=== PATIENT | female | born 1930 | race Caucasian/White ===

== ENCOUNTER → 2016-11-17 | Outpatient (CLI) | payer MEDICARE ==
[~2016-11-17] MED LIST: /CELE20CA; /ESOM40CA; /WARF25TA; ACET65TA; AMLO10TAB; ASPI1TAB PO; BUPR15TA OR; CALC600T10; CALCCHW12; CIPR500T4; CIPR500T4 OR; COLA100C PO; COLA100C2; DETR2CAP; DICL13PA TD; DICL13PA TOP; FLAG500T; GABA-279 PO; GLUC500T OR; HAIRTAB5 PO; HCTZ/LOSARTAN OR; HYDR25TA6; HYDR25TA8; KLOR10TA; LISI10TA4 OR; LISI20TA3 PO; MAPA325T2 PO; MILKSUS; MIRA3350 PO; NEUR100C PO; OXYC10TA97; PERC5TAB8; PRINZIDE; PROZ40CA; SENO8.6T5; SERT-141 PO; SIMV20TA2; SIMV20TA2 OR; SIMV20TA2 PO; THERGRAN OR; VENL75TA2 OR; VITMTA PO; ZEST10TA; [UNRECOGNIZED DRUG - OTHER] OR
--- NOTE | 2016-11-17 11:50 | REP ---
MRI CERVICAL SPINE WITHOUT CONTRAST: HISTORY: Spondylosis. A small central disc protrusion is present at the C2-3 level. There is minimal effacement of the thecal sac without spinal cord compression. The C2 neural foramina are patent. A disc bulge is present at the C3-4 level. There is minimal effacement of the thecal sac without spinal cord compression. Uncinate process hypertrophy is present on the right. This produces minimal narrowing of the right C3 neural foramen. The left C3 neural foramen is patent. A disc bulge is present at the C4-5 level. There are 2 mm of anterior subluxation of C4 on 5. There is minimal effacement of the thecal sac without spinal cord compression. Uncinate process hypertrophy is present on the right. This produces minimal narrowing of the right C4 neural foramen. The left C4 neural foramen is patent. A disc bulge and small right paracentral disc protrusion with associated osteophyte formation are present at the C5-6 level. The disc protrusion abuts the spinal cord. Uncinate process hypertrophy is present on the right. This produces mild narrowing of the right C5 neural foramen. The left C5 neural foramen is patent. A disc bulge with associated osteophyte formation is present at the C6-7 level. There is moderate effacement of the thecal sac without spinal cord compression. Bilateral uncinate process hypertrophy is present. This produces mild narrowing of the C6 neural foramina. Small disc extrusions are present at the T1-2 and T2-3 levels. There is mild effacement of the thecal sac without spinal cord compression. The neural foramina are patent on sagittal images. There is no other disc bulge or herniation. The remaining neural foramina are patent. The spinal cord is normal in signal intensity. There is no intradural extramedullary lesion. The C4-5 through C6-7 intervertebral discs are decreased in height consistent with disc degeneration. Normal signal intensity is present in the cervical vertebral bodies. IMPRESSION: There is cervical spondylosis at the C2-3 through C6-7 levels without spinal cord compression. Signed by Siddharth Vitale MD 11/17/2016 11:55 A
== END ==
LOC: M RAD 09:23
PROVIDERS: ATTEND Neurological Surgery
DX: M47.892 Other spondylosis, cervical region (principal)

== ENCOUNTER 2017-01-21 10:06 | Observation (INO) | payer MEDICARE ==
[~2017-01-21] VITALS: Ht 149.9 cm; Wt 87.1 kg
[~2017-01-21 10:06] MED LIST changes: -COLA100C PO; +COLA100C3 PO; -SERT-141 PO; +SERT50TA PO
[2017-01-21] MEDS ORDERED: GABA-282 PO (10:46)
[2017-01-21] MEDS ORDERED: NORC1TAB4 PO (10:50)
[2017-01-21] MEDS ORDERED: ONDANSETRON 4MG/2ML VIAL (J2405) IV ONE (11:30)
[2017-01-21] MEDS ORDERED: MORPHINE 2 MG/ML 1ML SYRINGE IV ONE ×2 (11:30→13:30)
[2017-01-21] MEDS ORDERED: ALEV220T26 PO (14:30)
[2017-01-21] MEDS ORDERED: LIDOCAINE 5% (LIDODERM) PATCH TD ONE (14:30)
[2017-01-21] MEDS ORDERED: GABA600T PO (14:30)
[2017-01-21] MEDS ORDERED: BIOTCAP PO (14:30)
--- NOTE | 2017-01-21 14:57 | HPEPDOC ---
General Date of Admission Jan 21, 2017 at 14:04 Chief Complaint The patient is a 86-year-old female Presented to the ER with right lower back pain. History of Present Illness Patient is a 86 year old female with a PMHx of DLP, HTN, Chronic back pain (2/2 Lumbar stenosis and herniated disks) and depression who presented to the ER with right lower back pain since yesterday evening. Patient noted that they went to sleep without any events and woke up in the middle of the night with severe back pain. She notes that she was trying to ambulate to the bathroom and was unable to do so. She denies any muscle weakness of numbness sensation. She denies any incontinence of bowel or bladder. She has had pain like this in the past that has been controlled with medications. She denies any trauma or falls. She has received joint injections in the past with relief. She has an upcoming appointment with [facility] on Sunday and notes that she will likely miss that because she will be here. She denies any chest pain, shortness of breath, cough, palpitations, nausea, vomiting, abdominal pain, constipation, diarrhea or urinary symptoms. She denies any fever or chills at home. Home Medications Scheduled (Lisinopril/Hydrochlorothi 20-25 mg) 1 Tab Tab, 1 TAB PO QHS, (Reported) Aspirin (Aspirin 81) 81 Mg Tab, 81 MG PO QHS, (Reported) Biotin (Vitamin H) (Biotin 5000) 5 Mg Cap, 5 MG PO QHS, (Reported) Gabapentin (Gabapentin) 300 Mg Cap, 300 MG PO QAM, (Reported) Gabapentin (Gabapentin) 600 Mg Tab, 600 MG PO QHS, (Reported) Multivitamins *[facility] STOCKED* (Thera M Plus *[facility] STOCKED*) 1 Tab Tab, 1 TAB PO QHS , (Reported) Sertraline Hcl (Sertraline HCl) 50 Mg Tab, 50 MG PO QHS, (Reported) Simvastatin (Simvastatin) 20 Mg Tab, 20 MG PO QHS, (Reported) Scheduled PRN Acetaminophen/Hydrocodone ([place] 5-325 mg) 1 Tab Tab, 1 TAB PO Q6HP PRN for pain , (Reported) Naproxen Sodium (Aleve) 220 Mg Tab, 220 MG PO DAILY PRN for PAIN, (Reported) Allergies Coded Allergies: Aminoglycosides (Verified Allergy, Mild, RAISED RASH ON WOUND SITE, 12/31/12 ) Bacitracin (Verified Allergy, Mild, RAISED RASH ON WOUND SITE, 12/31/12) Neomycin (Verified Allergy, Mild, RAISED RASH ON WOUND SITE, 12/31/12) Polymyxin B (Verified Allergy, Mild, RAISED RASH ON WOUND SITE, 12/31/12) Bee Venom (Unverified Allergy, Unknown, 12/31/12) SEAFOOD (Verified Allergy, Unknown, 12/16/07) Past Medical History Medical History DLP, HTN, Chronic back pain (2/2 Lumbar stenosis and herniated disks) and depression Surgical History Bilateral knee replacement Hysterectomy Appendectomy Tonsillectomy Family History - Non-contributory Social History - Denies the use of illicit drugs; Quit smoking 20 years prior, history of 30 years at [facility] [place], Social EtoH use - Denies recent travel or sick contacts - Lives with - 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 Review of Symptoms Other systems Constitutional: Denies weight loss, change in appetite, or recent trauma Eyes: No visual changes or eye pain Ears, Nose, Throat: Denies nose bleeds, or difficulty swallowing Cardiovascular: Denies chest pain, sweating, or orthopnea Respiratory: Denies cough, wheezing, or shortness of breath GI: Lenard nausea, vomiting, abdominal pain, diarrhea or constipation : Denies pain with urination or frequency Musculoskeletal: Right lower back pain Neuro / Psych: Denies muscle weakness or sensory loss Skin: No skin rashes noted All other review of systems negative; otherwise stated in history of present illness Vital Signs - Vitals: BP 128/58, HR 51, RR 18, Sat 94%RA, Temp 98.5F - General: Lying in bed, No acute distress, Speaking in full sentences, AAOx3 - HEENT: NC, AT, PERRLA, EOMI - CVS: RRR, +S1S2, - Lungs: Fair air entry bilaterally, Mild crackles at bilateral lung bases - Abdomen: Soft, Non-distended, Non-tender, + Bowel sounds x 4 - Extremities: + PPx4, No lower extremity edema, No calf tenderness - Neuro: No focal motor or sensory deficit; +Pain at right back when elevation of right leg - Skin: No visible rashes Plan / VTE VTE Prophylaxis Ordered?: Yes Plan Plan Intractable back pain likely 2/2 herniated disk and lumbar stenosis at L4-L5 - Presented with pain that woke her from sleep and now inability to walk because of pain - Had taken pain medications at home that did not control her pain - Will get XR of lumbar spine, CXR and Abdominal XR - Will check urinalysis (less likely 2/2 kidney stone) - Will adjust dose of Gabapentin, increase dose of [place] and add Lidocaine patch - Will get evaluation by physical therapy Crackles at lung bases - No shortness of breath, no JVD or LE edema - Will get CXR to evaluate DLP - c/w simvastatin HTN - c/w Lisinopril / HCTZ with holding parameters Depression - c/w Sertraline DVT prophylaxis - Will start Heparin HIREN CLARKE MD Jan 21, 2017 14:57
--- NOTE | 2017-01-21 15:14 | REP ---
Chest one-view HISTORY: Fluid overload Comparison: N 06/18/2016 The lungs are clear. The heart is normal in size. The pulmonary vasculature is normal in appearance. Impression: No acute disease. Signed by Siddharth Vitale MD 01/21/2017 03:05 P
[2017-01-21 15:23] LABS: BASO % 0.5 % (0.0-1.0); EOS # 0.2 K/mm3 (0.0-0.50); EOS % 2.5 % (0.0-3.0); LARGE UNSTAINED CELL # 0.1 K/mm3 (0.0-0.4); LARGE UNSTAINED CELL % 1.5 % (0.0-4.0); LYMPH # 2.1 K/mm3 (1.5-4.5); LYMPH % 22.9 % (24.0-44.0); MEAN CORPUSCULAR HEMOGLOBIN 31.3 pg (27.0-33.0); MEAN CORPUSCULAR HGB CONC 32.4 g/dl (32.0-36.5); MEAN CORPUSCULAR VOLUME 96.6 fl (80.0-96.0); MONO # 0.4 K/mm3 (0.0-0.8); MONO % 4.7 % (0.0-5.0); NEUTROPHILS # 5.9 K/mm3 (1.8-7.7); NEUTROPHILS % 67.9 % (36.0-66.0); PLATELET COUNT, AUTOMATED 222 k/mm3 (150-450); RED CELL DISTRIBUTION WIDTH 13.8 % (11.5-14.5); WHITE BLOOD COUNT 8.7 K/mm3 (4.0-10.0)
[2017-01-21 15:46] LABS: ALBUMIN/GLOBULIN RATIO 0.98 (1.00-1.93); ALKALINE PHOSPHATASE 75 U/L (45-117); ALT/SGPT 24 U/L (12-78); ANION GAP 7 MEQ/L (8-16); AST/SGOT 22 U/L (15-37); BILIRUBIN,TOTAL 0.7 MG/DL (0.2-1.0); BLOOD UREA NITROGEN 23 MG/DL (7-18); CALCIUM LEVEL 8.6 MG/DL (8.8-10.2); CARBON DIOXIDE LEVEL 27 MEQ/L (21-32); CHLORIDE LEVEL 103 MEQ/L (98-107); CREATININE FOR GFR 0.83 MG/DL (0.55-1.02); GLOMERULAR FILTRATION RATE > 60.0 (>32); GLUCOSE, FASTING 102 MG/DL (83-110); MAGNESIUM LEVEL 1.9 MG/DL (1.8-2.4); POTASSIUM SERUM 3.6 MEQ/L (3.5-5.1); SODIUM LEVEL 137 MEQ/L (136-145); TOTAL PROTEIN 8.1 GM/DL (6.4-8.2)
[2017-01-21 16:00] VITALS: BP 130/72
[2017-01-21] MEDS: HEPARIN SOD (PORCINE) 5000 UNITS/ML VIAL SC SCH ×2 (16:13→21:38)
[2017-01-21] MEDS: GABAPENTIN 100 MG CAP PO SCH ×2 (16:13→21:38)
[2017-01-21] MEDS: hydroCHLOROthiazide 25 MG TAB PO SCH (16:14)
[2017-01-21] MEDS: LISINOPRIL 20 MG TAB PO SCH (16:14)
[2017-01-21] MEDS: NORCO, ANEXSIA 5/325MG TABLET (HYDROcodone/ACETAMINOPHEN) PO PRN (16:14)
[2017-01-21 18:00] VITALS: BP 130/70
[2017-01-21] MEDS ORDERED: SERTRALINE HCL 50 MG TAB PO SCH (21:00)
[2017-01-21] MEDS ORDERED: SIMVASTATIN 20 MG TAB PO SCH (21:00)
[2017-01-21] MEDS ORDERED: ASPIRIN 81 MG ENTERIC TAB PO SCH (21:00)
[2017-01-21] MEDS ORDERED: MULTIVITAMINS/MINERALS THERAP 1 TAB PO SCH (21:00)
[2017-01-21] MEDS ORDERED: **NOTE PATIENT COMMENT** MISC XX ONE (21:00)
[2017-01-21] MEDS: DOCUSATE SODIUM 100 MG CAP PO SCH (21:38)
[2017-01-21 22:00] VITALS: BP 145/64
[2017-01-22 02:00] VITALS: BP 116/56
[2017-01-22] MEDS: HEPARIN SOD (PORCINE) 5000 UNITS/ML VIAL SC SCH (05:53)
[2017-01-22] MEDS: GABAPENTIN 100 MG CAP PO SCH (05:53)
[2017-01-22] MEDS: NORCO, ANEXSIA 5/325MG TABLET (HYDROcodone/ACETAMINOPHEN) PO PRN (05:58)
[2017-01-22 06:00] VITALS: BP 146/66
--- NOTE | 2017-01-22 06:48 | REP ---
KUB, ONE VIEW: HISTORY: Fluid overload. COMPARISON: 01/21/2015. Air is present in small and large intestine. There are no air fluid levels or dilated loops of intestine. There is no pneumoperitoneum. Degenerative change is present in the lumbar spine. IMPRESSION: Nonspecific bowel gas pattern. Signed by Siddharth Vitale MD 01/22/2017 08:23 A
--- NOTE | 2017-01-22 06:59 | REP ---
LUMBAR SPINE, FIVE VIEWS: HISTORY: Back pain. COMPARISON: 09/05/2016. There is no acute fracture or subluxation. The lumbar intervertebral discs are decreased in height. Vacuum phenomenon is present at the L1-2 and L3-4 through L5-S1 levels. These findings are consistent with disc degeneration. Osteophytes are present throughout the lumbar spine. There is narrowing of the L1-2 through L5-S1 facet joints with associated sclerosis. IMPRESSION: Degenerative change as described above. Signed by Siddharth Vitale MD 01/22/2017 08:25 A
[2017-01-22 08:04] LABS: BASO % 0.6 % (0.0-1.0); EOS # 0.3 K/mm3 (0.0-0.50); EOS % 3.5 % (0.0-3.0); LARGE UNSTAINED CELL # 0.2 K/mm3 (0.0-0.4); LYMPH # 2.5 K/mm3 (1.5-4.5); LYMPH % 27.9 % (24.0-44.0); MEAN CORPUSCULAR HEMOGLOBIN 31.6 pg (27.0-33.0); MEAN CORPUSCULAR HGB CONC 32.3 g/dl (32.0-36.5); MEAN CORPUSCULAR VOLUME 97.8 fl (80.0-96.0); MONO # 0.5 K/mm3 (0.0-0.8); MONO % 5.6 % (0.0-5.0); NEUTROPHILS # 5.1 K/mm3 (1.8-7.7); NEUTROPHILS % 60.4 % (36.0-66.0); PLATELET COUNT, AUTOMATED 208 k/mm3 (150-450); RED CELL DISTRIBUTION WIDTH 13.9 % (11.5-14.5); WHITE BLOOD COUNT 8.5 K/mm3 (4.0-10.0)
[2017-01-22 08:19] LABS: ALBUMIN 3.6 GM/DL (3.2-5.2); ALBUMIN/GLOBULIN RATIO 0.88 (1.00-1.93); BILIRUBIN,TOTAL 0.3 MG/DL (0.2-1.0); CALCIUM LEVEL 8.4 MG/DL (8.8-10.2); CREATININE FOR GFR 1.41 MG/DL (0.55-1.02); GLOMERULAR FILTRATION RATE 37.8 (>32); MAGNESIUM LEVEL 2.1 MG/DL (1.8-2.4); TOTAL PROTEIN 7.7 GM/DL (6.4-8.2)
[2017-01-22] MEDS: DOCUSATE SODIUM 100 MG CAP PO SCH (09:17)
[2017-01-22] MEDS: hydroCHLOROthiazide 25 MG TAB PO SCH (09:17)
[2017-01-22 09:18] VITALS: BP 155/70
[2017-01-22] MEDS: LISINOPRIL 20 MG TAB PO SCH (09:18)
[2017-01-22 10:00] VITALS: BP 133/59
--- NOTE | 2017-01-22 22:46 | DS.PDOC ---
Discharge Summary General Date of Admission Jan 21, 2017 at 14:04 Date of Discharge 01/22/2017 Attending Physician: PRAKASH YO MD Specialist/Consultants Involve PCP: Oz Evans MD Discharge Summary PROCEDURES PERFORMED DURING STAY: None. ADMITTING DIAGNOSES: 1. Intractable back pain secondary to herniated disc and spinal stenosis at L4- 5. 2. Crackles at lung bases. 3. Hypertension. 4. Depression. DISCHARGE DIAGNOSES: 1. Intractable low back pain. 2. Lumbar radicular pain. COMPLICATIONS/CHIEF COMPLAINT: Intractable Pain. HISTORY OF PRESENT ILLNESS: Ms. Napoles is an 86 year old female with a PMHx of DLP, HTN, Chronic back pain (2/2 Lumbar stenosis and herniated disks) and depression who presented to the ER with right lower back pain since yesterday evening. Patient noted that they went to sleep without any events and woke up in the middle of the night with severe back pain. She notes that she was trying to ambulate to the bathroom and was unable to do so. She denies any muscle weakness of numbness sensation. She denies any incontinence of bowel or bladder. She has had pain like this in the past that has been controlled with medications. She denies any trauma or falls. She has received joint injections in the past with relief. She has an upcoming appointment with [facility] on Sunday and notes that she will likely miss that because she will be here. She denies any chest pain, shortness of breath, cough, palpitations, nausea, vomiting, abdominal pain, constipation, diarrhea or urinary symptoms. She denies any fever or chills at home. HOSPITAL COURSE: Ms. Napoles was admitted to the medical-surgical unit with medical care provided by the hospitalist service. Obtained a lumbar spine x- ray with results noted below. Also obtained a urinalysis as this can contribute to low back pain, although it is less likely in this patient. Adjusted pain medications, including providing a lidocaine patch which provided significant relief. Ordered physical therapy; however, patient's pain completely resolved. Improved during hospitalization and stable at time of discharge. DISCHARGE MEDICATIONS: Please see below. ALLERGIES: Please see below. PHYSICAL EXAMINATION ON DISCHARGE: VITAL SIGNS: Please see below. GENERAL: Pleasant female who appears stated age, well nourished, in no apparent distress, appears tired HEENT: Atraumatic, normocephalic, PERRL, EOMI, wears spectacles, nasal septum appears midline, oral mucosa appears pink and moist NECK: Supple, trachea midline, no lymphadenopathy CARDIOVASCULAR EXAMINATION: Regular rate and rhythm, normal S1 and S2, no murmur , rub, click RESPIRATORY EXAMINATION: Clear to auscultation bilaterally, no wheeze, rhonchi, crackles ABDOMINAL EXAMINATION: Soft, non-tender, non-distended, bowel sounds appreciated EXTREMITIES: Moving all four extremities appropriately, no peripheral edam appreciated, peripheral pulses appreciated bilaterally, equal, symmetrical SKIN: No acute skin lesions or rashes noted NEUROLOGICAL EXAMINATION: CN II-XII grossly intact PSYCHIATRIC EXAMINATION: Mood and affect appear appropriate LABORATORY DATA: Please see below. IMAGING: Chest x-ray IMPRESSION: No acute disease Abdominal x-ray IMPRESSION: Non-specific bowel gas pattern Lumbosacral spine x-ray IMPRESSION: There is no acute fracture or subluxation. The lumbar intervertebral discs are decreased in height. Vacuum phenomenon is present at the L1-2 and L3-4 through L5-S1 levels. These findings are consistent with disc degeneration. Osteophytes are present throughout the lumbar spine. There is narrowing of the L1-2 through L5-S1 facet joints with associated sclerosis. PROGNOSIS: Stable ACTIVITY: As tolerated. DIET: 2 gram sodium DISCHARGE PLAN: Follow discharge instructions DISPOSITION: Home. DISCHARGE INSTRUCTIONS: 1. Follow-up with [facility] at pre-arranged appointment 2. Follow-up with Dr. Evans on 01/31/17 at 11:30am ITEMS TO FOLLOWUP ON ON OUTPATIENT: 1. Intractable back pain 2. Lumbar radicular pain DISCHARGE CONDITION: Stable. TIME SPENT ON DISCHARGE: Greater than 30 minutes. Vital Signs/I&Os Vital Signs Date Time Temp Pulse Resp B/P (MAP) Pulse Ox O2 Delivery O2 Flow Rate FiO2 01/22/17 10:00 97.7 55 18 133/59 (83) 94 Room Air I&O- Last 24 Hours up to 6 AM 01/22/17 05:59 Intake Total 600 ml Output Total 250 ml Balance 350 ml Laboratory Data Labs 24H Laboratory Tests 2 01/21/17 15:08: White Blood Count 8.7, Red Blood Count 3.91L, Hemoglobin 12.2, Hematocrit 37.8, Mean Corpuscular Volume 96.6H, Mean Corpuscular Hemoglobin 31.3, Mean Corpuscular Hemoglobin Concent 32.4, Red Cell Distribution Width 13.8, Platelet Count 222, Neutrophils (%) (Auto) 67.9H, Lymphocytes (%) (Auto) 22.9L, Monocytes (%) (Auto) 4.7, Eosinophils (%) (Auto) 2.5, Basophils (%) (Auto) 0.5, Neutrophils # (Auto) 5.9, Lymphocytes # (Auto) 2.1, Monocytes # (Auto) 0.4, Eosinophils # (Auto) 0.2, Basophils # (Auto) 0.0, Large Unclassified Cells % 1.5 , Large Unclassified Cells # 0.1, Anion Gap 7L, Glomerular Filtration Rate > 60.0, Blood Urea Nitrogen 23H, Creatinine 0.83, Sodium Level 137, Potassium Level 3.6, Chloride Level 103, Carbon Dioxide Level 27, Calcium Level 8.6L, Aspartate Amino Transf (AST/SGOT) 22, Alanine Aminotransferase (ALT/SGPT) 24, Alkaline Phosphatase 75, Total Bilirubin 0.7, Total Protein 8.1, Albumin 4.0, Magnesium Level 1.9, Albumin/Globulin Ratio 0.98L 01/22/17 06:44: Urine Appearance CLOUDYH, Urine Color YELLOW, Urine pH 5.0, Urine Specific [place] 1.019, Urine Protein NEGATIVE, Urine Glucose (UA) NEGATIVE, Urine Ketones NEGATIVE, Urine Urobilinogen 0.2, Urine Bilirubin NEGATIVE, Urine Leukocyte Esterase TRACEH, Urine Blood NEGATIVE, Urine Nitrite NEGATIVE, Urine WBC (Auto) 10H, Urine RBC (Auto) 3, Urine Hyaline Casts (Auto) 98, Urine Bacteria (Auto) 1+H, Urine Squamous Epithelial Cells 6, Urine Mucus (Auto) SMALL , Urine Sperm (Auto) 01/22/17 06:54: White Blood Count 8.5, Red Blood Count 3.62L, Hemoglobin 11.5L, Hematocrit 35.4L , Mean Corpuscular Volume 97.8H, Mean Corpuscular Hemoglobin 31.6, Mean Corpuscular Hemoglobin Concent 32.3, Red Cell Distribution Width 13.9, Platelet Count 208, Neutrophils (%) (Auto) 60.4, Lymphocytes (%) (Auto) 27.9, Monocytes ( %) (Auto) 5.6H, Eosinophils (%) (Auto) 3.5H, Basophils (%) (Auto) 0.6, Neutrophils # (Auto) 5.1, Lymphocytes # (Auto) 2.5, Monocytes # (Auto) 0.5, Eosinophils # (Auto) 0.3, Basophils # (Auto) 0.0, Large Unclassified Cells % 2.0 , Large Unclassified Cells # 0.2 01/22/17 06:55: Anion Gap 9, Glomerular Filtration Rate 37.8, Blood Urea Nitrogen 32H, Creatinine 1.41#H, Sodium Level 141, Potassium Level 4.0, Chloride Level 106, Carbon Dioxide Level 26, Calcium Level 8.4L, Aspartate Amino Transf (AST/SGOT) 26, Alanine Aminotransferase (ALT/SGPT) 23, Alkaline Phosphatase 73, Total Bilirubin 0.3#, Total Protein 7.7, Albumin 3.6, Magnesium Level 2.1, Albumin/ Globulin Ratio 0.88L CBC/BMP Laboratory Tests 01/21/17 15:08 Red Blood Count 3.91 L, Mean Corpuscular Volume 96.6 H, Mean Corpuscular Hemoglobin 31.3, Mean Corpuscular Hemoglobin Concent 32.4, Red Cell Distribution Width 13.8, Neutrophils (%) (Auto) 67.9 H, Lymphocytes (%) (Auto) 22.9 L, Monocytes (%) (Auto) 4.7, Eosinophils (%) (Auto) 2.5, Basophils (%) ( Auto) 0.5, Neutrophils # (Auto) 5.9, Lymphocytes # (Auto) 2.1, Monocytes # (Auto ) 0.4, Eosinophils # (Auto) 0.2, Basophils # (Auto) 0.0, Calcium Level 8.6 L, Aspartate Amino Transf (AST/SGOT) 22, Alanine Aminotransferase (ALT/SGPT) 24, Alkaline Phosphatase 75, Total Bilirubin 0.7, Total Protein 8.1, Albumin 4.0 01/22/17 06:54 Red Blood Count 3.62 L, Mean Corpuscular Volume 97.8 H, Mean Corpuscular Hemoglobin 31.6, Mean Corpuscular Hemoglobin Concent 32.3, Red Cell Distribution Width 13.9, Neutrophils (%) (Auto) 60.4, Lymphocytes (%) (Auto) 27.9, Monocytes (%) (Auto) 5.6 H, Eosinophils (%) (Auto) 3.5 H, Basophils (%) ( Auto) 0.6, Neutrophils # (Auto) 5.1, Lymphocytes # (Auto) 2.5, Monocytes # (Auto ) 0.5, Eosinophils # (Auto) 0.3, Basophils # (Auto) 0.0 01/22/17 06:55 Calcium Level 8.4 L, Aspartate Amino Transf (AST/SGOT) 26, Alanine Aminotransferase (ALT/SGPT) 23, Alkaline Phosphatase 73, Total Bilirubin 0.3 #, Total Protein 7.7, Albumin 3.6 Discharge Medications Scheduled (Lisinopril/Hydrochlorothi 20-25 mg) 1 Tab Tab, 1 TAB PO QHS, (Reported) Aspirin (Aspirin 81) 81 Mg Tab, 81 MG PO QHS, (Reported) Biotin (Vitamin H) (Biotin 5000) 5 Mg Cap, 5 MG PO QHS, (Reported) Gabapentin (Gabapentin) 300 Mg Cap, 300 MG PO QAM, (Reported) Gabapentin (Gabapentin) 600 Mg Tab, 600 MG PO QHS, (Reported) Multivitamins *[facility] STOCKED* (Thera M Plus *[facility] STOCKED*) 1 Tab Tab, 1 TAB PO QHS , (Reported) Sertraline Hcl (Sertraline HCl) 50 Mg Tab, 50 MG PO QHS, (Reported) Simvastatin (Simvastatin) 20 Mg Tab, 20 MG PO QHS, (Reported) Scheduled PRN Acetaminophen/Hydrocodone ([place] 5-325 mg) 1 Tab Tab, 1 TAB PO Q6HP PRN for pain , (Reported) Naproxen Sodium (Aleve) 220 Mg Tab, 220 MG PO DAILY PRN for PAIN, (Reported) Allergies Coded Allergies: Aminoglycosides (Verified Allergy, Mild, RAISED RASH ON WOUND SITE, 12/31/12 ) Bacitracin (Verified Allergy, Mild, RAISED RASH ON WOUND SITE, 12/31/12) Neomycin (Verified Allergy, Mild, RAISED RASH ON WOUND SITE, 12/31/12) Polymyxin B (Verified Allergy, Mild, RAISED RASH ON WOUND SITE, 12/31/12) Bee Venom (Unverified Allergy, Unknown, 12/31/12) SEAFOOD (Verified Allergy, Unknown, 12/16/07) MAYE CORCORAN OGME-I January 22, 2017 11:35
== END 2017-01-22 11:54 | disposition home or self-care (01) ==
LOC: EDBD 10:06 → M ED 11:16 → M ED INP 14:04 → M MSPAV 15:42
PROVIDERS: ADMIT Internal Medicine; ATTEND Internal Medicine
DX: R52 Pain, unspecified (principal); M48.06 Spinal stenosis, lumbar region; I10 Essential (primary) hypertension; F32.9 Major depressive disorder, single episode, unspecified; E78.5 Hyperlipidemia, unspecified; Z79.82 Long term (current) use of aspirin; Z79.899 Other long term (current) drug therapy; Z88.8 Allergy status to other drugs, medicaments and biological substances; Z91.030 Bee allergy status; Z91.013 Allergy to seafood
CPT/HCPCS: 36415; 71010; 72110; 74000; 80053; 81001; 83735; 85025; 96372; 96374; 96375; 96376; 97161; 99284; G0378; G8978; G8979; G8980; J2405; J3360

== ENCOUNTER 2018-02-04 10:10 | Emergency (ER) | payer MEDICARE ==
[2018-02-04] MEDS: oxyCODONE 5MG TAB PO (11:24)
== END 2018-02-04 12:45 | disposition home or self-care (01) ==
LOC: M ED 10:10
DX: M54.9 Dorsalgia, unspecified (principal); M51.34 Other intervertebral disc degeneration, thoracic region; M51.37 Other intervertebral disc degeneration, lumbosacral region; I10 Essential (primary) hypertension; Z96.653 Presence of artificial knee joint, bilateral; Z88.3 Allergy status to other anti-infective agents; Z88.8 Allergy status to other drugs, medicaments and biological substances; Z91.030 Bee allergy status; Z91.013 Allergy to seafood; Z79.899 Other long term (current) drug therapy; Z79.82 Long term (current) use of aspirin
CPT/HCPCS: 36415

== ENCOUNTER 2018-03-26 18:11 | Emergency (ER) | payer MEDICARE ==
[2018-03-26] MEDS: hydroCHLOROthiazide 25 MG TAB PO (20:45)
[2018-03-26] MEDS: LISINOPRIL 20 MG TAB PO (20:45)
[2018-03-26] MEDS: FAMOTIDINE INJ 20MG/2ML VIAL (S0028) IVP (20:45)
[2018-03-26] MEDS: methylPREDNISolone INJ 125 MG/2 ML VIAL (J2930) IV (20:45)
== END 2018-03-26 22:40 | disposition home or self-care (01) ==
LOC: M ED 18:11
DX: T63.481A Toxic effect of venom of other arthropod, accidental (unintentional), initial encounter (principal); X58.XXXA Exposure to other specified factors, initial encounter; Y92.89 Other specified places as the place of occurrence of the external cause; R22.2 Localized swelling, mass and lump, trunk; R09.89 Other specified symptoms and signs involving the circulatory and respiratory systems; F41.9 Anxiety disorder, unspecified; F32.9 Major depressive disorder, single episode, unspecified; E11.9 Type 2 diabetes mellitus without complications; I10 Essential (primary) hypertension; K57.92 Diverticulitis of intestine, part unspecified, without perforation or abscess without bleeding; G47.33 Obstructive sleep apnea (adult) (pediatric); M48.00 Spinal stenosis, site unspecified; Z87.891 Personal history of nicotine dependence; Z79.2 Long term (current) use of antibiotics; Z91.030 Bee allergy status; Z91.013 Allergy to seafood; Z79.899 Other long term (current) drug therapy; Z79.82 Long term (current) use of aspirin
CPT/HCPCS: J2930

== ENCOUNTER → 2019-02-07 | Outpatient (CLI) | payer MEDICARE ==
[~2019-02-07] MED LIST changes: -/CELE20CA; -/ESOM40CA; -/WARF25TA; +ALEV220T26 PO; -ASPI1TAB PO; +ASPI81TA26 PO; +BIOTCAP PO; +CELE1CAP4; -COLA100C3 PO; +COLA100C5 PO; +COUM1TAB18; +GABA-1171 PO; -GABA-279 PO; +GABA-843 PO; +GABA600T4 PO; +NEXI1CAP3; +NORC1TAB7 PO; +OXYC-517 PO; +SERT-141 PO; -SERT50TA PO
--- NOTE | 2019-02-07 11:50 | REP ---
MR LUMBAR SPINE WITHOUT CONTRAST: HISTORY: Back pain. COMPARISON: 06/16/2016. Decreased signal intensity on T2-weighted images is present in the lower intervertebral discs. The disc are decreased in height. These findings are consistent with disc degeneration. A diffuse disc bulge is present at the L1-2 level. There is hypertrophy of the ligamenta flava and posterior articulating facets. There are 3 mm of retrolisthesis of L1 on 2. These findings produce mild central canal stenosis. There is compression of the right L1 nerve in the neural foramen. The left L1 nerve exits the neural foramen without compression. A diffuse disc bulge is present at the L2-3 level. There is hypertrophy of the ligamenta flava and posterior articulating facets. These findings produce moderate central canal stenosis. The L2 nerves exit the neural foramina without compression. A diffuse disc bulge is present at the L3-4 level. There is hypertrophy of the ligamenta flava and posterior articulating facets. There are 3 mm of retrolisthesis of L3 on 4. These findings produce severe central canal stenosis. There is compression of the left L3 nerve in the neural foramen. The right L3 nerve exits the neural foramen without compression. A diffuse disc bulge and small central disc extrusion are present at the L4-5 level. The disc extrusion is decreased in size .There is superior migration of disc material. There is hypertrophy of the ligamenta flava and posterior articulating facets. There are 3 mm of grade 1 spondylolisthesis of L4 on 5. These findings produce severe central canal stenosis. There is compression of the L4 nerves in the neural foramina. A diffuse disc bulge is present at the L5-S1 level. There is minimal compression of the thecal sac. There is hypertrophy of the posterior articulating facets. There is compression of the right L5 nerve in the neural foramen. The left L5 nerve exits the neural foramen without compression. The conus medullaris is normal in appearance terminating at the level of the T12-L1 intervertebral disc. Increased signal intensity on T2-weighted images is present in the endplates of the L1-L5 vertebral bodies. This represents degenerative change. IMPRESSION: 1. Mild central canal stenosis at the L1-2 level secondary to disc bulge, ligamentous and facet hypertrophy and retrolisthesis . There is compression of the right L1 nerve in the neural foramen. 2. Moderate central canal stenosis at the L2-3 level secondary to disc bulge, ligamentous and facet hypertrophy. 3. Severe central canal stenosis at the L3-4 level secondary to disc bulge, ligamentous, and facet hypertrophy and retrolisthesis. There is compression of the left L3 nerve in the neural foramen. 4. Severe central canal stenosis at the L4-5 level secondary to disc bulge, disc extrusion, ligamentous and facet hypertrophy and grade 1 spondylolisthesis. There is compression of the L4 nerves in the neural foramina. The disc extrusion is decreased in size. The spondylolisthesis is a new finding. 5. Diffuse disc bulge at the L5-S1 level with minimal thecal sac compression. There is compression of the right L5 nerve in the neural foramen. There is no other significant change. Electronically Signed by Siddharth Vitale MD 02/07/2019 11:52 A
== END ==
LOC: M PLARAD 09:12
PROVIDERS: ATTEND Nurse Practitioner
DX: M48.062 Spinal stenosis, lumbar region with neurogenic claudication (principal); M51.27 Other intervertebral disc displacement, lumbosacral region

== ENCOUNTER 2019-05-12 13:30 | Emergency (ER) | payer MEDICARE ==
[~2019-05-12] VITALS: Ht 152.4 cm; Wt 84.4 kg
[~2019-05-12 13:30] MED LIST changes: +LISI20TA20 PO; -LISI20TA3 PO
[2019-05-12] MEDS ORDERED: TRAM50TA2 OR (13:54)
[2019-05-12] MEDS ORDERED: EPIP0.3I2 IM (14:35)
[2019-05-12] MEDS ORDERED: IBUPROFEN 600 MG TAB PO ONE (14:45)
[2019-05-12 14:59] VITALS: BP 158/74
== END 2019-05-12 15:10 | disposition home or self-care (01) ==
LOC: M ED 13:30
DX: S90.461A Insect bite (nonvenomous), right great toe, initial encounter (principal); W57.XXXA Bitten or stung by nonvenomous insect and other nonvenomous arthropods, initial encounter; Y92.89 Other specified places as the place of occurrence of the external cause; I10 Essential (primary) hypertension; Z78.0 Asymptomatic menopausal state; Z79.899 Other long term (current) drug therapy; Z79.82 Long term (current) use of aspirin; Z88.8 Allergy status to other drugs, medicaments and biological substances; Z91.018 Allergy to other foods; Z91.030 Bee allergy status; Z87.891 Personal history of nicotine dependence

== ENCOUNTER → 2019-07-01 | Outpatient (REF) | payer MEDICARE, OTHER ==
[~2019-07-01] MED LIST changes: +EPIP0.3I2 IM; +TRAM50TA2 OR
[2019-07-01 09:12] LABS: HEMATOCRIT 34.8 % (36.0-47.0); HEMOGLOBIN 11.1 g/dl (12.0-15.5); MEAN CORPUSCULAR HEMOGLOBIN 28.9 pg (27.0-33.0); MEAN CORPUSCULAR HGB CONC 31.9 g/dl (32.0-36.5); MEAN CORPUSCULAR VOLUME 90.6 fl (80.0-96.0); PLATELET COUNT, AUTOMATED 406 10^3/uL (150-450); RED BLOOD COUNT 3.84 10^6/uL (4.00-5.40); WHITE BLOOD COUNT 10.7 10^3/uL (4.0-10.0)
[2019-07-01 09:37] LABS: HEMOGLOBIN A1c 5.9 %
[2019-07-01 09:39] LABS: BLOOD UREA NITROGEN 13 MG/DL (7-18); CALCIUM LEVEL 8.8 MG/DL (8.8-10.2); CARBON DIOXIDE LEVEL 24 MEQ/L (21-32); CHLORIDE LEVEL 106 MEQ/L (98-107); GLOMERULAR FILTRATION RATE > 60.0 (>32); GLUCOSE, FASTING 136 MG/DL (70-100); POTASSIUM SERUM 4.1 MEQ/L (3.5-5.1); SODIUM LEVEL 140 MEQ/L (136-145)
== END ==
PROVIDERS: ATTEND Internal Medicine
DX: I10 Essential (primary) hypertension (principal); D64.9 Anemia, unspecified

== ENCOUNTER → 2019-07-08 | Outpatient (REF) ==
[2019-07-08 09:01] LABS: HEMATOCRIT 36.7 % (36.0-47.0); HEMOGLOBIN 11.8 g/dl (12.0-15.5); MEAN CORPUSCULAR HEMOGLOBIN 29.4 pg (27.0-33.0); MEAN CORPUSCULAR HGB CONC 32.2 g/dl (32.0-36.5); MEAN CORPUSCULAR VOLUME 91.3 fl (80.0-96.0); PLATELET COUNT, AUTOMATED 433 10^3/uL (150-450); RED BLOOD COUNT 4.02 10^6/uL (4.00-5.40); WHITE BLOOD COUNT 9.3 10^3/uL (4.0-10.0)
[2019-07-08 09:30] LABS: BLOOD UREA NITROGEN 12 MG/DL (7-18); CARBON DIOXIDE LEVEL 25 MEQ/L (21-32); CHLORIDE LEVEL 106 MEQ/L (98-107); CREATININE FOR GFR 0.74 MG/DL (0.55-1.30); GLOMERULAR FILTRATION RATE > 60.0 (>32); GLUCOSE, FASTING 97 MG/DL (70-100); POTASSIUM SERUM 4.2 MEQ/L (3.5-5.1); SODIUM LEVEL 140 MEQ/L (136-145)
== END ==
PROVIDERS: ATTEND Internal Medicine
DX: D64.9 Anemia, unspecified (principal); I10 Essential (primary) hypertension

== ENCOUNTER → 2019-09-19 | Outpatient (CLI) | payer MEDICARE, OTHER ==
[~2019-09-19] MED LIST changes: -SIMV20TA2 PO; +SIMV20TA22 PO
--- NOTE | 2019-09-19 13:00 | REP ---
Clinical: Sacroiliitis. Technique: AP, lateral, bilateral oblique, and coned-down views of the lumbosacral spine. Findings: Laminectomy and bilateral Pulido rods noted along with chronic degenerative changes. No acute fracture / compression injury or acute subluxation. Atherosclerotic disease to the aorta noted. The sacroiliac joints appear relatively normal. Impression: Postsurgical and chronic changes. Electronically Signed by Andres Neal MD 09/19/2019 12:51 P
== END ==
LOC: M WUC 12:05
PROVIDERS: ATTEND Internal Medicine
DX: M46.1 Sacroiliitis, not elsewhere classified (principal)

== ENCOUNTER 2020-02-18 13:52 | Emergency (ER) | payer MEDICARE, OTHER ==
[~2020-02-18] VITALS: Ht 149.9 cm; Wt 83.4 kg
[~2020-02-18 13:52] MED LIST changes: -MAPA325T2 PO; +MAPA325T8 PO
[2020-02-18] MEDS ORDERED: NS 500 ML IV ONE (14:15)
[2020-02-18 14:43] LABS: BASO # 0.1 10^3/uL (0.0-0.2); BASO % 0.7 % (0.0-1.0); EOS # 0.3 10^3/uL (0.0-0.5); EOS % 3.4 % (0.0-3.0); HEMATOCRIT 33.4 % (36.0-47.0); HEMOGLOBIN 10.7 g/dl (12.0-15.5); LYMPH # 2.3 10^3/uL (1.5-5.0); LYMPH % 28.4 % (24.0-44.0); MEAN CORPUSCULAR HEMOGLOBIN 28.8 pg (27.0-33.0); MEAN CORPUSCULAR VOLUME 89.8 fl (80.0-96.0); MONO # 0.5 10^3/uL (0.0-0.8); MONO % 6.4 % (0.0-5.0); NEUTROPHILS % 60.9 % (36.0-66.0); PLATELET COUNT, AUTOMATED 220 10^3/uL (150-450); RED BLOOD COUNT 3.72 10^6/uL (4.00-5.40); WHITE BLOOD COUNT 8.2 10^3/uL (4.0-10.0)
--- NOTE | 2020-02-18 15:01 | REP ---
PORTABLE CHEST X-RAY: Single view. HISTORY: Syncope. COMPARISON CHEST X-RAY: January 21, 2017. FINDINGS: Monitoring electrodes are seen overlying the chest. Lumbar spine fusion hardware is noted in place. The lungs are symmetrically aerated and clear. The pleural angles are sharp. Heart is not enlarged. The aorta is calcific and tortuous. There are degenerative changes in the thoracic spine. IMPRESSION: No active disease. Electronically Signed by Sherman Foote MD 02/18/2020 03:27 P
[2020-02-18 15:12] LABS: BLOOD UREA NITROGEN 18 MG/DL (7-18); CALCIUM LEVEL 8.7 MG/DL (8.8-10.2); CARBON DIOXIDE LEVEL 29 MEQ/L (21-32); CHLORIDE LEVEL 103 MEQ/L (98-107); CK-MB VALUE MASS 4.5 NG/ML (<3.6); CPK CREATINE PHOSPHOKINASE 400 U/L (26-192); CREATININE FOR GFR 0.97 MG/DL (0.55-1.30); ETHYL ALCOHOL (ETHANOL) 0.005 % (0.000-0.010); GLOMERULAR FILTRATION RATE 57.8 (>32); GLUCOSE, FASTING 98 MG/DL (70-100); MAGNESIUM LEVEL 1.9 MG/DL (1.8-2.4); MB/CK RELATIVE INDEX 1.12 (< OR =4); POTASSIUM SERUM 3.4 MEQ/L (3.5-5.1); SODIUM LEVEL 137 MEQ/L (136-145); TROPONIN I < 0.02 NG/ML (< 0.10)
--- NOTE | 2020-02-18 15:13 | REP ---
CT BRAIN WITHOUT CONTRAST: HISTORY: Syncope. Injury in a fall. FINDINGS: Digital preliminary obstetric anaesthetist radiograph is unremarkable. The patient is edentulous. The bony calvarium is intact. There is vascular calcification in the carotid siphons bilaterally. Visualized paranasal sinuses are clear. On soft tissue window settings, that there is moderate generalized volume loss. There is no evidence of acute intracranial hemorrhage. No acute infarction is seen. Malik/white differentiation pattern is normal. There is no evidence of mass or midline shift. IMPRESSION: Moderate generalized volume loss. Vascular calcification. Mild small vessel changes. No acute intracranial abnormality. Electronically Signed by Sherman Foote MD 02/18/2020 03:28 P
--- NOTE | 2020-02-18 15:17 | REP ---
CT STUDY OF THE CERVICAL SPINE WITHOUT CONTRAST: HISTORY: Injury in a fall. Comparison MRI study cervical spine November 17, 2016. TECHNIQUE: Helical scanning is acquired and overlapping 2 mm high resolution axial images were generated and reviewed at bone and soft tissue window settings. Coronal and sagittal multiplanar re-formations images are generated. CT FINDINGS: There is no evidence of cervical spine element fracture. No skull base fracture is seen. Cervical vertebral body heights are preserved. Alignment is normal. Facet joints are normally aligned bilaterally at each cervical level on multiplanar re-formations images. There is no evidence of intraspinal or paraspinal hematoma. No extra vertebral abnormality is seen. There are degenerative spondylosis changes. 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 There is a stable 2-3 mm anterolisthesis of C4 on C5 unchanged. There is degenerative disc disease at C5-6 and C6-7 with posterior osteophytic ridging and diffuse disc bulging. This is unchanged as well. There is right-sided uncovertebral spurring at C5-6. There is osteoarthritic facet hypertrophy and sclerosis in the mid cervical spine most pronounced on the right. There is some vascular calcification in the carotid arteries bilaterally. The lung apices show mild pleuroparenchymal fibrosis bilaterally. IMPRESSION: Advanced degenerative spondylosis changes. Findings status quo from November 17, 2016 prior MRI study. No fracture or traumatic subluxation seen. Otherwise negative CT study of the cervical spine without contrast. Electronically Signed by Sherman Foote MD 02/18/2020 03:29 P
[2020-02-18 16:03] VITALS: BP 181/74
--- NOTE | 2020-02-18 17:51 | ECGEPIP ---
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
== END 2020-02-18 16:33 | disposition home or self-care (01) ==
LOC: EDBD 13:52 → M ED 13:52
DX: R29.6 Repeated falls (principal); R41.3 Other amnesia; I45.10 Unspecified right bundle-branch block; I10 Essential (primary) hypertension; E78.5 Hyperlipidemia, unspecified; F17.200 Nicotine dependence, unspecified, uncomplicated; Z91.013 Allergy to seafood; Z91.030 Bee allergy status; Z79.899 Other long term (current) drug therapy; Z79.82 Long term (current) use of aspirin
CPT/HCPCS: 36415; 70450; 71045; 72125; 80048; 81001; 82550; 82553; 83735; 84443; 84484; 85025; 87086; 93005; 93041; 94760; 96360; 96361; 99285; G0480

== ENCOUNTER 2020-03-05 09:27 | Emergency (ER) | payer MEDICARE, OTHER ==
[~2020-03-05] VITALS: Ht 149.9 cm; Wt 82.7 kg
[2020-03-05] MEDS ORDERED: DULO1CAP6 PO (09:41)
[2020-03-05] MEDS ORDERED: SERT50TA29 PO (09:41)
[2020-03-05] MEDS ORDERED: HYDR-4571 PO (09:41)
--- NOTE | 2020-03-05 11:45 | REP ---
RIGHT HIP, TWO VIEWS: Two views of the right hip performed. A metallic screw is seen in the region of the right sacroiliac joint. I see no evidence of acute fracture or dislocation. There are moderate degenerative changes at the hip joint with joint space narrowing, subchondral sclerosis and spurring. IMPRESSION: Moderate degenerative changes with no fracture or dislocation. Electronically Signed by Jim Malik MD 03/09/2020 06:28 P
[2020-03-05 12:25] VITALS: BP 167/79
== END 2020-03-05 12:31 | disposition home or self-care (01) ==
LOC: M ED 09:27
DX: G89.29 Other chronic pain (principal); M25.551 Pain in right hip; M25.751 Osteophyte, right hip; E78.5 Hyperlipidemia, unspecified; I10 Essential (primary) hypertension; Z79.82 Long term (current) use of aspirin; Z79.899 Other long term (current) drug therapy; Z87.891 Personal history of nicotine dependence; Z88.8 Allergy status to other drugs, medicaments and biological substances; Z91.013 Allergy to seafood; Z91.030 Bee allergy status; Z96.653 Presence of artificial knee joint, bilateral

== ENCOUNTER 2020-05-15 10:54 | Emergency (ER) | payer MEDICARE, OTHER ==
[~2020-05-15] VITALS: Ht 152.4 cm; Wt 74.5 kg
[~2020-05-15 10:54] MED LIST changes: +DULO1CAP6 PO; +HYDR-4571 PO; +SERT50TA29 PO
[2020-05-15 12:16] LABS: BASO # 0.1 10^3/uL (0.0-0.2); BASO % 0.4 % (0.0-1.0); EOS # 0.3 10^3/uL (0.0-0.5); EOS % 2.2 % (0.0-3.0); HEMATOCRIT 29.5 % (36.0-47.0); LYMPH # 1.6 10^3/uL (1.5-5.0); LYMPH % 14.4 % (24.0-44.0); MEAN CORPUSCULAR HEMOGLOBIN 28.3 pg (27.0-33.0); MEAN CORPUSCULAR HGB CONC 30.5 g/dl (32.0-36.5); MEAN CORPUSCULAR VOLUME 92.8 fl (80.0-96.0); MONO # 0.6 10^3/uL (0.0-0.8); MONO % 5.7 % (0.0-5.0); NEUTROPHILS # 8.7 10^3/uL (1.5-8.5); NEUTROPHILS % 76.9 % (36.0-66.0); PLATELET COUNT, AUTOMATED 398 10^3/uL (150-450); RED BLOOD COUNT 3.18 10^6/uL (4.00-5.40); WHITE BLOOD COUNT 11.3 10^3/uL (4.0-10.0)
[2020-05-15 12:35] LABS: BLOOD UREA NITROGEN 11 MG/DL (7-18); C REACTIVE PROTEIN QUANTITATIV 1.72 MG/DL (0.00-0.30); CALCIUM LEVEL 8.8 MG/DL (8.8-10.2); CARBON DIOXIDE LEVEL 29 MEQ/L (21-32); CHLORIDE LEVEL 103 MEQ/L (98-107); CREATININE FOR GFR 0.69 MG/DL (0.55-1.30); GLOMERULAR FILTRATION RATE > 60.0 (>32); GLUCOSE, FASTING 104 MG/DL (70-100); POTASSIUM SERUM 3.6 MEQ/L (3.5-5.1); SODIUM LEVEL 137 MEQ/L (136-145); URIC ACID 3.7 MG/DL (2.6-6.0)
[2020-05-15] MEDS ORDERED: INDO50CA91 PO (13:01)
[2020-05-15 13:10] VITALS: BP 148/82
== END 2020-05-15 13:11 | disposition home or self-care (01) ==
LOC: M ED 10:54
DX: D64.9 Anemia, unspecified (principal); M10.031 Idiopathic gout, right wrist; E11.9 Type 2 diabetes mellitus without complications; E78.5 Hyperlipidemia, unspecified; I10 Essential (primary) hypertension; Z87.891 Personal history of nicotine dependence; Z88.1 Allergy status to other antibiotic agents; Z88.8 Allergy status to other drugs, medicaments and biological substances; Z91.013 Allergy to seafood; Z91.030 Bee allergy status; Z79.82 Long term (current) use of aspirin; Z79.899 Other long term (current) drug therapy

== ENCOUNTER → 2020-09-20 | Outpatient (CLI) | payer MEDICARE, OTHER ==
[~2020-09-20] MED LIST changes: +INDO50CA91 PO
[2020-09-20 17:02] LABS: ALBUMIN 3.8 GM/DL (3.2-5.2); ALT/SGPT 23 U/L (12-78); BILIRUBIN,TOTAL 0.8 MG/DL (0.2-1.0); BLOOD UREA NITROGEN 15 MG/DL (7-18); CALCIUM LEVEL 8.6 MG/DL (8.8-10.2); CARBON DIOXIDE LEVEL 30 MEQ/L (21-32); CHLORIDE LEVEL 105 MEQ/L (98-107); CHOLESTEROL LEVEL 203 MG/DL (<200); CHOLESTEROL RISK RATIO 2.706 (<5); CREATININE FOR GFR 0.77 MG/DL (0.55-1.30); GLOMERULAR FILTRATION RATE > 60.0 (>32); GLUCOSE, FASTING 111 MG/DL (70-100); HDL CHOLESTEROL 75 MG/DL (>40); LDL CHOLESTEROL 60 MG/DL (<100); NON-HDL-C 128 MG/DL; POTASSIUM SERUM 3.9 MEQ/L (3.5-5.1); SODIUM LEVEL 140 MEQ/L (136-145); TOTAL PROTEIN 7.6 GM/DL (6.4-8.2); TRIGLYCERIDES LEVEL 340 MG/DL (<150)
== END ==
LOC: M WUC 14:34
PROVIDERS: ATTEND Internal Medicine
DX: E78.5 Hyperlipidemia, unspecified (principal); I10 Essential (primary) hypertension; M48.061 Spinal stenosis, lumbar region without neurogenic claudication

== ENCOUNTER 2020-10-28 15:15 | Emergency (ER) | payer MEDICARE, OTHER ==
[~2020-10-28] VITALS: Ht 167.6 cm; Wt 68.0 kg
[~2020-10-28 15:15] MED LIST changes: +GABA-282 PO; -GABA-843 PO
--- NOTE | 2020-10-28 16:28 | REP ---
INDICATION: truama. COMPARISON: Comparison radiographs are from 19 September 2019.. TECHNIQUE: Helical scanning is acquired. 4 mm axial images are generated. Coronal and sagittal MPR images are reviewed. FINDINGS: Patient is status post multilevel laminectomy and posterior element for fusion with transpedicle screws placed bilaterally and interconnecting rods. The lumbar spine is fused from L1 to S1 and there are iliac fixation screws bilaterally. In addition, there are transpedicle screws and dorsal fixation rods bilaterally T12 which are apparently fixed to the upper portion of the L1 and L2 fixation rods. There is no visible lumbar spine vertebral fracture or collapse. There are sclerotic changes associated with the transpedicle screws in place at T12 and L1 bilaterally. The T12 screws have some radiolucency along their intra osseous coarse. Laminectomies have been performed at each level and T12 through S1. There is some spray artifact from the metallic components but no posterior element fracture is apparent. No paravertebral soft tissue mass or hematoma is seen. Vascular calcification is seen in tortuous normal caliber aorta. IMPRESSION: Extensive laminectomy and posterior element screw cr fixation fusion T12 through the iliac crests and S1. No acute traumatic abnormality. <Electronically signed by Que Foote > 10/28/20 [id number]
--- NOTE | 2020-10-28 16:33 | REP ---
INDICATION: truama. COMPARISON: None. TECHNIQUE: Helical scanning is acquired and 4 mm axial images are generated. Coronal and sagittal MPR images are generated and reviewed. FINDINGS: Patient is status post thoracolumbar spine fusion with transpedicle screws and connecting hardware in place dorsally at T12 and L1. There is a radiolucent change along the course of the T12 fixation screws as described in the lumbar spine report. There is degenerative disc disease at T12-L1 and L1-L2 as well as T11-12. Laminectomies have been performed at T12 and in the lumbar spine. Thoracic vertebral body heights are preserved. There is diffuse degenerative disc disease. No fracture or collapse is seen. There is disc bulging and disc calcification at T9-10, T8-9, T7-8, and T 6 7. Posterior elements and visualized ribcage are intact. Vascular calcification is noted. The visualized lung thornton are clear. IMPRESSION: Status post extensive fusion and laminectomy T12 into the lumbar spine. No traumatic abnormality is noted. There is some radiolucency surrounding the transpedicle screws at T12 bilaterally which may reflect loosening. This is a chronic finding. <Electronically signed by Que Foote > 10/28/20 [id number]
[2020-10-28 16:59] VITALS: O2SAT 97
--- OUTSIDE RECORDS SUMMARY | 2020-10-28 17:10 | CCD | Summary of Care ---
Author Author [facility] Organization [facility] Address Unknown Phone Unavailable Care Team Providers Care Egg Caser Name Role Phone Oz Evans MD PCP Reason for Visit * Reason Comments Post-op T12-L2 DECOMPRESSION DISCEC AJ WITH EXTENSION OF INSTRUMENTATION [id number], AND TRANSFACET DECOMPRESSION RIGHT SIDE Encounter Details Care Team Description Date Type Department Nacho Mayers, DIVER PUMPER [address] [place] [address] Status post lumbar spinal fusion (Primar y Dx) 08/11/2020 Office Visit [facility] , [facility] [address] [place] [address] Allergies Comments Active Allergy Reactions Severity Noted Date Other reaction(s): raised rash on wound site Aminoglycosides 05/15/2020 Other reaction(s): raised rash on wound site, raised rash on wound site Bacitracin High 05/12/2019 Bee Venom Shortness Of High 01/31/2019 Breath, Swelling Crab (Diagnostic) Swelling High 04/15/2019 Other reaction(s): raised rash on wound site, raised rash on wound site Neomycin High 05/12/2019 Other reaction(s): raised rash on wound site, raised rash on wound site Polymyxin B High 05/12/2019 Seafood 02/04/2018 documented as of this encounter (statuses as of 08/11/2020) Medications End Date Status Medication Sig Dispensed Refills Start Date Active sertraline (ZOLOFT) 50 MG Take 50 mg by 0 10/26 tablet mouth nightly 9 Active Multiple Take 1 tablet 0 Vitamins-Minerals (HAIR by mouth SKIN AND NAILS FORMULA nightly PO) Active simvastatin (ZOCOR) 20 MG Take 20 mg by 0 03/24 tablet mouth nightly 9 Active Gabapentin 100 MG Oral Take 2 60 capsule 0 Capsule (NEURONTIN) capsules by 0 mouth nightly 05/07/2021 Active Lisinopril 20 MG Oral Take 1 tablet 30 tablet 0 Tablet (ZESTRIL) by mouth 0 daily Active Diclofenac Sodium 1 % Apply to back 100 g 1 Transdermal Gel and right hip 0 (VOLTAREN) BID PRN pain Active Senna 8.6 MG Oral Tablet Take 2 120 each 0 0 tablets by 0 mouth nightly as needed Additional Information Patient not taking. 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 Now with acute back pain and neurogenic claudication with cauda equina compression due toadvanced discogenic d egenerative changes at T12-L1 result in severe canal stenosis with impingeme nt of the conus medullaris and the cauda equina. S/P T12-L2 DECOMPRESSION DISCECTOMY WIT H EXTENSION OF INSTRUMENTATION [id number], AND TRANSFACET DECOMPRESSION RIGHT SIDE Physical therapy and occupational thera py Postoperative anemia due to acute blood loss 020 Overview: Follow Type 2 diabetes mellitus 05/03/2020 Overview: Diet-controlled Impaired mobility and activities of daily living 06/2020 Overview: Physical therapy occupational therapy a nd recreational therapy YURY on CPAP 05/03/2020 Overview: Patient seen using her own CPAP at [facility] t Severe obesity (BMI 35.0-35.9) 04/28/2020 Normocytic anemia 04/28/2020 Depression 04/28/2020 Overview: Zoloft 50 mg daily Anxiety 04/28/2020 Hyperlipidemia 04/28/2020 Overview: Zocor 20 mg daily Essential hypertension 04/28/2020 Overview: Lisinopril 20 mg daily No diagnosis on [place] I documented as of this encounter (statuses as of 08/11/2020) Social History Date Tobacco Use Types Packs/Day Years Used Quit: 2008 Former Smoker 4 5 Smokeless Tobacco: Never Used Drinks/Week oz/Week Comments Alcohol Use none in > 6 month Yes Sex Assigned at Date Recorded Not on file Date Recorded COVID-19 Exposure Response 08/11/2020 9:29 AM EST In the last month, have you been in contact with No / Unsure someone who was confirmed or suspected to have Coronavirus / COVID-19? documented as of this encounter Last Filed Vital Signs Not on filedocumented in this encounter Progress Notes * Nahco Mayers, DIVER PUMPER - 08/11/2020 11:[address] Hua CHIEF COMPLAINT: Chief Complaint Patient presents with Post-op T12-L2 DECOMPRESSION DISCECTOMY WITH EXTENSION OF INSTRUMENTATION [id number], A ND TRANSFACET DECOMPRESSION RIGHT SIDE HPI Olivia Napoles presents today for follow-up status post lumbar fusion. Patient wa s seen here with Dr. Moore, please see that note for full details. Patient s tates that since her last visit she has not noted any worsening symptoms.. She states that overall she feels that she has noted slight improvement. She denies any new or worsening symptoms. Physical Exam: There is no height or weight on file to calculate BMI. General : She is well groomed. Alert and oriented x 4. Spine/neurologic: 5/5 strength in bilateral TA, EHL, gastroc, quadriceps, hamst ring. Sensation intact to light touch throughout all dermatomes of bilateral lo wer extremities. Lower extremity reflexes 2+ bilaterally. Gait: Pt ambulates with well balanced gait. Social History Tobacco Use Smoking Status Former Smoker Packs/day: 4.00 Years: 5.00 Pack years: 20.00 Quit date: 2008 Years since quittin.8 Smokeless Tobacco Never Used Radiographic studies: X-rays of her lumbar spine were taken today and reviewed with the patient. This noted for stable positioning of hardware without interval change from previous imaging. Assessment: 1. Status post lumbar spinal fusion XR Spine Lumbar 4-More Views Plan: We have reviewed Olivia Napoles symptoms, physical exam findings, imaging studies and treatment to date. We have reviewed treatment options to include the use of physical therapy, NSAIDs and the possibility of injections. Our attempts will b e to try to maximize conservative care. At this time discussed with the patient that we would continue to follow. I lik e to see him back in 8 weeks to see how she is progressing. We will get repeat imaging at that time. She stated understanding and agreement this plan. Follow up visit info: Return for follow-up: 8 weeks Imaging next visit: X-rays lumbar spine I have advised the patient to call our office with any questions, concerns, new or worsening symptoms. I have answered all questions to patient's stated satisfa ction. This document was dictated using 20lines software. A reasonable attempt at proof reading has been made to minimize errors. Please ca ll our office if you have any questions. documented in this encounter Plan of Treatment Care Team Description Date Type Specialty Nacho Mayers NP [address] [place] [address] [phone] 10/06/2020 Office Visit Orthopedic Surgery Date/Time Name Type Priority Associated Diag noses 08/11/2020 9:57 AM EST XR Spine Lumbar 4-More Imaging Routine Status post lumbar spinal Views fusion Order Schedule Name Type Priority Associated Diag noses Expected: 08/11/2020, Expires: 2 XR Spine Lumbar 4-More Imaging Routine Status post lumbar spinal Views fusion Health Maintenance Due Date Last Done Comments Lipid Disorder Screening 1930 MMR Vaccines (1 of - 1931 Standard series) Varicella Vaccines (1 of 1931 2 - 2-dose childhood series) DTaP,Tdap,and Td Vaccines 1939 (1 - Tdap) Diabetic Foot Exam 1950 Dilated Retinal Exam 1948 Urine Microalbumin 1948 Hepatitis B Vaccines (1 1951 of 3 - Risk 3-dose series) Zoster Vaccines (1 of 2) 1982 Osteoporosis Screening 2 1997 yr Pneumococcal Vaccine: 65+ 1997 Years (1 of 1 - PPSV23) Influenza Vaccine 06/24/2020 Hemoglobin A1c 10/29/2020 04/28/2020, 06/19/2019, 06/19/2019, Additional history exists HIB Vaccines Aged Out No longer eligible based on patient's age to complete this topic Hepatitis A Vaccines Aged Out No longer eligibl e based on patient's age to complete this topic IPV Vaccines Aged Out No longer eligible based on patient's age to complete this topic Pneumococcal Vaccine: Aged Out No longer eligib le based on patient's age to Pediatrics (0 to 5 Years) complete this topic and At-Risk Patients (6 to 64 Years) documented as of this encounter Implants Device Identifier Shelf Expiration Date Model / Serial / L ot Implanted Type Area Manufactur er 10/25/2020 [id number] / / [id number] Kit Bone Graft Infuse Lrg - N/A: Back [employer] [id number] Implanted: Qty: 1 on 06/18/2019 by Senthil Hua MD at [address] 11/20/2021 [id number] / [id number] / [id number] Bone Dbm Lrg Bio Boat - N/A: Spine JACQUELINE [id number] Lumbar PARRIS NEURO Implanted: Qty: 1 on 06/18/2019 by DIV[facility] Senthil Hua MD at OR [facility] [id number] / / Katy Delonte Ii - [id number] N/A: Spine JACQUELINE Implanted: Qty: 14 on 06/18/2019 by Lumbar C ORP NEURO Senthil Hua MD at OR [address] [id number] / / Screw Ped.4.5 X40mm Poly [place]onte - N/A: Spine STRYKE R [id number] Lumbar PARRIS NEURO Implanted: Qty: 4 on 06/18/2019 by DIVISION Senthil Hua MD at OR [facility] [id number] / / Screw Ped.5.5 X40mm Poly [place]onte - N/A: Spine STRYKE R [id number] Lumbar PARRIS NEURO Implanted: Qty: 2 on 06/18/2019 by [facility] Senthil Hua MD at OR [facility] [id number] / / Screw Ped.6.5 X40mm Poly Delonte - N/A: Spine STRYKE R [id number] Lumbar PARRIS NEURO Implanted: Qty: 4 on 06/18/2019 by Senthil Galeano MD at OR [facility] [id number] / / Screw Cannxia 8.5x70mm. - N/A: Spine JACQUELINE [id number] Lumbar PARRIS NEURO Implanted: Qty: 2 on 06/18/2019 by [facility] Senthil Hua MD at OR [facility] [id number] / / Screw Reduction [id number] - N/A: Spine JACQUELINE [id number] Lumbar PARRIS NEURO Implanted: Qty: 2 on 06/18/2019 by Senthil Galeano MD at OR [facility] [id number] / / Cyrus 6mm Nancy. 480mm Delonte - [id number] N/A: Spine S TRYKER Implanted: Qty: 2 on 06/18/2019 by Lumbar CO Senthil Rowley MD at OR [address] 01/07/2023 [id number] / [id number] / [id number] Putty Bone Allergen 10cc - N/A: Spine [employer]IC [id number] Lumbar INC Implanted: Qty: 1 on 04/27/2020 by Senthil Hua MD at OR [facility] [id number] / / Screw Ped.5.5 X40mm Poly Delonte - N/A: Spine STRYKE R [id number] Thoracic PARRIS NEURO Implanted: Qty: 2 on 04/27/2020 by [facility] Senthil Hua MD at OR [facility] Description:DELONTE 3 SCREW 5.5 X 40 [id number] / / Cyrus Delonte Rad 6mm Lx70mm - [id number] N/A: Spine S TRYKER Implanted: Qty: 1 on 04/27/2020 by Thoracic CO Senthil Rowley MD at OR [facility] Description:70 MM RAD CYRUS [id number] / / Cyrus 6mm Nancy. 70mm Edlonte - [id number] N/A: Spine ST PÉREZ Implanted: Qty: 1 on 04/27/2020 by Thoracic CO Senthil Rowley MD at OR [facility] Description:70 MM STRAIGHT CYRUS [id number] / / Katy Delonte Ii - [id number] N/A: Spine JACQUELINE Implanted: Qty: 8 on 04/27/2020 by [facility] Senthil Rowley MD at OR [facility] Description:BLOCKERS [id number] / / Conn Cyrus-Cyrus Sm 0dg - [id number] N/A: Spine STRY KER Implanted: Qty: 1 on 04/27/2020 by [facility] Senthil Rowley MD at OR [facility] Description:SMALL CONNECTOR ZERO DEGREE [id number] / / Conn Cyrus-Cyrus 10 Degxia Lp Lg - N/A: Spine STRYKE R [id number] Thoracic PARRIS NEURO Implanted: Qty: 2 on 04/27/2020 by Senthil Galeano MD at OR 5E Description:LARGE CONNECTOR TEN DEGREE documented as of this encounter Results Not on filedocumented in this encounter Visit Diagnoses Diagnosis Status post lumbar spinal fusion - Prim phillip Arthrodesis status documented in this encounter
--- OUTSIDE RECORDS SUMMARY | 2020-10-28 17:10 | CCD | Continuity of Care Document ---
Author Author Olivia EVANS M.D. Organization Unknown Address [address] [place] [id number] Phone [phone] Problems Active Problems Provider Date Type 2 diabetes mellitus Oz Evans M.D. Onset: 06/24 Mixed hyperlipidemia Oz Evans M.D. Onset: 07/09/20 13 Benign essential hypertension Oz Evans M.D. Onset: 07/09/2013 Essential hypertension Oz Evans M.D. Onset: 2014 Major depressive disorder, single episode, unspecified Alex Oz heard M.D. Onset: 06/15/2015 Social History Type Date Description Comments Sex Unknown Tobacco Use Start: Unknown End: Unknown Patient is a former smoker Allergies, Adverse Reactions, Alerts Active Allergies Reaction Severity Comments Date Seafood 02/03/2014 Bee Sting 02/03/2014 Medications Active Medications SIG Qnty Indications Ordering Provide r Date Acetaminophen 325mg Tablets 3 tabs by mouth tid as needed Unknown 05/08/2020 Lisinopril 20mg Tablets take 1 tablet every day Oz Crow M.D. 05/08/20 20 Tramadol HCL 50mg Tablets 1 tab by mouth every 8 hours as needed pain [id number] Oz Crow M.D. 04/02/2019 Simvastatin 20mg Tablets take 1 tablet every day Oz Crow M.D. 10/23/19 14 Sertraline HCL 50mg Tablets take 1 tablet every day (max daily dose is 1 tablet) Oz Crow M.D. 10/23/2013 Multiple Vitamins Tablets 1 by mouth every day otc OTC Unknown History Medications Voltaren 1% Gel apply 2 grams to the left knee 4 times a day as needed as directed Unknown 05/08/2020 - 09/20/2020 Immunizations CPT Code Status Date Vaccine Lot # 18158 Given 06/18/2020 Influenza Virus Vaccine, Quadrivalent, Slit Virus, Im Use 3Y & Up [id number] 88352 Given 10/21/2019 Pneumococcal Immunization S0 61387 28550 Given 07/24/2018 Influenza Virus Vaccine, Quadrivalent, Slit Virus, Im Use 3Y & Up [id number] 35277 Given 07/18/2017 Influenza Virus Vaccine, Quadrivalent, Slit Virus, Im Use 3Y & Up [id number] 40059 Given 08/09/2016 Influenza Virus Vaccine, Quadrivalent, Slit Virus, Im Use 3Y & Up [id number] 45352 Given 10/08/2015 PPD Tuberculosis Intradermal 30902 Given 10/06/2015 PPD Tuberculosis Intradermal 19275 Given 06/15/2015 Influenza Vaccin e (Fluzone) 3Yrs Of Age Or Older Medicare Plans [id number] 14926 Given 08/10/2014 Influenza Vaccin e (Fluzone) 3Yrs Of Age Or Older Medicare Plans [id number] 26711 Given 07/09/2013 Influenza Vaccin e (Fluzone) 3Yrs Of Age Or Older Medicare Plans 37105 Given 07/09/2013 Influenza Virus Vac. Split Virus Individuals 3 Years And Above [id number] Vital Signs Date Vital Result Comment 10/22/2020 1:45pm BP Systolic 132 mmHg BP Diastolic 78 mmHg Heart Rate 78 /min Respiratory Rate 14 /min Weight 176.00 lb 09/20/2020 1:21pm BP Systolic 148 mmHg BP Diastolic 80 mmHg Body Temperature 98.2 F Heart Rate 86 /min Respiratory Rate 16 /min Height 58 inches 4'10" Weight 168.00 lb [place] Body Weight 100 lb BMI (Body Mass Index) 35.1 kg/m2 O2 % BldC Oximetry 97 % Results Test Acquired Date Facility Test Result H/L Range Note Lipid Panel, [facility] 09/20/2020 [facility] ( Interface) [phone] Triglycerides Level 340 mg/dL High <150 Cholesterol Level 203 mg/dL High <200 HDL Cholesterol 75 mg/dL Normal >40 LDL Cholesterol 60 mg/dL Normal <100 Non-HDL-C 128 mg/dL Normal Cholesterol Risk Ratio 2.706 Normal <5 Comprehensive Metabolic Profil 09/20/2020 [facility] (Interface) [phone] Glucose, Fasting 111 mg/dL High 70-100 Blood Urea Nitrogen 15 mg/dL Normal 7-18 Creatinine For GFR 0.77 mg/dL Normal 0.55-1.30 Glomerular Filtration Rate > 60.0 Normal >32 1 Sodium Level 140 mEq/L Normal 136-145 Potassium Serum 3.9 mEq/L Normal 3.5-5.1 Chloride Level 105 mEq/L Normal 98-107 Carbon Dioxide Level 30 mEq/L Normal 21-32 Anion Gap 5 mEq/L Low 8-16 Calcium Level 8.6 mg/dL Low 8.8-10.2 Ast/Sgot 23 U/L Normal 7-37 Alt/SGPT 23 U/L Normal 12-78 Alkaline Phosphatase 108 U/L Normal 45-117 Bilirubin,Total 0.8 mg/dL Normal 0.2-1.0 Total Protein 7.6 GM/DL Normal 6.4-8.2 Albumin 3.8 GM/DL Normal 3.2-5.2 Albumin/Globulin Ratio 1.0 Low 1.2-2.2 CMP 06/18/2020 [facility] Glu 152 mg/dL High 70 - 110 2 BUN 14 mg/dL 8 - 23 Creat 0.8 mg/dL 0.5 - 1.0 BUN/Creatinine Ratio 17.8 CALC Na 139 mmol/L 136 - 145 K 3.4 mmol/L Low 3.5 - 5.1 CL 102.5 mmol/L 98.0 - 107.0 Co2 21.4 mmol/L Low 22.0 - 29.0 CA 9.5 mg/dL 8.6 - 10.2 TP 7.1 g/dL 6.6 - 8.7 Alb 4.4 g/dL 3.4 - 4.8 A/G Ratio 1.6 CALC Globulin 2.7 CALC Alp 97.6 U/L 35 - 129 Alt (SGPT) 16 U/L 0 - 41 Ast (Sgot) 32 U/L 0 - 40 Tbili 0.47 mg/dL 0.0 - 1.2 Osmolality-Calculated 280.2 CALC Anion Gap 18 mmol/L eGFR 77 # Calc 3 eGFR Non-Afr. [place] 66 # Calc 4 Lipid Panel 06/18/2020 [facility] Chol 206 mg/dL High 0 - 200 Trig 177 mg/dL 40 - 200 HDL 60 mg/dL 45 - 65 LDL_C 110 Calc 75 - 129 Cho/HDL Ratio 3.4 CALC CBC With Differential/Platelet 06/18/2020 [facility] N E WBC 8.0 x10E3/uL 3.4-10.8 RBC 4.10 x10E6/uL 3.77-5.28 Hemoglobin 10.9 g/dL Low 11.1-15.9 Hematocrit 34.9 % 34.0-46.6 MCV 85 fL 79-97 MCH 26.6 pg 26.6-33.0 MCHC 31.2 g/dL Low 31.5-35.7 RDW 14.5 % 11.7-15.4 Platelets 273 x10E3/uL 150-450 Neutrophils 66 % Not Estab. Lymphs 24 % Not Estab. Monocytes 6 % Not Estab. Eos 3 % Not Estab. Basos 1 % Not Estab. Immature Cells TNP Neutrophils (Absolute) 5.3 x10E3/uL 1.4-7.0 Lymphs (Absolute) 1.9 x10E3/uL 0.7-3.1 Monocytes(Absolute) 0.5 x10E3/uL 0.1-0.9 Eos (Absolute) 0.3 x10E3/uL 0.0-0.4 Baso (Absolute) 0.1 x10E3/uL 0.0-0.2 Immature Granulocytes 0 % Not Estab. Immature Grans (Abs) 0.0 x10E3/uL 0.0-0.1 NRBC TNP Hematology Comments: TNP CBC 05/18/2020 [facility] WBC 9.1 10E3/uL 4.1 - 10.9 5 RBC 3.85 10E6/uL Low 4.20 - 6.30 HGB 11.2 g/dL Low 12.0 - 18.0 HCT 35.4 % Low 37.0 - 51.0 MCV 91.9 fL 80.0 - 97.0 MCH 29.1 pg 26.0 - 32.0 MCHC 31.6 g/dL 31.0 - 36.0 PLT 427 10E3/uL 140 - 440 RDW-CV 17.3 % High 11.5 - 14.5 Lym% 17.1 % 10.0 - 58.5 Neut% 75.5 % 37.0 - 92.0 MXD% 7.4 % 0.1 - 24.0 Lym# 1.6 10E3/uL 0.6 - 4.1 Neut# 6.8 % 2.0 - 7.8 MXD# 0.7 10E3/uL 0.0 - 1.8 MPV 10.4 fL 9.0 - 13.0 Basic Metabolic Panel 05/18/2020 [facility] Glu 127 mg/dL High 70 - 110 BUN 15 mg/dL 8 - 23 Creat 0.9 mg/dL 0.5 - 1.0 BUN/Creatinine Ratio 17.0 CALC Co2 20.9 mmol/L Low 22.0 - 29.0 CA 9.8 mg/dL 8.6 - 10.2 Na 140 mmol/L 136 - 145 K 3.5 mmol/L 3.5 - 5.1 CL 102.2 mmol/L 98.0 - 107.0 Anion Gap 21 mmol/L eGFR 67 # Calc 6 eGFR Non-Afr. [place] 57 # Calc 7 CBC With Differential 05/15/2020 [facility] (Interface) [phone] White Blood Count 11.3 10 High 4.0-10.0 Red Blood Count 3.18 10 Low 4.00-5.40 Hemoglobin 9.0 g/dL Low 12.0-15.5 Hematocrit 29.5 % Low 36.0-47.0 Mean Corpuscular Volume 92.8 fl Normal 80.0-96.0 Mean Corpuscular Hemoglobin 28.3 pg Normal 27.0-33.0 Mean Corpuscular HGB Conc 30.5 g/dL Low 32.0-36.5 Red Cell Distribution Width 16.3 % High 11.5-14.5 Platelet Count, Automated 398 10 Normal 150-450 Neutrophils % 76.9 % High 36.0-66.0 Lymph % 14.4 % Low 24.0-44.0 [place] % 5.7 % High 0.0-5.0 Eos % 2.2 % Normal 0.0-3.0 Baso % 0.4 % Normal 0.0-1.0 Immature Granulocyte % 0.4 % Normal 0-3.0 Nucleated Red Blood Cell % 0.0 % Normal 0-0 Neutrophils # 8.7 10 High 1.5-8.5 Lymph # 1.6 10 Normal 1.5-5.0 [place] # 0.6 10 Normal 0.0-0.8 Eos # 0.3 10 Normal 0.0-0.5 Baso # 0.1 10 Normal 0.0-0.2 Basic Metabolic Profile 05/15/2020 [facility] (Interface) [phone] Glucose, Fasting 104 mg/dL High 70-100 Blood Urea Nitrogen 11 mg/dL Normal 7-18 Creatinine For GFR 0.69 mg/dL Normal 0.55-1.30 Glomerular Filtration Rate > 60.0 Normal >32 8 Sodium Level 137 mEq/L Normal 136-145 Potassium Serum 3.6 mEq/L Normal 3.5-5.1 Chloride Level 103 mEq/L Normal 98-107 Carbon Dioxide Level 29 mEq/L Normal 21-32 Anion Gap 5 mEq/L Low 8-16 Calcium Level 8.8 mg/dL Normal 8.8-10.2 Laboratory test finding 05/15/2020 [facility] (Interface) [phone] Uric Acid 3.7 mg/dL Normal 2.6-6.0 C Reactive Protein Quantitativ 1.72 mg/dL High 0.00-0.30 1 Units are mL/min/1.73 m2 Chronic Kidney Disease Staging per NKF: Stage I & II GFR >=60 Normal to Mildly Decreased Stage III GFR 30-59 Moderately Decreased Stage IV GFR 15-29 Severely Decreased Stage V GFR <15 Very Little GFR Left ESRD GFR <15 on [employer]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 2 CHRONIC KIDNEY DISEASE STAGI NG PER NKF: MALE GFR INTERPRETATION: 20-49 YRS: >60 mL/min Normal 50-59 YRS: >56 mL/min Normal 60-69 YRS: >49 mL/min Normal 70-79 YRS: >42 mL/min Normal 80 and above >35 mL/min Normal FEMALE GRF INTERPRETATION: 20-39 YRS: >60 mL/min Normal 40-49 YRS: >58 mL/min Normal 50-59 YRS: >51 mL/min Normal 60-69 YRS: >45 mL/min Normal 70-79 YRS: >39 mL/min Normal 80 and above >32 mL/min NormalCLASSIFICATION CHOLESTEROL FOR ADULTS CHILDREN/ADOLESCENTS* DESIRABLE: <200 MG/DL <170 MG/DL BORDER-LINE HIGH RISK: 200-239 MG/DL 170-199 MG/DL HIGH RISK: >240 MG/DL >200 MG/DL CLASS. FOR PRIMARY LDL CHOL PREVENTION: LDL CHOL-CHILD/ADOLESCENTS* DESIRABLE: <130 MG/DL <110 MG/DL BORDERLINE-HIGH RISK: 130-159 MG/DL 110-129 MG/DL HIGH RISK: >160 MG/DL >130 MG/DL *CHILDREN AND ADOLESCENTS REPRESENTS INDIVIDUALA AGED 2-19 YEARS EXCLUSIVE. 3 CKD-EPI 4 CKD-EPI 5 NORMAL RANGES Age WBC RBC HGB HCT MCV PLT Adult M 4.1-10.9 4.20-6.30 12.0-18.0 37.0-51.0 80-97 140-440 Adult F 4.1-10.9 4.04-5.48 12.0-18.0 37.0-51.0 80-97 140-440 0 -1 Yr 5.0-20.0 3.9-5.9 15-18 MV: 44 MV: 91 MV: 277 2-9 Yr. 6.0-17.0 3.8-5.4 11-13 MV: 37 MV: 78 MV: 300 10 Yrs. 5.0-13.0 3.8-5.4 12-15 MV: 39 MV: 80 MV: 250 NOTE: * FOR ADULT BLACK MALES AND FEMALES, NORMAL WBC IS 2.9-7.7 K/ML * FOR ADULT BLACK MALES AND FEMALES, NORMAL RBC,HGB, AND HCT IS 5% LESS SOURCE FOR DATA: [employer] 1800 OPERATION MANUAL( AUTOMATED BLOOD COUNTS AND DIFF.) APPENDIX B-3 CHRONIC KIDNEY DISEASE STAGING PER NKF: MALE GFR INTERPRETATION: 20-49 YRS: >60 mL/min Normal 50-59 YRS: >56 mL/min Normal 60-69 YRS: >49 mL/min Normal 70-79 YRS: >42 mL/min Normal 80 and above >35 mL/min Normal FEMALE GRF INTERPRETATION: 20-39 YRS: >60 mL/min Normal 40-49 YRS: >58 mL/min Normal 50-59 YRS: >51 mL/min Normal 60-69 YRS: >45 mL/min Normal 70-79 YRS: >39 mL/min Normal 80 and above >32 mL/min Normal 6 CKD-EPI 7 CKD-EPI 8 Units are mL/min/1.73 m2 Chronic Kidney Disease Staging per NKF: Stage I & II GFR >=60 Normal to Mildly Decreased Stage III GFR 30-59 Moderately Decreased Stage IV GFR 15-29 Severely Decreased Stage V GFR <15 Very Little GFR Left 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 D. I10 Essential (primary) hypertension M48.061 Spinal stenosis, lumbar art on without neurogenic kitty F33.0 Major depressive disorder, r ecurrent, mild E78.5 Hyperlipidemia, unspecified Office Visit 09/20/2020 2:30p [place] [facility] Oz Evans M. D. I10 Essential (primary) hypertension M48.061 Spinal stenosis, lumbar art on without neurogenic kitty F33.0 Major depressive disorder, r ecurrent, mild E78.5 Hyperlipidemia, unspecified Office Visit 06/18/2020 1:45p [place] [facility] Oz Evans M. D. I10 Essential (primary) hypertension M48.061 Spinal stenosis, lumbar art on without neurogenic kitty F33.0 Major depressive disorder, r ecurrent, mild E78.5 Hyperlipidemia, unspecified Z23 Encounter for immunization Office Visit 05/18/2020 2:00p [place] [facility] Oz Evans M. D. M48.062 Spinal stenosis, lumbar region with neurogenic claudication G83.4 Cauda equina syndrome Assessments Date Code Description Provider 10/22/2020 I10 Essential (primary) hypertension Oz Evans M.D. 10/22/2020 M48.061 Spinal stenosis, lumbar region w ithout neurogenic claudicati Oz Evans M.D. 10/22/2020 F33.0 Major depressive disorder, recur rent, [place] Oz Evans M.D. 10/22/2020 E78.5 Hyperlipidemia, unspecified [facility] Oz atkinson M.D. 09/20/2020 I10 Essential (primary) hypertension Oz Evans M.D. 09/20/2020 M48.061 Spinal stenosis, lumbar region w [facility] neurogenic claudicati Oz Evans M.D. 09/20/2020 F33.0 Major depressive disorder, recur rendoimnic, Oz Gavin M.D. 09/20/2020 E78.5 Hyperlipidemia, unspecified [facility] Oz atkinson M.D. 06/18/2020 I10 Essential (primary) hypertension Oz Evans M.D. 06/18/2020 M48.061 Spinal stenosis, lumbar region w [facility] neurogenic claudicati Oz Evans M.D. 06/18/2020 F33.0 Major depressive disorder, recur rent, Oz Gavin M.D. 06/18/2020 E78.5 Hyperlipidemia, unspecified [facility] Oz atkinson M.D. 06/18/2020 Z23 Encounter for immunization Oz Zayas M.D. 05/18/2020 M48.062 Spinal stenosis, lumbar region w [facility] neurogenic claudication Oz Evans M.D. 05/18/2020 G83.4 Cauda equina syndrome Oz Evans M.D. Plan of Treatment Future Appointment(s):* 01/21/2021 9:00 am - Oz Evans M.D. at [facility] Functional Status Description No Information Available Mental Status Description No Information Available Referrals Description No Information Available
--- OUTSIDE RECORDS SUMMARY | 2020-10-28 17:10 | CCD | Continuity of Care Document ---
Author Author Olivia EVANS M.D. Organization Unknown Address [address] [place] [id number] Phone [phone] Problems Active Problems Provider Date Type 2 [...] mouth every 8 hours as needed pain [id number] Oz Crow M.D. 04/02/2019 Simvastatin 20mg Tablets [...] CPT Code Status Date Vaccine Lot # 31252 Given 06/18/2020 Influenza Virus Vaccine, Quadrivalent, Slit Virus, Im Use 3Y & Up [id number] 01059 Given 10/21/2019 Pneumococcal Immunization S0 74525 94625 Given 07/24/2018 Influenza Virus Vaccine, Quadrivalent, Slit Virus, Im Use 3Y & Up [id number] 54691 Given 07/18/2017 Influenza Virus Vaccine, Quadrivalent, Slit Virus, Im Use 3Y & Up [id number] 43376 Given 08/09/2016 Influenza Virus Vaccine, Quadrivalent, Slit Virus, Im Use 3Y & Up [id number] 25378 Given 10/08/2015 PPD Tuberculosis Intradermal 78414 Given 10/06/2015 PPD Tuberculosis Intradermal 97945 Given 06/15/2015 Influenza Vaccin e (Fluzone) 3Yrs Of Age Or Older Medicare Plans [id number] 22925 Given 08/10/2014 Influenza Vaccin e (Fluzone) 3Yrs Of Age Or Older Medicare Plans [id number] 20609 Given 07/09/2013 Influenza Vaccin e (Fluzone) 3Yrs Of Age Or Older Medicare Plans 71121 Given 07/09/2013 Influenza Virus Vac. Split Virus Individuals 3 Years And Above [id number] Vital Signs Date Vital Result Comment 09/20/2020 1:21pm BP Systolic 148 mmHg BP Diastolic 80 mmHg Body Temperature 98.2 F Heart Rate 86 /min Respiratory Rate 16 /min Height 58 inches 4'10" Weight 168.00 lb [place] Body Weight 100 lb BMI (Body Mass Index) 35.1 kg/m2 O2 % BldC Oximetry 97 % 06/18/2020 2:10pm BP Systolic 116 mmHg BP Diastolic 68 mmHg Body Temperature 98.0 F Heart Rate 94 /min Respiratory Rate 18 /min Height 58 inches 4'10" Weight 162.00 lb [place] Body Weight 100 lb BMI (Body Mass Index) 33.9 kg/m2 O2 % BldC Oximetry 96 % Results Test Acquired Date Facility Test Result H/L Range Note Lipid Panel, [facility] 09/20/2020 [facility] ( Interface) [phone] Triglycerides Level 340 mg/dL High <150 Cholesterol Level 203 mg/dL High <200 HDL Cholesterol 75 mg/dL Normal >40 LDL Cholesterol 60 mg/dL Normal <100 Non-HDL-C 128 mg/dL Normal Cholesterol Risk Ratio 2.706 Normal <5 Comprehensive Metabolic Profil 09/20/2020 [facility] ([facility]) [phone] Glucose, Fasting 111 mg/dL High 70-100 Blood [...] eGFR 77 # Calc 3 eGFR Non-Afr. [place] 66 # Calc 4 Lipid Panel 06/18/2020 [...] eGFR 67 # Calc 6 eGFR Non-Afr. [place] 57 # Calc 7 CBC With Differential 05/15/2020 [facility] (Interface) [phone] White Blood Count 11.3 10 High 4.0-10.0 [...] 36.0-66.0 Lymph % 14.4 % Low 24.0-44.0 [place] % 5.7 % High 0.0-5.0 Eos % 2.2 % Normal 0.0-3.0 Baso % 0.4 % Normal 0.0-1.0 Immature Granulocyte % 0.4 % Normal 0-3.0 Nucleated Red Blood Cell % 0.0 % Normal 0-0 Neutrophils # 8.7 10 High 1.5-8.5 Lymph # 1.6 10 Normal 1.5-5.0 [place] # 0.6 10 Normal 0.0-0.8 Eos # 0.3 10 Normal 0.0-0.5 Baso # 0.1 10 Normal 0.0-0.2 Basic Metabolic Profile 05/15/2020 [facility] (Interface) [phone] Glucose, Fasting 104 mg/dL High 70-100 Blood [...] mg/dL Normal 8.8-10.2 Laboratory test finding 05/15/2020 [facility] (Interface) [phone] Uric Acid 3.7 mg/dL Normal 2.6-6.0 C Reactive Protein Quantitativ 1.72 mg/dL High 0.00-0.30 Urinalysis 04/22/2020 [place] [address] [phone] Urinalysis (SEE NOTE) 9, 10 Source R Color yellow Normal: Yellow Clarity clear Normal: Clear Spec [place] 1.010 1.001 - 1.030 pH 7 5 - 9 Glucose NORM Normal: Negative Bilirubin NEG Normal: Negative Ketone NEG Normal: Negative Protein NEG Normal: Negative Nitrite NEG Normal: Negative Blood NEG Normal: Negative Leuk Est NEG Normal: Negative Urobilinogen NOR less than 1.0 mg/dL Microscopic Not Indicate CBC W/Automated Diff 04/22/2020 [place] [address] [phone] CBC W/Automated Diff (SEE NOTE) 11 WBC 6.8 10^3/uL 4.2 - 11.0 RBC 3.51 10^6/uL Low 4.20 - 5.40 Hemoglobin 9.8 g/dL Low 12.0 - 16.0 Hematocrit 31.2 % Low 37.0 - 47.0 MCV 88.9 fL 81.0 - 101 MCH 27.9 pg 27.0 - 34.0 MCHC 31.4 g/dL 31.0 - 36.0 RDW 14.9 % High 11.5 - 14.5 Platelets 250 10^3/uL 150 - 450 MPV 9.7 fL 7.4 - 10.4 Neut 65.8 % 37.0 - 80.0 Lymph 24.3 % Low 25.0 - 40.0 [place] 6.9 % 3.0 - 8.0 Eos 2.3 % 0.0 - 7.0 Baso 0.6 % 0.0 - 2.5 %Ig 0.1 % High 0.0 - 0.0 %NRBC 0.0 % 0.0 - 0.0 #Neut 4.48 10^3/uL 2.00 - 6.90 #Lymph 1.66 10^3/uL 0.60 - 3.40 #[place] 0.47 10^3/uL 0.00 - 0.90 #Eos 0.16 10^3/uL 0.00 - 0.70 #Baso 0.04 10^3/uL 0.00 - 0.20 #Ig 0.01 10^3/uL 0.00 - 0.10 #NRBC 0.00 10^3/uL 0.00 - 0.00 Manual Diff NOT INDICATED RBC Morph NOT INDICATED Laboratory test finding 04/22/2020 [place] [address] [phone] Troponin T <0.01 NG/ML 0.00 - 0.10 12 Comprehensive Metabolic Panel 04/22/2020 [place] [address] [phone] Comprehensive Metabo (SEE NOTE) 13 Sodium 143 mEq/L 134 - 153 Potassium 3.7 mEq/L 3.6 - 5.0 Chloride 104 mEq/L 98 - 107 Co2 28 mEq/L 22 - 30 Glucose 106 mg/dL 65 - 110 BUN 11 mg/dL 7 - 21 Creatinine 0.7 mg/dL 0.7 - 1.5 BUN/Creat 16 8 - 27 Total Protein 7.2 g/dL 6.3 - 8.2 Albumin 4.6 g/dL 3.9 - 5.0 Globulin 2.6 GM/DL 2.4 - 3.2 A/G Ratio 1.8 0.8 - 2.0 Calcium 9.4 mg/dL 8.4 - 10.2 Total Bili 0.7 mg/dL 0.2 - 1.3 Alkaline Phos 77 U/L 38 - 126 Sgot/Ast 26 U/L 5 - 40 SGPT/Alt 16 U/L 7 - 56 Anion Gap 11.0 mmol/L 8.0 - 16.0 Age 89 yrs Non-Aa GFR >60 mL/min Afr Amer GFR >60 14 Laboratory test finding 04/22/2020 [place] [id number] [phone] D-Dimer 1.18 ug/mL High 0.27 - 0.50 1 Units are mL/min/1.73 m2 Chronic Kidney Disease Staging per NKF: Stage I & II GFR >=60 Normal to Mildly Decreased Stage III GFR 30-59 Moderately Decreased Stage IV GFR 15-29 Severely Decreased Stage V GFR <15 Very Little GFR Left ESRD GFR <15 on SAND SLINGER 2 CHRONIC KIDNEY DISEASE STAGI NG PER [...] HCT IS 5% LESS SOURCE FOR DATA: [email or web address] 1800 OPERATION MANUAL( AUTOMATED BLOOD COUNTS AND [...] Little GFR Left ESRD GFR <15 on SAND SLINGER 9 SOURCE: Clean Catch 10 URINALYSIS 11 COMPLETE BLOOD COUNT 12 TROPONIN T 0.1 ng/ml Recommended as the clinical th reshold value for Troponin T. 13 COMPREHENSIVE METABOLIC PANE L 14 Male GFR Interprentation 20-49 yrs >60 mL/min Normal 50-59 yrs >56 mL/min Normal 60-69 yrs >49 mL/min Normal 70-79yrs >42 mL/min Normal 80 and above >35 mL/min Normal Female GFR Interpretation 20-39 yrs >60 mL/min Normal 40-49 yrs >58 mL/min Normal 50-59 yrs >51 mL/min Normal 60-69 yrs >45 mL/min Normal 70-79 yrs >39 mL/min Normal 80 and above >32 mL/min Normal Procedures Description No Information Available Medical Devices Description No Information Available Encounters Type Date Location Provider Dx Diagnosis Office Visit 09/20/2020 2:30p [place] [facility] Oz Evans M. D. I10 Essential (primary) hypertension M48.061 Spinal stenosis, lumbar art on without neurogenic kitty F33.0 Major depressive disorder, r ecurrent, mild E78.5 Hyperlipidemia, unspecified Office Visit 06/18/2020 1:45p [place] [facility] Oz Evans M. D. I10 Essential (primary) hypertension M48.061 Spinal stenosis, lumbar art on without neurogenic kitty F33.0 Major depressive disorder, r ecurrent, mild E78.5 Hyperlipidemia, unspecified Z23 Encounter for immunization Office Visit 05/18/2020 2:00p [place] [facility] Oz Evans M. D. M48.062 Spinal stenosis, lumbar region with neurogenic claudication G83.4 Cauda equina syndrome Assessments Date Code Description Provider 09/20/2020 I10 Essential (primary) hypertension Oz Evans M.D. 09/20/2020 M48.061 Spinal stenosis, lumbar region w [facility] neurogenic claudicati Oz Evans M.D. 09/20/2020 F33.0 Major depressive disorder, recur rent, Oz Gavin M.D. 09/20/2020 E78.5 Hyperlipidemia, unspecified [facility] Oz atkinson M.D. 06/18/2020 I10 Essential (primary) hypertension Oz Evans M.D. 06/18/2020 M48.061 Spinal stenosis, [facility] neurogenic claudicati Oz Evans M.D. 06/18/2020 F33.0 Major depressive disorder, recur [facility] Scott H, M.D. 06/18/2020 E78.5 Hyperlipidemia, unspecified [facility] [place] Oz atkinson M.D. 06/18/2020 Z23 Encounter for immunization Oz Zayas M.D. 05/18/2020 M48.062 Spinal stenosis, lumbar region w ith neurogenic claudication Oz Evans M.D. 05/18/2020 G83.4 Cauda equina syndrome Oz Evans M.D. Plan of Treatment Future Appointment(s):* 10/22/2020 1:30 pm - Oz Evans M.D. at [facility] Functional Status Description No Information Available Mental Status Description No Information Available Referrals Description No Information Available
--- OUTSIDE RECORDS SUMMARY | 2020-10-28 17:10 | CCD | Continuity of Care Document ---
Author Author Olivia EVANS M.D. Organization Unknown Address [address] [place] [id number] Phone [phone] Problems Active Problems Provider Date Type 2 [...] mouth every 8 hours as needed pain [id number] Oz Crow M.D. 04/02/2019 Simvastatin 20mg Tablets [...] CPT Code Status Date Vaccine Lot # 18445 Given 06/18/2020 Influenza Virus Vaccine, Quadrivalent, Slit Virus, Im Use 3Y & Up [id number] 80449 Given 10/21/2019 Pneumococcal Immunization S0 [id number] 62429 Given 07/24/2018 Influenza Virus Vaccine, Quadrivalent, Slit Virus, Im Use 3Y & Up [id number] 32162 Given 07/18/2017 Influenza Virus Vaccine, Quadrivalent, Slit Virus, Im Use 3Y & Up [id number] 15042 Given 08/09/2016 Influenza Virus Vaccine, Quadrivalent, Slit Virus, Im Use 3Y & Up [id number] 39551 Given 10/08/2015 PPD Tuberculosis Intradermal 34445 Given 10/06/2015 PPD Tuberculosis Intradermal 16654 Given 06/15/2015 Influenza Vaccin e (Fluzone) 3Yrs Of Age Or Older Medicare Plans [id number] 45798 Given 08/10/2014 Influenza Vaccin e (Fluzone) 3Yrs Of Age Or Older Medicare Plans [id number] 45179 Given 07/09/2013 Influenza Vaccin e (Fluzone) 3Yrs Of Age Or Older Medicare Plans 78086 Given 07/09/2013 Influenza Virus Vac. Split Virus Individuals 3 Years And Above [id number] Vital Signs Date Vital Result Comment 09/20/2020 1:21pm BP Systolic 148 mmHg BP Diastolic 80 mmHg Body Temperature 98.2 F Heart Rate 86 /min Respiratory Rate 16 /min Height 58 inches 4'10" Weight 168.00 lb [place] Body Weight 100 lb BMI (Body Mass Index) 35.1 kg/m2 O2 % BldC Oximetry 97 % 06/18/2020 2:10pm BP Systolic 116 mmHg BP Diastolic 68 mmHg Body Temperature 98.0 F Heart Rate 94 /min Respiratory Rate 18 /min Height 58 inches 4'10" Weight 162.00 lb [place] Body Weight 100 lb BMI (Body Mass Index) 33.9 kg/m2 O2 % BldC Oximetry 96 % Results Test Acquired Date Facility Test Result H/L Range Note Lipid Panel, [facility] 09/20/2020 [facility] ( Interface) [phone] Triglycerides Level 340 mg/dL High <150 Cholesterol Level 203 mg/dL High <200 HDL Cholesterol 75 mg/dL Normal >40 LDL Cholesterol 60 mg/dL Normal <100 Non-HDL-C 128 mg/dL Normal Cholesterol Risk Ratio 2.706 Normal <5 Comprehensive Metabolic Profil 09/20/2020 [facility] ([facility]) [phone] Glucose, Fasting 111 mg/dL High 70-100 Blood [...] eGFR 77 # Calc 3 eGFR Non-Afr. Nigerien 66 # Calc 4 Lipid Panel 06/18/2020 [...] eGFR 67 # Calc 6 eGFR Non-Afr. Nigerien 57 # Calc 7 CBC With Differential 05/15/2020 [facility] (Interface) [phone] White Blood Count 11.3 10 High 4.0-10.0 [...] 36.0-66.0 Lymph % 14.4 % Low 24.0-44.0 [place] % 5.7 % High 0.0-5.0 Eos % 2.2 % Normal 0.0-3.0 Baso % 0.4 % Normal 0.0-1.0 Immature Granulocyte % 0.4 % Normal 0-3.0 Nucleated Red Blood Cell % 0.0 % Normal 0-0 Neutrophils # 8.7 10 High 1.5-8.5 Lymph # 1.6 10 Normal 1.5-5.0 Dooly # 0.6 10 Normal 0.0-0.8 Eos # 0.3 10 Normal 0.0-0.5 Baso # 0.1 10 Normal 0.0-0.2 Basic Metabolic Profile 05/15/2020 [facility] [employer] (Interface) [phone] Glucose, Fasting 104 mg/dL High 70-100 Blood [...] Laboratory test finding 05/15/2020 [facility] [employer] (Interface) [phone] Uric Acid 3.7 mg/dL Normal 2.6-6.0 C Reactive Protein Quantitativ 1.72 mg/dL High 0.00-0.30 Urinalysis 04/22/2020 [place] [address] [phone] Urinalysis (SEE NOTE) 9, 10 Source R Color yellow Normal: Yellow Clarity clear Normal: Clear Spec [place] English 1.010 1.001 - 1.030 pH 7 5 - 9 Glucose NORM Normal: Negative Bilirubin NEG Normal: Negative Ketone NEG Normal: Negative Protein NEG Normal: Negative Nitrite NEG Normal: Negative Blood NEG Normal: Negative Leuk Est NEG Normal: Negative Urobilinogen NOR less than 1.0 mg/dL Microscopic Not Indicate CBC W/Automated Diff 04/22/2020 [place] [address] [phone] CBC W/Automated Diff (SEE NOTE) 11 WBC [...] Lymph 24.3 % Low 25.0 - 40.0 Dooly 6.9 % 3.0 - 8.0 Eos 2.3 % 0.0 - 7.0 Baso 0.6 % 0.0 - 2.5 %Ig 0.1 % High 0.0 - 0.0 %NRBC 0.0 % 0.0 - 0.0 #Neut 4.48 10^3/uL 2.00 - 6.90 #Lymph 1.66 10^3/uL 0.60 - 3.40 #Dooly 0.47 10^3/uL 0.00 - 0.90 #Eos 0.16 10^3/uL 0.00 - 0.70 #Baso 0.04 10^3/uL 0.00 - 0.20 #Ig 0.01 10^3/uL 0.00 - 0.10 #NRBC 0.00 10^3/uL 0.00 - 0.00 Manual Diff NOT INDICATED RBC Morph NOT INDICATED Laboratory test finding 04/22/2020 [place] [address] [phone] Troponin T <0.01 NG/ML 0.00 - 0.10 12 Comprehensive Metabolic Panel 04/22/2020 [place] [address] [phone] Comprehensive Metabo (SEE NOTE) 13 Sodium 143 [...] GFR >60 14 Laboratory test finding 04/22/2020 [place] [id number] [phone] D-Dimer 1.18 ug/mL High 0.27 - 0.50 1 Units are mL/min/1.73 m2 Chronic Kidney Disease Staging per NKF: Stage I & II GFR >=60 Normal to Mildly Decreased Stage III GFR 30-59 Moderately Decreased Stage IV GFR 15-29 Severely Decreased Stage V GFR <15 Very Little GFR Left ESRD GFR <15 on QUALITY ASSURANCE MANAGER 2 CHRONIC KIDNEY DISEASE STAGI NG PER [...] HCT IS 5% LESS SOURCE FOR DATA: [email or web address] 1800 OPERATION MANUAL( AUTOMATED BLOOD COUNTS AND [...] Little GFR Left ESRD GFR <15 on QUALITY ASSURANCE MANAGER 9 SOURCE: Clean Catch 10 URINALYSIS 11 [...] Provider Dx Diagnosis Office Visit 09/20/2020 2:30p Sod Office Oz Evans M. D. I10 Essential (primary) hypertension M48.061 Spinal stenosis, lumbar art on without neurogenic kitty F33.0 Major depressive disorder, r ecurrent, mild E78.5 Hyperlipidemia, unspecified Office Visit 06/18/2020 1:45p Sod Office Oz Evans M. D. I10 Essential (primary) hypertension M48.061 Spinal stenosis, lumbar art on without neurogenic kitty F33.0 Major depressive disorder, r ecurrent, mild E78.5 Hyperlipidemia, unspecified Z23 Encounter for immunization Office Visit 05/18/2020 2:00p Sod Office Oz Evans M. D. M48.062 Spinal stenosis, lumbar region with neurogenic claudication G83.4 Cauda equina syndrome Assessments Date Code Description Provider 09/20/2020 I10 Essential (primary) hypertension Oz Evans M.D. 09/20/2020 M48.061 Spinal stenosis, lumbar region w [facility] neurogenic claudicati Oz Evans M.D. 09/20/2020 F33.0 Major depressive disorder, recur rent, Oz Gavin M.D. 09/20/2020 E78.5 Hyperlipidemia, unspecified [facility] Oz atkinson M.D. 06/18/2020 I10 Essential (primary) hypertension Oz Evans M.D. 06/18/2020 M48.061 Spinal stenosis, lumbar region w [facility] neurogenic claudicati Oz Evans M.D. 06/18/2020 F33.0 Major depressive disorder, recur [facility] alfaro Scott H, M.D. 06/18/2020 E78.5 Hyperlipidemia, unspecified [facility] Oz atkinson M.D. 06/18/2020 Z23 Encounter for immunization Oz Zayas M.D. 05/18/2020 M48.062 Spinal stenosis, lumbar region w ith neurogenic claudication Oz Evans M.D. 05/18/2020 G83.4 Cauda equina syndrome Oz Evans M.D. Plan of Treatment Future Appointment(s):* 10/22/2020 1:30 pm - Oz Evans M.D. at [facility] Functional Status Description No Information Available Mental Status Description No Information Available Referrals Description No Information Available
--- OUTSIDE RECORDS SUMMARY | 2020-10-28 17:12 | CCD ---
Author Author [facility] Organization [facility] Address Unknown Phone Unavailable Care Team Providers Care Residential Care Facility Manager Name Role Phone Rudy Joseph MD Unavailable Unavailable Rudy Joseph MD Unavailable Unavailable Rudy Joseph MD Unavailable Unavailable Rudy Joseph MD Unavailable Unavailable Rudy Joseph MD Unavailable Unavailable Rudy Joseph MD Unavailable Unavailable Rudy Joseph MD Unavailable Unavailable Rudy Joseph MD Unavailable Unavailable Rudy Joseph MD Unavailable Unavailable Rudy Joseph MD Unavailable Unavailable Rudy Joseph MD Unavailable Unavailable Vu GALARZA MD Unavailable Unavailable Vu GALARZA MD Unavailable Unavailable Vu GALARZA MD Unavailable Unavailable Vu GALARZA MD Unavailable Unavailable Vu GALARZA MD Unavailable Unavailable Vu GALARZA MD Unavailable Unavailable Vu GALARZA MD Unavailable Unavailable Vu GALARZA MD Unavailable Unavailable Vu GALARZA MD Unavailable Unavailable Vu GALARZA MD Unavailable Unavailable Vu GALARZA MD Unavailable Unavailable Vu GALARZA MD Unavailable Unavailable Vu GALARZA MD Unavailable Unavailable Vu GALARZA MD Unavailable Unavailable Vu GALARZA MD Unavailable Unavailable Vu GALARZA MD Unavailable Unavailable Vu GALARZA MD Unavailable Unavailable Ana ODOM MD Unavailable Unavailable Ana ODOM MD Unavailable Unavailable Ana ODOM MD Unavailable Unavailable Ana ODOM MD Unavailable Unavailable Ana ODOM MD Unavailable Unavailable Ana ODOM MD Unavailable Unavailable Ana ODOM MD Unavailable Unavailable Ana ODOM MD Unavailable Unavailable MARIE, J NAYANA DPM PC Unavailable Unavailable MARIE, J NAYANA DPM PC Unavailable Unavailable MARIE, J NAYANA DPM PC Unavailable Unavailable MARIE, J NAYANA DPM [facility] Unavailable Unavailable MARIE, J NAYANA DPM PC Unavailable Unavailable MARIE, J NAYANA [facility] Unavailable Unavailable MARIE, J NAYANA DPM [facility] Unavailable Unavailable MARIE, J NAYANA DPM PC Unavailable Unavailable MARIE, J NAYANA DPM PC Unavailable Unavailable MARIE, J NAYANA DPM PC Unavailable Unavailable MARIE, J NAYANA DPM PC Unavailable Unavailable MARIE, J NAYANA DPM PC Unavailable Unavailable MARIE, J NAYANA DPM PC Unavailable Unavailable MARIE, J NAYANA DPM [facility] Unavailable Unavailable MARIE, J NAYANA DPM PC Unavailable Unavailable MARIE, J NAYANA DPM PC Unavailable Unavailable MARIE, J NAYANA DPM PC Unavailable Unavailable MARIE, J NAYANA D[facility] Unavailable Unavailable MARIE, J NAYANA DPM [facility] Unavailable Unavailable MARIE, J NAYANA [facility] Unavailable Unavailable MARIE, J NAYANA [facility] Unavailable Unavailable MARIE, J NAYANA [facility] Unavailable Unavailable MARIE, J NAYANA [facility] Unavailable Unavailable MARIE, J NAYANA [facility] Unavailable Unavailable MARIE, J NAYANA [facility] Unavailable Unavailable MARIE, J NAYANA [facility] Unavailable Unavailable Narciso LOMAX MD Unavailable Unavailable Narciso LOMAX MD Unavailable Unavailable Narciso LOMAX MD Unavailable Unavailable Narciso LOMAX MD Unavailable Unavailable Narciso LOMAX MD Unavailable Unavailable Narciso LOMAX MD Unavailable Unavailable Narciso LOMAX MD Unavailable Unavailable Narciso LOMAX MD Unavailable Unavailable Narciso LOMAX MD Unavailable Unavailable Narciso LOMAX MD Unavailable Unavailable Narciso LOMAX MD Unavailable Unavailable Narciso LOMAX MD Unavailable Unavailable Narciso LOMAX MD Unavailable Unavailable Narciso LOMAX MD Unavailable Unavailable Narciso LOMAX MD Unavailable Unavailable Narciso LOMAX MD Unavailable Unavailable Narciso LOMAX MD Unavailable Unavailable Narciso LOMAX MD Unavailable Unavailable Narciso LOMAX MD Unavailable Unavailable Narciso LOMAX MD Unavailable Unavailable Narciso LOMAX MD Unavailable Unavailable Narciso LOMAX MD Unavailable Unavailable Narciso LOMAX MD Unavailable Unavailable Narciso LOMAX MD Unavailable Unavailable Narciso LOMAX MD Unavailable Unavailable Narciso LOMAX MD Unavailable Unavailable Narciso LOMAX MD Unavailable Unavailable DAMI, H DEANA MD Unavailable Unavailable DAMI, H DEANA MD Unavailable Unavailable DAMI, H DEANA MD Unavailable Unavailable DAMI, H DEANA MD Unavailable Unavailable DAMI, H DEANA MD Unavailable Unavailable DAMI, H DEANA MD Unavailable Unavailable DAMI, H DEANA MD Unavailable Unavailable DAMI, H DEANA MD Unavailable Unavailable DAMI, H DEANA MD Unavailable Unavailable DAMI, H DEANA MD Unavailable Unavailable DAMI, H DEANA MD Unavailable Unavailable DAMI, H DEANA MD Unavailable Unavailable DAMI, H DEANA MD Unavailable Unavailable DAMI, H DEANA MD Unavailable Unavailable DAMI, H DEANA MD Unavailable Unavailable DAMI, H DEANA MD Unavailable Unavailable DAMI, H DEANA MD Unavailable Unavailable DAMI, H DEANA MD Unavailable Unavailable DAMI, H DEANA MD Unavailable Unavailable DAMI, H DEANA MD Unavailable Unavailable DAMI, H DEANA MD Unavailable Unavailable DAMI, H DEANA MD Unavailable Unavailable DAMI, H DEANA MD Unavailable Unavailable DAMI, H DEANA MD Unavailable Unavailable DAMI, H DEANA MD Unavailable Unavailable DAMI, H DEANA MD Unavailable Unavailable DAMI, H DEANA MD Unavailable Unavailable DAMI, H DEANA MD Unavailable Unavailable DAMI, H DEANA MD Unavailable Unavailable DAMI, H DEANA MD Unavailable Unavailable ADMI, H DEANA MD Unavailable Unavailable DMAI, H DEANA MD Unavailable Unavailable DAMI, H DEANA MD Unavailable Unavailable DAMI, H DEANA MD Unavailable Unavailable DAMI, H DEANA MD Unavailable Unavailable DAMI, H DEANA MD Unavailable Unavailable DAMI, H DEANA MD Unavailable Unavailable DAMI, H DEANA MD Unavailable Unavailable DAMI, H DEANA MD Unavailable Unavailable DAMI, H DEANA MD Unavailable Unavailable DAMI, H DEANA MD Unavailable Unavailable DAMI, H DEANA MD Unavailable Unavailable DAMI, H DEANA MD Unavailable Unavailable DAMI, H DEANA MD Unavailable Unavailable DAMI, H DEANA MD Unavailable Unavailable DAMI, H DEANA MD Unavailable Unavailable DAMI, H DEANA MD Unavailable Unavailable DAMI, H DEANA MD Unavailable Unavailable DAMI, H DEANA MD Unavailable Unavailable Rudy Hua MD Unavailable Unavailable TallaricRudy case MD Unavailable Unavailable TallaricoRudy MD Unavailable Unavailable TallaricoRudy MD Unavailable Unavailable TallaricoRudy MD Unavailable Unavailable TallaricRudy case MD Unavailable Unavailable TallaricRudy case MD Unavailable Unavailable PinedaaricRudy case MD Unavailable Unavailable PinedaaricRudy case MD Unavailable Unavailable PinedaaricRudy case MD Unavailable Unavailable TallaricRudy case MD Unavailable Unavailable TallRudy barroso MD Unavailable Unavailable TallRudy barroso MD Unavailable Unavailable TallRudy barroso MD Unavailable Unavailable TallRudy barroso MD Unavailable Unavailable TallRudy barroso MD Unavailable Unavailable TallaricRudy case MD Unavailable Unavailable [place]arico, A Senthil MD Unavailable Unavailable [place], A Senthil MD Unavailable Unavailable [place], A Senthil MD Unavailable Unavailable [place], A Senthil MD Unavailable Unavailable Tallarico, A Senthil MD Unavailable Unavailable Tallarico, A Senthil MD Unavailable Unavailable Tallarico, A Senthil MD Unavailable Unavailable Tallarico, A Senthil MD Unavailable Unavailable Tallarico, A Senthil MD Unavailable Unavailable Tallarico, A Senthil MD Unavailable Unavailable Tallarico, A Senthil MD Unavailable Unavailable Tallarico, A Senthil MD Unavailable Unavailable Tallarico, A Senthil MD Unavailable Unavailable Tallarico, A Senthil MD Unavailable Unavailable Tallarico, A Senthil MD Unavailable Unavailable Tallarico, A Senthil MD Unavailable Unavailable Tallarico, A Senthil MD Unavailable Unavailable Tallarico, A Senthil MD Unavailable Unavailable Tallarico, A Senthil MD Unavailable Unavailable Tallarico, A Senthil MD Unavailable Unavailable Tallarico, A Senthil MD Unavailable Unavailable Tallarico, A Senthil MD Unavailable Unavailable Tallarico, A Senthil MD Unavailable Unavailable Tallarico, A Senthil MD Unavailable Unavailable Tallarico, A Senthil MD Unavailable Unavailable Tallarico, A Senthil MD Unavailable Unavailable Tallarico, A Senthil MD Unavailable Unavailable Tallarico, A Senthil MD Unavailable Unavailable Tallarico, A Senthil MD Unavailable Unavailable Tallarico, A Senthil MD Unavailable Unavailable Tallarico, A Senthil MD Unavailable Unavailable Tallarico, A Senthil MD Unavailable Unavailable Tallarico, A Senthil MD Unavailable Unavailable Tallarico, A Senthil MD Unavailable Unavailable Tallarico, A Senthil MD Unavailable Unavailable Tallarico, A Senthil MD Unavailable Unavailable Tallarico, A Senthil MD Unavailable Unavailable Tallarico, A Senthil MD Unavailable Unavailable Tallarico, A Senthil MD Unavailable Unavailable Tallarico, A Senthil MD Unavailable Unavailable Tallarico, A Senthil MD Unavailable Unavailable Tallarico, A Senthil MD Unavailable Unavailable Tallarico, A Senthil MD Unavailable Unavailable Tallarico, A Senthil MD Unavailable Unavailable Tallarico, A Senthil MD Unavailable Unavailable Tallarico, A Senthil MD Unavailable Unavailable Tallarico, A Senthil MD Unavailable Unavailable Tallarico, A Senthil MD Unavailable Unavailable Tallarico, A Senthil MD Unavailable Unavailable Tallarico, A Senthil MD Unavailable Unavailable [place], A Senthil MD Unavailable Unavailable [place]ar[place], A Senthil MD Unavailable Unavailable [place]arico, A Senthil MD Unavailable Unavailable [place], A Senthil MD Unavailable Unavailable [place], A Senthil MD Unavailable Unavailable [place], A Senthil MD Unavailable Unavailable [place], A Senthil MD Unavailable Unavailable GAMBHIR, YO HARVIR MD Unavailable Unavailable SANAZ SILVA MD Unavailable Unavailable SANAZ SILVA MD Unavailable Unavailable SANAZ SILVA MD Unavailable Unavailable SANAZ SILVA MD Unavailable Unavailable SANAZ SILVA MD Unavailable Unavailable SANAZ SILVA MD Unavailable Unavailable SANAZ SILVA MD Unavailable Unavailable SANAZ SILVA MD Unavailable Unavailable SANAZ SILVA MD Unavailable Unavailable SANAZ SILVA MD Unavailable Unavailable SANAZ SILVA MD Unavailable Unavailable Rudy LEMUS MD Unavailable Unavailable Rudy LEMUS MD Unavailable Unavailable Rudy LEMUS MD Unavailable Unavailable Rudy LEMUS MD Unavailable Unavailable Rudy LEMUS MD Unavailable Unavailable Inna Subramanian MD Unavailable Unavailable Marilynn M Narda MD Unavailable Unavailable White M Narda MD Unavailable Unavailable White M Narda MD Unavailable Unavailable White M Narda MD Unavailable Unavailable Marilynn M Narda MD Unavailable Unavailable White M Narda MD Unavailable Unavailable White M Narda MD Unavailable Unavailable White M Narda MD Unavailable Unavailable White M Narda MD Unavailable Unavailable White M Narda MD Unavailable Unavailable White M Narda MD Unavailable Unavailable White M Narda MD Unavailable Unavailable White M Narda MD Unavailable Unavailable White M Narda MD Unavailable Unavailable White M Narda MD Unavailable Unavailable White M Narda MD Unavailable Unavailable White M Narda MD Unavailable Unavailable Marilynn M Narda MD Unavailable Unavailable Marilynn M Narda MD Unavailable Unavailable Vinh TRAMMELL MD Unavailable Vinh TRAMMELL MD Unavailable Vinh TRAMMELL MD Unavailable Vinh TRAMMELL MD Unavailable Vinh TRAMMELL MD Unavailable Raoul CABRERA . Unavailable Unavailable Narciso LOMAX MD Unavailable Unavailable Narciso LOMAX MD Unavailable Unavailable Narciso LOMAX MD Unavailable Unavailable Narciso LOMAX MD Unavailable Unavailable Narciso LOMAX MD Unavailable Unavailable Narciso LOMAX MD Unavailable Unavailable Narciso LOMAX MD Unavailable Unavailable Narciso LOMAX MD Unavailable Unavailable Narciso LOMAX MD Unavailable Unavailable Narciso LOMAX MD Unavailable Unavailable Narciso LOMAX MD Unavailable Unavailable Narciso LOMAX MD Unavailable Unavailable Narciso LOMAX MD Unavailable Unavailable Narciso LOMAX MD Unavailable Unavailable Narciso LOMAX MD Unavailable Unavailable Narciso LOMAX MD Unavailable Unavailable Narciso LOMAX MD Unavailable Unavailable Narciso LOMAX MD Unavailable Unavailable Narciso LOMAX MD Unavailable Unavailable Narciso LOMAX MD Unavailable Unavailable Narciso LOMAX MD Unavailable Unavailable Narciso LOMAX MD Unavailable Unavailable DAMI H DEANA ELKINS Unavailable Unavailable Narciso LOMAX MD Unavailable Unavailable Narciso LOMAX MD Unavailable Unavailable Narciso LOMAX MD Unavailable Unavailable Narciso LOMAX MD Unavailable Unavailable Narciso LOMAX MD Unavailable Unavailable Narciso LOMAX MD Unavailable Unavailable Narciso LOMAX MD Unavailable Unavailable Narciso LOMAX MD Unavailable Unavailable Narciso LOMAX MD Unavailable Unavailable Narciso LOMAX MD Unavailable Unavailable Narciso LOMAX MD Unavailable Unavailable Narciso LOMAX MD Unavailable Unavailable Narciso LOMAX MD Unavailable Unavailable Narciso LOMAX MD Unavailable Unavailable Narciso LOMAX MD Unavailable Unavailable Narciso LOMAX MD Unavailable Unavailable Narciso LOMAX MD Unavailable Unavailable Narciso LOMAX MD Unavailable Unavailable Narciso LOMAX MD Unavailable Unavailable Narciso LOMAX MD Unavailable Unavailable Narciso LOMAX MD Unavailable Unavailable Narciso LOMAX MD Unavailable Unavailable Narciso LOMAX MD Unavailable Unavailable Narciso LOMAX MD Unavailable Unavailable Narciso LOMAX MD Unavailable Unavailable Narciso LOMAX MD Unavailable Unavailable Narciso LOMAX MD Unavailable Unavailable Narciso LOMAX MD Unavailable Unavailable Narciso LOMAX MD Unavailable Unavailable Narciso LOMAX MD Unavailable Unavailable Narciso LOMAX MD Unavailable Unavailable Narciso LOMAX MD Unavailable Unavailable Narciso LOMAX MD Unavailable Unavailable Narciso LOMAX MD Unavailable Unavailable Narciso LOMAX MD Unavailable Unavailable Narciso LOMAX MD Unavailable Unavailable Narciso LMOAX MD Unavailable Unavailable Narciso LOMAX MD Unavailable Unavailable Narciso LOMAX MD Unavailable Unavailable Narciso LOMAX MD Unavailable Unavailable Narciso LOMAX MD Unavailable Unavailable Narciso LOMAX MD Unavailable Unavailable Narciso LOMAX MD Unavailable Unavailable Narciso LOMAX MD Unavailable Unavailable Narciso LOMAX MD Unavailable Unavailable Narciso LOMAX MD Unavailable Unavailable Narciso LOMAX MD Unavailable Unavailable Narciso LOMAX MD Unavailable Unavailable Narciso LOMAX MD Unavailable Unavailable Narciso LOMAX MD Unavailable Unavailable Narciso LOMAX MD Unavailable Unavailable Narciso LOMAX MD Unavailable Unavailable Narciso LOMAX MD Unavailable Unavailable WEI MONTILLA MD Unavailable Unavailable WEI MONTILLA MD Unavailable Unavailable WEI MONTILLA MD Unavailable Unavailable WEI MONTILLA MD Unavailable Unavailable WEI MONTILLA MD Unavailable Unavailable WEI MONTILLA MD Unavailable Unavailable WEI MONTILLA MD Unavailable Unavailable WEI MONTILLA MD Unavailable Unavailable WEI MONTILLA MD Unavailable Unavailable WEI MONTILLA MD Unavailable Unavailable WEI MONTILLA MD Unavailable Unavailable WEI MONTILLA MD Unavailable Unavailable WEI MONTILLA MD Unavailable Unavailable WEI MONTILLA MD Unavailable Unavailable WEI MONTILLA MD Unavailable Unavailable WEI MONTILLA MD Unavailable Unavailable WEI MONTILLA MD Unavailable Unavailable COPPOLA, PRATISHTHA Unavailable Unavailable Aloi, M Steffanie RADIOGRAPHIC TECHNOLOGIST Unavailable Unavailable Aloi, M Steffanie RADIOGRAPHIC TECHNOLOGIST Unavailable Unavailable Aloi, M Steffanie RADIOGRAPHIC TECHNOLOGIST Unavailable Unavailable Aloi, M Steffanie RADIOGRAPHIC TECHNOLOGIST Unavailable Unavailable Aloi, M Steffanie RADIOGRAPHIC TECHNOLOGIST Unavailable Unavailable Aloi, M Steffanie RADIOGRAPHIC TECHNOLOGIST Unavailable Unavailable Aloi, M Steffanie RADIOGRAPHIC TECHNOLOGIST Unavailable Unavailable Aloi, M Steffanie RADIOGRAPHIC TECHNOLOGIST Unavailable Unavailable Aloi, M Steffanie RADIOGRAPHIC TECHNOLOGIST Unavailable Unavailable Aloi, M Steffanie RADIOGRAPHIC TECHNOLOGIST Unavailable Unavailable Aloi, M Steffanie RADIOGRAPHIC TECHNOLOGIST Unavailable Unavailable Aloi, M Steffanie RADIOGRAPHIC TECHNOLOGIST Unavailable Unavailable Aloi, M Steffanie RADIOGRAPHIC TECHNOLOGIST Unavailable Unavailable Aloi, M Steffanie RADIOGRAPHIC TECHNOLOGIST Unavailable Unavailable Aloi, M Steffanie RADIOGRAPHIC TECHNOLOGIST Unavailable Unavailable Aloi, M Steffanie RADIOGRAPHIC TECHNOLOGIST Unavailable Unavailable Aloi, M Steffanie RADIOGRAPHIC TECHNOLOGIST Unavailable Unavailable Aloi, M Steffanie RADIOGRAPHIC TECHNOLOGIST Unavailable Unavailable Aloi, M Steffanie RADIOGRAPHIC TECHNOLOGIST Unavailable Unavailable Aloi, M Steffanie RADIOGRAPHIC TECHNOLOGIST Unavailable Unavailable Aloi, M Steffanie RADIOGRAPHIC TECHNOLOGIST Unavailable Unavailable Aloi, M Steffanie RADIOGRAPHIC TECHNOLOGIST Unavailable Unavailable Aloi, M Steffanie RADIOGRAPHIC TECHNOLOGIST Unavailable Unavailable Aloi, M Steffanie RADIOGRAPHIC TECHNOLOGIST Unavailable Unavailable Aloi, M Steffanie RADIOGRAPHIC TECHNOLOGIST Unavailable Unavailable Aloi, M Steffanie RADIOGRAPHIC TECHNOLOGIST Unavailable Unavailable Aloi, M Steffanie RADIOGRAPHIC TECHNOLOGIST Unavailable Unavailable Aloi, M Steffanie RADIOGRAPHIC TECHNOLOGIST Unavailable Unavailable Aloi, M Steffanie RADIOGRAPHIC TECHNOLOGIST Unavailable Unavailable Aloi, M Steffanie RADIOGRAPHIC TECHNOLOGIST Unavailable Unavailable Aloi, M Steffanie RADIOGRAPHIC TECHNOLOGIST Unavailable Unavailable Aloi, M Steffanie RADIOGRAPHIC TECHNOLOGIST Unavailable Unavailable Aloi, M Steffanie RADIOGRAPHIC TECHNOLOGIST Unavailable Unavailable Aloi, M Steffanie RADIOGRAPHIC TECHNOLOGIST Unavailable Unavailable Aloi, M Steffanie RADIOGRAPHIC TECHNOLOGIST Unavailable Unavailable Aloi, M Steffanie RADIOGRAPHIC TECHNOLOGIST Unavailable Unavailable Aloi, M Steffanie RADIOGRAPHIC TECHNOLOGIST Unavailable Unavailable MD ANNA HER Unavailable Unavailable Tomaiuoli, ABNER Narda ANP-C Unavailable [phone] Tomaiuoli, ABNER Narda ANP-C Unavailable [phone] Tomaiuoli, ABNER Narda ANP-C Unavailable [phone] Tomaiuoli, ABNER Narda ANP-C Unavailable [phone] Tomaiuoli, ABNER Anrda ANP-C Unavailable [phone] Tomaiuoli, ABNER Narda ANP-C Unavailable [phone] Tomaiuoli, ABNER Narda ANP-C Unavailable [phone] Tomaiuoli, ABNER Narda ANP-C Unavailable [phone] Tomaiuoli, ABNER Narda ANP-C Unavailable [phone] Tomaiuoli, ABNER Narda ANP-C Unavailable [phone] Tomaiuoli, ABNER Narda ANP-C Unavailable [phone] Tomaiuoli, ABNER Narda ANP-C Unavailable [phone] Tomaiuoli, ABNER Narda ANP-C Unavailable [phone] Tomaiuoli, ABNER Narda ANP-C Unavailable [phone] Tomaiuoli, ABNER Narda ANP-C Unavailable [phone] Tomaiuoli, ABENR Narda ANP-C Unavailable [phone] Tomaiuoli, ABNER Narda ANP-C Unavailable [phone] Tomaiuoli, ABNER Narda ANP-C Unavailable [phone] Tomaiuoli, ABNER Narda ANP-C Unavailable [phone] Tomaiuoli, ABNER Narda ANP-C Unavailable [phone] Tomaiuoli, ABNER Narda ANP-C Unavailable [phone] Tomaiuoli, ABNER Narda ANP-C Unavailable [phone] Tomaiuoli, ABNER Narda ANP-C Unavailable [phone] Tomaiuoli, ABNER Narda ANP-C Unavailable [phone] Tomaiuoli, ABNER Narda ANP-C Unavailable [phone] Tomaiuoli, ABNER Narda ANP-C Unavailable [phone] Tomaiuoli, ABNER Narda ANP-C Unavailable [phone] Tomaiuoli, ABNER Narda ANP-C Unavailable [phone] Tomaiuoli, ABNER Narda ANP-C Unavailable [phone] Tomaiuoli, ABNER Narda ANP-C Unavailable [phone] Tomaiuoli, ABNER Narda ANP-C Unavailable [phone] Tomaiuoli, ABNER Narda ANP-C Unavailable [phone] Tomaiuoli, ABNER Narda ANP-C Unavailable [phone] Tomaiuoli, ABNER Narda ANP-C Unavailable [phone] Tomaiuoli, ABNER Narda ANP-C Unavailable [phone] Tomaiuoli, ABNER Narda ANP-C Unavailable [phone] Tomaiuoli, ABNER Narda ANP-C Unavailable [phone] Tomaiuoli, ABNER Narda ANP-C Unavailable [phone] Madhavi CRISTOBAL MD Unavailable Unavailable Madhavi CRISTOBAL MD Unavailable Unavailable Madhavi CRISTOBAL MD Unavailable Unavailable Madhavi CRISTOBAL MD Unavailable Unavailable Madhavi CRISTOBAL MD Unavailable Unavailable Madhavi CRISTOBAL MD Unavailable Unavailable Madhavi CRISTOBAL MD Unavailable Unavailable Madhavi CRISTOBAL MD Unavailable Unavailable Madhavi CRISTOBAL MD Unavailable Unavailable Re-disclosure Warning The records that you are about to access may contain information from federally-assisted alcohol or drug abuse programs. If such information is present, then the following federally mandated warning applies: This information has been disclosed to you from records protected by federal confidentiality rules (42 CFR part 2). The federal rules prohibit you from making any further disclosure of this information unless further disclosure is expressly permitted by the written consent of the person to whom it pertains or as otherwise permitted by 42 CFR part 2. A general authorization for the release of medical or other information is NOT sufficient for this purpose. The Federal rules restrict any use of the information to criminally investigate or prosecute any alcohol or drug abuse patient.The records that you are about to access may contain highly sensitive health information, the redisclosure of which is protected by Article 27-F of the [facility] Public Health law. If you continue you may have access to information: Regarding HIV / AIDS; Provided by facilities licensed or operated by the [facility] Office of Mental Health; or Provided by the [facility] Office for People With Developmental Disabilities. If such information is present, then the following [facility] mandated warning applies: This information has been disclosed to you from confidential records which are protected by state law. State law prohibits you from making any further disclosure of this information without the specific written consent of the person to whom it pertains, or as otherwise permitted by law. Any unauthorized further disclosure in violation of state law may result in a fine or nursing home sentence or both. A general authorization for the release of medical or other information is NOT sufficient authorization for further disc losure. Allergies and Adverse Reactions Type Description Substance Reaction Status Data Source(s ) Drug Class AMINOGLYCOSIDES AMINOGLYCOSIDES [facility] Family History Family Member Name Family Member Gender Family Member Status Date o f Status Description Data Source(s) Unknown Male Problem MEDENT ([facility] () Unknown Unknown Problem MED[facility] ([facility], ) Unknown Unknown Problem MEDENT ([facility], ) Unknown Unknown Problem MEDENT ([facility], ) Unknown Unknown Problem MEDENT ([facility], ) Unknown Unknown Problem MED[facility] ([facility], ) Unknown Unknown Problem MEDENT ([facility], ) Unknown Unknown Problem MEDENT ([facility], ) Unknown Unknown Problem MEDENT ([facility], ) Unknown Unknown Problem MEDENT ([facility], ) Unknown Unknown Problem [facility] ([facility] Unknown Female Problem MEDENT ([facility]) Encounters Encounter Providers Location Date Indications Data Source(s ) Outpatient Attender: Narda MATHEW 01/19/2021 12:00:00 AM EDT [facility] Outpatient Attender: DEANA LOMAX MD [place] [facility] 12:30:00 PM EST MEDENT ([facility] Outpatient Referrer: Narda MATHEW 10/21 12:00:00 AM EST Arthrodesis [facility] Arthrodesis status Outpatient Referrer: Narda MATHEW 10/21 12:00:00 AM EST Other secondary kyphosis, thoracic region [facility] Other secondary kyphosis, thoracic regio n Outpatient Attender: Narda MATHEW [id number] 10/21/2020 12:00:00 AM EST Arthrodesis [facility] Arthrodesis status Outpatient Attender: Steffanie VARELA 10/06/2020 12:00:00 AM [facility] Outpatient Attender: DEANA LOMAX MD [place] [facility] 01:30:00 PM EST MEDENT ([facility] Outpatient Attender: Senthil Hua MD 09/02/2020 12:00 :00 AM [facility] Outpatient Attender: Senthil Hau MD 08/24/2020 12:00 :00 AM [facility] Outpatient Referrer: Steffanie VARELA 08/11/2020 12: 00:00 AM EST Arthrodesis [facility] Arthrodesis status Outpatient Attender: Steffanie GARCIAPAttender: Alyssa MATHEW [id number] 08/11/2020 12:00:00 AM EST [facility] Outpatient Referrer: Senthil Hua MD 07/01/2020 12:00:00 AM EDT Arthrodesis [facility] Arthrodesis status Outpatient Attender: Senthil Hua MD [id number] 1 12:00:00 AM EDT Arthrodesis [facility] Arthrodesis status Outpatient Attender: Senthil Hua MD 06/25/2020 12:00 :00 AM EDT [facility] Outpatient Attender: DEANA LOMAX MD [place] [facility] 01:45:00 PM EDT [facility] Outpatient Attender: DEANA LOMAX MD [place] [facility] 02:00:00 PM EDT [facility] Outpatient Referrer: Senthil Hua MD 05/13/2020 12:00:00 AM EDT Arthrodesis status [facility] Arthrodesis status Outpatient Attender: Senthil Hua MD [id number] 0 05/13/2020 12:00:00 AM EDT Arthrodesis [facility] Arthrodesis status Inpatient Attender: STEFFANIE GALARZA MDAdmitter: STEFFANIE DENG MD [id number] 05/03/2020 12:00:00 AM EDT - 05/08/2020 11:30:00 AM EDT Spinal stenosis, lumbosacral region [facility] Spinal stenosis, lumbosacral region Patient discharged. Inpatient Attender: Brett Kapadia r: Narda Subramanian MDAttender: TAQUERIA JOHNSONPTAAttender: JASMINA SILVA MDAttender: WEI MONTILLA MDAttender: JACKSON TRAMMELL MDAttender: DARY TELLES .Admitter: Senthil Hua MDReferrer: WEI MONTILLA MDConsultant: Brett Joseph MD [id number]-[id number] 04/24/2020 12:00: 00 AM EDT - 05/03/2020 04:16:00 PM EDT Dorsalgia, unspecified [facility] Dorsalgia, unspecified Patient discharged. Emergency Attender: ISHA ODOM MDAttender: WAN LEMUS MD [id number] 04/23/2020 12:00:00 AM EDT - 04/23/2020 10:06:00 PM EDT Other acute postprocedural pain [facility] Other acute postprocedural pain Patient discharged. Emergency Attender: JOSE LUIS CRISTOBAL MDConsultant: DEANA CHAVEZ MD 04/22/2020 12:43:00 PM EDT - 04/22/2020 04:51:00 PM EDT [facility] Patient discharged. Outpatient Referrer: MD ANNA HER 03/02/2020 06:10:00 AM EDT [facility] Outpatient Referrer: MD ANNA HER 03/01/2020 11:11:00 PM EDT [facility] Outpatient Attender: DEANA LOMAX MD [place] [facility] 09/2019 10:00:00 AM EDT [facility] Outpatient Attender: DEANA LOMAX MD [place] [facility] 10:30:00 AM EST [facility] ([facility] Outpatient Referrer: MD ANNA HER 10/10/2019 09:19:00 AM EST [facility] Outpatient Attender: NAYANA RODRIGUEZ 10/08/2019 03:00:00 PM EST - 10/08/2019 03:00:00 PM EST [facility] Outpatient Attender: DEANA LOMAX MD [place] [facility] 10:15:00 AM EST [facility] ([facility] Outpatient Referrer: Senthil Hua MD 08/14/2019 12:00:00 AM EST Arthrodesis status [facility] Arthrodesis status Outpatient Referrer: Steffanie VARELA 07/08/2019 12: 00:00 AM EDT Spinal stenosis, lumbar region with neurogenic claudication [facility] Spinal stenosis, lumbar region with neur ogenic claudication Outpatient Referrer: Narda Ernst ANP-C 06/11/2019 12:00:00 AM EDT - 06/11/2019 11:59:00 PM EDT Encounter for other preprocedural examination [facility] Encounter for other preprocedural examin ation Immunizations Vaccine Date Status Description Data Source(s) New in 2012. IIV4 06/18/2020 03:33:00 PM EDT completed [facility] ([facility] pneumococcal polysaccharide PPV23 10/21/2019 10:23:00 AM EST comple lucille [facility] ([facility] Medications Medication Brand Name Start Date Product Form Dose Route Admi nistrative Instructions Pharmacy Instructions Status Indications Reaction Description Data Source(s) Lisinopril 20 MG Oral Tablet Lisinopril 05/08/2020 12:00:00 AM EDT active [facility] ([facility] Acetaminophen 325 MG Oral Tablet Acetaminophen 05/08/2020 12:00:00 AM EDT ORAL active [facility] ( [facility] Diclofenac Sodium 0.01 MG/MG Topical Gel Voltaren 05/08/2020 12 :00:00 AM EDT completed [facility] ([facility] Lisinopril 20 MG Oral Tablet Lisinopril 20 MG Oral Tab let (ZESTRIL) Lisinopril 20 MG Oral Tablet (ZESTRIL) 05/08/2020 12:00:00 AM EDT 20 mg Oral active Take 1 tablet by mouth daily [facility] gabapentin 100 MG Oral Capsule Gabapentin 100 MG Oral Capsule (NEURONTIN) Gabapentin 100 MG Oral Capsule (NEURONTIN) 05/07/2020 12:00:00 AM EDT 200 mg Oral active Take 2 capsules by m outh nightly [facility] tramadol hydrochloride 50 MG Oral Tablet traMADol HCl 50 MG Oral Tablet (ULTRAM) traMADol HCl 50 MG Oral Tablet (ULTRAM) 05/07/2020 12:00:00 AM EDT 50 mg Oral active Take 1 tablet b y mouth every 8 (eight) hours as needed for Pain for up to 10 days, Max Daily Dose: 150 mg [facility] Diclofenac Sodium 0.01 MG/MG Topical Gel Diclofenac Sodium 1 % Transdermal Gel (VOLTAREN) Diclofenac Sodium 1 % Transdermal Gel (VOLTAREN) 05/07 12:00:00 AM EDT active Apply to back and right hip BID PRN pain [facility] sennosides, RESIDENTIAL 8.6 MG Oral Tablet Senna 8.6 MG Oral T ablet Senna 8.6 MG Oral Tablet 05/07/2020 12:00:00 AM EDT 2 {tbl} Oral active Take 2 tablets by mouth nightly as needed [facility] POLYETHYLENE GLYCOL 3350 142 MG/ML Oral Solution polyethylene glycol (MIRALAX) packet 17 g polyethylene glycol (MIRALAX) packet 17 g 05/06/2020 0 9:00:00 AM EDT 17 g Oral active 17 g, Or al, Daily Standard, First dose (after last reorder) on [facility] 05/06/20 at 0900, For 14 days
Mix in 8 ounces of water, juice or milk. Avoid use in patients who require thickened liquids due to potential increased risk for aspiration.
[facility] Medication administered onsite tramadol hydrochloride 50 MG Oral Tablet tramadol (ULT TIMI) tablet 50 mg tramadol (ULTRAM) tablet 50 mg 05/05/2020 08:56:01 PM EDT 50 mg Oral active 50 mg, Oral, Every 8 hours PRN, Moderate Pain (Pain Scale Score 4-6), Severe Pain (Pain Scale Score 7-10), Starting Sun05/05/20 at 2055, For 72 hours [facility] Medication administered onsite gabapentin 100 MG Oral Capsule gabapentin (NEURONTIN) capsule 200 mg gabapentin (NEURONTIN) capsule 200 mg 05/04/2020 09:00:00 PM EDT 200 mg Oral active 200 mg, Oral, Nightly, First dose (after last modification) on Sun05/04/20 at 2100, For 30 doses [facility] Medication administered onsite Lisinopril 20 MG Oral Tablet lisinopril (ZESTRIL) tabl et 20 mg lisinopril (ZESTRIL) tablet 20 mg 05/04/2020 09:00:00 AM EDT 20 mg Oral active 20 mg, Oral, Daily Standard, First dose (after last modification) on Sun05/04/20 at 0900, For 21 doses
Check vital signs before administering
[facility] Medication administered onsite 0.4 ML Enoxaparin sodium 100 MG/ML Prefi lled Syringe enoxaparin sodium (LOVENOX) injection 40 mg enoxaparin sodium (LOVENOX) injection 40 mg 05/04/2020 09:00:00 AM EDT 40 mg Subcutaneous active 40 mg, Subcutaneous, Daily Standard, First dose (after last modification) on Sun05/04/20 at 0900, For 25 doses [facility] Medication administered onsite 0.4 ML Enoxaparin sodium 100 MG/ML Prefi lled Syringe Enoxaparin Sodium 40 MG/0.4ML Subcutaneous Solution (LOVENOX) Enoxaparin Sodium 40 MG/0.4ML Subcutaneous Solution (LOVENOX) 05/04/2020 12:00:00 AM EDT 40 mg Subcutaneous aborted Inject 0.4 mLs into the s kin daily for 7 days [facility] Lisinopril 20 MG Oral Tablet Lisinopril 20 MG Oral Tab let (ZESTRIL) Lisinopril 20 MG Oral Tablet (ZESTRIL) 05/04/2020 12:00:00 AM EDT 20 mg Oral aborted Take 1 tablet by mouth daily [facility] POLYETHYLENE GLYCOL 3350 142 MG/ML Oral Solution Polyethylene Glycol 3350 17 GM Oral Packet (MIRALAX) Polyethylene Glycol 3350 17 GM Oral Packet (MIRALAX) 05/04/2020 12:00:00 AM EDT 17 g Oral aborted Take 1 packet by mouth daily for 10 daysPlease substitute bottle for packets, if packets are unavailable. [facility] Simvastatin 20 MG Oral Tablet simvastatin (ZOCOR) tabl et 20 mg simvastatin (ZOCOR) tablet 20 mg 05/03/2020 09:00:00 PM EDT 20 mg Oral active 20 mg, Oral, Nightly, First dose (after last modification) on Sun05/03/20 at 2100, For 21 doses [facility] Medication administered onsite Sertraline 50 MG Oral Tablet sertraline (ZOLOFT) table t 50 mg sertraline (ZOLOFT) tablet 50 mg 05/03/2020 09:00:00 PM EDT 50 mg Oral active 50 mg, Oral, Nightly, First dose (after last modification) on Sun05/03/20 at 2100, For 21 doses [facility] Medication administered onsite gabapentin 100 MG Oral Capsule gabapentin (NEURONTIN) capsule 200 mg gabapentin (NEURONTIN) capsule 200 mg 05/03/2020 09:00:00 PM EDT 200 mg Oral aborted 200 mg, Oral, 2 Times Daily, First dose (after last modification) on Sun05/03/20 at 2100, For 42 doses [facility] Medication administered onsite Acetaminophen 325 MG Oral Tablet acetaminophen (TYLENO L) tablet 650 mg acetaminophen (TYLENOL) tablet 650 mg 05/03/2020 06:00:00 PM EDT 65 0 mg Oral active 650 mg, Oral, E very 6 hours Standard, First dose on Sun05/03/20 at 1800, For 30 days
Maximum daily dose of acetaminophen is 3,000 mg from all sources in 24 hours.
[facility] Medication administered onsite Diclofenac Sodium 0.01 MG/MG Topical Gel Diclofenac Sodium (VOLTAREN) 1 % gel 2 g Diclofenac Sodium (VOLTAREN) 1 % gel 2 g 05/03/2020 05:00:00 PM EDT 2 g Topical active 2 g, Topical, Four Times Daily Standard, First dose (after last modification) on Sun05/03/20 at 1700, For 88 doses
Apply to back and right hip
[facility] Medication administered onsite sennosides, RESIDENTIAL 8.6 MG Oral Tablet senna tablet 2 tablet sen na tablet 2 tablet 05/03/2020 04:31:39 PM EDT 2 {tbl} Oral active 2 tablet, Oral, Nightly PRN, Constipation, Starting Sun05/03/20 at 1631, For 31 days 21 hours [facility] Medication administered onsite Diclofenac Sodium 0.01 MG/MG Topical Gel Diclofenac Sodium 1 % Transdermal Gel (VOLTAREN) Diclofenac Sodium 1 % Transdermal Gel (VOLTAREN) 05/03 12:00:00 AM EDT 2 g Topical aborted Apply 2 g topic ally Four times daily [facility] sennosides, RESIDENTIAL 8.6 MG Oral Tablet Senna 8.6 MG Oral T ablet Senna 8.6 MG Oral Tablet 05/03/2020 12:00:00 AM EDT 2 {tbl} Oral aborted Take 2 tablets by mouth nightly as needed (Constipation) for up to 10 days [facility] tramadol hydrochloride 50 MG Oral Tablet traMADol HCl 50 MG Oral Tablet (ULTRAM) traMADol HCl 50 MG Oral Tablet (ULTRAM) 05/03/2020 12:00:00 AM EDT 50 mg Oral aborted Take 1 tablet b y mouth every 6 (six) hours as needed for Pain for up to 10 days, Max Daily Dose: 200 mg [facility] gabapentin 100 MG Oral Capsule Gabapentin 100 MG Oral Capsule (NEURONTIN) Gabapentin 100 MG Oral Capsule (NEURONTIN) 05/03/2020 12:00:00 AM EDT 200 mg Oral aborted Take 2 capsules by m outh Two Times Daily [facility] Acetaminophen 325 MG Oral Tablet Acetaminophen 325 MG Oral T ablet 05/03/2020 12:00:00 AM EDT 975 mg Oral active Take 3 tablets by mouth Three times daily [facility] Lidocaine 5 % External Patch (Lidoderm) 9862-2206-03 04/23/20 12:00:00 AM EDT 1 {patch} Transdermal aborted Place 1 pa tch onto the skin every 24 (twenty-four) hours [facility] Acetaminophen 325 MG / Hydrocodone Bitartrate 10 MG Or al Tablet Hydrocodone-Acetaminophen 03/10/2020 12:00:00 AM EDT ORAL completed [facility] ([facility] Acetaminophen 325 MG / Hydrocodone Bitartrate 5 MG Oral Tabl et [[place]] [place] 02/17/2020 12:00:00 AM EDT ORAL completed [facility] ([facility] duloxetine 60 MG Delayed Release Oral Capsule [Cymbalta] Cym rosi 01/23/2020 12:00:00 AM EDT ORAL completed [facility] ([facility] Acetaminophen 325 MG / Hydrocodone Kay[place] trate 10 MG Oral Tablet HYDROcodone- Acetaminophen 10-325 MG Oral Tablet (VICODIN) HYDROcodone-Acetaminophen 10-325 MG Oral Tablet (VICODIN) 1 {tbl} Oral aborted Take 1 tablet by mouth Three times daily as needed for PainPer pharmacy patient last picked up March 18 2020 [facility] Insurance Providers Payer name Policy type / Coverage type Policy ID Covered democrat ID Covered democrat's relationship to deras Policy Deras Plan Information RETIREE MEDICAL INSURANCE PLAN [id number] [facility] [id number] MEDICARE [id number] [id number] AARP HEALTH CARE OPTIONS [id number] SP [id number] AAR U [id number] Self [id number] MEDICARE A [id number] Self [id number] OTHER B SLIWA Self [place] MEDICARE PART A -O/P [id number] 18 [id number] MEDICARE PART A -CLINIC [id number] 18 [id number] MEDICARE C [id number] S [id number] [id number] AARP O [id number] S [id number] MEDICARE C [id number] S [id number] A MEDICARE PART A [facility] [id number] 18 [id number] AARP U [id number] Self [id number] HUMANA MEDICARE ADVANTAGE G [id number] Self [id number] MEDICARE A [id number] Self [id number] MEDICARE [id number] SP [id number] MEDICARE [id number] SP [id number] A [facility] MEDICARE COMPLETE G [id number] Self [id number] Retiree Medical Ins. Plan Medigap Part B [id number] Self [id number] [employer] Commercial [id number] Self [id number] Aarp/ Health Care Options Medigap Part B [id number] Self [id number] Medicare - NGS Medicare Primary [id number] Self [id number] [place] Medigap Part B [id number] Family Dependent [id number] Medicare C [id number] SELF [id number] M29 [facility] AARP Supplemental F [id number] SELF [id number] DME Jurisdiction A [facility] C [id number] SELF [id number] Medicare C [id number] SELF [id number] A [facility] AARP Supplemental F [id number] SELF [id number] Medicare C [id number] SELF [id number] A [facility] PI PI MEDICARE PI PI [facility] [id number] Margarita [id number] MEDICARE [id number] Margarita [id number] A Retiree Medical Ins. Plan Medigap Part B [id number] Self [id number] [employer] Commercial [id number] Self [id number] [employer]/ Health Care Options Medigap Part B [id number] Self [id number] Medicare - NGS Medicare Primary [id number] Self [id number] [employer] Medigap Part B [id number] Self [id number] [employer] Options Medigap Part B [id number] Self [id number] Medicare Dme Supplies Medigap Part B [id number] Self [id number] [place] [id number] Self [id number] Retired Medical Insurance Medigap Part B [id number] Self [id number] [employer] Medigap Part B [id number] Self [id number] [employer] Options Medigap Part B [id number] Self [id number] Medicare Dme Supplies Medigap Part B [id number] Self [id number] [place] Primary [id number] Self [id number] Aarp Medigap Part B Self Medicare [facility] Medicare Primary Self AARP HEALTH CARE OPTIONS [id number] SP [id number] AARP HEALTH CARE OPTIONS [id number] 2 [id number] Retired Medical Insurance Medigap Part B Self [employer] Options/[employer] Medigap Part B Self [employer] Options Medigap Part B Self [place] Primary Self [id number] A Problems, Conditions, and Diagnoses Code Display Name Description Problem Type Effective Dates Data Source(s) 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, thoracic regio n Other secondary kyphosis, thoracic region Diagnosis 10/21/2020 10:36:47 AM [facility] M48.062 Spinal stenosis, lumbar region with neur ogenic claudication Spinal stenosis, lumbar region with neurogenic claudication Diagnosis 0 10/21/2020 10:36:47 AM [facility] Z98.1 Arthrodesis status Arthrodesis status Diagnosis 04/2020 02:11:12 PM [facility] M48.07 Spinal stenosis, lumbosacral region Spinal steno sis, lumbosacral region Diagnosis 05/03/2020 04:42:55 PM [facility] Impaired mobility and activities of james y living Impaired mobility and activities of daily living Diagnosis 05/03/2020 04:24:00 PM [facility] back pian/ decompression/ fusion back pian/ decompress ion/ fusion Diagnosis 05/03/2020 04:24:00 PM [facility] back pain back pain Diagnosis 04/24/2020 04:23:27 AM [facility] G89.29 Other chronic pain Other chronic pain Diagnosis 09/2019 04:23:27 AM [facility] M48.061 Spinal stenosis, lumbar region without n eurogenic claudication Spinal stenosis, lumbar region without neurogenic claudication Diagnosis 04/24/2020 04:23:27 AM [facility] M54.5 Low back pain Low back pain Diagnosis 04/24/2020 04:23:27 AM [facility] M54.9 Dorsalgia, unspecified Dorsalgia, unspecified Diagnosi s 04/24/2020 04:23:27 AM [facility] G89.18 Other acute postprocedural pain Other acute post procedural pain Diagnosis 04/23/2020 01:08:15 PM EDT [facility] Back Pain, Post-op Problem Back Pain, Post-op Problem Diagnosis 04/23/2020 01:08:15 PM [facility] I10 Essential (primary) hypertension Essential (primary) h ypertension Diagnosis [facility] Lumbago with sciatica, right side Lumbago with s ciatica, right side Diagnosis 04/22/2020 [facility] S[facility] Pain in right hip Pain in right hip Diagnosis 04/22/2020 [facility] M545 Low back pain Low back pain Diagnosis 04/22/2020 12:43:00 PM [facility] M2040 Other hammer toe(s) (acquired), unspecif ied foot Other hammer toe(s) (acquired), unspecified foot Diagnosis 10/08/2019 03:00:00 PM [facility] X48442 Pain in right foot Pain in right foot Diagnosis 03:00:00 PM [facility] L84 Corns and callosities Corns and callosities Diagnosis 10/08/2019 03:00:00 PM [facility] 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 Diagnosis 10/08/2019 03:00: 00 PM [facility] 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 Idiopathic pro gressive neuropathy Diagnosis 10/08/2019 03:00:00 PM [facility] Surgeries/Procedures Procedure Description Date Indications Data Source(s) BLOOD COUNT COMPLETE AUTO&AUTO DIFRNTL WBC COUNT CBC AND DIFFER ENTIAL Timed 05/06/2020 3:47 AM EDT 05/06/2020 03:47:00 AM [facility] BASIC METABOLIC PANEL CALCIUM TOTAL BASIC METABOLIC PANEL Routi ne 05/06/2020 3:47 AM EDT 05/06/2020 03:47:00 AM EDT [facility] Results ID Date Data Source [id number] 10/22/2020 07:54:26 AM [facility] XR SPINE LUMBAR 4-MORE VIEWS [id number] RESULTInterpreted by:CATHY Ferro THORACIC AND LUMBAR SPINE SCOLIOSIS 2 OR 3 VIEWSLUMBAR SPINE 4 VIEWSCLINICAL STATEMENT: Scoliosis. Status post fusion.TECHNIQUE: Multiple AP and lateral views of the thoracic and lumbar spine were obtained. AP, lateral, and flexion-extension views of the lumbar spine.COMPARISON: 08/11/2020.FINDINGS:Since the prior study, there has been no significant interval change. The patient is again noted to be status post multilevel thoracolumbar fusion at [id number]. 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 There is abnormal positive sagittal balance, measuring 7 cm. Normal vertebral body heights and alignment are maintained. IMPRESSION: Since 08/11/2020,Status post corrective thoracolumbar fusion for scoliosis, with stable postoperative changes.Mild residual thoracolumbar levoscoliosis and proximal junctional kyphosis, as described above. This document has been electronically signed by Zack Torres MD on 10/22/2020 7:52 AM Name Value Range Interpretation Code Description Data Don rce(s) Supporting Document(s) ID Date Data Source [id number] 10/22/2020 07:54:26 AM [facility] XR SPINE-ENTIRE THORACIC AND LUMBAR- 2 O R 3 VIEW [id number] RESULTInterpreted by:CATHY Ferro THORACIC AND LUMBAR SPINE SCOLIOSIS 2 OR 3 VIEWSLUMBAR SPINE 4 VIEWSCLINICAL STATEMENT: Scoliosis. Status post fusion.TECHNIQUE: Multiple AP and lateral views of the thoracic and lumbar spine were obtained. AP, lateral, and flexion-extension views of the lumbar spine.COMPARISON: 08/11/2020.FINDINGS:Since the prior study, there has been no significant interval change. The patient is again noted to be status post multilevel thoracolumbar fusion at [id number]. 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 There is abnormal positive sagittal balance, measuring 7 cm. Normal vertebral body heights and alignment are maintained. IMPRESSION: Since 08/11/2020,Status post corrective thoracolumbar fusion for scoliosis, with stable postoperative changes.Mild residual thoracolumbar levoscoliosis and proximal junctional kyphosis, as described above. This document has been electronically signed by Zack oTrres MD on 10/22/2020 7:52 AM Name Value Range Interpretation Code Description Data Don rce(s) Supporting Document(s) ID Date Data Source [id number] 10/21/2020 05:55:11 PM [facility] Name Value Range Interpretation Code Description Data Don rce(s) Supporting Document(s) Progress Note [facility] [id number] [file] [id number] ID Date Data Source [id number] 09/20/2020 02:40:00 PM EST [facility] ([facility] Name Value Range Interpretation Code Description Data Don rce(s) Supporting Document(s) Glucose, Fasting 111 mg/dL 70-100 Above high normal M [facility] ([facility] Blood Urea Nitrogen 15 mg/dL 7-18 Normal (applies to non-nume priti results) [facility] ([facility] Creatinine For GFR 0.77 mg/dL 0.55-1.30 Normal (applies to non -numeric results) [facility] ([facility] Sodium Level 140 meq/L 136-145 Normal (applies to non-numeric res ults) [facility] ([facility] Glomerular Filtration Rate Laboratory test result Normal (applies to non- numeric results) [facility] ([facility] ) <content>Units are mL/min/1.73 m2</content>
<content></content>
<content>Chronic Kidney Disease Staging per NKF:</content>
<content></content>
<content>Stage I & II GFR >=60 Normal to Mildly Decreased</content>
<content>Stage III GFR 30- 59 Moderately Decreased</content>
<content>Stage IV GFR 15-29 Severely Decreased</content>
<content>Stage V GFR <15 Very Little GFR Left</content>
<content>ESRD GFR <15 on DRAPERY EXAMINER</content>
<content></content> Potassium Serum 3.9 meq/L 3.5-5.1 Normal (applies to non-numeric results) [facility] ([facility] Chloride Level 105 meq/L 98-107 Normal (applies to non-numeric r esults) [facility] ([facility] [facility] Carbon Dioxide Level 30 meq/L 21-32 Normal (applies to non-num sho results) [facility] ([facility] Ast/Sgot 23 U/L 7-37 Normal (applies to non-numeric resul ts) [facility] ([facility] Anion Gap 5 meq/L 8-16 Below low normal [facility] ( [facility] Calcium Level 8.6 mg/dL 8.8-10.2 Below low normal MEDEN T ([facility] Alkaline Phosphatase 108 U/L 45-117 Normal (applies to non-num sho results) [facility] ([facility] Bilirubin,Total 0.8 mg/dL 0.2-1.0 Normal (applies to non-numeric results) [facility] ([facility] Alt/SGPT 23 U/L 12-78 Normal (applies to non-numeric resul ts) [facility] ([facility] Total Protein 7.6 GM/DL 6.4-8.2 Normal (applies to non-numeric re sults) [facility] ([facility] Albumin 3.8 GM/DL 3.2-5.2 Normal (applies to non-numeric resul ts) [facility] ([facility] Albumin/Globulin Ratio 1.0 1.2-2.2 Below low normal [facility] ([facility] ID Date Data Source [id number] 09/20/2020 02:40:00 PM EST [facility] ([facility] Name Value Range Interpretation Code Description Data Don rce(s) Supporting Document(s) Triglycerides Level 340 mg/dL Above high normal [facility] ([facility] Cholesterol Level 203 mg/dL Above high normal [facility] ([facility] LDL Cholesterol 60 mg/dL Normal (applies to non-numeric results) [facility] ([facility] HDL Cholesterol 75 mg/dL Normal (applies to non-numeric results) [facility] ([facility] Non-HDL-C 128 mg/dL Normal (applies to non-numeric resul ts) [facility] ([facility] Cholesterol Risk Ratio 2.706 Normal (applies to non-n umeric results) [facility] ([facility] ID Date Data Source [id number] 08/18/2020 10:35:03 AM [facility] XR SPINE LUMBAR 4-MORE VIEWS [id number] RESULTInterpreted by:MIGEL Ferro SPINECLINICAL STATEMENT: Status post lumbar fusion. Low back pain.TECHNIQUE: AP, flexion-extension, and neutral lateral views of the lumbar spine.COMPARISON: 07/01/2020.FINDINGS:Since the prior study, there has been no significant interval change. The patient is again noted to be status post laminectomy and fusion at [id number]. Bilateral pedicle screws with interconnecting rods appear intact and well aligned. 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 Normal vertebral body heights are preserved.IMPRESSION: S marcela 07/01/2020,No significant interval change. 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 [file] ICAgICAgICAgICAgICAgICAgICAgICAgICAgICAgICAgICAgICAgICAgICAgICAgICAgICAgICAgICAg ICAgICAgICAgICAgICAgICAgICANCiAgICAgICAgICAgICAgICAgICAgICAgICAgICAgICAgICAgICAg ICAgICAgICAgICAgICAgICAgICAgICAgICAgICAgIC AgICAgICAgICAgICAgICAgICAgICAgICAgICAgICANCiAgICAgICAgICAgICAgICAgICAgICAgICAgIC AgICAgICAgICAgICAgICAgICAgICAgICAgICAgICAgICAgICAgICAgICAgICAgICAgICAgICAgICAgIC AgICAgICAgICAgICANCiAgICAgICAgICAgICAgICAg ICAgICAgICAgICAgICAgICAgICAgICAgICAgICAgICAgICAgICAgICAgICAgICAgICAgICAgICAgICAg ICAgICAgICAgICAgICAgICAgICAgICANCiAgICAgICAgICAgICAgICAgICAgICAgICAgICAgICAgICAg ICAgICAgICAgICAgICAgICAgICAgICAgICAgICAgIC AgICAgICAgICAgICAgICAgICAgICAgICAgICAgICAgICANCiAgICAgICAgICAgICAgICAgICAgICAgIC AgICAgICAgICAgICAgICAgICAgICAgICAgICAgICAgICAgICAgICAgICAgICAgICAgICAgICAgICAgIC AgICAgICAgICAgICAgICANCiAgICAgICAgICAgICAg ICAgICAgICAgICAgICAgICAgICAgICAgICAgICAgICAgICAgICAgICAgICAgICAgICAgICAgICAgICAg ICAgICAgICAgICAgICAgICAgICAgICAgICANCiAgICAgICAgICAgICAgICAgICAgICAgICAgICAgICAg ICAgICAgICAgICAgICAgICAgICAgICAgICAgICAgIC AgICAgICAgICAgICAgICAgICAgICAgICAgICAgICAgICAgICANCiAgICAgICAgICAgICAgICAgICAgIC AgICAgICAgICAgICAgICAgICAgICAgICAgICAgICAgICAgICAgICAgICAgICAgICAgICAgICAgICAgIC AgICAgICAgICAgICAgICAgICANCiAgICAgICAgICAg ICAgICAgICAgICAgICAgICAgICAgICAgICAgICAgICAgICAgICAgICAgICAgICAgICAgICAgICAgICAg ICAgICAgICAgICAgICAgICAgICAgICAgICAgICANCjw/xXBbK9bolTBnevX1Z1tsLa4TVz6LEQ6ai3Zo MWLgCRalqtJuCbbXXjExUMRvKkjYFar7DPvtUD3CnV OgP9HdN7AgCEpiBB7DECZzHJXqcAXpXTHjUYWaJnO5YUXnHTbwAQ7DdRHeVOtqOBYqHHYqSyEbNSMeYJ 1NUOLaT014owXuMp2LNf8DIdEuSA0zet1YGxKiPBYpMjpOTms7OXirHL2FuWDseGNrFhZeIHRWKdKiW0 rxs4QiBkGwBVIMHPwmLZ8Zl1HvwHKeQDa+Gm1TCO7v x8OwNGgtWtXkLQ8dnc4RRWeLPxWqP1NrgIzeKKOwm9viLYFtSM2csHEqQGP6HX6srWUbNAqeLXITzW4k ZHSJMWSwfLYpES6uSC3jULWxMRQrUxC7QTFZJG5MPUDhDHTwaCQyWNTsBAFAVG7XWSjoQPC5CNUfhaMr iOKePAmkKW4VXBNmqkTzRdFrDWXABXg+Ut4NUR6hv4 NrAYwwJoWuSL7lbi7LGTfHUlYlR5G8pZRkG5P9WMhnVx1JJTEjYDNyJxCyAPIGJYleWQ7XXW6qdjG0PR 3GoZCiHWDeOUBejJTxRXh7G77iqAGgSElzVG3UCNS+Denae+Rb8VZKCpMENyPPGxWxIhARDPYnAxV8GmP8 WCw7YsX7RfQY42mVeahrBwBSefVI8PAV0zLCJfLQVU HR6JdSHfhK1fgpGdQRVbNOWFEtNoG39sfDWlENVoNHL8OCAzFb0ZSRAmH4FzsfNtkBreibZfMJQcJFTM QT2KSYknfpBrbIChzJrdOD16qTrlOU5LEl6ZZuArTD0uou5JzHFlWu4BZUYyJS5MPRGpHLDjSINsCJY5 RTYxMoUaRCcvVVQyEAZbKQF8VAQkQNGjMR6QZqSbXG TrFtc3TqVxSGXpYOXdrl1FPOYePBVgTMO5EYPcNZNaOVJhDMeoRJOyUMHdKWV4HECjNBXrAC1ZLaSnPG WgWKA5MGdzBHDmNZIjps0RJHBlFAWeJzC4WsUhUAUlHBRaWIpfRQWbQCX1ROm5MBYaPUNeZB6CIfLyHF KsAFB6MSgfTQHqNDFtlz4LZITbZDGaMcg6NqRiFYTj DXEzJVdjGECsCMW9WDHpZERmSKAeLJ5WLdBmBFYjSFtgSzCoRXUsCQUial2CCNTmMQAoSWS4PqDtTWJh IEFjTFssXVRuSLL2Zln5HWRbGMFeFH9TUzEzUBNxRUr4OKIoRXNcEGFgwt1FAAEdKRElKLegDyXiVHOp WHLxODovWTMyLVYrVdF3ADNoXBBtNF4TNkUqRGLfPu Y5WRkkCWHiTJOctw0UOBTiCABmHPF9BeYwAKWcBKQmUZmeQZDzKHJrIZGgIJNrVHWxHH0UFjBtUFJaBs O8FPbaAZIzVRPcyg9QSJYqNJCyFNr8OHRfXJJfJTWiXMfmORHaDDOwOHE9CEMwIDDqEG0WVpBgSYXoRt FxKDHkPECqOATopr5LYMOfFUViXgT5LRYaPEGeEZVs UNlhTDOvKWBrDYX5RHRgFNLcTM9OWtVwLLKjEbkoBIXmZGZdLCRmor8UEGQgCDDkCTDbUvYiPREnQWYb QYgcNVDtTKW0XHO2FTOfGSToCO4WMnTnJFWwVuihDRtbWSPuUFNfyb2VMERhWCZvDEJ6VVUxGLFtAUDi RAcaRQRsPTA4QWDbIRAnRXZhID6KWoFxZCBoFck3CU DwUNGtBFXwyg6IXHRnOMRjLSf4KEJdPNJaNOTyJPmgFRMiFHAdRsA8ATFiNIOxKD7OMcRlXKSdXxQ4RD frAWTcQDPgdk4NLEOtHSHwDCktOVJmFBOvPLEuFZkdAERyTICiVMpmRZXjDADzYM6XHmQaBPoqMNVXOq j2RRbmI3b3UOUlWF8NJ9Jij7FiJbnbLVBFQWxuAG0v ltMgFRZbYe5OA5tFNcklFVKmPdBaU0M3ItOgR0XmBbQ6UFC5VNPmPMm7TMXoYG3kUWY7DpRlBpB1HYiw NUF4WrBkFUfjSNVkZaByXRDcFXDrCmAtRI8MBh6VQdV3QVM0kYOaOs1DMmTgSYOUXkQqKV0QMGl= ID Date Data Source [id number] 07/20/2020 07:43:59 AM EDT [facility] XR SPINE LUMBAR 4-MORE VIEWS [id number] RESULTInterpreted by:MIGEL Ferro SPINECLINICAL STATEMENT: Status post lumbar fusion. Low back pain.TECHNIQUE: AP, flexion-extension, and neutral lateral views of the lumbar spine.COMPARISON: 05/13/2020.FINDINGS:Since the prior study, there has been no significant interval change. The patient is again noted to be status post laminectomy and fusion at O13-ksggc. 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 Otherwise, bi lateral pedicle screws with interconnecting rods appear intact and well aligned. Normal anatomic alignment is maintained. Normal vertebral body heights are preserved.The remaining intervertebral disc spaces appear unremarkable.IMPRESSION: Since 05/13/2020,No significant interval change. 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, as described above.This document has been electronically signed by Zack Torres MD on 07/20/2020 7:41 AM Name Value Range Interpretation Code Description Data Don rce(s) Supporting Document(s) ID Date Data Source [id number] 07/01/2020 02:11:02 PM T [facility] Name Value Range Interpretation Code Description [facility] Document(s) Progress Note [facility] FILLEr9zFyWHAuNh99/RYVagZLYos6GeRVlwJTb6UXwyHXAyK2RjNPK6rH1fRUO0AVuSRwIsVvQrLJM0 lbm [file] YHatHgPeuc1oKHk7SPYeSGox9lrBG+Cable Machine Operator+2+5XkZ4OGlkE3c+B8UC1ipagHfLn0ScvotDfCGCKofC+vB [file] ySHqIxBN5RQIp= ID Date Data Source [id number] 06/18/2020 02:30:00 PM EDT [facility] ([facility] Name Value Range Interpretation Code Description Data Don rce(s) Supporting Document(s) Erythrocytes [#/volume] in Blood by Automated count 4.10 x10E6/uL 3.7 7-5.28 [facility] ([facility] Leukocytes [#/volume] in Blood by Automated count 8.0 x10E3/uL 3.4-10 .8 [facility] ([facility] Hemoglobin [Mass/volume] in Blood 10.9 g/dL 11.1-15.9 Below low nor mal [facility] ([facility] Erythrocyte mean corpuscular volume [Entitic volume] by Auto mated count 85 fL 79-97 [facility] ([facility] Hematocrit [Volume Fraction] of Blood by Automated count 34.9 % 3 4.0-46.6 [facility] ([facility] Erythrocyte mean corpuscular hemoglobin concentration [Mass/volume] by Automated count 31.2 g/dL 31.5-35.7 Below low normal [facility] ([facility] Erythrocyte mean corpuscular hemoglobin [Entitic mass] by Automated count 26.6 pg 26.6-33.0 [facility] ([facility] Erythrocyte distribution width [Ratio] by Automated count 14.5 % 11.7-15.4 [facility] ([facility] Platelets [#/volume] in Blood by Automated count 273 x10E3/uL 150-450 [facility] ([facility] Lymphs 24 % [facility] Neutrophils 66 % [facility] ([facility] Basophils/100 leukocytes in Blood by Automated count 1 % [facility] ([facility] Eosinophils/100 leukocytes in Blood by Automated count 3 % [facility] ([facility] Monocytes/100 leukocytes in Blood by Automated count 6 % [facility] ([facility] Immature cells [#/volume] in Blood Laboratory test result [facility] ([facility] Lymphocytes [#/volume] in Blood 1.9 x10E3/uL 0.7-3.1 [facility] ([facility] Neutrophils [#/volume] in Blood by Automated count 5.3 x10E3/uL 1.4-7 .0 [facility] ([facility] Basophils [#/volume] in Blood by Automated count 0.1 x10E3/uL 0.0-0.2 [facility] ([facility] Monocytes [#/volume] in Blood 0.5 x10E3/uL 0.1-0.9 [facility] ([facility] Eosinophils [#/volume] in Blood by Automated count 0.3 x10E3/uL 0.0-0 .4 [facility] ([facility] Immature granulocytes [#/volume] in Blood by Automated count 0.0 x10E3/uL 0.0-0.1 [facility] ([facility] Nucleated erythrocytes/100 leukocytes [Ratio] in Blood by Automated count Laboratory test result [facility] ([facility] Immature granulocytes/100 leukocytes in Blood by Automated count 0 % [facility] ([facility] Morphology [Interpretation] in Blood Narrative Laboratory test result [facility] ([facility] ID Date Data Source [id number] 06/18/2020 02:30:00 PM EDT [facility] ([facility] Name Value Range Interpretation Code Description Data Don rce(s) Supporting Document(s) Trig 177 mg/dL 40-200 [facility] ([facility] CHRONIC KIDNEY DISEASE STAGING PER NKF: MALE [...] DESIRABLE: <130 MG/DL <110 MG/DL BORDERLINE-HIGH RISK: 130- 159 MG/DL 110-129 MG/DL HIGH RISK: >160 MG/DL >130 MG/DL *CHILDREN AND ADOLESCENTS REPRESENTS INDIVIDUALA AGED 2-19 YEARS EXCLUSIVE. Cholesterol in HDL [Mass/volume] in Serum or Plasma 60 mg/dL 45-65 [facility] ([facility] CHRONIC KIDNEY DISEASE STAGING PER NKF: MALE [...] DESIRABLE: <130 MG/DL <110 MG/DL BORDERLINE-HIGH RISK: 130- 159 MG/DL 110-129 MG/DL HIGH RISK: >160 MG/DL >130 MG/DL *CHILDREN AND ADOLESCENTS REPRESENTS INDIVIDUALA AGED 2-19 YEARS EXCLUSIVE. Chol 206 mg/dL 0-200 Above high normal [facility] ([facility] CHRONIC KIDNEY DISEASE STAGING PER NKF: MALE [...] DESIRABLE: <130 MG/DL <110 MG/DL BORDERLINE-HIGH RISK: 130- 159 MG/DL 110-129 MG/DL HIGH RISK: >160 MG/DL >130 MG/DL *CHILDREN AND ADOLESCENTS REPRESENTS INDIVIDUALA AGED 2-19 YEARS EXCLUSIVE. LDL_C 110 Calc 75-129 [facility] ([facility] CHRONIC KIDNEY DISEASE STAGING PER NKF: MALE [...] DESIRABLE: <130 MG/DL <110 MG/DL BORDERLINE-HIGH RISK: 130- 159 MG/DL 110-129 MG/DL HIGH RISK: >160 MG/DL >130 MG/DL *CHILDREN AND ADOLESCENTS REPRESENTS INDIVIDUALA AGED 2-19 YEARS EXCLUSIVE. Cho/HDL Ratio 3.4 CALC [facility] ([facility] CHRONIC KIDNEY DISEASE STAGING PER NKF: MALE [...] DESIRABLE: <130 MG/DL <110 MG/DL BORDERLINE-HIGH RISK: 130- 159 MG/DL 110-129 MG/DL HIGH RISK: >160 MG/DL >130 MG/DL *CHILDREN AND ADOLESCENTS REPRESENTS INDIVIDUALA AGED 2-19 YEARS EXCLUSIVE. ID Date Data Source [id number] 06/18/2020 02:30:00 PM EDT MEDD[facility] ([facility] Name Value Range Interpretation Code Description Data Don rce(s) Supporting Document(s) BUN 14 mg/dL 8-23 [facility] ([facility] CHRONIC KIDNEY DISEASE STAGING PER NKF: MALE [...] DESIRABLE: <130 MG/DL <110 MG/DL BORDERLINE-HIGH RISK: 130- 159 MG/DL 110-129 MG/DL HIGH RISK: >160 MG/DL >130 MG/DL *CHILDREN AND ADOLESCENTS REPRESENTS INDIVIDUALA AGED 2-19 YEARS EXCLUSIVE. Glu 152 mg/dL 70-110 Above high normal [facility] ([facility] CHRONIC KIDNEY DISEASE STAGING PER NKF: MALE [...] DESIRABLE: <130 MG/DL <110 MG/DL BORDERLINE-HIGH RISK: 130- 159 MG/DL 110-129 MG/DL HIGH RISK: >160 MG/DL >130 MG/DL *CHILDREN AND ADOLESCENTS REPRESENTS INDIVIDUALA AGED 2-19 YEARS EXCLUSIVE. BUN/Creatinine Ratio 17.8 CALC [facility] ([facility] CHRONIC KIDNEY DISEASE STAGING PER NKF: MALE [...] DESIRABLE: <130 MG/DL <110 MG/DL BORDERLINE-HIGH RISK: 130- 159 MG/DL 110-129 MG/DL HIGH RISK: >160 MG/DL >130 MG/DL *CHILDREN AND ADOLESCENTS REPRESENTS INDIVIDUALA AGED 2-19 YEARS EXCLUSIVE. Na 139 mmol/L 136-145 [facility] CHRONIC KIDNEY DISEASE STAGING PER NKF: MALE [...] DESIRABLE: <130 MG/DL <110 MG/DL BORDERLINE-HIGH RISK: 130- 159 MG/DL 110-129 MG/DL HIGH RISK: >160 MG/DL >130 MG/DL *CHILDREN AND ADOLESCENTS REPRESENTS INDIVIDUALA AGED 2-19 YEARS EXCLUSIVE. Creat 0.8 mg/dL 0.5-1.0 [facility] CHRONIC KIDNEY DISEASE STAGING PER NKF: MALE [...] DESIRABLE: <130 MG/DL <110 MG/DL BORDERLINE-HIGH RISK: 130- 159 MG/DL 110-129 MG/DL HIGH RISK: >160 MG/DL >130 MG/DL *CHILDREN AND ADOLESCENTS REPRESENTS INDIVIDUALA AGED 2-19 YEARS EXCLUSIVE. K 3.4 mmol/L 3.5-5.1 Below low normal [facility] ( [facility] CHRONIC KIDNEY DISEASE STAGING PER NKF: MALE [...] DESIRABLE: <130 MG/DL <110 MG/DL BORDERLINE-HIGH RISK: 130- 159 MG/DL 110-129 MG/DL HIGH RISK: >160 MG/DL >130 MG/DL *CHILDREN AND ADOLESCENTS REPRESENTS INDIVIDUALA AGED 2-19 YEARS EXCLUSIVE. CL 102.5 mmol/L 98.0-107.0 [facility] CHRONIC KIDNEY DISEASE STAGING PER NKF: MALE [...] DESIRABLE: <130 MG/DL <110 MG/DL BORDERLINE-HIGH RISK: 130- 159 MG/DL 110-129 MG/DL HIGH RISK: >160 MG/DL >130 MG/DL *CHILDREN AND ADOLESCENTS REPRESENTS INDIVIDUALA AGED 2-19 YEARS EXCLUSIVE. CA 9.5 mg/dL 8.6-10.2 [facility] ([facility] CHRONIC KIDNEY DISEASE STAGING PER NKF: MALE [...] DESIRABLE: <130 MG/DL <110 MG/DL BORDERLINE-HIGH RISK: 130- 159 MG/DL 110-129 MG/DL HIGH RISK: >160 MG/DL >130 MG/DL *CHILDREN AND ADOLESCENTS REPRESENTS INDIVIDUALA AGED 2-19 YEARS EXCLUSIVE. TP 7.1 g/dL 6.6-8.7 [facility] ([facility] CHRONIC KIDNEY DISEASE STAGING PER NKF: MALE [...] DESIRABLE: <130 MG/DL <110 MG/DL BORDERLINE-HIGH RISK: 130- 159 MG/DL 110-129 MG/DL HIGH RISK: >160 MG/DL >130 MG/DL *CHILDREN AND ADOLESCENTS REPRESENTS INDIVIDUALA AGED 2-19 YEARS EXCLUSIVE. Co2 21.4 mmol/L 22.0-29.0 Below low normal [facility] ([facility] CHRONIC KIDNEY DISEASE STAGING PER NKF: MALE [...] DESIRABLE: <130 MG/DL <110 MG/DL BORDERLINE-HIGH RISK: 130- 159 MG/DL 110-129 MG/DL HIGH RISK: >160 MG/DL >130 MG/DL *CHILDREN AND ADOLESCENTS REPRESENTS INDIVIDUALA AGED 2-19 YEARS EXCLUSIVE. Globulin 2.7 CALC [facility] ([facility] CHRONIC KIDNEY DISEASE STAGING PER NKF: MALE [...] DESIRABLE: <130 MG/DL <110 MG/DL BORDERLINE-HIGH RISK: 130- 159 MG/DL 110-129 MG/DL HIGH RISK: >160 MG/DL >130 MG/DL *CHILDREN AND ADOLESCENTS REPRESENTS INDIVIDUALA AGED 2-19 YEARS EXCLUSIVE. A/G Ratio 1.6 CALC [facility] ([facility] CHRONIC KIDNEY DISEASE STAGING PER NKF: MALE [...] DESIRABLE: <130 MG/DL <110 MG/DL BORDERLINE-HIGH RISK: 130- 159 MG/DL 110-129 MG/DL HIGH RISK: >160 MG/DL >130 MG/DL *CHILDREN AND ADOLESCENTS REPRESENTS INDIVIDUALA AGED 2-19 YEARS EXCLUSIVE. Alb 4.4 g/dL 3.4-4.8 [facility] ([facility] CHRONIC KIDNEY DISEASE STAGING PER NKF: MALE [...] DESIRABLE: <130 MG/DL <110 MG/DL BORDERLINE-HIGH RISK: 130- 159 MG/DL 110-129 MG/DL HIGH RISK: >160 MG/DL >130 MG/DL *CHILDREN AND ADOLESCENTS REPRESENTS INDIVIDUALA AGED 2-19 YEARS EXCLUSIVE. Ast (Sgot) 32 U/L 0-40 [facility] ([facility] CHRONIC KIDNEY DISEASE STAGING PER NKF: MALE [...] DESIRABLE: <130 MG/DL <110 MG/DL BORDERLINE-HIGH RISK: 130- 159 MG/DL 110-129 MG/DL HIGH RISK: >160 MG/DL >130 MG/DL *CHILDREN AND ADOLESCENTS REPRESENTS INDIVIDUALA AGED 2-19 YEARS EXCLUSIVE. Alt (SGPT) 16 U/L 0-41 [facility] ([facility] CHRONIC KIDNEY DISEASE STAGING PER NKF: MALE [...] DESIRABLE: <130 MG/DL <110 MG/DL BORDERLINE-HIGH RISK: 130- 159 MG/DL 110-129 MG/DL HIGH RISK: >160 MG/DL >130 MG/DL *CHILDREN AND ADOLESCENTS REPRESENTS INDIVIDUALA AGED 2-19 YEARS EXCLUSIVE. Alp 97.6 U/L 35-129 [facility] CHRONIC KIDNEY DISEASE STAGING PER NKF: MALE [...] DESIRABLE: <130 MG/DL <110 MG/DL BORDERLINE-HIGH RISK: 130- 159 MG/DL 110-129 MG/DL HIGH RISK: >160 MG/DL >130 MG/DL *CHILDREN AND ADOLESCENTS REPRESENTS INDIVIDUALA AGED 2-19 YEARS EXCLUSIVE. Osmolality-Calculated 280.2 CALC MED ENT ([facility] CHRONIC KIDNEY DISEASE STAGING PER NKF: MALE [...] DESIRABLE: <130 MG/DL <110 MG/DL BORDERLINE-HIGH RISK: 130- 159 MG/DL 110-129 MG/DL HIGH RISK: >160 MG/DL >130 MG/DL *CHILDREN AND ADOLESCENTS REPRESENTS INDIVIDUALA AGED 2-19 YEARS EXCLUSIVE. Tbili 0.47 mg/dL 0.0-1.2 [facility] ([facility] CHRONIC KIDNEY DISEASE STAGING PER NKF: MALE [...] DESIRABLE: <130 MG/DL <110 MG/DL BORDERLINE-HIGH RISK: 130- 159 MG/DL 110-129 MG/DL HIGH RISK: >160 MG/DL >130 MG/DL *CHILDREN AND ADOLESCENTS REPRESENTS INDIVIDUALA AGED 2-19 YEARS EXCLUSIVE. Anion Gap 18 mmol/L [facility] CHRONIC KIDNEY DISEASE STAGING PER NKF: MALE [...] DESIRABLE: <130 MG/DL <110 MG/DL BORDERLINE-HIGH RISK: 130- 159 MG/DL 110-129 MG/DL HIGH RISK: >160 MG/DL >130 MG/DL *CHILDREN AND ADOLESCENTS REPRESENTS INDIVIDUALA AGED 2-19 YEARS EXCLUSIVE. eGFR 77 # [facility] ( [facility] CHRONIC KIDNEY DISEASE STAGING PER NKF: MALE [...] DESIRABLE: <130 MG/DL <110 MG/DL BORDERLINE-HIGH RISK: 130- 159 MG/DL 110-129 MG/DL HIGH RISK: >160 MG/DL >130 MG/DL *CHILDREN AND ADOLESCENTS REPRESENTS INDIVIDUALA AGED 2-19 YEARS EXCLUSIVE. eGFR Non-Afr. [place] 66 # [facility] ([facility] CHRONIC KIDNEY DISEASE STAGING PER NKF: MALE [...] DESIRABLE: <130 MG/DL <110 MG/DL BORDERLINE-HIGH RISK: 130- 159 MG/DL 110-129 MG/DL HIGH RISK: >160 MG/DL >130 MG/DL *CHILDREN AND ADOLESCENTS REPRESENTS INDIVIDUALA AGED 2-19 YEARS EXCLUSIVE. ID Date Data Source [id number] 05/18/2020 02:36:00 PM EDT [facility] ([facility] Name Value Range Interpretation Code Description Data Don rce(s) Supporting Document(s) Glu 127 mg/dL 70-110 Above high normal [facility] ([facility] NORMAL RANGES Age WBC RBC HGB HCT [...] HCT IS 5% LESS SOURCE FOR DATA: [employer] 1800 OPERATION MANUAL( AUTOMATED BLOOD COUNTS AND [...] Normal 80 and above >32 mL/min Normal BUN 15 mg/dL 8- [facility] NORMAL RANGES Age WBC RBC HGB HCT [...] HCT IS 5% LESS SOURCE FOR DATA: [employer] 1800 OPERATION MANUAL( AUTOMATED BLOOD COUNTS AND [...] Normal 80 and above >32 mL/min Normal Creat 0.9 mg/dL 0.5-1.0 [facility] NORMAL RANGES Age WBC RBC HGB HCT [...] HCT IS 5% LESS SOURCE FOR DATA: [employer] 1800 OPERATION MANUAL( AUTOMATED BLOOD COUNTS AND [...] Normal 80 and above >32 mL/min Normal Co2 20.9 mmol/L 22.0-29.0 Below low normal [facility] ([facility] NORMAL RANGES Age WBC RBC HGB HCT [...] HCT IS 5% LESS SOURCE FOR DATA: [employer] 1800 OPERATION MANUAL( AUTOMATED BLOOD COUNTS AND [...] Normal 80 and above >32 mL/min Normal BUN/Creatinine Ratio 17.[address] [facility] ([facility] NORMAL RANGES Age WBC RBC HGB HCT [...] HCT IS 5% LESS SOURCE FOR DATA: JULIAN DYN 1800 OPERATION MANUAL( AUTOMATED BLOOD COUNTS AND [...] Normal 80 and above >32 mL/min Normal CA 9.8 mg/dL 8.6-10.2 [facility] NORMAL RANGES Age WBC RBC HGB HCT MCV PLT Adult M 4.1-10.9 4.20-6.30 12.0-18.0 37.0-51.0 80-97 140-440 Adult F 4.1-10.9 4.04-5.48 12.0-18.0 37.0-51.0 140-440 0 -1 Yr 5.0-20.0 3.9-5.9 15-18 [...] HCT IS 5% LESS SOURCE FOR DATA: [employer] 1800 OPERATION MANUAL( AUTOMATED BLOOD COUNTS AND [...] Normal 80 and above >32 mL/min Normal Na 140 mmol/L 136-145 [facility] ([facility] NORMAL RANGES Age WBC RBC HGB HCT [...] HCT IS 5% LESS SOURCE FOR DATA: [employer] 1800 OPERATION MANUAL( AUTOMATED BLOOD COUNTS AND [...] Normal 80 and above >32 mL/min Normal K 3.5 mmol/L 3.5-5.1 [facility] NORMAL RANGES Age WBC RBC HGB HCT [...] HCT IS 5% LESS SOURCE FOR DATA: [employer] 1800 OPERATION MANUAL( AUTOMATED BLOOD COUNTS AND [...] Normal 80 and above >32 mL/min Normal CL 102.2 mmol/L 98.0-107.0 [facility] ([facility] NORMAL RANGES Age WBC RBC HGB HCT [...] HCT IS 5% LESS SOURCE FOR DATA: [employer] 1800 OPERATION MANUAL( AUTOMATED BLOOD COUNTS AND [...] Normal 80 and above >32 mL/min Normal Anion Gap 21 mmol/L [facility] NORMAL RANGES Age WBC RBC HGB HCT [...] HCT IS 5% LESS SOURCE FOR DATA: [employer] 1800 OPERATION MANUAL( AUTOMATED BLOOD COUNTS AND [...] Normal 80 and above >32 mL/min Normal eGFR Non-Afr. [place] 57 # [facility] ([facility] NORMAL RANGES Age WBC RBC HGB HCT [...] HCT IS 5% LESS SOURCE FOR DATA: [employer] 1800 OPERATION MANUAL( AUTOMATED BLOOD COUNTS AND [...] Normal 80 and above >32 mL/min Normal eGFR 67 # [facility] ( [facility] NORMAL RANGES Age WBC RBC HGB HCT [...] HCT IS 5% LESS SOURCE FOR DATA: [employer] 1800 OPERATION MANUAL( AUTOMATED BLOOD COUNTS AND [...] Normal 80 and above >32 mL/min Normal ID Date Data Source [id number] 05/18/2020 02:36:00 PM EDT [facility] ([facility] Name Value Range Interpretation Code Description Data Don rce(s) Supporting Document(s) WBC 9.1 10E3/uL 4.1-10.9 [facility] ([facility] NORMAL RANGES Age WBC RBC HGB HCT [...] HCT IS 5% LESS SOURCE FOR DATA: BOSS Metrics 1800 OPERATION MANUAL( AUTOMATED BLOOD COUNTS AND [...] Normal 80 and above >32 mL/min Normal HGB 11.2 g/dL 12.0-18.0 Below low normal [facility] ( [facility] NORMAL RANGES Age WBC RBC HGB HCT [...] HCT IS 5% LESS SOURCE FOR DATA: JULIAN DYN 1800 OPERATION MANUAL( AUTOMATED BLOOD COUNTS AND [...] Normal 80 and above >32 mL/min Normal RBC 3.85 10E6/uL 4.20-6.30 Below low normal [facility] ([facility] NORMAL RANGES Age WBC RBC HGB HCT [...] HCT IS 5% LESS SOURCE FOR DATA: [employer] Metrics 1800 OPERATION MANUAL( AUTOMATED BLOOD COUNTS AND [...] Normal 80 and above >32 mL/min Normal HCT 35.4 % 37.0-51.0 Below low normal [facility] ( [facility] NORMAL RANGES Age WBC RBC HGB HCT [...] HCT IS 5% LESS SOURCE FOR DATA: B[employer] Metrics 1800 OPERATION MANUAL( AUTOMATED BLOOD COUNTS AND [...] Normal 80 and above >32 mL/min Normal MCH 29.1 pg 26.0-32.0 [facility] ([facility] NORMAL RANGES Age WBC RBC HGB HCT [...] HCT IS 5% LESS SOURCE FOR DATA: [employer] Metrics 1800 OPERATION MANUAL( AUTOMATED BLOOD COUNTS AND [...] Normal 80 and above >32 mL/min Normal MCV 91.9 fL 80.0-97.0 [facility] ([facility] NORMAL RANGES Age WBC RBC HGB HCT [...] HCT IS 5% LESS SOURCE FOR DATA: B[employer] Metrics 1800 OPERATION MANUAL( AUTOMATED BLOOD COUNTS AND [...] Normal 80 and above >32 mL/min Normal PLT 427 10E3/uL 140-440 [facility] ([facility] NORMAL RANGES Age WBC RBC HGB HCT [...] HCT IS 5% LESS SOURCE FOR DATA: [employer] Metrics 1800 OPERATION MANUAL( AUTOMATED BLOOD COUNTS AND [...] Normal 80 and above >32 mL/min Normal RDW-CV 17.3 % 11.5-14.5 Above high normal [facility] NORMAL RANGES Age WBC RBC HGB HCT [...] HCT IS 5% LESS SOURCE FOR DATA: [employer] Metrics 1800 OPERATION MANUAL( AUTOMATED BLOOD COUNTS AND [...] Normal 80 and above >32 mL/min Normal MCHC 31.6 g/dL 31.0-36.0 [facility] NORMAL RANGES Age WBC RBC HGB HCT [...] HCT IS 5% LESS SOURCE FOR DATA: [employer] Metrics 1800 OPERATION MANUAL( AUTOMATED BLOOD COUNTS AND [...] Normal 80 and above >32 mL/min Normal Lym% 17.1 % 10.0-58.5 [facility] NORMAL RANGES Age WBC RBC HGB HCT [...] HCT IS 5% LESS SOURCE FOR DATA: [employer] Metrics 1800 OPERATION MANUAL( AUTOMATED BLOOD COUNTS AND [...] Normal 80 and above >32 mL/min Normal Neut% 75.5 % 37.0-92.0 [facility] ([facility] NORMAL RANGES Age WBC RBC HGB HCT [...] HCT IS 5% LESS SOURCE FOR DATA: [employer] Metrics 1800 OPERATION MANUAL( AUTOMATED BLOOD COUNTS AND [...] Normal 80 and above >32 mL/min Normal MXD% 7.4 % 0.1-24.0 [facility] ([facility] NORMAL RANGES Age WBC RBC HGB HCT [...] HCT IS 5% LESS SOURCE FOR DATA: JULIAN DYN 1800 OPERATION MANUAL( AUTOMATED BLOOD COUNTS AND [...] Normal 80 and above >32 mL/min Normal Lym# 1.6 10E3/uL 0.6-4.1 [facility] NORMAL RANGES Age WBC RBC HGB HCT [...] HCT IS 5% LESS SOURCE FOR DATA: [employer] Metrics 1800 OPERATION MANUAL( AUTOMATED BLOOD COUNTS AND [...] Normal 80 and above >32 mL/min Normal Neut# 6.8 % 2.0-7.8 [facility] ([facility] NORMAL RANGES Age WBC RBC HGB HCT [...] HCT IS 5% LESS SOURCE FOR DATA: [employer] Metrics 1800 OPERATION MANUAL( AUTOMATED BLOOD COUNTS AND [...] Normal 80 and above >32 mL/min Normal MPV 10.4 fL 9.0-13.0 [facility] ([facility] NORMAL RANGES Age WBC RBC HGB HCT [...] HCT IS 5% LESS SOURCE FOR DATA: [employer] Metrics 1800 OPERATION MANUAL( AUTOMATED BLOOD COUNTS AND [...] Normal 80 and above >32 mL/min Normal MXD# 0.7 10E3/uL 0.0-1.8 [facility] ([facility] NORMAL RANGES Age WBC RBC HGB HCT [...] HCT IS 5% LESS SOURCE FOR DATA: OBMedical DYN 1800 OPERATION MANUAL( AUTOMATED BLOOD COUNTS AND [...] Normal 80 and above >32 mL/min Normal ID Date Data Source [id number] 05/16/2020 01:05:24 PM T [facility] XR SPINE LUMBAR 2-3 VIEWS [id number] RES ULTInterpreted by:MIGEL Ferro SPINECLINICAL STATEMENT: Status post lumbar fusion. Low back pain.TECHNIQUE: AP and neutral lateral views of the lumbar spine.COMPARISON: 04/28/2020.FINDINGS:The patient is again noted to be status post laminectomy and fusion at [id number]. The right T12 pedicle screw appears to traverse the superior cortex. Otherwise, bilateral pedicle screws with interconnecting rods appear intact and well aligned. Normal anatomic alignment is maintained. Normal vertebral body heights are preserved.IMPRESSION: Since 04/28/2020,Status post lumbar fusion at [id number], with possible breech of the T12 superior endplate by the right pedicle screw. If clinically indicated, further evaluation with CT may be performed.This document has been electronically signed by Zack Torres MD on 05/16/2020 1:03 PM Name Value Range Interpretation Code Description Data Don rce(s) Supporting Document(s) ID Date Data Source [id number] 05/15/2020 11:51:00 AM EDT [facility] ([facility] Name Value Range Interpretation Code Description Data Don rce(s) Supporting Document(s) Urate [Mass/volume] in Serum or Plasma 3.7 mg/dL 2.6-6.0 Normal (applies to non- numeric results) [facility] ([facility] C reactive protein [Mass/volume] in Serum or Plasma by High sensitivity method 1.72 mg/dL 0.00-0.30 Above high normal [facility] ([facility] ID Date Data Source [id number] 05/15/2020 11:51:00 AM EDT [facility] ([facility] Name Value Range Interpretation Code Description Data Don rce(s) Supporting Document(s) Glucose, Fasting 104 mg/dL 70-100 Above high normal [facility] ([facility] Creatinine For GFR 0.69 mg/dL 0.55-1.30 Normal (applies to non -numeric results) [facility] ([facility] Blood Urea Nitrogen 11 mg/dL 7-18 Normal (applies to non-nume priti results) [facility] ([facility] Glomerular Filtration Rate Laboratory test result Normal (applies to non- numeric results) [facility] ([facility] <content>Units are mL/min/1.73 m2</content>
<content></content>
<content>Chronic Kidney Disease Staging per NKF:</content>
<content></content>
<content>Stage I & II GFR >=60 Normal to Mildly Decreased</content>
<content>Stage III GFR 30- 59 Moderately Decreased</content>
<content>Stage IV GFR 15-29 Severely Decreased</content>
<content>Stage V GFR <15 Very Little GFR Left</content>
<content>ESRD GFR <15 on DRAPERY EXAMINER</content>
<content></content> Sodium Level 137 meq/L 136-145 Normal (applies to non-numeric res ults) [facility] ([facility] Potassium Serum 3.6 meq/L 3.5-5.1 Normal (applies to non-numeric results) [facility] ([facility] Chloride Level 103 meq/L 98-107 Normal (applies to non-numeric r esults) [facility] ([facility] Carbon Dioxide Level 29 meq/L 21-32 Normal (applies to non-num sho results) [facility] ([facility] Calcium Level 8.8 mg/dL 8.8-10.2 Normal (applies to non-numeric re sults) [facility] ([facility] Anion Gap 5 meq/L 8-16 Below low normal [facility] ( [facility] ID Date Data Source [id number] 05/15/2020 11:51:00 AM EDT [facility] ([facility] Name Value Range Interpretation Code Description Data Don rce(s) Supporting Document(s) White Blood Count 11.3 10 4.0-10.0 Above high normal [facility] ([facility] Red Blood Count 3.18 10 4.00-5.40 Below low normal [facility] ([facility] Hemoglobin 9.0 g/dL 12.0-15.5 Below low normal [facility] ( [facility] Mean Corpuscular Volume 92.8 fl 80.0-96.0 Normal ( applies to non-numeric results) [facility] ([facility] Hematocrit 29.5 % 36.0-47.0 Below low normal [facility] ( [facility] Mean Corpuscular Hemoglobin 28.3 pg 27.0-33.0 Norm al (applies to non-numeric results) [facility] ([facility] ) Mean Corpuscular HGB Conc 30.5 g/dL 32.0-36.5 Below low normal [facility] ([facility] Red Cell Distribution Width 16.3 % 11.5-14.5 Above high normal [facility] ([facility] Neutrophils % 76.9 % 36.0-66.0 Above high normal [facility] ([facility] Platelet Count, Automated 398 10 150-450 Normal (applies to non-numeric results) [facility] ([facility] ) Lymph % 14.4 % 24.0-44.0 Below low normal [facility] ( [facility] [place] % 5.7 % 0.0-5.0 Above high normal [facility] ([facility] Eos % 2.2 % 0.0-3.0 Normal (applies to non-numeric resul ts) [facility] ([facility] Immature Granulocyte % 0.4 % 0-3.0 Normal (applies to non-n umeric results) [facility] ([facility] Baso % 0.4 % 0.0-1.0 Normal (applies to non-numeric resul ts) [facility] ([facility] Nucleated Red Blood Cell % 0.0 % 0-0 Normal (applies to n on-numeric results) [facility] ([facility] Lymph # 1.6 10 1.5-5.0 Normal (applies to non-numeric resul ts) [facility] ([facility] Neutrophils # 8.7 10 1.5-8.5 Above high normal [facility] ([facility] Baso # 0.1 10 0.0-0.2 Normal (applies to non-numeric resul ts) [facility] ([facility] [place] # 0.6 10 0.0-0.8 Normal (applies to non-numeric resul ts) [facility] ([facility] Eos # 0.3 10 0.0-0.5 Normal (applies to non-numeric resul ts) [facility] ([facility] ID Date Data Source [id number] 05/13/2020 04:02:20 PM EDT [facility] Name Value Range Interpretation Code Description Data Don rce(s) Supporting Document(s) Progress Note [facility] MJMLPl6sVxYVXeTl78/EWSelQXRby7AwKZysYSl5KTzeHJItT3MyAAQ2mK0cLWT5MJkOIbCvIhCiRKWg lbm NqErwOEpXyUYLhWxzWRuNiOEwqVgcdcPUtBX3UkZA4OPLjS34qVCAaYUIwA0GjYWA7UrH+Ct3ISETacP GqJZ9GIdyW1S1Ke3zAIF8x8F+bQQSjMQmHj1rdLHANMHbNRU9mvh0Axw+SRcnfoLdQ6RW+9+FeuUb2Nn 38dG0ZUAQ7vkb3jf0r8efK/50KY2SfGZ7E/q1+jWKt Ti7Ut9+c9LXXh2lxn5COcIRuZU9GGEN+4qrqLtA5nFKqAMeTavcq5tBOhfBQ98TTfhAf6yB75BZtLb2G J0x8d42xiGbgO38VR59tZO4+Mo/q+hJ0i7xQimSlBgR0WC9WkNV4O6faksesv4FCuaFFo7KzJErIVxJ [file] ICAgICAgICAgICAgICAgICAgICAgICAgICAgICAgIC AgICAgICAgICAgICAgICAgICAgICAgICAgICAgICAgICAgICAgICAgICAgICAgICAgICAgICAgICAgIC KfFD9EIGEmYNBoTCUyBFXtEHOrJHUlJNPhYOVaTWTvDLIkSMHfNVTdMVDsIVCzBZXsCHIfCHYaZNJwFW AgICAgICAgICAgICAgICAgICAgICAgICAgICAgICAg ANGxXESkGMXqPPSbIY4VMMHsJEJfKLCzVRZtSXWgENNdSXLhPQWxWLEnTYGnOLVwEMVgETQpVNIhHMVi DVRqRVIzHPLbXIYfJNRzHXAoKSMyJNJeOLMaOFRoXLCqDSRdAVDjNVMuXOSyRNZrCKKeEBUxOD3XEHBv ICAgICAgICAgICAgICAgICAgICAgICAgICAgICAgIC AgICAgICAgICAgICAgICAgICAgICAgICAgICAgICAgICAgICAgICAgICAgICAgICAgICAgICAgICAgIC RvKCWnCF6XRANeCQUjNTDfOTPtEWQjRLJxCYDeJQPjGEGzIVTrBUMoEUNrFNUkRRMeHGUhPPNxMZIlYG AgICAgICAgICAgICAgICAgICAgICAgICAgICAgICAg YBGhOWRbHPMrKPZhKRSsQU8EBUMiDBNaXTTpYECsRMIpPPXnINIsIEUcZLZfVJYzYMVpVLJnDGKhEUCe HMChDJHkXOYxCIDvCMVhMOYtQKXpCBMpVMXlZBYtQYUzFRQvSKAvUKYhOWMmQHWuYGYsKJWhPCWqAB8T ICAgICAgICAgICAgICAgICAgICAgICAgICAgICAgIC AgICAgICAgICAgICAgICAgICAgICAgICAgICAgICAgICAgICAgICAgICAgICAgICAgICAgICAgICAgIC GrULDtOTMoFE5GKRPyLYAtLBYuTVNmPWAeGLSfHLIkNNMwBVVhSARrMIKgIZIcQYHnSZGfCBHuPJSzWH AgICAgICAgICAgICAgICAgICAgICAgICAgICAgICAg LNBoLSPdOZZuTQNgLZOaLDRsOL2JCOOuWYKbGYEmFPPyBBUiSUAoQEKbIRLoKTRiSLJtMVRnYYJfVIFy ICAgICAgICAgICAgICAgICAgICAgICAgICAgICAgICAgICAgICAgICAgICAgICAgICAgICAgICAgICAg EZ0TFL54uHBru2T1AEXgFF0iqyq/Et8RINnnbdDniY MmOA4VFjUcAH6bvf2HTlYfVJ2xxw2ZSAtQJgJuG6A9vNVoJVQwQDWJUqWsF02wEUjxMz13HFeyQUCdIr YcVUg0Ly5NGoLqQ1jvTNDhEtZ7QVVjCiRyWDpjHS4Ls3YbiPPdSSp+Kq2ITY5me7NpVUgtHYJbNR7juj 6XVAaQOaEgV1BcxcF6VRTbOXCiOb1OMDCsWWOqhUYe XVJrRVSJWzKrB3ImrK92XSRQRp9+ZYqstpJbVkhBAtWqBWZzk3HfAMn4SE3UJOFhTCh8lRAxDNOxF4Ol s7CaSf55SJEqZjdeWpgckRSlXFTEFUQaoIgwecjnkoksAYDvKBOaEO2zTP5xGHAsCJBoEoOvGIGYAY6M LPSfLLBvsLOaEMBjOXLNBR1OZAfiDLB0LNQbtjGscI WyRSkoQG5LBESzwjKuMMbsINSJLGd+Jv5SVI8sh1HcHMueJUPsKS7wri5RGKeVLoQgL7T2nMZvD8S8RE olYv8WXDXtRMBnOZmrODJGHSdkDY9RON3mfpR3NS7AvMFhLGBxJOOsaDIqQLw4O08jeUQkOUvsIH4URT A+Denae+Ba5OQBDtRXCySQMqNqFmSTGVVrMhM5IkJ8WC f4PtF7NcII11jJflvfHvCLeqKU8QNS0vUCFuONMHHG3ZgZGmjG8qbrEjBMOgFAGUEgVfL14kbIYvGCJs ODX8QPJhLo1YBIOrY0AnsbVrhSljtbHdFLPzRFAZZJ7IDQhdepPjaOEosKagZN47gYhcHJ0IBw1XOmEf PW3ztj8DwTMwGi5ESLLrWb6UAIXcLZBeKHQkVRM8TL KlKpVsTEffUMJbRUQrDXR6ZZDwOJGxLS9RGlJsPGFcWMutUMVbHVSmALMigz9CJKVlHLDsKXt0AAZjWX HaQYChJLznNLZfIHBlQLJ0YTYlWGOnNP4SZyGwDVAmLKJ4DdwpSZNwGOAuhv0PBJRzXVHxUmG6DjYfTL GgHIShOIwvVEBlQXD2RVBySTWiKZSwPK1XVwCqTSRd BLDbPhqyAZKhTKLsir7EDHHlWTCgTYRaCnIwIDRjBPCsALydZPCfLRN0KBA1WPLpPCIzNF7NOxMdPSSx GTU6MigqGQSmJTIsrs9UZTKjWRJyAGf5IHAiJVQzJCXjHJpfCRBxEYM2PfS5TDSzTOJzOE8SZkGmVQXo JDv3YdDyZQRtMBNpzr3PXODcWSXvVjjjXEFsGWIgLW PtZKxcYHRcBQP0IJc7XYUmXVHvEF0SExDoVPRfEPlgLiBzBJJzPOBbyc6EAIHfOBVqIOMoQVVmOCGxIS OaYEwmVOTeVZD5SQN7TLQfHDMrBC7YKsQiZMPhPzGnXpsmRALcQHVatu6NUIIlUQAbRFG8OyXoSXRcSM RjMNa7abFfeMVbEOk4KD0MB9CniiFwFcEPPl7Yj030 CIDsLFDtDh0OY7adEg2gSYEaUXYIFk9NXEr5ZnGhVhXbYqQgOeIoT0QwGKNiQAZqCbaxUtNyABM8Y0A+ QDyqEvAmKpIsGVNdViV3MoGsBmX0UdW1EfU7SNQiXitmZW5kWJSTLh4+DQpzdGFydHhyZWYNCjIwNDI3 DOvsBMKLJq5Q ID Date Data Source [id number] 05/12/2020 06:33:16 AM EDT [facility] Name Value Range Interpretation Code Description Data Don rce(s) Supporting Document(s) Operative Note [facility] HKXJTh0wVgXWOaWf28/WSEpyALGdl0BnKLkfWDc4IFgvHPGqM4HuBEH0eJ4fTYC7HUaXVcRiQwDzXFT8 lbm [file] ZFL8WLmeNYY+KK0nQVo+Hn0Dq3IuueO8doEtJDylNyO1TY1RZUDBF2YABj== ID Date Data Source [id number] 05/11/2020 07:01:28 PM EDT [facility] Name Value Range Interpretation Code Description Data Don rce(s) Supporting Document(s) Discharge Summary [facility] AEGGKv8iNiMHNaKp94/EQMwcUBWzl6WfQFaqUXk9DAugXKHlX8DaGIK1zU4hBPI1OGvNCbMkRsNmACI3 lbm BlAskHMlErUFPzHojCRrImTHcnMfqgvAYwKO6XsTT5XSJsK47xIICgNTMsV9LmIFZbKNS+Ky9KWKFqtK YjUO3RMcmJ4M7Cwii3Hz0pRI1WfInfnbHCNayl+16Kbf3pA9WkTLphS0Ksz1mBBK+rnYz//eLrvsf9X9 CDXe7OechKROpCxrvoZEVAQb/4h2yIP4/zRPn/8s84 WTB1Rw57L7Rd5bhzhmRaqGF2PCgmi+vSlq26lmiNK9tc/04jKeid2IHKHTorOZV15PGzHqtjEu26L+Nepali [file] ICAgICAgICAgICAgICAgICAgICAgICAgICAgICAgICAgICAgICAgICAgICAgICAgICAgICAgICAgICAg ICAgICAgICAgICAgICAgICAgICANCiAgICAgICAgIC AgICAgICAgICAgICAgICAgICAgICAgICAgICAgICAgICAgICAgICAgICAgICAgICAgICAgICAgICAgIC AgICAgICAgICAgICAgICAgICAgICAgICAgICAgICANCiAgICAgICAgICAgICAgICAgICAgICAgICAgIC AgICAgICAgICAgICAgICAgICAgICAgICAgICAgICAg ICAgICAgICAgICAgICAgICAgICAgICAgICAgICAgICAgICAgICAgICANCiAgICAgICAgICAgICAgICAg ICAgICAgICAgICAgICAgICAgICAgICAgICAgICAgICAgICAgICAgICAgICAgICAgICAgICAgICAgICAg ICAgICAgICAgICAgICAgICAgICAgICANCiAgICAgIC AgICAgICAgICAgICAgICAgICAgICAgICAgICAgICAgICAgICAgICAgICAgICAgICAgICAgICAgICAgIC AgICAgICAgICAgICAgICAgICAgICAgICAgICAgICAgICANCiAgICAgICAgICAgICAgICAgICAgICAgIC AgICAgICAgICAgICAgICAgICAgICAgICAgICAgICAg ICAgICAgICAgICAgICAgICAgICAgICAgICAgICAgICAgICAgICAgICAgICANCiAgICAgICAgICAgICAg ICAgICAgICAgICAgICAgICAgICAgICAgICAgICAgICAgICAgICAgICAgICAgICAgICAgICAgICAgICAg ICAgICAgICAgICAgICAgICAgICAgICAgICANCiAgIC AgICAgICAgICAgICAgICAgICAgICAgICAgICAgICAgICAgICAgICAgICAgICAgICAgICAgICAgICAgIC AgICAgICAgICAgICAgICAgICAgICAgICAgICAgICAgICAgICANCiAgICAgICAgICAgICAgICAgICAgIC AgICAgICAgICAgICAgICAgICAgICAgICAgICAgICAg ICAgICAgICAgICAgICAgICAgICAgICAgICAgICAgICAgICAgICAgICAgICAgICANCiAgICAgICAgICAg ICAgICAgICAgICAgICAgICAgICAgICAgICAgICAgICAgICAgICAgICAgICAgICAgICAgICAgICAgICAg ICAgICAgICAgICAgICAgICAgICAgICAgICAgICANCj w/kNNsG4kasKNpmvC9U9pwHc3WRg0IYT4vc3NrABXnMOkbluYjOtsWKnHfFJSwRflSSpv8QLemUY9BbG QzX9MwS4BrENbuQV5JXCNfHTVcvPGySZAbUMLuJvE6EVJqSTkqLD9EeEMyPMvbBLDiJABpYuWnFWZrIF PoCSIlTTPqBYDHZUTmGQXrBoSoLXcxIF9Sc2VndZG6 DQo+Zb8MYU4vl2XtBYwbBJMbQO2oxr5LBYdAXdEqB8QcwsB2KMG2CAZxJu8RKARsIQLwcHNnAEEkAXEG YuDgP9DkxM32DVPLIc9+QZtsbpShMcnSJyU7SSVok3XxXQh2OL6DNHQdUWo7cOUnSEcfF0wynbgoGHS2 nD0ihggvSgkgVOF5lkOdQNthI2TlpbbcPSZwUGEhYZ 1eLF4pKAKgPQZkMsH4NHQFHZ6JHZBcCQVauTRnJFSyIIMHDC7TBNqrGHN6LTIxhmKgrETuDEhuYN9OPZ JlbnQgMzggMCBSDQo+If9GMQ1dd2TsGDh0XWLkHE9ldz3LBMiKIeXiV7M4rQAoY4F6WTcqWu6WORFhSP NaArErDZDSVVjcYO5NZC8cafK1ON3BxWEcYKHhEQUz hIQqBTd4P83utRDkEQaeTW9FOTW+Denae+Ey3DZLFcYBJyJSHdFkYfQLDQWjOaP9YlF0HRb7LgW5MgYE52 wTrjvmMzHTpkIC1XBY7wQKKbLNPSSA4OxELuoX5qlpFcAFCcPSBHYxSmA05ekRZnHBVnEUR1REMzDg0H ZSSiO2GgdxEvfZlvicHlUCFiPJLWNP9NAJupslGvsK DwmSuwIQ72pHizLV7OWl5JYqLfIK7xql0WlEHfVi3RABG3SJ0BIPHaZSHkIQLcUJK0HXFaBfYeUIemTB KwXRUgWKJ7ESEuABBgUQ8ZWpRnGLTvXsW9ATfxWEPvEZInlb2UYRXsYYYgYRG0UQVyVSYzBUAlLPuePT CySWLdBOE4LQLmEWHyHB5TGsYxNSEeHMK8HLxrUVPz KYYlpr5LKZKuHLDlBdRkFlZpTJQkOQWfKLccPLSqDHA1BSK4YYRsRIZuBC4EEnSuAJXjBFM0XGfjYJMv KLBfti8NFGXtXZDpECg6EGLdOJUdBCJaKFnpKEDkQBT9KMW7KPWgYYDoVR3EIxTtKCYaMCSyJvXvEDTg LRUjnz8XSMPwAMLyUqWmTWKyHGBdQKJmXBtkTRJgPX MdAvW0GEXaSWFaYK0HJhVhWHYkIWT7VmPxFPDvSXCret8JCKBuOLTfPFR0IfYhOCMiVHOyJVfrSBOmLN M6KObqIWIwTRAdCX0QWaZtCZSjWHL1AfJgCRYgWCEklw9ZJORrHJSxCTapHiQjPOHlAEBkAJfoOFJgPP U6NDG6RNDyWPClEP8HIlXqPEMdZQYeHvYrSTRcITZw lg7MQRTbHWRxYwQ5GcAtBIMsMUIyIFufBBIyLYY5Vpu5EESzRJRiAS6EHnByIUXsOWg7IvGnOKVbIYDg bm5LFVHsOMVhMOMaAzZiKBUcZXFeVLekDNVkUEO1IbX0NIIkLERqLX9BEjExMQQxQQl2ZBYnJPVpZTSz ln2ATJIkRUAiYPRyKVRgQZOfVGVxCHmpQPYuLFAoZW P4SLCmFBFcLK4CHrLyNWDyUwL9AxsaPDGuNJCave1KDOPwTXCdUAs5LrZeTNZrSVPmBQqjTKPzSEGjRY EmFLYvAFKyKY2JGjBxHYQvBmQ9MkbuYYXlIXHbht0CNXJvCKVjIqH1FaBhCGCyWOVsIXxcGZOaRSI4HB f8GAAaSBVqXE9RZpSiQWMgRmW1MkczGJWuMKZico3M IACbEKQfCqk2WJLiHPPaBFDpKRfeYEErHZZ8HuL5YNVeNOHqEP3RSeUwRVKrNmj5SZmuJUDoKPDxhs0E NVZeAXVfITb9NPBbGWXbFDEeXBrsVVGkXNF8IVRoMTWrXLNlNJ5SJnTxIFdfLBIAXqq6IXcyI6u7SYB8 YT4GR1Bop2BqYEOvEJTYNTcfLE7zfxZvUJPaRs8VN0 fZXfgnPOK5XMJ2MTVeFpt1OPgtDWhiJYz8USE8SZE8JSGzHM2bQTG1SlK2KRj0NGIyDkt0LfL4GXSyOF Y4EEdnCsb4A8SuQmYcFN7OMh2YEyA1YVN6nLZqPw4QUbcoHfWWHoPuID4NMEr= ID Date Data Source [id number] 05/06/2020 02:19:34 PM EDT [facility] Name Value Range Interpretation Code Description Data Don rce(s) Supporting Document(s) Consultation [facility] JHYSIz5gHiTGRsJf89/HDBhcMKTnp1QaTUyjOYq4LFxqTGJdV4NlRGZ9yU4tZXL3CFbUErQoIcNpUTQc lbm [file] AgICAgICAgICAgICAgICAgICAgICAgICAgICAgICAg ICAgICAgICAgICAgICAgICAgICAgICAgICAgICAgICAgICANCiAgICAgICAgICAgICAgICAgICAgICAg ICAgICAgICAgICAgICAgICAgICAgICAgICAgICAgICAgICAgICAgICAgICAgICAgICAgICAgICAgICAg ICAgICAgICAgICAgICAgICANCiAgICAgICAgICAgIC AgICAgICAgICAgICAgICAgICAgICAgICAgICAgICAgICAgICAgICAgICAgICAgICAgICAgICAgICAgIC AgICAgICAgICAgICAgICAgICAgICAgICAgICANCiAgICAgICAgICAgICAgICAgICAgICAgICAgICAgIC AgICAgICAgICAgICAgICAgICAgICAgICAgICAgICAg ICAgICAgICAgICAgICAgICAgICAgICAgICAgICAgICAgICAgICANCiAgICAgICAgICAgICAgICAgICAg ICAgICAgICAgICAgICAgICAgICAgICAgICAgICAgICAgICAgICAgICAgICAgICAgICAgICAgICAgICAg ICAgICAgICAgICAgICAgICAgICANCiAgICAgICAgIC AgICAgICAgICAgICAgICAgICAgICAgICAgICAgICAgICAgICAgICAgICAgICAgICAgICAgICAgICAgIC AgICAgICAgICAgICAgICAgICAgICAgICAgICAgICANCiAgICAgICAgICAgICAgICAgICAgICAgICAgIC AgICAgICAgICAgICAgICAgICAgICAgICAgICAgICAg ICAgICAgICAgICAgICAgICAgICAgICAgICAgICAgICAgICAgICAgICANCiAgICAgICAgICAgICAgICAg ICAgICAgICAgICAgICAgICAgICAgICAgICAgICAgICAgICAgICAgICAgICAgICAgICAgICAgICAgICAg ICAgICAgICAgICAgICAgICAgICAgICANCiAgICAgIC AgICAgICAgICAgICAgICAgICAgICAgICAgICAgICAgICAgICAgICAgICAgICAgICAgICAgICAgICAgIC AgICAgICAgICAgICAgICAgICAgICAgICAgICAgICAgICANCiAgICAgICAgICAgICAgICAgICAgICAgIC AgICAgICAgICAgICAgICAgICAgICAgICAgICAgICAg ICAgICAgICAgICAgICAgICAgICAgICAgICAgICAgICAgICAgICAgICAgICANCjw/sATeD0hvzRMqywY6 B7mjAm1UOb8QJE9vd6ZpSEEcTFudzcYrPifFThSsJVYsTzpBElc1QLlyYV0MxJDsD3SrW7TsJCftBC7G YYBzKRMogEHzPUHvJQEpPyT7DCQlRAtxIP1ZeYSmGY taMTWiGGHrYwQsTGPrYPZtSJCaVH4CHVQrT723yfZpKu0ZFf2VNhNiOB5hza6ZEnVlBLBrAleELkd1BA tfSQ7AwEQutKAvJcDoMXBLOqLgP8hii3AjHeZcDFLYFZloEX0Kk3MfaSLwVAj+Hh3ONM5um4ZxXYkyTv EgZP1nty8OBWqJItKhV9DotRxwDGIudtN5hDTpLVJ9 JXHhGTHpqZavPAGtNm0bPLPvMZ1gltJxLKwQL1hbBDCsMR0cDs8lUIMqZTSjArI1XPINPL6EYROcFLNt zLHpMCHxHCDXDT8SWWngIKN3EPByfqTtvHThSKleCZ0LQVKgagAjGyYuFXZOSJr+Op5YZB7xu1IzHPob AgMyKS9qkl9PLAfFTpGwM3Y3kHUxM8X0GYyeFl2WRC NiSWLpJZijKISLYKykDT5DUT2guzX3BP7XyEFaXLUoTBOalUKaLEc0Y88snGLyTRthNF3EWXK+Denae+Pg 3QCYEaOEObRSMbWvUlJBMEPbDiE1HjU8AFg1CfV6KgGY26kCyskxJlPAsiCA8NNR4eHLApDODYHN7XdG ZoaM7tctJmROIoNHYIMgVqK77woDPkTDCgVOCqEBOi Pr3MIKEaQ2VhsvRihDtoejKiDHPiCLZOAU3UFUkrmnItcUNrzTmhSO57kFlwIA9SGr2SHqHgBB6vwz5B jMGuMx8TOBUrYL3KAHNkKTOlYRAtNOX8VPDbEpUlDQbnQIIhBUKhPGW3OQMaCWGqNS3UTfDvECCzJUO5 SMRvMVYhSDRcok0EWIFgTDNxUFD0ITDnOIJoTPYkQS esARIjXIIrNPW5HHQaXTWkSG7PUbMeBYWgLOE2YKhqPSHiRNBhlp3NCERzDIRjXHX5KwTcFLNcEMQjBL faOMMeLCR7AoB0KCUiSZZeKE0BZgHxXWXpJRs0VUzxVRRaDXEqdb1BHDItAOEhOWUlKuVxCJRuXJXjPW woFGNgZUJ0PvP6EOBjREAeDG3PNhLnOGTxRJX1EEYd WMXuBPLqse0USKFfNQNnYJw6UqUtUTMxZUToMCprYRBeCZBpSCC0TFYiWKPoKQ7QBeOqFQWrUTTlCxYf UBYuHSPftj1MTTHmDFKxDuCxChPzNZJnARGeVXoySEZlSNQfVVY0BJKpREWfKO7TCmUtCEEeVGAjNrTm FOSvUDWshv1UXHHtPQQgGpC6NeBuMOAyOALdJKpmQS TnILNyXxx3GUZuOKDdUS0QLuPeGPGfIZLwYJTjEZZsWPFglg1PVOFpKEEsMDT4BHHePYHpNPEoYWigWS QvDYS7IiBaHWHkCYSkON7GCuKnLOTtZTN9KiUmLXCePVHdkt2AnMLlhGjoim6XBHuNLy2JuLmbAYT8WY dfAj0dlASaGfIqVRXXEd9CfgOgUYNmXZLQZXycQNTq EDTlXIZ3XoFgY6GvQQP6UUKbDPL7AUL8RqV8UCWeFLEiTuP4QvOfJjK7DBXlBaLdJQX0RHEfNAjkAJRj ZiM6M3LeGCR+VL1lRQf+Vi0Sf8RhniE8uiEwOCfaJbDwWV0CHZTDZ9OWAt== ID Date Data Source [id number] 05/06/2020 06:01:09 AM EDT [facility] Name Value Range Interpretation Code Description Data Don rce(s) Supporting Document(s) Leukocytes [#/volume] in Blood by Automated count 9.9 10*3/uL 4-10 [facility] Erythrocytes [#/volume] in Blood by Automated count 2.82 10*6/uL 4.1- 5.3 L [facility] Hemoglobin [Mass/volume] in Blood 8.1 g/dL 11.5-15.5 L [facility] Hematocrit [Volume Fraction] of Blood by Automated count 24.9 % 3 6-45 L [facility] Erythrocyte mean corpuscular volume [Entitic volume] by Auto mated count 88.4 fL 80-96 [facility] Erythrocyte mean corpuscular hemoglobin [Entitic mass] by Automated count 28.7 pg 27-33 [facility] Erythrocyte mean corpuscular hemoglobin concentration [Mass/volume] by Autom[facility] count 32.5 g/dL [facility] width [Ratio] by Automated count 15.8 % 11.5-14.5 H [facility] Platelets [#/volume] in Blood by Automated count 344 10*3/uL 150-400 [facility] Differential cell count method - Blood [facility] Neutrophils/100 leukocytes in Blood by Automated count 67 % [facility] Lymphocytes/100 leukocytes in Blood by Automated count 19 % [facility] Monocytes/100 leukocytes in Blood by Automated count 8 % [facility] Eosinophils/100 leukocytes in Blood by Automated count 5 % [facility] Basophils/100 leukocytes in Blood by Automated count 1 % [facility] Neutrophils [#/volume] in Blood by Automated count 6.73 10*3/uL 1.8-7 .0 [facility] Lymphocytes [#/volume] in Blood by Automated count 1.87 10*3/uL 1.2-4 .0 [facility] Monocytes [#/volume] in Blood by Automated count 0.75 10*3/uL 0-0.8 [facility] Eosinophils [#/volume] in Blood by Automated count 0.51 10*3/uL 0-0.5 H [facility] Basophils [#/volume] in Blood by Automated count 0.08 10*3/uL 0-0.2 [facility] Nucleated erythrocytes/100 leukocytes [Ratio] in Blood by Automated count 0 /100{WBCs} 0-0 [facility] ID Date Data Source [id number] [facility] Value Range Interpretation Code Description Data Don rce(s) Supporting Document(s) Bicarbonate [Moles/volume] in Serum 26 mmol/L 22-29 [facility] Chloride [Moles/volume] in Serum or Plasma 105 mmol/L 98-107 [facility] Creatinine [Mass/volume] in Serum or Plasma 0.63 mg/dL 0.50-0.90 [facility] Glucose [Mass/volume] in Serum or Plasma 100 mg/dL 70-140 [facility] Potassium [Moles/volume] in Serum or Plasma 3.8 mmol/L 3.4-5.1 [facility] Sodium [Moles/volume] in Serum or Plasma 140 mmol/L 136-145 [facility] Urea nitrogen [Mass/volume] in Serum or Plasma 9 mg/dL 8-23 [facility] Anion gap 3 in Serum or Plasma 9 mmol/L 8-15 [facility] Osmolality of Serum or Plasma by calculation 289 mosm/kg 275-300 [facility] Creatinine/Urea nitrogen [Mass Ratio] in Serum or Plasma 14 [facility] Calcium [Mass/volume] in Serum or Plasma 8.6 mg/dL 8.8-10.2 L [facility] Glomerular filtration rate/1.73 sq M pre dicted among non-blacks [Volume Rate/Area] in Serum or Plasma by Creatinine-based formula (MDRD) >6 0 [facility] Glomerular filtration rate/1.73 sq M pre dicted among blacks [Volume Rate/Area] in Serum or Plasma by Creatinine-based formula (MDRD) >60 [facility] ID Date Data Source [id number] 05/03/2020 04:42:56 PM EDT [facility] Name Value Range Interpretation Code Description Data Don rce(s) Supporting Document(s) History and Physical [facility] DBFLDp6aYwDREfJl99/YCNblEVTmo6OaVPdyXWz1NIneSIKtM1RzEGX2rO3mDOA8XPpLLtRhRuFjKASm lbm [file] [id number] ID Date Data Source [id number] 05/03/2020 01:47:13 PM EDT [facility] Name Value Range Interpretation Code Description Data Don rce(s) Supporting Document(s) Discharge Summary [facility] PLCEKv1pFdUDTfAr08/MUOpqCCApm6UcPCoiEYq0XGuoHTKdO5AoDXZ1gJ0hBIA7FNmQKvTuSnNmYTQl lbm [file] D0rb2VXs9QN52YW8MRwj2WKwiBJrTGfSgmg3gA/senior living PtkYftAKt/pngW/LK9CLgZST3RwEkTfYH2pRXHnzw+YHDrl9yxr1O6XUue1jOwTD9qTRQAYpEciKhesn tMxKEevufVCJhpmZWgd/aef+IgzhF/vhfj+3Bcu1NdUo2cBxj98L+O5OAmJdjmKCMnEKNs6ApPRlGIaM WgveEcEHFgEvNMxhIe+7Lu0G521AfHPXsbz4hA0aQW p/aU0jCmkK58Ap48ZeT4eKbNzXZRn6ZYCV3MRu2UTlWpgWEkjSkBeJGe0y/l6zfqsCQPsPHXOvbghTON QdiyIWQzBl8VungCLzcxTndG2OlTmPekeJUL7XM+BDM/KafSsEWVptjyDfMo3T1ICW1zlvhOB10I5g31 qdqTp7cGpB2jHng2yzkQ/GC+gWKFdW3SCGhkuOe1Lt jOZORMUZUYX9qa/JBOafhLp0xsXmW7noQg8RayK6puJ47SJBxL6KcMvYj6/t5lq1ZGhZqNvMEntB0U67 Ft8+2sKuqOI/1sarbjF+wr5E4ydx8QOHmlwSNMg9UltlGH//BuzmsXICBJOblRTvII5ODrm09K+d14PJ baf9N37oIaFHfmhwHmnre+73rExsr2GNYz6liPMWis y86Dk2qxHdJPhUFH/micLkV+B3sgRNPm8cxXtaysO4bXuVgdNg56du7/bZ7ZwU2dnZ7iRttk4auURfhL fGeFmqNh6xKN71HvJk1LzxXXXye7qIblfXZNWX93wBKueYsCMP3Atugzpt3Qf6DevSKFx3Vv4hFVf/B6 tV9ZZ1is7ES5G21FO4R1FM4Jn16oLUhjH7S451r0WT [file] ICAgICAgICAgICAgICAgICAgICAgICAgICAgICAgICAgICAgICAgICAgICAgICAgICAgICAgICAgICAg KPIbZYUiUJNrISKmHJXdAYLhVCQiFCIoHKHrCHLxWPBzCO0AKZRsHAFjWTKyCCKxLNByLVVyXAWnTJEj ICAgICAgICAgICAgICAgICAgICAgICAgICAgICAgIC QyDUMbAEGqKOLgECRqVCZxLSFeBXIdRNPdGZKfXLDsDAFkUYAgPIHtUBWuFL7PUITjXGOdQSByKNGtTI AgICAgICAgICAgICAgICAgICAgICAgICAgICAgICAgICAgICAgICAgICAgICAgICAgICAgICAgICAgIC BuNQTtYQNwRWRiSLFiEJItGWJsSEWjYPHsBW6KMUEw ICAgICAgICAgICAgICAgICAgICAgICAgICAgICAgICAgICAgICAgICAgICAgICAgICAgICAgICAgICAg RYUnSPSdOKFpNQTqOJHcKJRzRJBhJONmYARrVYSpCHAgUMPoWU9SAAEoJHItKDCmIGGqYHWmXLQwZLWl ICAgICAgICAgICAgICAgICAgICAgICAgICAgICAgIC ZsFFLrYYYzYHTdDPWtYJVgMXImETBpSCEwKHHwXRFoIQCqOTLnBWGiHGQkCEJmYR2KIZDaUANnIZEmZL AgICAgICAgICAgICAgICAgICAgICAgICAgICAgICAgICAgICAgICAgICAgICAgICAgICAgICAgICAgIC EoWCHeWGNxFNDtVFHqPWQpGFErLKBlRNQxSSUcHS9W ICAgICAgICAgICAgICAgICAgICAgICAgICAgICAgICAgICAgICAgICAgICAgICAgICAgICAgICAgICAg FZLfTUYoUUIqZOTfWSXhYCBxMOEcLDZkHPSiGHRzSOHfEAKxXRUjUH3ONPMuMLTqESPdIDYyXVWxMMVj ICAgICAgICAgICAgICAgICAgICAgICAgICAgICAgIC OqDUHkXEFjOYXoWYXfVBBnEBMzEHLwYKKnXNGeSXZkEJCwYTRmLVHvLWZzJHJtXPPvYT5RAVSfABQjCF AgICAgICAgICAgICAgICAgICAgICAgICAgICAgICAgICAgICAgICAgICAgICAgICAgICAgICAgICAgIC AgICAgICAgICAgICAgICAgICAgICAgICAgICAgICAg YP4CMGFnMXPgBZYoERXaEBQvIVTtIHHzWGXyKJCjJDSaMPBjFRXhYHNaHFRjNGDkRTVgFFKdIIIyZWWw HSAlMEDxUZPrZXYjJSJrBZKlRNKxEPBnSCPdFFHlSAEcMUUfOPTxZFItCP3XCY63hENgh1E3GETwZN9f dyc/Mr9ZIWzddzOmjNNsZH7QYmQbSN2rue3RDiCqFW 0twg7ICJuBTbEvH8L7mZHbRJYiBJJEGrLxL86lRKnvKh37XKfmOTZzOgOwBZo4Py2OTcIzX3duXYTwZx W3JNVlMcM6JQBzYdS4HHGiHaSxARWcWKAaQE0KANWeJ606ssUdXB6PEm3KDqIxID5kgy5DOrSkNHRbNq sUBiy3VOchRO1CjVKpkXGwIcWmLVPTXlSkT9vqy6Pg BajgMALEPPqfUM3Ww4GywSLcMYx+Lu8VLK0ch0PdUHuoXnPqCH8mxa3RDMzDWnTgI0PhzZfnMNTfe1Ct AXWnOTTDmB0mFDR2AQW4UYWazINVoNKdYZAqLgkhUNXWItXihOH0FhFyFbGkRfCbOYV6CqDyZY7iQQaz RC5BRFK1CNdmGZDpDPBmZ3wLDxVaAXGiWvEbbEozDP 8ITnJzI1XkyhDhgSWxSvFwOKSZHt3+UAazkdRyTvfTPwF3HHKor9DfETi6AQ1YTQWeHXjgES2RLHTnnG 6nLBgeCY0NLeQdKZUcIXMDInMyG42mrNXuFOs4X0DlAtOiJDVpLjcjMDDvVAvtMaGgVTCiAvPnUPllXT 4+ID4+ISvjGY6ZUXmgbfKwVYXiDh4YFFYhLRYuRV8l SOStEQMgA2C0aBniXKOJNjYfQ0ngxmdgON5uDJMjL644aOtlxdSnJDR7JCKjQt1LXDLkYAB9GTIwvYDw NfQmXJXQGAsnVN9FvKVcNZS2uU8pMGcbMJUnUYWhO0cMHoIxpFetJQ69nJiplpRjmJLbIDo+Bs8CEL0m t7GvYHf4bhMkFZevPOZ7PAgfNMNuIMBzIABfOPZ3YG R4SIFDDfBdTEDaJXAhHZbwKHEvESAyja1BDITmYUJqXZZ6KYDnABYcJHSvILawJXRzSDD3PFDmSYMoRX AwTR5UGcKyMLAkWEWcOAgxCKFnXAWkxt7HQFKoYZOoNvxpArKvEUZjFLBrKXzxXMDkGIFgTSD3QNMgWV ZyTB2MMfDfDORbBSltFyLuDZHbXHNxcn3EMQLpGVYt DfQuEJMoLYIoTVZoMJisEUHlSBR0BNG4OIOkRHCwSS0DSlLbWCUiRCXvGcDoGWPfHYCxah2JBKMaXPBs BgV9RjZgUFEdVUEoGLqgLMIaVVQbEdd3YRDtBIIsJV0AArAsDHLrECB6RcfsMUKvPPQmcc4KBKDwPCRb FpztWLOxZMIaIZJyGOwvIMTmOIS0JUO1HWOpROWaVQ 2BTtRiIJYvMNN9GdgtHCYkZVJewt8KDIZwIFTsAZM8ARXwAVAxRYBqCMrdBXLzNPY0ZiM7JGWnQTFiOX 4EXqWuCSYhYOZvZrntCCVwKNBqat0HSQZzECQjCfEvBZUdDYXqZDGiUXmdXKPvKVF9HqG5NDPyCGShXA 2GTaTuMQDpCSx2XqobPSLgFQFmsi8NAUUoWYPeEal1 OFDtYZQxVHLqQGqyNSCvKZQ6BYVhBFCbYGQoAU9SKjUjTAPzTOk0LFCcMNWgMIVpcd4QRSZdHJBzBHg2 PNKcCSThJIPhHAbzXWJcGDTtILQfUMPiEUZhGD9LWpWbMSYeRkYoAZKnSXVwUOTmot8CiJPioFnput1K QMoBEz0XtMjkMDB9BTmlIl4ucSSxVHMsCUFPQf2Rvl NwDKIaZOMEWMbxPHPhVWY6WxdqMDIjDWZoCqWlDEk1QcX8OWJuUSK5GcEwIKJ4IyQ1YRmbZvYiUvGsLG WmISLcKONyFkG8BXIaANFuZGRlTBC+IV6nCKq+In4Fj7DrqxJ7yfEuQDltRLJtCj4RDQMJH1FIHm== ID Date Data Source [id number] 05/03/2020 01:28:16 PM T [facility] Service Cmnt XXX-Imp : NoneMicroorganism XXX Cult : 2019 nCoV Real-Time RT-PCR: NOT DETECTEDTest performed using the [employer] Simplexa COVID-19 Direct Assay. This test is only for use under the Food and Drug Administration's Emergency Use Authorization.Additional information is available on the following FDA websites for health care providers and patients. https://www.fda.gov/media/028162/download , https://www.SureGene.gov/[employer]/286612/download Name Value Range Interpretation Code Description Data Don rce(s) Supporting Document(s) ID Date Data Source [id number] 05/03/2020 09:57:00 AM EDT [facility] Service Cmnt XXX-Imp : NoneMicroorganism XXX Cult : 2019 nCoV Real-Time RT-PCR: NOT DETECTEDTest performed using the [employer] Simplexa COVID-19 Direct Assay. This test is only for use under the Food and Drug Administration's Emergency Use Authorization.Additional information is available on the following FDA websites for health care providers and patients. https://www.fda.gov/media/894216/download , https://www.fda.gov/media/160319/download Name Value Range Interpretation Code Description Data Don rce(s) Supporting Document(s) Microorganism identified in Unspecified specimen by [facility] This lab was ordered by [facility] and reported by [facility]. ID Date Data Source [id number] 05/02/2020 12:29:29 PM EDT [facility] Name Value Range Interpretation Code Description Data Don rce(s) Supporting Document(s) Discharge Summary [facility] PIXDJv8mJqXNTzFw02/ZOPrrZYErm5LmNZlbPSe4BWiuUPVgX5MpMRS3tN9mGZA4UExJDuZeRcOmAIN8 [facility] [file] ICAgICAgICAgICAgICAgICAgICAgICAgICAgICAgICAgICAgICAgICAgICAgICAgICAgICAgICAgICAg TPAkXPMeSG1QJODsVZVlYLJnKKKrFLYaEWPnUQOoVD AgICAgICAgICAgICAgICAgICAgICAgICAgICAgICAgICAgICAgICAgICAgICAgICAgICAgICAgICAgIC UhWIOwWHFjOKGnYQEyVGLfJA1MJQZiFMLoZIXgKSRbBEYwOHMhCVKbGPOmPISoMQAtGVLrMBMvGBVpVV AgICAgICAgICAgICAgICAgICAgICAgICAgICAgICAg ZSKxPASiNPMoIDIiMCJuXRMoPYNxNDElMJYdPH1UJOOwILSaXIToUHTtPOCgLDThQVRfWTBcCLEfGHRy ICAgICAgICAgICAgICAgICAgICAgICAgICAgICAgICAgICAgICAgICAgICAgICAgICAgICAgICAgICAg YSIpAVJsSGGbWX2YOYIzRWHjWBSpEBRnPKRuWCHoUQ AgICAgICAgICAgICAgICAgICAgICAgICAgICAgICAgICAgICAgICAgICAgICAgICAgICAgICAgICAgIC PyGLYsSVBxWITiUGRsBPCrPNTdZP7MSNIqDNMaOTWyLGXcUNGoRTTkLLXpEKAiMTIaAZOaEXHvXHHqAQ AgICAgICAgICAgICAgICAgICAgICAgICAgICAgICAg QCIyBFYlFJQkJPYvDICiVGHvIOVtKEBsWGNjTLRbCJ3GXFRwWOFoOWAfUZQxKSZsRQMqWBCiTPXsYBPy ICAgICAgICAgICAgICAgICAgICAgICAgICAgICAgICAgICAgICAgICAgICAgICAgICAgICAgICAgICAg DBJcGAGwELMmMGGhBD5YYJTbWQNbCGSwLZXxEDYpJH AgICAgICAgICAgICAgICAgICAgICAgICAgICAgICAgICAgICAgICAgICAgICAgICAgICAgICAgICAgIC XnUWAjDIAaQCNpRCFyYYBdFTDdMMFqFU5GOJFxTWElVXMqEJFdUUSzVJAxSBYzRWYwFBSzDISfNHKqSO AgICAgICAgICAgICAgICAgICAgICAgICAgICAgICAg LYHgICIrHLMiVOOiRBCqIWAoSHChCJKrINXsCRDgDBKkJB5OYEMkVIRyIAKmMMDjEMIyMFBtKHBaNZMi ICAgICAgICAgICAgICAgICAgICAgICAgICAgICAgICAgICAgICAgICAgICAgICAgICAgICAgICAgICAg PUMaZIUqCVMmLIWhBNCjVT4HFW35uDIga5Q3ZBNbFA 0ndyc/Fh5ERZywqjHxcHDkEI0AVkBfBW7sei3NAtLzLW8zbr1CTFxFOxGmG6W9xHKtKZYoLDUJLpDvI7 0jXHxvHk59JFgxMNUtScJqZKi6Rm0LQgNhT1fuCYVoHrI9TUXkYxL3NCGqKjO3ZOCfJjXaZXGcMKHvEM 7XNZDiO432wxRyXS2NGi6UVdQmJQ5roz8OPtWaXRHi XhvVEoj9VZejJF6DkJZtpVCuMBUtOAWEFpGcR6imf1VbLwYbPUPWIBvgAA2Oh7BkrEQrDPd+Vp4MPY2p d1YlMPwmGAHvRR8idg9OGGpQXiKvX8TzzGcsNJIbi4GcQMAtFEPFoZ8yMBI5RIQ9RDseydAzBEwlrQwm lGfnqxGnFQ7VAOG9XWzgQv3iOXVpFZKtAtM2OQJVPF 3JPFDhCILplHZaEJAnHWHDGZ2YQPwpHZL5VWYrdjQjdRBnYFwfAD7HVIDdibDjUcKrZRVVKPy+Pg0KZW 5gr2MlIYymXCXkCV5lmg3RNTxEZgBwK8Y3gSXwN5K4LNyqWm7CNPBaMNHyHlIqYNCUEMtcST4UJY0aqj I0AZ4IjBWcOOOaYIZynHCfGOp9V95owFLdMJhaFU1J ICA+Denae+Ab2CKTYzXJNsWPEkQmTwTTSXDwLtA9JaZ5DWd9UcV0SeCB70mQtqwzWlLKuvVF4KMZ6sHSGi KGLWAP0IdEKliA2fwiBhRbJbTRUSUaJcK42vrOPbJTSoXHCbWTPcLa8LFKCrF7UasnZvuKlnrcNwRBAa UMOSRY8EIQjvayZflJMpwPopIC06wHlqEV0JIh2NAs EnKW0hbm8SqNHjNu5HHYXtRg0XEOPaGNOzVSMqWVS9EOLmWtGsIGpmNUXfPMTxTIL0QYXgKOPnCG9ALx MxSKEdOpLfRQFmFTByPFDetc0MLARhZUUgJme6KwPqUOClBUMaYFiyVIXqOVWuDDX6ZIJoCMKiOA6RPi HjHBEsFZI2HtigWYTbMKEvyt8APJHwXUObOcmjCbRm LCBjQPOqHXztXKOhLNA3JSgsQGCwOOJoOG1PErOkFCIqBWciPrSkTDVbSEWesd9RUWExLXGvMJG5TnZa YVJhGHWjBHctKWPfXSUnZYJwUQYtJSPmNB3SPtQqHKFiYOA6ATElYVWgOKRngq3UXNXaKUOeKke2LeIf YPKhAHDaFAbtICYtIMAnMMY5MOJlGGZkKC9INyXnSO BxENZsTVYmOMCxDQWvpf8ODOSkWJAoRLU3IcAvKCIfLKFnNWcnTAReYPQ3GkE9ZNXeEQEcJU5QNwKoHW MwBHV4QYrcVKEfKNZzjf7VRKKrQYJoSQL8LkApYUBiQWSeUDxaRZYsIJY9BxJ2CGFhGSZmSE3YDuYjGZ AtHWF2GTFtYNZsOQMaqu4AOXFfULBbYlPdZSQpZHYe HJZzQQsgYYDbEEB3Nhk6POWsUAGeTN5DKnYuEVWgJex1IWHqIDZvWKEerv8ACKCtVHIcFOeoObFnYLNh AQSfPEtfKUTnWHR7UPTbHMWjMZEsBX0BGaVgEUPeCdgtDIgpOTOmFOEqob0KDJRpMZAwZKY5ZpQaBELc LSVoQItjOVQjJSC1CIzmXQZtRWNrWV8NEvXnPBReUs Y7VUWsMTMtTZXjum4YWFFfNZEqUAmaFfXgOJMuVCOwTMzxHTXcKCR2NLfcSTPdVATeZN7HFhTvXDCfKq K6YEZnURJlKIUwyf9RASTgEXKgIya7CWDxEYCzKYMsORbyQIXmQYA3RQRvYRRpHYXzUO1FJlBpOYElNd yqTWZrMPMqIKIzle1JvSEvwPfcaz7WAYgKWi1DcHsk UOP7ZAhzDe3mxCCbMZTrHAYYGg9UqxRwROVbQTLAKXvwURZaRAUbZxtvNyJpHoXpUKS7WlRoNQUwCCB9 TGDbOkOfBEB5CxO1QIZhXDXvItK5YHXdMJBjN6AnBAK4DsN7FwBjQ4ZmNXT+UV3mUSl+Is2Nw2NydjD9 ffKqKGcxFrJsPL0TZJSFL7MXZt== ID Date Data Source [id number] [facility] Value Range Interpretation Code Description Data Don rce(s) Supporting Document(s) Calcium.ionized [Moles/volume] in Arterial blood 1.13 mmol/L 1.13-1.3 2 [facility] ID Date Data Source [id number] 04/30/2020 05:58:01 AM [facility] Name Value Range Interpretation Code Description Data Don rce(s) Supporting Document(s) Leukocytes [#/volume] in Blood by Automated count 11.7 10*3/uL 4-10 H [facility] Erythrocytes [#/volume] in Blood by Automated count 2.96 10*6/uL 4.1- 5.3 L [facility] Hemoglobin [Mass/volume] in Blood 8.4 g/dL 11.5-15.5 [facility] Hematocrit [Volume Fraction] of Blood by Automated count 25.9 % 3 6-45 L [facility] Erythrocyte mean corpuscular volume [Entitic volume] by Auto mated count 87.6 fL 80-96 [facility] Erythrocyte mean corpuscular hemoglobin [Entitic mass] by Automated count 28.5 pg 27-33 [facility] Erythrocyte mean corpuscular hemoglobin concentration [Mass/volume] by Automated count 32.6 g/dL [facility] [Ratio] by Automated count 15.9 % 11.5-14.5 H [facility] Platelets [#/volume] in Blood by Automated count 190 10*3/uL 150-400 [facility] Differential cell count method - Blood [facility] Neutrophils/100 leukocytes in Blood by Automated count 72 % [facility] Lymphocytes/100 leukocytes in Blood by Automated count 16 % [facility] Monocytes/100 leukocytes in Blood by Automated count 8 % [facility] Eosinophils/100 leukocytes in Blood by Automated count 3 % [facility] Basophils/100 leukocytes in Blood by Automated count 1 % [facility] Neutrophils [#/volume] in Blood by Automated count 8.53 10*3/uL 1.8-7 .0 H [facility] Lymphocytes [#/volume] in Blood by Automated count 1.93 10*3/uL 1.2-4 .0 [facility] Monocytes [#/volume] in Blood by Automated count 0.90 10*3/uL 0-0.8 H [facility] Eosinophils [#/volume] in Blood by Automated count 0.32 10*3/uL 0-0.5 [facility] Basophils [#/volume] in Blood by Automated count 0.06 10*3/uL 0-0.2 [facility] Nucleated erythrocytes/100 leukocytes [Ratio] in Blood by Automated count 0 /100{WBCs} 0-0 [facility] ID Date Data Source [id number] 04/29/2020 07:39:46 PM EDT [facility] Name Value Range Interpretation Code Description Data Don rce(s) Supporting Document(s) ED Provider Note [facility] LGNYYw0yLwPOVdWx92/ZKJgdRRRlh8YnRHccSYl9RMecYIHbC5TcIPL2hL1eCBJ5PArPEmLrGzSzMXS5 lbm [file] [employer] PROFESSOR/0fLqEbgTCZyvCUMNPQx7lBMftAylm1Pp7tEmcsu3JogopplSHTYqR1K5gGFHzQnDcWE2teHCZwDRI [file] HJI6XCVz== ID Date Data Source [id number] 04/29/2020 04:06:27 PM EDT [facility] Name Value Range Interpretation Code Description Data Don rce(s) Supporting Document(s) Consultation [facility] LIACFt3gSkBPQgVm34/MXEvnFNSdo1JiZSsoZNv4RYegUJBvD2DzCIW2dM8sKVS5DVdUIiKkSkIlYIY4 lbm [file] AgICAgICAgICAgICAgICAgICAgICAgICAgICAgICAgICAgICAgICAgICAgICAgICAgICAgICAgICAgIC AgICAgICAgICAgICAgICAgICAgICAgICAgICAgICAg XZDvQEEtYS5IYYUmEXMqYQUaMXQtMKCiHIEsUMZmIRLjPYPcQDOdPFCbMREkHGDoUPUpWPZvCLRoNGTy IWBuCXZkVWYqJNMgPZSqTDSjDPHdVJIyCARoXXZkMYDbBNYuJBVqBFAdMLRlYAGbTM1HDNHsUIPcFOOz ICAgICAgICAgICAgICAgICAgICAgICAgICAgICAgIC AgICAgICAgICAgICAgICAgICAgICAgICAgICAgICAgICAgICAgICAgICAgICAgICAgICAgICAgICAgIA 0KICAgICAgICAgICAgICAgICAgICAgICAgICAgICAgICAgICAgICAgICAgICAgICAgICAgICAgICAgIC AgICAgICAgICAgICAgICAgICAgICAgICAgICAgICAg RCQhULEbDOFcIZ4OBFWtQXTeJPAzFAAgKTHeLJYtPIAeTFLsSTZyFKWpHLGwFEIeLFUaTGRdUEAeXRKe WIHtPPFaTQKdTCGyRYCtYLSkCDYpTGLqRAWtHAJqPLVvJCSxVFIhOOAzCCEeBMJqSKDxJA4COQPcEITr ICAgICAgICAgICAgICAgICAgICAgICAgICAgICAgIC AgICAgICAgICAgICAgICAgICAgICAgICAgICAgICAgICAgICAgICAgICAgICAgICAgICAgICAgICAgIC JaYE4BEQJxSMAqRNGiCMWaTCTzFVLbOXYpUYBmRQRbTNWtEIQvJVLxDNQbQSTsBYPiPGGcGGSeHSOoPG AgICAgICAgICAgICAgICAgICAgICAgICAgICAgICAg RYRyYKMxSFMkUEZcJQ0LAAWhZHGpQCKmADHvPZEzMVImISTxTRXwOOJkZYXeRZPaIHHpFQOvTVXjOJIl JWJuYRWuGVUlTDBrNJMqZULpODTvHONkGCUdFSKdXABsUFQlUDCvRWZcAXGoGLQeCCKqUBHxLJ7FFNZs ICAgICAgICAgICAgICAgICAgICAgICAgICAgICAgIC AgICAgICAgICAgICAgICAgICAgICAgICAgICAgICAgICAgICAgICAgICAgICAgICAgICAgICAgICAgIC TlAMTsTH5USIZgMVEjYKTgPQUiFYSsRBAxMJSjAESdSWHuSDUoIWFvYYVtDXPhSYFeVRMuAZAdDWTaEC AgICAgICAgICAgICAgICAgICAgICAgICAgICAgICAg JPJoESVqLJGiDLEbYDGeVC3VPZ31uGUsl2C0UVBiOC0witl/Ci5DUIdlzvZivGFfBT6TEaOvKR8izw6N SyXoOZ7fho7BQJzAAnBpY3Q1uFKqVCDvTPGHMfQsU32lIGrjBt67NRbvGWLuDnWtGQl4Oj1WChKkZ1jf TERsCuY8KOCxBbX7OIIzBdN6WYGpGlDgXSLkOHInHA TlJNEMCYR2SUBcIhZiCrPgUWOiADinLUYPBNHpWKFqNpMlBtRuFUQkXV1KGGIeJ704gwApZGOSPm9+DQ sqrgIaSdaXIaWbIDMsq4ClSNt4UJ8DXZJwQacaz6FsWMZtMRWGZOawRV9EGPU6LMEfDIMiOs6YHLJfW2 42laNfFX5VHe2LSxVnPE0mhr8TGWLrMFPeBtsSRca4 UEedHO3ZlYSqJRpUn56hlHf7lkFcxWVTjSIbz9DrtzRoDmXmWLGuHPBatyyfBF9ZPLB9OFojFu3pTKGt OFFgXtPnUXSEMQ5GPBJdFIXpzKLkSFYjQWKDCQ6DARjwTTJ9ZBCulsYnjIQpDEuvYG7NBLCrzuWsXPQe MCBSDQo+Ue7GJN0mf3AcFNh9OyLzGV8zcv6OGTyCDg YqA2M3tJWkX0P8ZHcbTe7QWZMdRHWwBnreQAWQKTmtQV4HCZ0eacD7FT0FnLBeMXIdHQWgcMOeAGz7K8 8oiTWjFEhzXI2BTSE+Denae+Nd7GWQTvZXTxDSXrGxSwSZEHCoMnO0YtM9OWn8HaS3UgXM58hGythcCtQV ziUC1XJT1mRXOoTKOYUA0YoUBcsV4bkyC1HOUoPQJC BaAdF77vtHBjPSOsDAF9SKYhNs1GYIGwD6WcqlBppUzdujAnEXQhSARMNQ0IDJpcpuDsyYLcpSlyOQ93 oTlhLV5KNo3FWlXiKR1qbo3PlVDdBp2AGIZ3Ao6DQESqJKFlHMUwWSB4FXYwUdBbHNyrJVXtHHXgGXR2 TOQqWSErOF8CKxWtAWSmSuw6FILdBKZkBMGbqv5FXL BrPFP8JNI9FeErHXFdQAWpWOvuXXCrPLNxCTR3QDTpPIVgXH4YNkRpXKDzGFY5QRJrODMmDGEdef9QQH SqCAZuVEjgTWAzGVZxIKPqVRvyRKHcTSX8GzV4KMNeZSQbJM4TVqJgMZQdWVx7BxHxGVPrAQLeib4VLU AwMDAxMjcxNyAwMDAwMCBuDQowMDAwMDEyOTIxIDAw AORdHP0MAuPcEHFyFUudRSaiARKfXDMuty1EUWZlVQPiNnJnFWCdFMUiTINcMTgtTXJjOWKxSxH3VZDq YQPoHW6CPhAjVRQcBiW6FZAeXKVeCXJqdh4CYLAiIZFjSEGtXYSwSCBlECWeULgzWECaZFC8CdT2XVEm VIJvFM8MJfOlNPVnKij6XVJyVAYhWGKmhk2POLYjXD DjKFK2GWJlADKnTZIiBQywWBVyBXFrMZp8RLUmUVQxGG4BXmSrDWNoJwIlVJQyYIDuVMJnng7JEEXtQY XtZlDjQwPaZTIqMEMtLQitGAZmVUU5VnEsYNAuFJJtNT7FQqNrCVTxMobiOZXhGFQnQWXhyn3OGIAaCF BlYDQ8DeFhYLDmHRHfXNysBAWuOWXvJdO0ETMaQJHb DV7XVvAjFPWgZTZ8UDQrYSDfMOEndp2OQBTrSFO4YZA7KbJhLTSiBIHzIObhTHYbGWMhMuF5WDDxQQPi PI3JNzRbHOBhNDS6RTtaXHXbWKMpoq1KMKTaTAA9QhZrBmArSTVlXGThAXjnQUGlNKX2GBw9IZRnSZRq BA9PBlZuZKSoSjE1CoLyTDOlAHLphn1IPPKqMND9YY U8GGSnUGJbTUQaQPwaNSRzSNV6PlP5CEMxFBDiOL3TOgFyFVFwAsIoKBMyVRVuGNMioq7OBKRzVJZ5Xz GfGIZpFMHsKYIqZCzpNABrTKE2ISHtKZPpFWCcVP1PCwWhPFCyUvi2UQBuOJTjXAGkvr3ISIEeIOT1UK YuGcInBTIcYHIfCIocBWZbNVD5EcF9INYgJXEfXQ3P UdMdYYOlTfp1ImfeALYzPJGino0LDIVyOGX6GIgsImDcVPCcNIOxYQr5grKjaWToPOr9JB6WQ1WbgjQo UATXCs0Ry046KXVfKFEpKg5BJ9ijVn6mSTWnKQBYGn8ECLk7FisvPWM6FqIpPRcwDFx4UVM5PSzrIpmg ZVU4QcP9TyG+AVspY3B9DQy9UITaL3LaQRXpVQK5Us CbXBSjSfW5PbveJz7dWBLLBx6+GRtpxAKffHegNTBLPafxIJosTPmhYMGPIj2W ID Date Data Source [id number] 04/29/2020 01:51:04 PM EDT [facility] Hospital Name Value Range Interpretation Code Description Data Don rce(s) Supporting Document(s) Consultation [facility] [id number]/BBVsiXDLzf9LwXXyxMNe9MPifOFTpI0WfBDI6gO3oTSE2EDgZMxOqFbOhBQN3 lbm [file] ZGVhOTczZDk+DU4rEZg+Cl9Tb4VzjiZ0qgLuHOh7LBM0UTotQSYDJk8P ID Date Data Source [id number] 04/29/2020 07:13:54 AM EDT [facility] Name Value Range Interpretation Code Description Data Don rce(s) Supporting Document(s) ED Provider Note [facility] JVJSFq2jGbGFEdFt66/RGIjkAEEfj6GnWGnqVKe0PQadPJJiO7VpTZE2sZ4mCSK5HNeBSoMmPlBxUFK9 lbm [file] TPQxP4XfXdBpIbS4TlfyLMGzTpXdTL5oMOKNNa5+ZIrkuNIelVkbYCQBTccoILH3WTvrCUOLNw8X ID Date Data Source [id number] 04/29/2020 05:41:12 AM EDT [facility] Hospital Name Value Range Interpretation Code Description Data Don rce(s) Supporting Document(s) Leukocytes [#/volume] in Blood by Automated count 11.0 10*3/uL 4-10 H [facility] Erythrocytes [#/volume] in Blood by Automated count 2.71 10*6/uL 4.1- 5.3 L [facility] Hemoglobin [Mass/volume] in Blood 7.7 g/dL 11.5-15.5 L [facility] Hematocrit [Volume Fraction] of Blood by Automated count 23.8 % 3 6-45 L [facility] Erythrocyte mean corpuscular volume [Entitic volume] by Auto mated count 87.8 fL 80-96 [facility] Erythrocyte mean corpuscular hemoglobin [Entitic mass] by Automated count 28.3 pg 27-33 [facility] Erythrocyte mean corpuscular hemoglobin concentration [Mass/volume] by [facility] 32.3 g/dL [facility] width [Ratio] by Automated count 15.5 % 11.5-14.5 H [facility] Platelets [#/volume] in Blood by Automated count 166 10*3/uL 150-400 [facility] Differential cell count method - Blood [facility] Neutrophils/100 leukocytes in Blood by Automated count 68 % [facility] Lymphocytes/100 leukocytes in Blood by Automated count 22 % [facility] Monocytes/100 leukocytes in Blood by Automated count 7 % [facility] Eosinophils/100 leukocytes in Blood by Automated count 2 % [facility] Basophils/100 leukocytes in Blood by Automated count 1 % [facility] Neutrophils [#/volume] in Blood by Automated count 7.49 10*3/uL 1.8-7 .0 H [facility] Lymphocytes [#/volume] in Blood by Automated count 2.45 10*3/uL 1.2-4 .0 [facility] Monocytes [#/volume] in Blood by Automated count 0.82 10*3/uL 0-0.8 H [facility] Eosinophils [#/volume] in Blood by Automated count 0.21 10*3/uL 0-0.5 [facility] Basophils [#/volume] in Blood by Automated count 0.05 10*3/uL 0-0.2 [facility] Nucleated erythrocytes/100 leukocytes [Ratio] in Blood by Automated count 0 /100{WBCs} 0-0 [facility] ID Date Data Source [id number] 04/29/2020 05:50:32 AM EDT [facility] Name Value Range Interpretation Code Description Data Don rce(s) Supporting Document(s) Bicarbonate [Moles/volume] in Serum 25 mmol/L 22-29 [facility] Chloride [Moles/volume] in Serum or Plasma 107 mmol/L 98-107 [facility] Creatinine [Mass/volume] in Serum or Plasma 0.99 mg/dL 0.50-0.90 H [facility] Glucose [Mass/volume] in Serum or Plasma 107 mg/dL 70-140 [facility] Potassium [Moles/volume] in Serum or Plasma 3.9 mmol/L 3.4-5.1 [facility] Sodium [Moles/volume] in Serum or Plasma 142 mmol/L 136-145 [facility] Urea nitrogen [Mass/volume] in Serum or Plasma 22 mg/dL 8-23 [facility] Anion gap 3 in Serum or Plasma 10 mmol/L 8-15 [facility] Osmolality of Serum or Plasma by calculation 297 mosm/kg 275-300 [facility] Creatinine/Urea nitrogen [Mass Ratio] in Serum or Plasma 22 [facility] Calcium [Mass/volume] in Serum or Plasma 8.0 mg/dL 8.8-10.2 L [facility] Glomerular filtration rate/1.73 sq M pre dicted among non-blacks [Volume Rate/Area] in Serum or Plasma by Creatinine-based formula (MDRD) >6 0 [facility] Glomerular filtration rate/1.73 sq M pre dicted among blacks [Volume Rate/Area] in Serum or Plasma by Creatinine-based formula (MDRD) >60 [facility] ID Date Data Source [id number] 04/28/2020 02:38:07 PM EDT [facility] XR SPINE LUMBAR 2-3 VIEWS [id number] RES ULTInterpreted by:Jono Maravilla MDINDICATION: 89-year-old female with history of posterior vertebral fusion presenting with cord compression at T12-L1, now status post T12-L1 decompression and discectomy with extension of instrumentation.TECHNIQUE: 3 views of lumbar spine extending to T10 levelCOMPARISON: Radiograph of lumbar spine dated 04/23/2020, radiograph of lumbar spine dated 08/14/2019, CT lumbar spine without contrast dated 04/24/2020FINDINGS: There is evidence of recent T12-L2 decompression discectomy with extension of instrumentation to [id number], and transfacet decompression of the right side. Interval addition of T12 pedicle screws are noted to project over corresponding pedicles and vertebral body along with connecting rods bilaterally secured to the existing posterior spinal fusion hardware. Redemonstration of lumbar spinal fusion hardware from levels L1 to the lumbosacral junction.Lumbar lordosis is preserved. The alignment of the spine is unchanged, which includes anterolisthesis of L5 on S1 and a mild retrolisthesis of L2 on L3. Vertebral bodies' height is well-maintained. There is extensive degenerative disc changes throughout the lumbar spine. A large laminectomy defect is once again redemonstrated. Anterior to the spine, there is significant vascular calcification.The bilateral sacroiliac joints are un remarkable.IMPRESSION:1. There is evidence interval extension of posterior lumbar fusion extending from T12 to the lumbosacral junction with noted proper positioning of the orthopedic hardware.2. Stable appearing posterior spinal hardware from L1 through lumbosacral junction without evidence of loosening.3. There is evidence of stable severe degenerative disc disease.This document has been electronically signed by Js Kingston MD on 04/28/2020 2:36 PM Name Value Range Interpretation Code Description Data Don rce(s) Supporting Document(s) ID Date Data Source [id number] 04/28/2020 05:35:08 AM [facility] Name Value Range Interpretation Code Description Data Don rce(s) Supporting Document(s) Leukocytes [#/volume] in Blood by Automated count 11.0 10*3/uL 4-10 [facility] Erythrocytes [#/volume] in Blood by Automated count 3.14 10*6/uL 4.1- 5.3 L [facility] Hemoglobin [Mass/volume] in Blood 8.9 g/dL 11.5-15.5 L [facility] Hematocrit [Volume Fraction] of Blood by Automated count 26.9 % 3 6-45 L [facility] Erythrocyte mean corpuscular volume [Entitic volume] by Auto mated count 85.7 fL 80-96 [facility] Erythrocyte mean corpuscular hemoglobin [Entitic mass] by Automated count 28.5 pg 27-33 [facility] Erythrocyte mean corpuscular hemoglobin concentration [Mass/volume] by Automated count 33.2 g/dL 32.0-[facility].0 [facility] width [Ratio] by Automated count 15.1 % 11.5-14.5 H [facility] Platelets [#/volume] in Blood by Automated count 192 10*3/uL 150-400 [facility] Differential cell count method - Blood [facility] Neutrophils/100 leukocytes in Blood by Automated count 88 % [facility] Lymphocytes/100 leukocytes in Blood by Automated count 10 % [facility] Monocytes/100 leukocytes in Blood by Automated count 2 % [facility] Eosinophils/100 leukocytes in Blood by Automated count 0 % [facility] Basophils/100 leukocytes in Blood by Automated count 0 % [facility] Neutrophils [#/volume] in Blood by Automated count 9.58 10*3/uL 1.8-7 .0 H [facility] Lymphocytes [#/volume] in Blood by Automated count 1.12 10*3/uL 1.2-4 .0 L [facility] Monocytes [#/volume] in Blood by Automated count 0.24 10*3/uL 0-0.8 [facility] Eosinophils [#/volume] in Blood by Automated count 0.00 10*3/uL 0-0.5 [facility] Basophils [#/volume] in Blood by Automated count 0.01 10*3/uL 0-0.2 [facility] Nucleated erythrocytes/100 leukocytes [Ratio] in Blood by Automated count 0 /100{WBCs} 0-0 [facility] ID Date Data Source [id number] 04/28/2020 06:04:12 AM [facility] Name Value Range Interpretation Code Description Data Don rce(s) Supporting Document(s) Bicarbonate [Moles/volume] in Serum 23 mmol/L 22-29 [facility] Chloride [Moles/volume] in Serum or Plasma 107 mmol/L 98-107 [facility] Creatinine [Mass/volume] in Serum or Plasma 0.79 mg/dL 0.50-0.90 [facility] Glucose [Mass/volume] in Serum or Plasma 142 mg/dL 70-140 H [facility] Potassium [Moles/volume] in Serum or Plasma 4.6 mmol/L 3.4-5.1 [facility] Sodium [Moles/volume] in Serum or Plasma 140 mmol/L 136-145 [facility] Urea nitrogen [Mass/volume] in Serum or Plasma 16 mg/dL 8-23 [facility] Anion gap 3 in Serum or Plasma 9 mmol/L 8-15 [facility] Osmolality of Serum or Plasma by calculation 294 mosm/kg 275-300 [facility] Creatinine/Urea nitrogen [Mass Ratio] in Serum or Plasma 21 [facility] Calcium [Mass/volume] in Serum or Plasma 8.2 mg/dL 8.8-10.2 L [facility] Glomerular filtration rate/1.73 sq M pre dicted among non-blacks [Volume Rate/Area] in Serum or Plasma by Creatinine-based formula (MDRD) >6 0 [facility] Glomerular filtration rate/1.73 sq M pre dicted among blacks [Volume Rate/Area] in Serum or Plasma by Creatinine-based formula (MDRD) >60 [facility] ID Date Data Source [id number] 04/28/2020 05:45:46 AM [facility] Name Value Range Interpretation Code Description Data Don rce(s) Supporting Document(s) Hemoglobin A1c/Hemoglobin.total in Blood by HPLC 5.7 % 4.0-6.0 [facility] (NOTE)<5.7% Average risk of diabetes (ADA)5.7-6.4% Increased risk of diabetes(ADA)>/= 6.5% Diagnostic for diabetes(ADA) Glucose mean value [Mass/volume] in Blood Estimated fr om glycated hemoglobin 117 mg/dL <126 [facility] ID Date Data Source [id number] 04/27/2020 09:45:38 PM [facility] Name Value Range Interpretation Code Description Data Don rce(s) Supporting Document(s) EKG 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 cTtZv1+D2qus5L57P4aez/Hajmmij0Wt4Yu4pLSYzrF0jYJo12CvPhs5d0V/V9x+/E6Vng7mH38o+c+a LkQ8IzzWn/YhCeo0kI7/f1n+xBj9EL0Oy+c+J9E+8z zO0pxiHilnm9u61+43d/tXlWWMo6B5jhqkFTL48I94SnDu43o+Xcj+tMFR7fG+t3A+t3A+x4a6zmQsiW jqp9Imlnv5I64hwzt9o5hgaiMoxJHyC6FGQ0ylYE+q7E6b623GpxG4K2ZE1awWAzVkyUYrqoO9csmwps RKYjSBuMzUwygBTlqmOZsrL4ftA+N25+90ZgHayDDb FKWpZprVRY8OTpMC1zHGWFCLwibj7Leeb9Mnok4QX1+Siwfjewfjewfjewfjewfjewfjewfjewfjewfj ewfjewfjewfjfgdwN+N7B+N7B+N7B+N7B+W4TZvr0Q/CcmLc68qr4ed1VnBuhKTshRj/hvFF5flY2J33 aWuQAPTUH23lyAH8YW8uQ4EPpyVATYkWufsfMNeyGt W1vcI5oZOEdLpGvRE7nePS9NhtD3VnsO7QSwH8JNxF0VLSSvRhHqMo2y3Y1T3HN4yAtRjqFWOBSX23Iy r/SLyYsX6Wz2FV2ZzF2Kmt573Woj5vedXfNSXCwSHdX+KCq/P32c4tq1SrNKlVAdYZJ+wPkSTPPe+ah/ bwnMv5CWzLX5sGB9yBrYWWPhqFuQl13skhDPsjG8Pz JRzSZZJX4z1BOnzDh7wFVCq9WczNRYuED8xWrVeAwMhq6a2/bDuM8gWPULMIrd41gB/XpCe4najla/m/ C7Cb+e8EeGU4rMp6MNhwzHfHzJCh45oSrUcVxYWl63yErksCrRQeU9ALdpuJcAfhi280nT91juEEEXfp Yy0F4G+xJMGigTNrqYTIKSeqM68oLi4fpS+YP1pUdU qCwPpYgGYKFHFD4utydvMM9sIzA9EExWzdZMZ7EAFcTx28ca9+nTvsqcmDIfXfwACejUx8YMzFXRhBVu MAdT/7Ele7l2QRZumvNR/Q9pbJ4G6MM2bSxUzuN1MHk+B+KgIERubaljiCeKHxK4hAV+tcR+tcR+tcR+ tcR+tcR+tcR+tcR+tcR+tcR+tcR+tcR+tcR+tcR+tc R+tcR+tcR+yjo87E2UC78sDIWKPP0SpH0TXllL/1XSY/77Zr8goibex4RNAtKqe6FGTNwH6kG2QSVCCd WRRqLOYFLYTCYkR3bE5qbwHVxAVqrztdttsFFhMOtJogtlKnXitQBvlDgcvy0W8iX6WfBat4JJwC7Aru 4VM7LwGohVIj56jWUmpxUbIkq+AbbhqvqKLT2LH6RL dTZPzKPvlNzccrRXyB9cS7LQsA3g+KMXNbZlIwzqSXM5BParkTxdsN2pyq/fWppfAXqBodKmxDMFOq1W bQF6GvgQJyJXKebE3JWwXdzuFoUVXGtucdTtk5slekuqgZOMNEQYaYMHbaHeFy2FhXVRVLOYUlw0Tm3D XLDPW9yWIEb8oC93qwKNAwgQjcHRzVKyZIrnMq8zpT SSVJJC+gModHQuvNwOkv0abL6h6fKqmvwj9i58dlHr2aXgR+ztUwc7b90waEv8rClt/UllH5h2UFPubT Nmij6m4WLAVUGohNJ6NYZLKQZQAXKmvKGmCBlQY3H2IUjGDN0XqrARk/p8YmdgRqU7aK4RJhOXNIWgLw 1cEQ4nWerYFoY3hU5eXQ7c7WmXl9ORjMx9CZRTg3HB QeTjgu0sZrwWknEAmMBKT/1qAkCIzuAc82T9nilZVPj6FUOFMVNgJnjNNAnESsD7CfZk8ttULjpzC0eV MzUaLgpbfbD5uZUE7tUqp8iRGkrTVJxFTnro/tErZCvOreh7dvEhyapYjsm2qoAwpsgL1wiVhx+8gWrg vhGcKs0wyEwdkiIyPhDpqDnXdvVuYjRfyIiZqvDcNq EahGoQqkGoBqEahGoQqkGoBqEahGoQqkGqBqkapGqQqkGqBqkapGqQqkGqBqkapGqQqkGqBqkapGqQqk DpWdyveQxGrwE6crU7n3KvzApsSzKLmZppN/nUxrGPG3jojnn5jPux5tYiiPevBphnHi0soUGIOGBFbc /8BUqakqakK+mXxLxsT15jkpqODj0oH5xxFsytiXwv tIMbKHElriSUhJJUkkKOT/nJMfnXitWl1NeDrxJxEkBzBoe+6WjyREoBKdcjOiXEHEpmrpKqEAaFZ9+S jnDh9To2yzWeSIbGIFQmDyyQYDnPKaKZofCGOZPcALDWnHmQ2HFpLeO2yCtG9THupEILJA5uA/IHdnxi 9ZLtE/Opag+vBrXYaxeXWDlbBS+rnnYyS10F2RixT8 8FcLuwhD/9Bi+5hSviJdWzXp/ps00VNHH7PMK6zLfQE1+8S4deX2Zi+8RVR9s+4P7FsPtBa58++8RZUm 2f+PeUeoJXg/GrK/WM5lw6piBSS38UW2c99YAp4lhcs/CFThqvoRYvu4I8Fv7vpzbX685wM66BY5anPO chI692LJf4mouPgZsI9txH+uq3T/a63VVjcoEiElBw DeoArwarvp/xM2d52E9n3aRl+6QuU0dmMxpieRwEB33OrUoR2Jbctbshmfq0lh/grdncK2u4nwW5ZiWR gjomQjpbtJagzW3xIXz+PvEXKOlKupKhZPeFam/HJ/4Uhy1cN+7f1IgaEb38bwyt93TySh6isNvlUm92 ydhh47QffEO8KaUSzzOyEkpMNOzeoh4ZeFPt9LxREe aGahCqQagGoRqEahCqQagGoRqEapCqQaoGqRqkapCqQaoGqRqkapCqQaoGqRqkapCqQaoGqRqkapCqQa pQgZdfuYGa5HR5b7SgjYmxThsDfYIczKvdLtRrCqlTpcHWrORVMnmfTFgBdMnq+MRfYN+/GEeoOP2l3K wXp0SmLTBlcSLARTkaBOCXazpUCSHeZlDMpFwDYYLy nRIwPog61REfaJ4OYpcH18zXVQKgSeAYQ3od5bqAb1tXsXeMQkAKB+CRXmrwWjs9h3kDXxrDvBtjHEfB pkTuC+g1bSJfi+KZL1AfRbayD8wxYW6uedJK5izhCca7zB38yjAUb6v8RMhiSI+0kboFdw3xqxlF7k5h 2qSfizNrS90BO19Nc6uo75vVgpVYcgLX58W61pazk0 RmKEklMs+5CUFYck9nQNzY2zH4VYHSKWHAEL39bfEVk5jFbJJgkD7quzEfurvIkezEmsCiw0m5q3t3w8 a2c7qVP7SJOLYZvXFoBP9breFqUOqXMuGtHWfBOpGSZzHv+nEOaO7yANpB7wG7FPHWNSAOdQdtJrmg5X qBy/sAhaytDS0gzvjWXEhFZFNGmiBwdvg80uwUJ6tg 62vu1u6liOZyXHyhdkdVfJsUsYHslWwYHv5ti9a26e9SgR7Y1hjzWI+08lHSlKgGqRqkapCqQaoGqRqk wvZlPvwHwMrfplClhHLGyHdg8GR9GdS9E35ekyJrE9tNTdWy/po2eb2heOBrcZamU4zbEGTDc9GukotX YlMFYmqtOU606oe77zb89ffNS1cSS1HNOLPXiWRp52 2iUW9FofmTFlJT0vRmEz82wPdMHa0izdYEr08ibFJlfvYxKfplsm32s835k746r787v058f489i541v5 rOkcgrMpmipLtYQHGH0S3vI+0VAw0qHLxU9hA4WXKIAQERCAIqyHPsCNkQY5NngAMPhEEXFPdxFshqJy edXeedXeedXeedXeedXeedfaoGUzWYqsFUDaZqoPPO [file] 0Jx0KhruK4obSpEdKnCqXqPlWrLX5D ID Date Data Source [id number] 04/27/2020 07:56:13 PM EDT [facility] XR SPINE L-S 2-3 VIEWS PORT-OR [id number] L RESULTThis statement is intended for documentation purposes only.This exam was performed in the Operating Room by the Surgeon and a Radiologist was not present. Please refer to the Operative note in EPIC. Name Value Range Interpretation Code Description Data Don rce(s) Supporting Document(s) ID Date Data Source [id number] [facility]2020 06:38:[facility] Interpretation Code Description Data Don rce(s) Supporting Document(s) pH of Arterial blood 7.40 7.38-7.44 [facility] Carbon dioxide [Partial pressure] in Arterial blood 43 mmHg 35-40 H [facility] Oxygen [Partial pressure] in Arterial blood 399 mmHg 95-100 H [facility] Base excess standard in Arterial blood by calculation 2 mmol/L [facility] Oxygen saturation Calculated from oxygen partial press ure in Arterial blood 100 % 94-100 [facility] Bicarbonate [Moles/volume] in Arterial blood 28 mmol/L [facility] Sodium [Moles/volume] in Blood 138 mmol/L 136-145 [facility] Potassium [Moles/volume] in Blood 4.1 mmol/L 3.4-5.1 [facility] Calcium.ionized [Moles/volume] in Blood 1.22 mmol/L 1.13-1.32 [facility] Glucose [Mass/volume] in Blood 111 mg/dL 70-140 [facility] Hematocrit [Volume Fraction] of Blood 25 % 36-45 L [facility] Hemoglobin [Mass/volume] in Blood by calculation 8.5 g/dL 11.5-15.5 [facility] ID Date Data Source [id number] 04/30/2020 03:24:[address] [facility] Value Range Interpretation Code Description Data Don rce(s) Supporting Document(s) ABO and Rh group [Type] in Blood [facility] Blood group antibody screen [Presence] in Serum or Plasma [facility] 04/30/2020,0000Performed at [facility] Sue lawrence [place], [place] ID Date Data Source [id number] 04/27/2020 05:36:14 [facility] Value Range Interpretation Code Description Data Don rce(s) Supporting Document(s) pH of Arterial blood 7.42 7.38-7.44 [facility] Carbon dioxide [Partial pressure] in Arterial blood 44 mmHg 35-40 H [facility] Oxygen [Partial pressure] in Arterial blood 447 mmHg 95-100 H [facility] Base excess standard in Arterial blood by calculation 4 mmol/L [facility] Oxygen saturation Calculated from oxygen partial press ure in Arterial blood 100 % 94-100 [facility] Bicarbonate [Moles/volume] in Arterial blood 30 mmol/L [facility] Sodium [Moles/volume] in Blood 137 mmol/L 136-145 [facility] Potassium [Moles/volume] in Blood 4.1 mmol/L 3.4-5.1 [facility] Calcium.ionized [Moles/volume] in Blood 1.27 mmol/L 1.13-1.32 [facility] Glucose [Mass/volume] in Blood 97 mg/dL 70-140 [facility] Hematocrit [Volume Fraction] of Blood 25 % 36-45 L [facility] Hemoglobin [Mass/volume] in Blood by calculation 8.5 g/dL 11.5-15.5 [facility] ID Date Data Source [id number] 04/27/2020 03:56:14 PM EDT [facility] Name Value Range Interpretation Code Description Data Don rce(s) Supporting Document(s) History and Physical [facility] BJBJTc0rPqWOQhLe83/FMBgrDWQud9RmSHusMFu2FVnsUXItU6QyPKS3qI6tGTC0CLcPOqHzAvTwWXY7 lbm FhKgtOHuZlSZBpHmmVYmUsJHumFeutcGSnCJ2PyXY9RIKsN20tCZIsZQRoV6YvXCK7UFD+Au2TMCEkiA TuDF8MYnjK2Nhsg9oT8HkB/N9EEAoKKQcGFhk4FNhAggRulyOR7JZO6D+FSnau2dHngwA/+/IaUe+Ffm eWHcly4yFELwdz8doqzqJp+RzBL7WBJdOB5u/71XY5 u16yn/9HxrgBk3vNZ6YguIPspdKKM7LzLu70yRadDB8gRKJE/Jd09JN9nkQUVH3g/fz5Y7Tzvqrsry3H 9XVu2H4yJuPz9bODfkT5OcK/H65VHdNhfRiOaW+SRiCzgPzDfhmM6GAXTFYomaGxqe2MurTiMdwq+Nepali+ [file] [id number]= ID Date Data Source [id number] 04/27/2020 10:10:55 AM EDT [facility] Name Value Range Interpretation Code Description Data Don rce(s) Supporting Document(s) ABO and Rh group [Type] in Blood [facility] Blood group antibody screen [Presence] in Serum or Plasma [facility] 04/30/2020,0000Performed at [facility] [address] [place], [place] ID Date Data Source [id number] 04/27/2020 09:27:22 AM EDT [facility] Name Value Range Interpretation Code Description Data Don rce(s) Supporting Document(s) Leukocytes [#/volume] in Blood by Automated count 7.7 10*3/uL 4-10 [facility] Erythrocytes [#/volume] in Blood by Automated count 3.45 10*6/uL 4.1- 5.3 L [facility] Hemoglobin [Mass/volume] in Blood 9.9 g/dL 11.5-15.5 L [facility] Hematocrit [Volume Fraction] of Blood by Automated count 30.0 % 3 6-45 L [facility] Erythrocyte mean corpuscular volume [Entitic volume] by Auto mated count 86.8 fL 80-96 [facility] Erythrocyte mean corpuscular hemoglobin [Entitic mass] by Automated count 28.8 pg 27-33 [facility] Erythrocyte mean corpuscular hemoglobin concentration [Mass/volume] by Automated count 33.1 g/dL 32.0-36.0 [facility] width [Ratio] by Automated count 15.3 % 11.5-14.5 H [facility] Platelets [#/volume] in Blood by Automated count 239 10*3/uL 150-400 [facility] Differential cell count method - Blood [facility] Neutrophils/100 leukocytes in Blood by Automated count 62 % [facility] Lymphocytes/100 leukocytes in Blood by Automated count 26 % [facility] Monocytes/100 leukocytes in Blood by Automated count 6 % [facility] Eosinophils/100 leukocytes in Blood by Automated count 5 % [facility] Basophils/100 leukocytes in Blood by Automated count 1 % [facility] Neutrophils [#/volume] in Blood by Automated count 4.79 10*3/uL 1.8-7 .0 [facility] Lymphocytes [#/volume] in Blood by Automated count 2.03 10*3/uL 1.2-4 .0 [facility] Monocytes [#/volume] in Blood by Automated count 0.46 10*3/uL 0-0.8 [facility] Eosinophils [#/volume] in Blood by Automated count 0.40 10*3/uL 0-0.5 [facility] Basophils [#/volume] in Blood by Automated count 0.05 10*3/uL 0-0.2 [facility] Nucleated erythrocytes/100 leukocytes [Ratio] in Blood by Automated count 0 /100{WBCs} 0-0 [facility] ID Date Data Source [id number] 04/27/2020 09:45:59 AM [facility] Name Value Range Interpretation Code Description Data Don rce(s) Supporting Document(s) Prothrombin time (PT) 12.8 s 12.5-14.9 [facility] INR in Platelet poor plasma by Coagulation assay 0.95 [facility] Routine intensity oral anticoagulation I NR is typically 2.0-3.0. Target INR must be clinically individualized. ID Date Data Source [id number] 04/27/2020 09:45:59 AM [facility] Name Value Range Interpretation Code Description Data Don rce(s) Supporting Document(s) aPTT in Platelet poor plasma by Coagulation assay 37.9 s 24.0-33. 0 H [facility] ID Date Data Source [id number] 04/27/2020 10:20:11 AM [facility] Service Cmnt XXX-Imp : NoneMicroorganism XXX Cult : 2019 nCoV Real-Time RT-PCR: NOT DETECTEDTest performed using [employer] Respiratory Panel. This test is only for use under Food and Drug Administration's Emergency Use Authorization.Additional information is available on the following FDA websites for health care providers and patients. https://www.fda.gov/media/214911/download , https://www.fda.gov/me keith/171650/downloadPolymerase chain reaction is NEGATIVE for Influenza A H1, H3 and 2009 H1 viruses, Influenza B virus, Respiratory syncytial virus, Human metapneumovirus, Parainfluenza virus 1,2,3 and 4, Adenovirus, Rhinovirus/ Enterovirus, Coronavirus HKU1, NL63, OC43 and 229E, Bordetella pertussis, B. parapertussis, Mycoplasma pneumoniae and Chlamydia pneumoniae. Name Value Range Interpretation Code Description Data Don rce(s) Supporting Document(s) ID Date Data Source [id number] 04/27/2020 09:08:00 AM [facility] Cmnt XXX-Imp : NoneMicroorganism XXX Cult : 2019 nCoV Real-Time RT-PCR: NOT DETECTEDTest performed using [employer] Respiratory Panel. This test is only for use under Food and Drug Administration's Emergency Use Authorization.Additional information is available on the following FDA websites for health care providers and patients. https://www.fda.gov/media/427494/download , https://www.fda.gov/me keith/010418/downloadPolymerase chain reaction is NEGATIVE for Influenza A H1, H3 and 2009 H1 viruses, Influenza B virus, Respiratory syncytial virus, Human metapneumovirus, Parainfluenza virus 1,2,3 and 4, Adenovirus, Rhinovirus/ Enterovirus, Coronavirus HKU1, NL63, OC43 and 229E, Bordetella pertussis, B. parapertussis, Mycoplasma pneumoniae and Chlamydia pneumoniae. Name Value Range Interpretation Code Description Data Don rce(s) Supporting Document(s) Microorganism identified in Unspecified specimen by [facility] This lab was ordered by [facility] and reported by [facility]. ID Date Data Source [id number] 04/27/2020 03:41:31 AM EDT [facility] Name Value Range Interpretation Code Description Data Don rce(s) Supporting Document(s) Bicarbonate [Moles/volume] in Serum 26 mmol/L 22-29 [facility] Chloride [Moles/volume] in Serum or Plasma 102 mmol/L 98-107 [facility] Creatinine [Mass/volume] in Serum or Plasma 0.77 mg/dL 0.50-0.90 [facility] Glucose [Mass/volume] in Serum or Plasma 111 mg/dL 70-140 [facility] Potassium [Moles/volume] in Serum or Plasma 4.3 mmol/L 3.4-5.1 [facility] Sodium [Moles/volume] in Serum or Plasma 136 mmol/L 136-145 [facility] Urea nitrogen [Mass/volume] in Serum or Plasma 24 mg/dL 8-23 H [facility] Anion gap 3 in Serum or Plasma 8 mmol/L 8-15 [facility] Osmolality of Serum or Plasma by calculation 287 mosm/kg 275-300 [facility] Creatinine/Urea nitrogen [Mass Ratio] in Serum or Plasma 31 [facility] Calcium [Mass/volume] in Serum or Plasma 8.5 mg/dL 8.8-10.2 L [facility] Glomerular filtration rate/1.73 sq M pre dicted among non-blacks [Volume Rate/Area] in Serum or Plasma by Creatinine-based formula (MDRD) >6 0 [facility] Glomerular filtration rate/1.73 sq M pre dicted among blacks [Volume Rate/Area] in Serum or Plasma by Creatinine-based formula (MDRD) >60 [facility] ID Date Data Source [id number] 04/26/2020 03:22:30 PM EDT [facility] Name Value Range Interpretation Code Description Data Don rce(s) Supporting Document(s) ED Provider Note [facility] FNSGBe5cHoMXOtXi38/RLIlnEDBkb6TcZCxpZEm6XVzhTIRtW1AgJDN7pF6hCIN6INlYCkGkKdVzUZCk lbm [file] satellite specialist+KHZyjQYnBZOeUmuGfvQu7mA0nbKPgsQ26OF7sN1HwzKIE9+dH1fj4TcHM+72fs9o8cYuZ8dRLFcG [file] l4N30lvASxEMzgQD1BPRE+Denae+Tr7IIHArXUGvXFClYzYqIYWHRfDkL4DnI6VAe8WlR9IcRK75iUkhwl NgUQzgOE6OTV2wLACyPQFSHB6HwMHwgC9hycX3MOJd CBOAFgByX85akIQpYMGkNJV1NFFaFg8XMKZiS0KekwHgxQlmuiByRAFwJRXHGS8INEfmuqPyaMUppTot KV54wLqoIL2ZCk2POaRaUG5yaz4YzTWxIs8RQVN0Ra8YMBZkOOYzBTReYUX3FTSrQfWwHIxfZKEdHFVw GEG4GHViPJTxWZ1PVsGiXXBoXFB1HWjxTGHjVVOrjw 5PAISbWDU4PUDiUPEiEUGwMAViWPhfKPOyLKWfMRT5UILlTPQxEL8SXaIdREAgJQG1FMOfEBQdQABqqi 5AJDWxTREkSxmoJjIdDQYuCOZkUJvhVGXrVXG3JVf8JKTkYTVvYM2QFlRlQSZdDBUgHZEkOLNnRQVwew 5VFADnNLWzXBH5QSVwATCrYIIxKSaiNKCkQFUuPXD7 LSKiROEwTK0MCxUpBCFmSNY4MwNdOOKkXMUefr3DOCJtVYAlDMu4MiRtHUAsJLErQNrkAMKdDUZ2Wrl7 WLQeXQGjYX4WXqSsFHLdLFq8DQOiSFXpUKYyxt2QLFJfYPKzODz4ZXTuOZYxDTLoOGjaPYJoSOPbBOt9 ZOFaUWTuZJ7QCdKnXHXpEpZ6CQFtJATjPNXswl6DBU QqBTIgGXK0KtUwPVDiDAWaSTnaEHNuIIT9OfU8YUPxFASkMO6WPjEpHKAtUam2WTZzHEZpFMJxzb8PYP XvTTMmMAS2JYJyRPWsARJmMRmrEEIoOOXmPFF2MIRnOTEhKF9XTnNnQCPcNlU1ZaCgRCPxZXDbba6BAJ LoXALfKSDoVtGsRRYeWSReOEspUCRkNCB5CQe6PMOj SFGvHE9GIdIdYBLgWrP3MUCdLMThDGWrpk7ECDWzLOIxIyu2PDQnLWZgQOBpCNakLLOfQMZ7WUL3LCYe XEOzCE5DQvBgKTWdKntwMyZiVZScPTBlrl1BQOQdNEIgTMB5ONZqOYFtYRAjOQwwJPXgRIN9PlshLRSq DAStZW7MOpOmOLFcJqz5IWLpFAAsSZFllf2FWUXxVE ZuJCL3MERaOBHlBEMjPStpZGRrNWQ8ElE4DWDhXAOiIW9VZpJbTACdQwe2IlZcZGIjDXEhpx6FISEhUZ S5JDBlDFNiRBMsXVEjKRtnSWQzGXPdLOBnYYMiQAOnCG4ULnExLYVeKOK9LaZyTQRdPFUudl7GDBKdWJ G8HUc8ETEzISBfNHJsVYbxNNLoVBBaYKN6ESUzMZRg ZP4IFpKlGOGuPFMiOhMsEMGzXRSlhh9IDYBnCBW8WjZ9GVPwZFFbIBEeVMwlSKJaSDPsSCX8JCYgNSFz BD9NXeBxWEMlUSK5FnThKFYhXYPwjq9ZEXRhUKW6PXY3QrDgYAWrTVDzHRlfCNAaPZQ8XMQ2CHSuUJMg RE8NRaPyYNJlKGI1TSFrJEGvOJOmga8VFMLwSUC9TG l8MECyZGQzKUIjVFqmDYXiFZZ2GKh9MPCbBKOqEJ9TQhTuDOSkJDEmADJkOSAvYTEuls8HZJHyMZU2Yc NvZGXwUODiWPWjDFspZWAnIXU2ZIz3XIQbJXKxIU7KXbBeUXafQQFPGry1UYxfI1h8RJA2Ap2IN3Kcr2 KkMVCuFUJGECehFA8kxiLuXUMaXo8WR6qHCpp0WKx9 RCxhENO5Jai3HyEdHNNvVOS3Lkq0IcqfHxLkIc7nFTLuLBmvSNP9YTZaNsJfXaOeI7U0ElqrBFHoBrN4 MFFpDjLgAN1OJd6HMwS1QOZ8sGIiVe3NDSQ5HWAQJxJlJE5DIKh= ID Date Data Source [id number] 04/26/2020 05:05:21 AM EDT [facility] Name Value Range Interpretation Code Description Data Don rce(s) Supporting Document(s) Bicarbonate [Moles/volume] in Serum 27 mmol/L [facility] Chloride [Moles/volume] in Serum or Plasma 102 mmol/L 98-107 [facility] Creatinine [Mass/volume] in Serum or Plasma 0.82 mg/dL 0.50-0.90 [facility] Glucose [Mass/volume] in Serum or Plasma 108 mg/dL 70-140 [facility] Potassium [Moles/volume] in Serum or Plasma 4.1 mmol/L 3.4-5.1 [facility] Sodium [Moles/volume] in Serum or Plasma 137 mmol/L 136-145 [facility] Urea nitrogen [Mass/volume] in Serum or Plasma 25 mg/dL 8-23 H [facility] Confirmed Anion gap 3 in Serum or Plasma 9 mmol/L 8-15 [facility] Osmolality of Serum or Plasma by calculation 289 mosm/kg 275-300 [facility] Creatinine/Urea nitrogen [Mass Ratio] in Serum or Plasma 30 [facility] Calcium [Mass/volume] in Serum or Plasma 8.5 mg/dL 8.8-10.2 L [facility] Glomerular filtration rate/1.73 sq M pre dicted among non-blacks [Volume Rate/Area] in Serum or Plasma by Creatinine-based formula (MDRD) >6 0 [facility] Glomerular filtration rate/1.73 sq M pre dicted among blacks [Volume Rate/Area] in Serum or Plasma by Creatinine-based formula (MDRD) >60 [facility] ID Date Data Source [id number] 04/25/2020 09:58:22 PM EDT [facility] MR LUMBAR SPINE WITHOUT CONTRAST [id number] NAL RESULTInterpreted by:MAHENDRA RobertsonROCEDURE INFORMATION: Exam: MR Lumbar Spine Without Contrast. Exam date and time: 04/25/2020 8:38 PM Age: 89 years old Clinical indication: Low back pain; Dorsalgia, unspecified; Prior surgery; Surgery date: 6+ months; Surgery type: Fusion; Additional info: Eval back pain TECHNIQUE: Imaging protocol: Multiplanar magnetic resonance images of the lumbar spine without intravenous contrast. COMPARISON: MR LUMBAR SPINE WITHOUT CONTRAST [id number] 05/13/2019 12:03 PM FINDINGS: Status post multilevel posterior fusion and multilevel lower lumbar laminectomy with postsurgical changes. Edema within the posterior paraspinal soft tissues, likely postsurgical. No paraspinal or epidural fluid collection. Multilevel discogenic degenerative changes. Mild multilevel spondylolisthesis, likely degenerative. At T12-L1 symmetric disc bulge with superimposing large right paracentral/foraminal focal disc extrusion (with superior migration of the extruded disc material) and superimposing left paracentral focal disc extrusion as well as facet arthropathy and ligamentum flavum thickening result in severe canal stenosis with compression/impingement of the conus medullaris and cauda equina at this level. Severe bilateral foraminal narrowing. At L1-L2 mild retrolisthesis, disc ridge complex, and facet arthropathy result in moderate canal stenosis. Moderate bilateral foraminal narrowing. At L2-L3 disc bulging facet arthropathy result in minimal canal stenosis. Moderate bilateral foraminal narrowing. At L3-L4 disc ridge complex and facet arthropathy result in minimal canal stenosis. Moderate left and onjy-dh-rnrthkhn right foraminal narrowing. At L4-L5 disc bulge with a tiny annular fissure results in minimal canal stenosis. Moderate bilateral foraminal narrowing. At L5-S1 disc bulge results in minimal canal stenosis. Moderate to severe right and mild left foraminal narrowing. IMPRESSION: Postsurgical changes are discussed in full detail above. Multilevel spondylosis is also discussed level by level. Most notably, advanced discogenic degenerative changes at T12-L1 result in severe canal stenosis with impingement of the conus medullaris and the cauda equina. Degree of multilevel bilateral neural foraminal narrowing as detailed level by level above. 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/8oDuDbdJVYqfQMEZYSp1jYXhuGemv5Hm8gXvgav1MslopavDVEBfG8W4lMNLaBwDgDA8khXIBuNCJ [file] [id number]ZWw= ID Date Data Source [id number] 04/25/2020 06:43:10 PM EDT [facility] Name Value Range Interpretation Code Description Data Don rce(s) Supporting Document(s) ED Provider Note [facility] OPZPVk2uIjBFGiXa78/TUNekRYYgn6WfNCuyHBz8DVkoWFNfV4PtSXT8wU3kJJA9VHtMRqCtVpIbQRPr lbm [file] [id number]== ID Date Data Source [id number] 04/25/2020 04:57:23 PM EDT [facility] Name Value Range Interpretation Code Description Data Don rce(s) Supporting Document(s) Progress Note [facility] SILSPp8oWzJDXgRo79/RKRfuESSzo2MgYOqfHDf5WDtjDXFvC7FzOBQ8gJ1cIXA3MTmZTwAwSpXhXDIj lbm [file] WET PRESS TENDER+oWyy9jjBbH5UeTXsuEeLtu1nSLNhX7opBi+BUCKNER vIiblqiWJw1mYKV6UU/LYiTIq0y/8MC7lCviEL+mwWf3cqSxvK345p03BndbNem44t+JLjliGrKwzp2F 1dU6tKwcklYmY87uqQxIKKuc7bd1N8P7IuKp4FUYto4pHaSf9vUnLNxXurrvdZKNqf9ePubB7LfK87nB TWLStoPRwILNGsbIWyD8G9IxHpJq7GJAtHWQAcnAU8 9p/S82pnLAJh6jwy2Up5chTomGJdDxNV82b4gLUgVVE+EB49d4Cwn/i7pmu6bA6MHnCGEzU9TpiWu7Rl gvucXZ0aqjYeNHKKhbto6D3zbUri6A/kDaLiWKLO7OXxw7a/kjHT5pk5PbxBr15c5HJP2PsagB3XHul2 kenER4l7xmpLQHyzJBghM3bxVpQV8cgRA+PE/Ctjzx XEVTeJAor9NCRC8AuprdWQXE7DS1KdOqwbgsZhbU3DqsUrWEWGDGryetUIS4JQENrfDV8nzB+6RPDkqb 4BIhVMGDi9koufUcpWCHBJsUZ1EYs7Mu5wTHRLqDIljESBpJaFW5bhz+xRxF+FBiu5BNPRL/CYq6DlEa Q7GQD/ZGiipMAl9ALXAJ9c4FoGtKmE4eickG/TDrW9 qEj9FXc6/SlUGfpQbLVCQADoonxclGt4AdRe/3eOW8UhvacE9zQFqa6q+puArrpDoLto0n+jrAJ8PuHG MDU7yXilj22jcp3CiIE7zRn3TWLb4HK/3Jg3V7cYgM4dKYi7LwNtQyuLyEKgQ73taHtLDSh+TRLTKiWA 8n1I5GMDsTD12JhLDlSIzCV0rkLlX+mxNQMnE3DeH3 pUshuY1/2lQ7IpKrJykgAugHUC7vhrR84ABJyG+PqCcFiSCjvW7Ph6IpxGbbrJPv6GDN9uz8yFceVTXt l2B+JARAD//G5NEB9OLGbJsHAQ6qnOylY0HYG7lh1OsXNr4QZUcz2IpWIenEOs3YQtmYGUmS7H1oVRoTGFo [file] VC7XAe4OWgD4WNE5iAYfMb2VRAxzMUhUIhFfHO5VMPy= ID Date Data Source [id number] 04/25/2020 10:28:13 AM EDT [facility] Hospital Name Value Range Interpretation Code Description Data Don rce(s) Supporting Document(s) Consultation [facility] KVBJSc3dEbQTZqJl23/ZILatYSSlt8MmXOfeWWz4NUtjBFXuE4AtVPE2wV3nVVJ9BZpAHpJeCxYhNBXr lbm [file] DQo= ID Date Data Source [id number] 04/22/2020 12:43:00 PM EDT [facility] 1 OrderSheet [facility] Emergency Department [address] [place] [address] Phone #: ext- [phone] 04/22/2020 12:42 Patient: BIJAN ETIENNE Sex: F : 1930 Age: 89yWEIGHT:82.5 kg HEIGHT:60 inches BMI:35.5ALLERGIES: Aminoglycosides, Bacitracin, Bee venom, Neomycin, Polymyxin b, SeafoodCHIEF COMPLAINT: painDIAGNOSIS: Pain in lower limb, SciaticaLAB ORDERSOrder Description Priority Entered Acknowledged InitialedCBC w Diff STAT 13:05 04/22/2020 13:06 Yeny Bee RN Physician;CMP STAT 13:05 04/22/2020 13:06 Yeny Bee RN Physician;Troponin-T STAT 13:05 04/22/2020 13:06 Yeny Bee RN Physician;Urinalysis (Clean STAT 13:05 04/22/2020 15:18 Yana Bee RN Physician;D-Dimer STAT 13:05 04/22/2020 13:06 Yeny Bee RN Physician;DIAGNOSTIC STUDY ORDERSOrder Description Priority Entered Acknowledged InitialedCT ABD PEL W/O STAT 12:47 04/22/2020 13:00 Sorbero,Oral W/O IV Jose Luis Phan R.N.Contrast Physician;(Oxygen?(No))(IV?(No)) NOTES: Severe R hip pain / No fall Reason for Study: Pelvic PainMEDICATION/IV/DRIP/FLUID ORDERSOrder Description Priority Entered Acknowledged InitialedPercocet PO 1 tab 13:56 04/22/2020 14:03 Yeny Bee(HIGH ALERT Jose Luis Cristobal RNMEDICATION) Physician; 2 OrderSheet [facility] Emergency Department [address] [place] [address] Phone #: ext- [phone] 04/22/2020 12:42 Patient: BIJAN ETIENNE Sex: F : 1930 Age: 89yGENERAL ORDERSOrder Description Priority Entered Acknowledged InitialedDiet: (Regular Diet) 15:17 04/22/2020 15:17 Yeny Bee Lisa RN; RN Verbal order per; Jose Luis Cristobal Physician[Electronically signed by Yeny Bee RN (17:22 04/22/2020)][Electronically signed by Jose Luis Cristobal Physician (08:15 04/25/2020)][Electronically locked by Yeny Bee RN (:04/22/2020)] Name Value Range Interpretation Code Description Data Don rce(s) Supporting Document(s) ID Date Data Source [id number] 04/22/2020 12:43:00 PM EDT [facility] 1 Medication Reconciliation Report [facility] Emergency Department [address] [place] [address] Phone #: ext- [phone] 04/22/2020 12:42 Patient: BIJAN ETIENNE Sex: F : 1930 Age: 89yWeight: 82.5 kgHeight/Length: 60 in.BMI: 35.5ALLERGIES: Aminoglycosides, Bacitracin, Bee venom, Neomycin, Polymyxin b, SeafoodThe patient's Home Medications are listed below:THE FOLLOWING MEDICATIONS NEED TO BE RECONCILED: Aspirin Oral (81 mg), daily Biotin Oral (5 mg), daily DULoxetine HCl Oral (40 mg), daily Lisinopril-hydroCHLOROthiazide Oral, daily Multivitamins Oral Sertraline HCl Oral, daily Simvastatin Oral 20 mg, daily Tramadol HCL Oral 50 mg, prnThe source(s) of the original Home Medication information:Not obtained.The following Medications were given to the patient in the Emergency Department:Percocet [PO] PO 1 tab, administered: 04/22/2020 2:03:00 PMThe following Medications were prescribed to the patient:Percocet 5 mg-325 mg tablet Take 1 tablet every eight hours as needed for 5 days -- for severe pain.Dispense 15 tablet. Refills: 0. Substitution permitted.Pharmacy - [id number] - [phone] ; [place] [id number]. . -- Jose Luis Cristobal, Physician 2 Medication Reconciliation Report [facility] Emergency Department [address] [place] [address] Phone #: [phone]- [phone] 04/22/2020 12:42 Patient: BIJAN ETIENNE Sex: F : 1930 Age: 89y Name Value Range Interpretation Code Description Data Don rce(s) Supporting Document(s) ID Date Data Source [id number] 04/22/2020 12:43:00 PM EDT [facility] 1 Medication Administration Record [facility] Emergency Department [address] [place] [address] Phone #: egz- [phone] 04/22/2020 12:42 Patient: BIJAN ETIENNE Sex: F : 1930 Age: 89yWeight: 82.5 kgHeight/Length: 60 inBMI: 35.5ALLERGIES: Seafood, Bee venom, Polymyxin b, Bacitracin, Neomycin, Aminoglycosides Date/Time Medication Administered Medication OrderedGiven PERCOCET [PO] Percocet PO 1 tab (HIGH ALERT14:03 04/22/2020 (OXYCODONE- ACETAMINOPHEN) MEDICATION)Yeny Bee RN Dose: 1 tab PO Name Value Range Interpretation Code Description Data Don rce(s) Supporting Document(s) ID Date Data Source [id number] 04/22/2020 12:43:00 PM EDT [facility] 1 General Instructions [facility] Emergency Department [address] [place] [address] Phone #: ext- [phone] 04/22/2020 12:42 Patient: BIJAN ETIENNE Sex: F : 1930 Age: 89yChronic right hip pain (Acutely worse.).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 Continue current meds.).Warnings: GENERAL WARNINGS: Return or contact your physician immediately if your conditionworsens or changes unexpectedly, if not improving as expected, or if other problems arise.Prescription Medications:Percocet 5 mg-325 mg tablet Take 1 tablet every eight hours as needed for 5 days -- for severe pain.Dispense 15 tablet. Refills: 0. Substitution permitted.Pharmacy - [phone] [phone] ; [place] [address]. .Follow-up:Follow up with an orthopedic surgeon if not better. Call for an appointment. Reason for referral: evaluation,treatment and R hip pain / Low back pain.Understanding of the discharge instructions verbalized by patient and family. ADDITIONAL INFORMATIONSciaticaSciatica is a condition that causes pain in the lower back that spreads down into the buttock, hip, andleg. Sometimes the leg pain can happen without any back pain. Sciatica happens when a spinalnerve is irritated or has pressure put on it as comes out of the spinal canal in the lower back. Thismost often happens when a bulge or rupture of a nearby spinal disk presses on the nerve. Sciaticacan also be caused by a narrowing of the spinal canal (spinal stenosis) or spasm of the muscle in thebuttocks that the sciatic nerve passes through (pyriform muscle). Sciatica is also called lumbarradiculopathy.Sciatica may begin after a sudden twisting or bending force, such as in a car accident. Or it canhappen after a simple awkward movement. In either case, muscle spasm often also happens. Muscle 2 General Instructions [facility] Emergency Department [address] [place] [address] Phone #: ext- [phone] 04/22/2020 12:42 Patient: BIJAN ETIENNE Sex: F : 1930 Age: 89yspasm makes the pain worse.A healthcare provider makes a diagnosis of sciatica from your symptoms and a physical exam.Unless you had an injury from a car accident or fall, you usually won't have X-rays taken at this time.This is because the nerves and disks in your back can't be seen on an X-ray. If the provider seessigns of a compressed nerve, you will need to schedule an MRI scan as an outpatient. Signs of acompressed nerve include loss of strength in a leg.Most sciatica gets better with medicine, exercise, and physical therapy. If your symptoms continueafter at least 3 months of medical treatment, you may need surgery or injections to your lower back.Home careFollow these tips when caring for yourself at home: You may need to stay in bed the first few days. But as soon as possible, begin sitting up or walking. This will help you avoid problems that come from staying in bed for long periods. When in bed, try to find a position that is comfortable. A firm mattress is best. Try lying flat on your back with pillows under your knees. You can also try lying on your side with your knees bent up toward your chest and a pillow between your knees. Avoid sitting for long periods. This puts more stress on your lower back than standing or walking. Use heat from a hot shower, hot bath, or heating pad to help ease pain. Massage can also 3 General Instructions [facility] Emergency Department [address] [place] [address] Phone #: ext- [phone] 04/22/2020 12:42 Patient: BIJAN ETIENNE Sex: F : 1930 Age: 89y help. You can also try using an ice pack. You can make your own ice pack by putting ice cubes in a plastic bag. Wrap the bag in a thin towel. Try both heat and cold to see which works best. Use the method that feels best for 20 minutes several times a day. You may use acetaminophen or ibuprofen to ease pain, unless another pain medicine was prescribed. Note: If you have chronic liver or kidney disease, talk with your healthcare provider before taking these medicines. Also talk with your provider if you've had a stomach ulcer or gastrointestinal bleeding. Use safe lifting methods. Don't lift anything heavier than 15 pounds until all of the pain is gone.Follow-up careFollow up with your healthcare provider, or as advised. You may need physical therapy or additionaltests.If X-rays were taken, a radiologist will look at them. You will be told of any new findings that mayaffect your care.When to seek medical adviceCall your healthcare provider right away if any of these occur: Pain gets worse even after taking prescribed medicine Weakness or numbness in 1 or both legs or hips Numbness in your groin or genital area You can't control your bowel or bladder Fever Redness or swelling over your back or spine 1999- 2017 [employer]. [address] [place] [address], [place] [address]. All rights reserved. This information is not intended as asubstitute for professional medical care. Always follow your healthcare professional's instructions.Myofascial Pain SyndromeYour pain is caused by a state of chronic muscle tension. This condition is called by various names:myofascial pain, fibrositis, and trigger point pain. This can also be due to mechanical stress, such asworking at a computer terminal for long periods or work that requires repetitive motions of the arms orhands. It can also be caused by emotional stress, such as problems on the job or in your personallife. Sometimes there is no obvious cause. The pain can happen in the area of the muscle spasm or 4 General Instructions [facility] Emergency Department [address] [place] [address] Phone #: ext- [phone] 04/22/2020 12:42 Patient: BIJAN ETIENNE Sex: F : 1930 Age: 89yat a site distant to it. For example, spasm of a neck muscle can cause headache. Spasm of themuscle near the shoulder blade can cause pain shooting down the arm.Home care Try to identify the factors that may be causing your problem and change them: o If you feel that emotional stress is a cause of your pain, learn methods to better deal with the stress in your life. These may include regular exercise, muscle relaxation techniques, meditation, or simply taking time out for yourself. Talk with your healthcare provider or go to a local bookstore and review the many books and tapes about reducing stress. o If you feel that physical stress is a cause for your pain, try to change any poor work habits. You may use jjye-amt-lnbpeoi pain medicine to control pain, unless another medicine was prescribed. If you have chronic liver or kidney disease or ever had a stomach ulcer or gastrointestinal bleeding, talk with your healthcare provider before using these medicines. Apply an ice pack over the injured area for 15 to 20 minutes every 3 to 6 hours. You should do this for the first 24 to 48 hours. You can make an ice pack by filling a plastic bag that seals at the top with ice cubes and then wrapping it with a thin towel. Be careful not to injure your skin with the ice treatments. Ice should never be applied directly to skin. Continue the use of ice packs for relief of pain and swelling as needed. After 48 hours, apply heat (warm shower or warm bath) for 15 to 20 minutes several times a day, or alternate ice and heat. Massage the trigger point and stretch out the muscle. Trigger point massage can be done by applying heat to the area to warm and prepare the muscle. Then have someone apply steady thumb pressure directly on the knot in the muscle for 30 seconds. Release the pressure, then massage the surrounding muscle. Repeat the process, applying more pressure to the trigger point each time. Do this up to the limit of pain. With each treatment, the trigger point should become less tender and the pain should decrease. You can apply local pressure to trigger points in the back by lying on the floor with a tennis ball under the trigger point.Follow-up careFollow up with your healthcare provider, or as advised. You may need physical therapy if you don'trespond to home treatment alone.Call [phone] if you have: A trigger point in the chest muscles, pain that becomes more severe, lasts longer, or spreads 5 General Instructions [facility] Emergency Department [address] [place] [address] Phone #: ext- [phone] 04/22/2020 12:42 Patient: BIJAN ETIENNE Sex: F : 1930 Age: 89y into your shoulder, arm, or jaw Chest pain or discomfort Trouble breathing with or without chest discomfort Sweating, lightheadedness, nausea, or vomiting along with chest discomfort Sudden weakness or numbness in the arm, leg, or face, especially if this happens on one side of the bodyWhen to seek medical adviceCall your healthcare provider right away if any of these occur: A chino vázquez passes and you have not improved If your pain worsens, regardless of its location [phone] [employer]. [address] [place] [address], [place] [address]. All rights reserved. This information is not intended as asubstitute for professional medical care. Always follow your healthcare professional's instructions.OsteoarthritisOsteoarthritis (also called degenerative joint disease) happens when the cartilage in a joint becomesdamaged and worn. This may be due to age, wear and tear, overuse of the joint, or other problems.Osteoarthritis can affect any joint. But it is most common in hands, knees, spine, hips, and feet.Symptoms include joint stiffness, pain, and swelling.Home care When a joint is more sore than usual, rest it for a day or two. Heat can help relieve stiffness. Take a hot bath or apply a heating pad for up to 30 minutes at a time. If symptoms are worse in the morning, using heat just after awakening can help relax the muscle and soothe the joints. Ice helps relieve pain and swelling. It is often used after activity. Use a cold pack wrapped in a thin cloth on the joint for 10 to 15 minutes at a time. Alternating hot and cold can also help relieve pain. Try this for 20 minutes at a time, several times per day. Exercise helps prevent the muscles and ligaments around the joint from becoming weak. It also helps maintain function in the joint. Be as active as you can. Talk to your healthcare provider about what activity program is best for you. 6 General Instructions [facility] Emergency Department [address] [place] [address] Phone #: [phone]- [phone] 04/22/2020 12:42 Patient: BIJAN ETIENNE Sex: F : 1930 Age: 89y Excess weight puts a lot of extra strain on weight-bearing joints of the lower back, hips, knees, feet and ankles. If you are overweight, talk to your healthcare provider about a safe and effective weight loss program. Use anti-inflammatory medicines as prescribed for pain. This includes acetaminophen or NSAIDs such as ibuprofen or naproxen. If needed, topical or injected medicines may be recommended. Talk to your healthcare provider if these options are not enough to manage your pain. Talk with your healthcare provider about devices that might help improve your function and reduce pain.Follow-up careFollow up with your healthcare provider as advised by our staff.When to seek medical adviceCall your healthcare provider right away if any of these occur: Redness or swelling of a painful joint Discharge or pus from a painful joint Fever of 100.4F (38C) or higher, or as directed by your healthcare provider Worsening joint pain Decreased ability to move the joint or bear weight on the joint [id number] [employer]. [address] [place] [address]. All rights reserved. This information is not intended as asubstitute for professional medical care. Always follow your healthcare professional's instructions. You have been given the following additional information: Sciatica Myofascial Pain Syndrome Osteoarthritis You may walk and bear weight as tolerated. 7 General Instructions [facility] Emergency Department [address] [place] [address] Phone #: ext- [phone] 04/22/2020 12:42 Patient: BIJAN ETIENNE Sex: F : 1930 Age: 89y(Electronically signed by Jose Luis Cristobal, Physician 04/25/2020 08:15) Name Value Range Interpretation Code Description Data Don rce(s) Supporting Document(s) ID Date Data Source [id number] 04/22/2020 12:43:00 PM EDT [facility] 1 Clinical Report - Nurses [facility] Emergency Department [address] [place] [address] Phone #: ext- [phone] 04/22/2020 12:42 Patient: BIJAN ETIENNE Sex: F : 1930 Age: 89yTRIAGEArrived by EMS. Historian: patient. ( pt has had hip pain for a while came in today r/t unable to bearweight on her hip pt states she has had imaging stating bone is rubbing, per pt no surgery talk currently. ptuses walker to ambulate.).Triage time: 12:45 04/22/2020. Acuity: LEVEL 4.Chief Complaint: RIGHT LOWER EXTREMITY PAIN.Alert.No injury occurred. Onset. (a while). She has had trouble walking.Treatment DESKTOP ANALYST:None. --12:49 04/22/20 Awa Alvarez R.N.12:44 04/22/20. BP: 157/89. HR: 75. RR: 16. O2 saturation: 94%. Temp: 98.4 F. Pain level now 07/03.--12:49 04/22/20 Awa Alvarez R.N.Weight: 82.5 kg. Height/Length: 60 inches. BMI: 35.5. --12:44 04/22/20 Awa Alvarez R.N.MedicationsAspirin Oral (Tablet Delayed Release 81 mg), daily. --14:37 04/22/20 Awa Alvarez R.N. Biotin Oral (Tablet 5 mg), daily. --14:38 04/22/20 Awa Alvarez R.N. DULoxetine HCl Oral (Capsule Delayed Release Particles 40 mg), daily. --14:38 04/22/20 Awa Alvarez R.N. Lisinopril-hydroCHLOROthiazide Oral, daily. --14:38 04/22/20 Awa Alvarez R.N. Multivitamins Oral. --14:38 04/22/20 Awa Alvarez R.N. Sertraline HCl Oral, daily. --14:39 04/22/20 Awa Alvarez R.N. Simvastatin Oral 20 mg, daily. --14:39 04/22/20 Awa Alvarez R.N. Tramadol HCL Oral 50 mg, as needed. --14:39 04/22/20 Awa Alvarez R.N.AllergiesAminoglycosides. --14:39 04/22/20 Awa Alvarez R.N.Neomycin. --14:39 04/22/20 Awa Alvarez R.N.Bacitracin. --14:39 04/22/20 Awa Alvarez R.N.Polymyxin b. --14:40 04/22/20 Awa Alvarez R.N.Bee venom. --14:40 04/22/20 Awa Alvarez R.N.Seafood. --14:40 04/22/20 Awa Alvarez R.N.PROBLEMS:Chronic right hip pain. --14:44 04/22/20 Awa Alvarez R.N. 2 Clinical Report - Nurses [facility] Emergency Department [address] [place] [address] Phone #: ext- [phone] 04/22/2020 12:42 Patient: BIJAN ETIENNE Sex: F : 1930 Age: 89y History PAST MEDICAL HX: Tetanus status: unknown. Immunizations: up-to-date. Denies current . SOCIAL HX: Never smoker. No alcohol use or drug use. She was offered HIV testing but declined. She has not traveled outside the [place] Infectious disease exposure: No infectious disease exposure. The patient was not exposed to Coronavirus. Patient is not a known carrier of tuberculosis, hepatitis, HIV, MRSA or VRE. Patient is not a known carrier of CRE. SELF HARM ASSESSMENT: Self harm assessment was performed. The patient answered "no" to the question(s) "Have you recently felt down, depressed, or hopeless?", "Do you have thoughts of harming or killing yourself?", "Do you have a plan for harming or killing yourself?", "Have you recently had thoughts about harming or killing others?", "Do you have any dangerous items in your possession?", "Have you noticed less interest or pleasure in doing things?", "Are you here because you tried to hurt yourself?" and "Have you ever tried to hurt yourself before today?". ABUSE ASSESSMENT: Abuse assessment. Abuse denied. No suspicion of abuse. No report of abuse. FALL RISK ASSESSMENT: Fall risk assessment completed. Risk factors identified include severe pain and patient medications, age greater than 65 years, history of fall and impairment of mobility. --12:49 04/22/20 Awa Alvarez R.N. Interventions Identification band on patient. To treatment room. --12:49 04/22/20 Awa Alvarez R.N.PHYSICAL ASSESSMENTTo room via stretcher.GENERAL / NEURO / PSYCH: Oriented X 4. Alert. Appears in no acute distress.EXTREMITIES: Neuro-vascular status intact to the extremity.SKIN: Skin intact. Skin is warm and dry. --13:12 04/22/20 Yeny Bee RN.NURSING PROGRESS NOTESPatient transported to CT by stretcher with [employer]. --13:10 04/22/20 Yeny Bee RN Reassurance given. Two patient identifiers checked. Bed placed in lowest position. Brakes of bed on. --13:11 04/22/20 Yeny Bee RN Patient returned from CT by stretcher with [employer]. --13:37 04/22/20 Yeny Bee RN 14:03 04/22/2020 Percocet (oxyCODONE-Acetaminophen) PO 1 tab given. Allergies verified and confirmed 5 rights. Information reviewed with patient including reason for taking this medication and sedative warning. Verbalizes understanding. --14:03 04/22/20 Yeny Bee RN 14:04 04/22/20. BP: 147/78. MAP: 101. HR: 71. RR: 16. O2 saturation: 97%. --14:04 04/22/20 Awa Rico ED, ER Tech1 3 Clinical Report - Nurses [facility] Emergency Department [address] [place] [address] Phone #: ext- [phone] 04/22/2020 12:42 Patient: BIJAN ETIENNE Sex: F : 1930 Age: 89y 15:08 04/22/20. BP: 124/78. MAP: 93. HR: 71. RR: 16. O2 saturation: 97%. --15:09 04/22/20 [place] business administrator, Awa KRUNAL Tech1 ( 1420 P T in to do amb assessment with pt walking with walker hallway rm 2 to med room and back with no difficulty). --15:30 04/22/20 Wilbur English RN ( 1530 lunch tray offered). --15:30 04/22/20 Wilbur English RN.DISPOSITION / DISCHARGE Departure time: 16:51 04/22/2020. --17:06 04/22/20 Yeny Bee RN Condition at departure: improved. No learning barriers present. Discharge instructions provided and reviewed with the patient. Reviewed medication(s) side effects, precautions, dosing and course information. Prescription(s) sent electronically to pharmacy. Reviewed referral to an orthopedic surgeon. Patient verbalized understanding. Written instructions provided in Taiwanese. The patient was discharged by the physician. She was discharged home and accompanied by family. She left ambulatory and via private vehicle. Family member driving. --17:21 04/22/20 Yeny Bee RN 16:52 04/22/20. BP: 130/74. MAP: 92. HR: 70. RR: 16. O2 saturation: 98%. Temp: deferred. Pain level now: 01/01. --17:21 04/22/20 Yeny Bee RN.Locked/Released at 04/22/2020 17:22 by Yeny Bee RN Name Value Range Interpretation Code Description Data Don rce(s) Supporting Document(s) ID Date Data Source [id number] 04/22/2020 12:43:00 PM EDT [facility] 1 Clinical Report - Physicians/Mid Levels [facility] Emergency Department [address] [place] [address] Phone #: ext- [phone] 04/22/2020 12:42 Patient: BIJAN ETIENNE Sex: F : 1930 Age: 89y Time Seen: 12:41 04/22/2020. Arrived- By private vehicle. Historian- patient. Disposition decision: 16:31 04/22/2020.HISTORY OF PRESENT ILLNESS Chief Complaint: LOWER EXTREMITY PAIN. Severity is described as being severe. It has become recently worse (R hip pain). The quality is noted to be sharp, aching and "pain". This started years ago and is still present. It was abrupt in onset and has been waxing/waning. Symptoms located in the area of the right hip. The patient has not had redness. No swelling, bladder dysfunction, bowel dysfunction, sensory loss or motor loss. She has had difficulty walking. Patient notes the possibility of an injury. Mechanism of injury- (Walking). Similar symptoms previously. Patient has had similar symptoms chronically. Recent medical care: The patient was seen recently at another facility in a clinic.REVIEW OF SYSTEMSNo cough, chest pain, difficulty breathing, fever or skin rash. No enlarged lymph nodes, neck pain,headache, blurred vision or sore throat. No abdominal pain, vomiting, diarrhea, black stools or difficultywith urination. No bloody stools. The patient has had moderate back pain (Chronic).PAST HISTORYPast history not negative. See nurses notes. Other disease. ( Chronic R hip painGERDHTNDepression). Surgeries: (Laminectomy and fusion of L1 through S1).SOCIAL HISTORYNever smoker. No alcohol use or drug use. No recent travel.ADDITIONAL NOTESThe nursing notes have been reviewed with agreement regarding the chief complaint, HPI, ROS, PMH andpatient medications and allergies.PHYSICAL EXAMVital Signs: 04/22/2020 12:44 BP: 157/89. MAP: 111. HR: 75. RR: 16. O2 saturation: 94%. Temp: 98.4 F.Have been reviewed and appear to be correct. Hypertensive. Heart rate normal. Respiratory ratenormal. Temperature normal. Oxygen saturation normal.Appearance: Alert. Oriented X3. Anxious. Appears to be in pain. Patient in mild distress. Nobackboard or C- collar. In distress. (Smiling on gurney.). 2 Clinical Report - Physicians/Mid Levels [facility] Emergency Department [address] [place] [address] Phone #: ext- [phone] 04/22/2020 12:42 Patient: BIJAN ETIENNE Sex: F : 1930 Age: 89y Eyes: Pupils equal, round and reactive to light. Eyes normal inspection. ENT: Nose normal. Pharynx normal. Neck: Normal inspection. Neck supple. CVS: Normal heart rate and rhythm. Heart sounds normal. Respiratory: No respiratory distress. Painless inspiration. Breath sounds normal. Abdomen: Soft and nontender. No organomegaly. Back: Normal inspection. Moderate muscle spasm of the right posterior back. Back tenderness present. Soft tissue tenderness in the right lower lumbar paraspinous region. ROM normal. No CVA tenderness. (Excellent straight-leg raises bilaterally). Skin: Skin intact. Skin warm and dry. Normal skin color. Normal skin turgor. Extremities: Right hip: moderate tenderness located in the anterior and lateral aspect of the hip. Neurovascular intact distally. No erythema, swelling, abrasion, ecchymosis or puncture wound. No foreign body or deformity. Lower extremities exhibit normal ROM. No lower extremity edema. (Pain on weight bearing). Extremities otherwise negative. ( Able to do straight-leg raises without difficulty). Gait: Abnormal gait. Gait not tested due to pain. Neuro: Oriented X 3. No motor deficit. No sensory deficit.LABS, X-RAYS, AND EKGLaboratory Tests: Laboratory tests have been ordered, with results reviewed and considered in themedical decision making process. CBC w Diff: (CHRISSY: 04/22/2020 13:38) ( [facility] 04/22/2020 13:55) Final results Test Result Flag Units (Reference) CBC W/AUTOMATED DIFF COMPLETE BLOOD COUNT WBC 6.8 10/uL (4.2 - 11.0) RBC 3.51 L 10/uL (4.20 - 5.40) HEMOGLOBIN 9.8 L g/dL (12.0 - 16.0) HEMATOCRIT 31.2 L % (37.0 - 47.0) MCV 88.9 fL (81.0 - 101) MCH 27.9 pg (27.0 - 34.0) MCHC 31.4 g/dL (31.0 - 36.0) RDW 14.9 H % (11.5 - 14.5) PLATELETS 250 10/uL (150 - 450) MPV 9.7 fL (7.4 - 10.4) NEUT 65.8 % (37.0 - 80.0) LYMPH 24.3 L % (25.0 - 40.0) MONO 6.9 % (3.0 - 8.0) EOS 2.3 % (0.0 - 7.0) BASO 0.6 % (0.0 - 2.5) %IG 0.1 H % (0.0 - 0.0) %NRBC 0.0 % (0.0 - 0.0) #NEUT 4.48 10/uL (2.00 - 6.90) #LYMPH 1.66 10/uL (0.60 - 3.40) #MONO 0.47 10/uL (0.00 - 0.90) #EOS 0.16 10/uL (0.00 - 0.70) #BASO 0.04 10/uL (0.00 - 0.20) #IG 0.01 10/uL (0.00 - 0.10) #NRBC 0. 00 10/uL (0.00 - 0.00) MANUAL DIFF NOT INDICATED RBC MORPH NOT INDICATED CMP: (CHRISSY: 04/22/2020 13:38) ( MsgRcvd 04/22/2020 14:18) Final results 3 Clinical Report - Physicians/Mid Levels [facility] Emergency Department [address] [place] [address] Phone #: ext- [phone] 04/22/2020 12:42 Patient: BIJAN ETIENNE Sex: F : 1930 Age: 89y Test Result Flag Units (Reference) COMPREHENSIVE METABOLIC PANEL COMPREHENSIVE METABOLIC PANEL SODIUM 143 mEq/L (134 - 153) POTASSIUM 3.7 mEq/L (3.6 - 5.0) CHLORIDE 104 mEq/L (98 - 107) CO2 28 MEQ/L (22 - 30) GLUCOSE 106 MG/DL (65 - 110) BUN 11 MG/DL (7 - 21) CREATININE 0.7 MG/DL (0.7 - 1.5) BUN/CREAT 16 (8 - 27) TOTAL PROTEIN 7.2 G/DL (6.3 - 8.2) ALBUMIN 4.6 G/DL (3.9 - 5.0) GLOBULIN 2.6 GM/DL (2.4 - 3.2) A/G RATIO 1.8 (0.8 - 2.0) CALCIUM 9.4 MG/DL (8.4 - 10.2) TOTAL BILI 0.7 MG/DL (0.2 - 1.3) ALKALINE PHOS 77 U/L (38 - 126) SGOT/AST 26 U/L (5 - 40) SGPT/ALT 16 U/L (7 - 56) ANION GAP 11.0 mmol/L (8.0 - 16.0) AGE 89 yrs NON-AA GFR >60 mL/min AFR AMER GFR >60 Male GFR Interprentation 20-49 yrs >60 mL/min Xavlwb32-35 yrs >56 mL/min Normal 60-69 yrs >49 mL/min Normal 70-79yrs>42 mL/min Normal 80 and above >35 mL/min Normal Female GFRInterpretation 20-39 yrs >60 mL/min Normal 40-49 yrs >58 mL/minNormal 50-59 yrs >51 mL/min Normal 60-69 yrs >45 mL/min Zaeulh83-21 yrs >39 mL/min Normal 80 and above >32 mL/min NormalTroponin-T: (CHRISSY: 04/22/2020 13:38) ( [facility] 04/22/2020 14:16) Final results Test Result Flag Units (Reference) TROPONIN T <0.01 NG/ML (0.00 - 0.10) TROPONIN T0.1 ng/ml Recommended as the clinical threshold value forTroponin T.Urinalysis: (CHRISSY: 04/22/2020 14:50) ( [facility] 04/22/2020 15:09) Final results Test Result Flag Units (Reference) URINALYSIS URINALYSIS SOURCE R COLOR yellow (NORMAL: Yello CLARITY clear (NORMAL: Clear SPEC GRAVITY 1.010 (1.001 - 1.030 pH 7 (5 - 9) GLUCOSE NORM (NORMAL: Negat BILIRUBIN NEG (NORMAL: Negat KETONE NEG (NORMAL: Negat PROTEIN NEG (NORMAL: Negat NITRITE NEG (NORMAL: Negat BLOOD NEG (NORMAL: Negat LEUK EST NEG (NORMAL: Negat UROBILINOGEN NOR (less than 1.0 MICROSCOPIC Not Indicate 4 Clinical Report - Physicians/Mid Levels [facility] Emergency Department [address] [place] [address] Phone #: ext- [phone] 04/22/2020 12:42 Patient: BIJAN ETIENNE Sex: F : 1930 Age: 89y D-Dimer: (CHRISSY: 04/22/2020 13:38) ( [facility] 04/22/2020 15:57) Final results Test Result Flag Units (Reference) D-DIMER QUANT 1.18 H ug/mL (0.27 - 0.50) CT ABD PEL W/O Oral W/O IV Contrast: (CHRISSY: 04/22/2020 12:47) ( MsgRcvd 04/22/2020 13:40) In Progress CT ABD Reason(s): Pelvic Pain TRANSPORTATION: S IV? IV?(No) O2? Oxygen?(No) Deandra : Menopause CMTS: Severe R hip pain / No fall . Note - Tests: (CT abdomen / pelvis - NAD as per radiology).PROGRESS AND PROCEDURESCourse of Care: 14:Apr 22 2020. Patient is stable. 14:Apr 22 2020. Pt. has severe R hip pain, but CT of abdomen / pelvis is unremarkable as per radiologist. Pt. has had prior L1-S1 laminectomy and fusion. 16:Apr 22 2020. Pt. has been doing much better and has walked (with a walker) from her room to the bathroom and back without much difficulty. She is in no pain now. I recommend she see her back surgeon as soon as possible and get an MRI of the thoracolumbar spine as soon as able. She was encouraged to return if problems. Disposition: Discharged home in good and improved condition (16:Apr 22 2020). Condition: good.CLINICAL IMPRESSION Chronic right hip pain (Acutely worse.). 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 (Recommend MRI of Lower back and R hip if pain persists. Continue current meds.). Warnings: GENERAL WARNINGS: Return or contact your physician immediately if your condition worsens or changes unexpectedly, if not improving as expected, or if other problems arise. Prescription Medications: Percocet 5 mg-325 mg tablet Take 1 tablet every eight hours as needed for 5 days -- for severe pain. Dispense 15 tablet. Refills: 0. Substitution permitted. 5 Clinical Report - Physicians/Mid Levels [facility] Emergency Department [address] [place] [address] Phone #: ext- [phone] 04/22/2020 12:42 [id number] Sex: F : 1930 Age: 89y Pharmacy - [facility] [id number] ; [place] [address]. . Follow-up: Follow up with an orthopedic surgeon if not better. Call for an appointment. Reason for referral: evaluation, treatment and R hip pain / Low back pain. Understanding of the discharge instructions verbalized by patient and family.(Electronically signed by Jose Luis Cristobal, Physician 04/25/2020 08:15) Name Value Range Interpretation Code Description Data Don rce(s) Supporting Document(s) ID Date Data Source [id number] 04/24/2020 06:58:57 PM EDT [facility] Name Value Range Interpretation Code Description Data [facility]) History and Physical [facility] KEMFPy4kVeWFWsIm15/OVKglKWUkq1VaWIdcSBe8GRmnBMOzK6KpSFU7oY1qQNS6PEpKUeThEcQvAVGl [facility] [file] ICAgICAgICAgICAgICAgICAgICAgICAgICAgICAgIC AgICAgICAgICAgICAgICAgICAgICAgICANCiAgICAgICAgICAgICAgICAgICAgICAgICAgICAgICAgIC AgICAgICAgICAgICAgICAgICAgICAgICAgICAgICAgICAgICAgICAgICAgICAgICAgICAgICAgICAgIC AgICAgICANCiAgICAgICAgICAgICAgICAgICAgICAg ICAgICAgICAgICAgICAgICAgICAgICAgICAgICAgICAgICAgICAgICAgICAgICAgICAgICAgICAgICAg ICAgICAgICAgICAgICAgICANCiAgICAgICAgICAgICAgICAgICAgICAgICAgICAgICAgICAgICAgICAg ICAgICAgICAgICAgICAgICAgICAgICAgICAgICAgIC AgICAgICAgICAgICAgICAgICAgICAgICAgICANCiAgICAgICAgICAgICAgICAgICAgICAgICAgICAgIC AgICAgICAgICAgICAgICAgICAgICAgICAgICAgICAgICAgICAgICAgICAgICAgICAgICAgICAgICAgIC AgICAgICAgICANCiAgICAgICAgICAgICAgICAgICAg ICAgICAgICAgICAgICAgICAgICAgICAgICAgICAgICAgICAgICAgICAgICAgICAgICAgICAgICAgICAg ICAgICAgICAgICAgICAgICAgICANCiAgICAgICAgICAgICAgICAgICAgICAgICAgICAgICAgICAgICAg ICAgICAgICAgICAgICAgICAgICAgICAgICAgICAgIC AgICAgICAgICAgICAgICAgICAgICAgICAgICAgICANCiAgICAgICAgICAgICAgICAgICAgICAgICAgIC AgICAgICAgICAgICAgICAgICAgICAgICAgICAgICAgICAgICAgICAgICAgICAgICAgICAgICAgICAgIC AgICAgICAgICAgICANCiAgICAgICAgICAgICAgICAg ICAgICAgICAgICAgICAgICAgICAgICAgICAgICAgICAgICAgICAgICAgICAgICAgICAgICAgICAgICAg ICAgICAgICAgICAgICAgICAgICAgICANCiAgICAgICAgICAgICAgICAgICAgICAgICAgICAgICAgICAg ICAgICAgICAgICAgICAgICAgICAgICAgICAgICAgIC AgICAgICAgICAgICAgICAgICAgICAgICAgICAgICAgICANCjw/mWLoN0sexIUbfqW9M0dpBx4GUt1PVU 2ak9ZyUZViXIaizoEhWyeVIeWsRNNqDpaCJmd7QTepAC7NvBIfU7QaY7LqSGgeDC5PBBQxBQRqyUYbHI ZmWHGxMqR6MWLfWNrmJN7BpLQzQWtqVGMsQBHsFmPq AWRcELGyWLEuHLShNPRMPJSmRKQcOtNwTLskUA3Va6VidDP2OSa+Bl6IEU5qk7MkCSguGDWsMJ0hdy8P VEgQMkXiM6AmlmL9FCYuCQEiId3ZRXHuKWLoxYKaCLZsEGKZBtToJ1JaqG35ZJBXQi9+DQplbmRvYmoN ZlDwCROfc3AhDJz4XY2NQSFjAEe7pDZmMOWEGYD8HU wwlyClMDbzkYrecFkbvvWmFJ5MHQK2PQcxDF9oAMWhCHV5PqI7GVBBSS7MERYbUWIqpIFhSJWmDVQWQM 8BCBtvBJQ5FNAhekZqxRNhJEagUK4HYVUzbdZpTeNnRMGHAAy+Fv2FPH4xq8IkERslXfXpRF3dcf8RZU sWWcRaX9E0aWMyY4K7INtaWr6SMJJgCHNsBxvtGVRC TVnhRS1JSX6eztK1JD5EcKTySEEhAVQnfEUbRZg1G19fmUPvXEyuFR5QRPX+Denae+Oi8EOQIyBXYhXREb RvPfSBPLDeKuZ0WsJ4HEp1KhO3HwFC85tUdmzyDkGIziNK9PDS7xNVDqUBXKMN9AmMZotC3ljxJeZZVt ZAKNTnCyJ72ylQDwXWApDGZ0ZCKpUx8NFVViJ7Lqec HvaVkgiyQtILGiQWVSOF8MPXthzyCxeAOocFxlOE77xLkdPW0WUj8OQcXnEC1zph0BjRThMa3TKWAoHr 2AVZWbDZUzMZGkKOG7EZNgErRuSDbxYZYvPBEsUJS6MXKbDPXfCA1EEwQqMBKhAwX9QuXjULSgHMQnxu 3HQFEaNACgCBK0UNEpPDErAOEyJUljNJGjPSTrKTS8 TURdGYSePH6GBwEjOSVqWZZ1RrLhQYNbRFJwrq9AHXDxFKWiUwKfMbMtDIKqRSNrJZjtJGBaOVF3DsO1 GEHgDYQcKM7DXlArLGXjZSh3IEEkKSAoTXLpds1PJADiJVKpNCt5GGKoXDQzKQOdPVvfMIQhSDJjQDe3 PJOhJQPrZX8HRbFwLPTdZJY5BeekFGCgXXMlbd4WNM AlLKIyMFW9UPUlEJDoZKQgXVaiYFEgQTD5LxX2PXJfQJTrSB4OLoFaLSAjCER2EIMkPLKcWNMdml1MFH KsOPQnReF0VIQwBAOxUGRiPZkqCNXnCRY8JXpkXMGwCKKfBM2TEjNuFUTfXXw9WDTpOFWmQSOhbu2RGD PnFJOnFPclWJRpBUFwZBEpJLtpFPCrQFO8PQF4PTYi UFFtIS7DFbRvWOGjJZjfJHIpMTYgCTGmvu9WQSNdFJRpRCE1OMDrKNZnLVRzLQdvGLCvBMUkTDO2VTKc SMEdTF6UJaTwVJXmWhPdWHHyAFKyBAGmam0MSNLpEIBqDLC3PETyKKEaPYBiMCcmZLBeYZIrTKQuBNEb SNIyTU0RAhHxRDNiCuTzSJCdWUXoJFRpco4JWBNzAE WeUdGvKlOnBKIzVHLhABmdLXPtYUOnKvLxMWTtESVgUO4NRcOaXGGtBwCgFlulRRRqBMBvfq6VYJEtIJ NiSTD0UuBoPXXrJSRiWFuoTNPiTNO4NtQwNZVfWGMmZR5JLiFrBGFnNvJ6JJZfPOYzKUXjlm4NjOIxbR cout0WFOdQPw8XzDxlUONmENfpAx7wsOJjJcCrHMWL Py1IcvVvTYNtZJPRDQlaUQFgXUDwT9C8LjY5OLWzUNAeYjPfI9FpEoOnPSKiReD7JOXcEeL4NDFzYMVk VUM9QZHoUoAwAaJfWcCrLJW9QkI0AxBnHWU+OX4hYVw+Bm8Vc4SvzgT3kgOxIAwoSXP8Ru5XQSBJE9OW Cg== ID Date Data Source [id number] 04/24/2020 10:49:34 AM T [facility] CT PELVIS WITHOUT CONTRAST [id number] RE SULTInterpreted by:Loretta Yates MDINDICATION: assess for bony injury; pt w/ right hip pain.TECHNIQUE: Helical CT scan was performed through the pelvis without contrast administration. Images were reformatted in sagittal and coronal planes. Automated dose lowering techniques and/or adjustment according to patient size were utilized for this exam.COMPARISON: Pelvis radiograph 01/31/2019, lumbar spine CT 04/24/2020.FINDINGS: The bones are demineralized. The patient is status post posterior spinal fusion and the lower lumbar and lumbosacral regions with paired pedicle screws, bilateral fusion rods, sacral screws and iliac screws, which appear to be well-seated.There is no evidence of acute fracture or dislocation. The bones are anatomically aligned. There are mild degenerative changes to the hip joints. There is mild degenerative changes to the SI joints. There are atherosclerotic changes of the visualized vascular structures.IMPRES INOCENCIO:1. There is no evidence of acute bony injury.2. There is mild to moderate osteopenia and moderate degenerative bony change throughout the pelvis and hip joints.3. There are prominent degenerative changes of the visualized lumbar spine and lumbosacral region with post fusion changes.This document has been electronically signed by Robert Simpson MD on 04/24/2020 10:47 AM Name Value Range Interpretation Code Description Data Don rce(s) Supporting Document(s) ID Date Data Source [id number] 04/24/2020 09:16:54 AM [facility] CT LUMBAR SPINE WITHOUT CONTRAST [id number] NAL RESULTInterpreted by:Loretta Krishna MDEXAMINATION: CT LUMBAR SPINE WITHOUT CONTRAST [id number]: Assess for bony injury. History of lower back and right hip painTECHNIQUE: Axial, coronal, and sagittal reformatted images of the lumbar spine were obtained without IV contrast. Automated dose lowering techniques and/or adjustment according to patient size were utilized for this examination.COMPARISON: 04/23/2020 MR spine radiograph, x-ray of the lumbar spine dated 04/23/2020, and CT lumbar spine 05/13/2019.FINDINGS: For the purpose of c ounting the vertebrae, the lowest complete intervertebral disc space is designated L5-S1. Cr and screw fixation hardware in the lumbar sacral spine extending from L1 to the sacrum post interval fusion. There is no fracture or loosening of the instrumentation. Metallic streak artifact is associated with the hardware. Laminectomy defects are present at L2-S1. There is solid fusion of the posterior elements of L1-S1.There is no fracture or destructive bone lesion. The bones are demineralized. There are moderate to severe multilevel degenerative changes, again seen. Vacuum disc phenomenon noted at T11-L1 is again seen. Grade 1 retrolisthesis of L1-L2 is unchanged. There is multilevel fusion of bilateral facet joints.Joint space narrowing with subchondral sclerosis is again noted in the sacroiliac joints also.There is moderate atherosclerotic calcification of a normal caliber aorta. There are postsurgical changes to the soft tissues overlying the lumbar spine and sacrum. There is mild atelectasis in the visualized lung bases. Visualized soft tissues are otherwise unremarkable.IMPRESSION:Stable appearing posterior cr and screw fixation hardware relative to the x-ray of the lumbar spine dated 04/23/2020. Severe multilevel degenerative changes are again seen. No evidence of acute fracture or traumatic subluxation of the lumbar spine.This document has been electronically signed by Virgilio Garcia MD on 04/24/2020 9:14 AM Name Value Range Interpretation Code Description Data Don rce(s) Supporting Document(s) ID Date Data Source [id number] 04/23/2020 07:05:47 PM [facility] Name Value Range Interpretation Code Description Data [facility] rce(s) Supporting Document(s) Consultation [facility] WUXEHt0xXqNHBdQq07/JZOusABQoo2TxHTuzTVe5ABbnFAIlQ3FsMPF8rH5bSNQ7TZsEArCnIiTwLrGc lbm [file] YqQrTti3QJR5DBI5RrqnGsLrXV9aXUIUZn6+VRsgnMVehSfdAVHRJehzPLpKFnPkND4QMIo= ID Date Data Source [id number] 04/23/2020 05:27:22 PM EDT [facility] Name Value Range Interpretation Code Description Data Don rce(s) Supporting Document(s) Consultation [facility] MBXBKs7lJyHZIoAr51/WVRkyPNKau8McGYswEIi7PPldGDFhI8CuHRJ0kV2xBOV4ETqRGdZvCtDtMvCi lbm [file] /Lc8scRY6iB6oWteJbJxrjdHb8B+veterinary milk specialist/OjGmA+8wHs4yTWFnnuY1tRWIvfSKn5P9v3A1p9fch2EtlYpi [file] AgICAgICAgICAgICAgICAgICAgICAgICAgICAgICAgICAgICAgICAgICAgICAgICAgDQogICAgICAgIC AgICAgICAgICAgICAgICAgICAgICAgICAgICAgICAg ICAgICAgICAgICAgICAgICAgICAgICAgICAgICAgICAgICAgICAgICAgICAgICAgICAgICAgICAgICAg DQogICAgICAgICAgICAgICAgICAgICAgICAgICAgICAgICAgICAgICAgICAgICAgICAgICAgICAgICAg ICAgICAgICAgICAgICAgICAgICAgICAgICAgICAgIC AgICAgICAgICAgDQogICAgICAgICAgICAgICAgICAgICAgICAgICAgICAgICAgICAgICAgICAgICAgIC AgICAgICAgICAgICAgICAgICAgICAgICAgICAgICAgICAgICAgICAgICAgICAgICAgICAgDQogICAgIC AgICAgICAgICAgICAgICAgICAgICAgICAgICAgICAg ICAgICAgICAgICAgICAgICAgICAgICAgICAgICAgICAgICAgICAgICAgICAgICAgICAgICAgICAgICAg ICAgDQogICAgICAgICAgICAgICAgICAgICAgICAgICAgICAgICAgICAgICAgICAgICAgICAgICAgICAg ICAgICAgICAgICAgICAgICAgICAgICAgICAgICAgIC AgICAgICAgICAgICAgDQogICAgICAgICAgICAgICAgICAgICAgICAgICAgICAgICAgICAgICAgICAgIC AgICAgICAgICAgICAgICAgICAgICAgICAgICAgICAgICAgICAgICAgICAgICAgICAgICAgICAgDQogIC AgICAgICAgICAgICAgICAgICAgICAgICAgICAgICAg ICAgICAgICAgICAgICAgICAgICAgICAgICAgICAgICAgICAgICAgICAgICAgICAgICAgICAgICAgICAg ICAgICAgDQogICAgICAgICAgICAgICAgICAgICAgICAgICAgICAgICAgICAgICAgICAgICAgICAgICAg ICAgICAgICAgICAgICAgICAgICAgICAgICAgICAgIC AgICAgICAgICAgICAgICAgDQogICAgICAgICAgICAgICAgICAgICAgICAgICAgICAgICAgICAgICAgIC AgICAgICAgICAgICAgICAgICAgICAgICAgICAgICAgICAgICAgICAgICAgICAgICAgICAgICAgICAgDQ e5I1xnYZVaBSIjZH4eFDg1Ll7+NTbYUhSiSXW3hlZq aY4WLD2an2WmTNucJFLgm2TpZFz3OK8APPJbVHvvAW9FSJrciu5YLEZcJLJsvDHXq1tbDsQjIYB3FFHh BdecTF0BGCBzQ6toiuZvMIJoWQIHYPieQVOUIMlcEYQDVTBbWSKqKzRuKlHyGQSoOQKcQCSHMFI4KPBx ZcGmTAUjFMCpJI5EAFCzG781cyPwKB6PAe3LMyViIY 8qfl2NDNRcPWXmKygXUnd7YLphUU9QoAKhyEB0OZNjEMFCYnEeB3qhb0ZyGTCyLIJTCYssVC3Zx6QmcT AxDQo+Ww8UGK3bg1VgTWw7JRRnRH6hah7UQGvNNiOpX8RacMwmRHGfczZ3fVFoMFG4KNg1qeNyYGTKKD 7eJYqihbrvHtLyTSAvDe1bIJ5xYXKvSIO1TxW5WSIE OC1ERRRcOBOmgCCuQEHdWYFOZC5RBArcFUG8JBQczcLqpGVnJXrtJI3IUGRitqSpIQWmFWRJAZk+Pg0K VR4fs7CdLBj7JhPtQI6egt7JNYpOWfCsF0Z2hGJnY5V6OGumTc7QMNJhJUNiMZCmDXWLSSqxVE6YFZ3o bdD0ZP9NdOHcUILjDZKwtTUpPDg1F33msIGtWYaqWI 0KICA+Denae+Pl4CHNVwTDAuFMGbLaFmTVDBDtNcM3WtA3RHq5HeW5KnPQ31eUsgdwCvQQyzWJ1BKX2bYV VdVYUSMN6QhTQxqK9lzsO9UJJlZVQNDvWvE15vvXMoYXFxEKPpQJIpRr8WUEOrS3VllhQtbHzcfiZeGR GfVCJYTS9SEZbntlThoKJtiXsjNR90fKiwOI0FRh5S WnZhEH9igz8DfNDiQv0GXRE5Xw9YJLMlBCDxXQKsADC1LWMiNaCbWAdoHOAjCKGlBRX3KCKhWDXtEZ8Q WaLrODBcFpsqVeSpYTOnBGLmun5KWOLgMZL6JTq4OPLnHUEgBWLoCMqxWKXaHMAgQBD8ZKGmHYEaDB2G NrNlWTHzLXD9UWPtHKFrQBZwix3WXWEjRKUwVGz6CG QuFWPrIQTxLTeuQSWuXML3HYZwJADlCGXjMO9KTwKwNIZfLOn9CNCaKZPpZOXsue3RVTBeLCCoFVoyPB DmKGNtLWKnRDlwAEPnCGZaYVC0TFWrOBDoGX1OIyErCAZoMTCzMSHiBNDfOJXpmd1FDKBnRGMaZJTiXb VcYWIkTAGnXVufLGIaEWR0DpC2POJeHVYgYS0PFtSi OUQhXTp5VLVxNBGkFKRyao9DRAPvAANeEHj5LSApEVNiRWZmCQorTJLwVNXkXTp8AJKeQCPxKF6OSwRw TVOhKhP3JgzaTJHeWLErxi6KZRSpSSGiYGU2YvWzTBRsWVBvGOlnTAPlRHT6XqOgPCDiKEPmRZ5QTdEv BLVjYlm0TJtlDVOvAZMcaq5XHHXuCAFzTNssIcXxCE CaQCQsTKduNOJaDOJ9OFO9RQRuREChJW5AZxZnZWJrUwinLPanPZZfZVVbyn8GTIZgNYFaBII5IhMfNE OdOKAcPXxxZYPzUGEnBDY4KHAlTFFpKH7XEpAtKKNkFhD3RYWfXAIePUYcet8WADBzJZK7CrX2MYQaDQ KqCKLzRRwbGXLiBVUhQEAeBUHsSYGgOG9BUhOcORDa WLUiNuCqKUPcGRVsjg7BOJLlPMS1GAK8QCVuZMUuZPSeUOalYHSoNRU6GjQ4JMLsJGExBH1LVwTlNOPx LUL2PrztNRUxXIZmef0FJZHxDNU0CWy5BpXaGVDzSLXqUPdmJOJhTHS8VGK2QFMuTWVwQP8BRpHlAXSt PmQ0NHebOZZqVAQvyf5KKYRyKAT7DTo9LYIySPKdOI IwXYjwGFDtZZv1RHgmMIKhOXWkSV2VZtGvMKYoFrA5TaQoJWOtUEBtfa0XBJNoNAV3NQZ8CmAaWVJiTY QtSVebZNWgLLu9QxH8CLMxLLTvGO6LGwCnUALdYfC6ZJtkLTRtTSSonw4XBNRePHM3AiSmYmLbUSOhHJ JbQFldSGIjUSk9ENZbWKKdWFYoXQ5DVkJdWFAoRlm1 WcNyALBpUMWykm9WQXOsJPI4UUFfWnOdSCDnFSVaZVcsIDJnCTy1TNZoWPTyENOvBD8JQcXjLUxfTVWB Doi7MVyvY8j7LZC8Av9NM9Iyu7HbIJNwEULZHNmbOL6clbHzLUFlUg3MP7lGHfbjOaWnUUIaNOS7JZFj PZA6AVZkEqOeZbh4SXBlCmWwGX5wYJG2UmU0XUK2YI JmKEMtCoT7EDJhBWExJOkoIGSfHmVpQoFeLQ0UKn2ZGrP3WAQ6nIWbXv3UDmgmQVKDRjUfFJ3ZOGs= ID Date Data Source [id number] 04/23/2020 03:28:07 PM EDT [facility] XR SPINE LUMBAR 2-3 VIEWS [id number] RES ULTInterpreted by:Js Kingston MDJohn D. Dingell Veterans Affairs Medical Centernaldo spine, 2-3 views dated 04/23/2020.REASON FOR STUDY: Evaluate for placement of hardware in the lumbar spine.FINDINGS: AP and lateral views of the lumbosacral spine were obtained. The patient is status post extensive posterior spinal fusion of the lumbar spine from L1 through the lumbosacral junction. Bilateral sets of pedicle screws were placed along with interconnecting rods and this hardware is intact when compared to a previous exam dated 08/14/2019. There are posterior lateral fusion masses showing interval development compared to 08/14/2019. The alignment of the spine is unchanged and this includes mild anterior listhesis of L5 on S1 and mild retrolisthesis of L1 on L2. There is extensive degenerative disc changes throughout the lumbar spine. A large laminectomy defect is a once again appreciated as well. Anterior to the spine are vascular calcifications with some focal ectasia.The only interval change aishwarya ntified when compared to 08/14/2019 is some chronic fragmentation along the anterior superior aspect of L1 immediately adjacent to the anterior intervertebral disc where there is prominent vacuum degeneration.IMPRESSION: Stable appearing posterior spinal hardware from L1 through the lumbosacral junction. There is worsening degenerative disc changes at T12-L1 with fragmentation associated with the anterior superior aspect of L1 which represents an interval change compared to 08/14/2019.This document has been electronically signed by Js Kingston MD on 04/23/2020 3:25 PM Name Value Range Interpretation Code Description Data [facility] Supporting Document(s) ID Date Data Source [id number] 04/23/2020 03:29:21 PM [facility] Name Value Range Interpretation Code Description Data Don rce(s) Supporting Document(s) Leukocytes [#/volume] in Blood by Automated count 9.2 10*3/uL 4-10 [facility] Erythrocytes [#/volume] in Blood by Automated count 3.71 10*6/uL 4.1- 5.3 L [facility] Hemoglobin [Mass/volume] in Blood 10.4 g/dL 11.5-15.5 L [facility] Hematocrit [Volume Fraction] of Blood by Automated count 32.5 % 3 6-45 L [facility] Erythrocyte mean corpuscular volume [Entitic volume] by Auto mated count 87.8 fL 80-96 [facility] Erythrocyte mean corpuscular hemoglobin [Entitic mass] by Automated count 28.1 pg 27-33 [facility] Erythrocyte mean corpuscular hemoglobin concentration [Mass/volume] by Automated count 32.0 g/dL 32.0-36.0 [facility] distribution width [Ratio] by Automated count 15.7 % 11.5-14.5 H [facility] Platelets [#/volume] in Blood by Automated count 255 10*3/uL 150-400 [facility] Differential cell count method - Blood [facility] Neutrophils/100 leukocytes in Blood by Automated count 66 % [facility] Lymphocytes/100 leukocytes in Blood by Automated count 21 % [facility] Monocytes/100 leukocytes in Blood by Automated count 9 % [facility] Eosinophils/100 leukocytes in Blood by Automated count 3 % [facility] Basophils/100 leukocytes in Blood by Automated count 1 % [facility] Neutrophils [#/volume] in Blood by Automated count 6.11 10*3/uL 1.8-7 .0 [facility] Lymphocytes [#/volume] in Blood by Automated count 1.96 10*3/uL 1.2-4 .0 [facility] Monocytes [#/volume] in Blood by Automated count 0.78 10*3/uL 0-0.8 [facility] Eosinophils [#/volume] in Blood by Automated count 0.29 10*3/uL 0-0.5 [facility] Basophils [#/volume] in Blood by Automated count 0.04 10*3/uL 0-0.2 [facility] Nucleated erythrocytes/100 leukocytes [Ratio] in Blood by Automated count 0 /100{WBCs} 0-0 [facility] ID Date Data Source [id number] 04/23/2020 03:48:51 PM [facility] Name Value Range Interpretation Code Description Data Don rce(s) Supporting Document(s) Prothrombin time (PT) 13.1 s 12.5-14.9 [facility] INR in Platelet poor plasma by Coagulation assay 0.98 [facility] Routine intensity oral anticoagulation I NR is typically 2.0-3.0. Target INR must be clinically individualized. ID Date Data Source [id number] 04/23/2020 03:57:35 PM [facility] Value Range Interpretation Code Description Data Don rce(s) Supporting Document(s) Bicarbonate [Moles/volume] in Serum 26 mmol/L 22-29 [facility] Chloride [Moles/volume] in Serum or Plasma 102 mmol/L 98-107 [facility] Creatinine [Mass/volume] in Serum or Plasma 0.94 mg/dL 0.50-0.90 H [facility] Glucose [Mass/volume] in Serum or Plasma 104 mg/dL 70-140 [facility] Potassium [Moles/volume] in Serum or Plasma 3.2 mmol/L 3.4-5.1 L [facility] Sodium [Moles/volume] in Serum or Plasma 140 mmol/L 136-145 [facility] Urea nitrogen [Mass/volume] in Serum or Plasma 12 mg/dL 8-23 [facility] Anion gap 3 in Serum or Plasma 12 mmol/L 8-15 [facility] Osmolality of Serum or Plasma by calculation 291 mosm/kg 275-300 [facility] Creatinine/Urea nitrogen [Mass Ratio] in Serum or Plasma 13 [facility] Calcium [Mass/volume] in Serum or Plasma 9.1 mg/dL 8.8-10.2 [facility] Glomerular filtration rate/1.73 sq M pre dicted among non-blacks [Volume Rate/Area] in Serum or Plasma by Creatinine-based formula (MDRD) >6 0 [facility] Glomerular filtration rate/1.73 sq M pre dicted among blacks [Volume Rate/Area] in Serum or Plasma by Creatinine-based formula (MDRD) >60 [facility] ID Date Data Source [id number] 04/23/2020 02:42:00 [place] [address] PHONE: [phone] FAX: [phone] Name .................. : JAIMIE Keith Acct Number.................. : [id number] ROOM. ................. : VT-04 Number ................... : [id number] Stay type ............. : E/R Discharge Date......... ... : 04/22/20 Admit Date .... ..... : 04/22/20 Admit Phys .................... : SUSU ZUÑIGA Date of ....... : 1930 Family Phys ................... : DAMI S Phone .................. : [phone] Age ................................ : 89 Film# .................. .:[id number] Sex ................................. : F Unsigned transcriptions are preliminary reports and do not represent a medical or legal document CT ABD & PELV W/O ORAL W/[place] [id number] COMPLETE:04/22/20 13:40 [facility] [id number] Reason(s): P elvic Pain CT OF THE ABDOMEN AND PELVIS WITHOUT CONTRAST: HISTORY: Pelvic pain. TECHNIQUE: The examination is performed without IV contrast. FINDINGS: No organomegaly is present. The kidneys demonstrate no evidence for calculi or obstruction. The intestinal structures are grossly intact. No lymphadenopathy is seen. No ascites is noted. The patient is status post laminectomy of L1 through S1. The patient is status post posterior fusion of L1 through S1. IMPRESSION: No acute disease in the abdomen or retroperitoneum. While performing the above CT examination, radiation dose reduction was accomplished utilizing automated exposure control, adjusting of the mA and kV based on the patient's body size and/or the use of imperative reconstructive techniques. CT dose: 1028.5 mGycm Electronically Reviewed and Signed By Arnulfo Wallace MD , 04/23/20 14:43, MRA Transcribe Initials: IVETH , Transcribe Date: 04/23/20 02:21, Dictation Date: Page 1 of 2 [place] [address] PHONE: [phone] FAX: [phone] Name .................. : JAIMIE THAKKAR Inna Acct Number.................. : [id number] ROOM. ................. : VT-04 MR Number ................... : [id number] Stay type ............. : E/R Discharge Date......... ... : 04/22/20 Admit Date ......... : 04/22/20 Admit Phys .................... : SUSU ZUÑIGA Date of ....... : 1930 Family Phys ................... : DAMI Villegas Phone .................. : [phone] Age ................................ : 89 Film# .................. .:[id number] Sex ................................. : F Unsigned transcriptions are preliminary reports and do not represent a medical or legal document CT ABD & PELV W/O ORAL W/[place] [id number] COMPLETE:04/22/20 13:40 [facility] [id number] Reason(s): Pelvic Pain Copy for: EMERGENCY DEPT via modem Copy for: 710 MED REC DISCHARGED Page 2 of 2 Name Value Range Interpretation Code Description Data Don rce(s) Supporting Document(s) ID Date Data Source [id number] 04/22/2020 02:50:00 PM EDT [facility] ([facility] Name Value Range Interpretation Code Description Data Don rce(s) Supporting Document(s) Urinalysis Laboratory test result [facility] ([facility] SOURCE: Clean Catch Color Laboratory test result [facility] ([facility] SOURCE: Clean Catch Source Laboratory test result [facility] ([facility] SOURCE: Clean Catch pH 7 5-9 [facility] ([facility] SOURCE: Clean Catch Clarity Laboratory test result [facility] ([facility] SOURCE: Clean Catch Spec Holt 1.010 1.001-1.030 [facility] ([facility] SOURCE: Clean Catch Glucose Laboratory test result [facility] ([facility] SOURCE: Clean Catch Bilirubin Laboratory test result ME [facility] ([facility] SOURCE: Clean Catch Ketone Laboratory test result [facility] ([facility] SOURCE: Clean Catch Protein Laboratory test result [facility] ([facility] SOURCE: Clean Catch Blood Laboratory test result [facility] ([facility] SOURCE: Clean Catch Nitrite Laboratory test result [facility] ([facility] SOURCE: Clean Catch Leuk Est Laboratory test result [facility] ([facility] SOURCE: Clean Catch Microscopic Laboratory test result M EDDALE ([facility] SOURCE: Clean Catch Urobilinogen Laboratory test result [facility] ([facility] SOURCE: Clean Catch ID Date Data Source [id number] 04/22/2020 03:09:00 PM EDT [facility] Name Value Range Interpretation Code Description Data Don rce(s) Supporting Document(s) URINALYSIS [facility] UR[facility]YS[facility] COL[facility] yellow NORMAL: Yellow [facility] CLARITY clear NORMAL: Clear [facility] Specific gravity of Urine by Test strip 1.010 1.001 - 1.030 [facility] pH 7 5 - 9 [facility] Glucose [Mass/volume] in Urine by Test strip NORM NORMAL: Negat [facility] Bilirubin.total [Presence] in Urine by Test strip NEG NORMAL: Negative [facility] Ketones [Presence] in Urine by Test strip NEG NORMAL: Negative [facility] Protein [Mass/volume] in Urine by Test strip NEG NORMAL: Negat [facility] Nitrite [Presence] in Urine by Test strip NEG NORMAL: Negative [facility] BLOOD NEG NORMAL: Negative [facility] Leukocyte esterase [Presence] in Urine by Test strip NEG TESSY L: Negative [facility] Urobilinogen [Mass/volume] in Urine by Test strip NOR less francisco javier n 1.0 mg/dL [facility] MICROSCOPIC Not Indicate [facility] ID Date Data Source [id number] 04/22/2020 01:38:00 PM EDT [facility] ([facility] Name Value Range Interpretation Code Description Data Don rce(s) Supporting Document(s) Fibrin D-dimer [Presence] in Platelet poor plasma 1.18 ug/mL 0.27-0.50 Above high normal [facility] ([facility] ) ID Date Data Source [id number] 04/22/2020 01:38:00 PM EDT [facility] ([facility] Name Value Range Interpretation Code Description Data Don e(s) Supporting Document(s) Sodium 143 meq/L 134-153 [facility] Potassium 3.7 meq/L 3.6-5.0 [facility] Comprehensive Metabo Laboratory test result [facility] ([facility] COMPREHENSIVE METABOLIC PANEL Co2 28 meq/L 22-30 [facility] ([facility] Chloride 104 meq/L 98-107 [facility] ([facility] Glucose 106 mg/dL 65-110 [facility] BUN 11 mg/dL 7-21 [facility] ([facility] Total Protein 7.2 g/dL 6.3-8.2 [facility] BUN/Creat 16 8-27 [facility] ([facility] Creatinine 0.7 mg/dL 0.7-1.5 [facility] Globulin 2.6 GM/DL 2.4-3.2 [facility] ([facility] Albumin 4.6 g/dL 3.9-5.0 [facility] ([facility] A/G Ratio 1.8 0.8-2.0 [facility] ([facility] Sgot/Ast 26 U/L 5-40 [facility] Alkaline Phos 77 U/L 38-126 [facility] Total Bili 0.7 mg/dL 0.2-1.3 [facility] Calcium 9.4 mg/dL 8.4-10.2 [facility] ([facility] Age 89 yrs [facility] Anion Gap 11.0 mmol/L 8.0-16.0 [facility] ([facility] SGPT/Alt 16 U/L 7-56 [facility] ([facility] Afr Amer GFR Laboratory test result [facility] ([facility] Male GFR Interprentation 20-49 yrs >60 mL/min Normal 50-59 yrs >56 mL/min Normal 60-69 yrs >49 mL/min Normal 70-79yrs >42 mL/min Normal 80 and above >35 mL/min Normal Female GFR Interpretation 20-39 yrs >60 mL/min Normal 40-49 yrs >58 mL/min Normal 50-59 yrs >51 mL/min Normal 60-69 yrs >45 mL/min Normal 70-79 yrs >39 mL/min Normal 80 and above >32 mL/min Normal Non-Aa GFR Laboratory test result 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 ID Date Data Source [id number] 04/22/2020 01:38:00 PM EDT [facility] ([facility] Name Value Range Interpretation Code Description Data Don rce(s) Supporting Document(s) CBC W/Automated Diff Laboratory test result [facility] ([facility] COMPLETE BLOOD COUNT WBC 6.8 10^3/uL 4.2-11.0 [facility] ([facility] Hematocrit 31.2 % 37.0-47.0 Below low normal [facility] ( [facility] RBC 3.51 10^6/uL 4.20-5.40 Below low normal [facility] ([facility] Hemoglobin 9.8 g/dL 12.0-16.0 Below low normal [facility] ( [facility] MCHC 31.4 g/dL 31.0-36.0 [facility] MCV 88.9 fL 81.0-101 [facility] MCH 27.9 pg 27.0-34.0 [facility] RDW 14.9 % 11.5-14.5 Above high normal [facility] ([facility] MPV 9.7 fL 7.4-10.4 [facility] Platelets 250 10^3/uL 150-450 [facility] Neut 65.8 % 37.0-80.0 [facility] Lymph 24.3 % 25.0-40.0 Below low normal [facility] ( [facility] Eos 2.3 % 0.0-7.0 [facility] [place] 6.9 % 3.0-8.0 [facility] ([facility] %NRBC 0.0 % 0.0-0.0 [facility] ([facility] %Ig 0.1 % 0.0-0.0 Above high normal [facility] Baso 0.6 % 0.0-2.5 [facility] #Neut 4.48 10^3/uL 2.00-6.90 [facility] #Eos 0.16 10^3/uL 0.00-0.70 [facility] #[place] 0.47 10^3/uL 0.00-0.90 [facility] ([facility] #Lymph 1.66 10^3/uL 0.60-3.40 [facility] ([facility] #NRBC 0.00 10^3/uL 0.00-0.00 [facility] #Ig 0.01 10^3/uL 0.00-0.10 [facility] Manual Diff Laboratory test result M EDDALE ([facility] #Baso 0.04 10^3/uL 0.00-0.20 [facility] RBC Morph Laboratory test result [facility] ([facility] ID Date Data Source [id number] 04/22/2020 03:57:00 PM EDT [facility] Name Value Range Interpretation Code Description Data Don rce(s) Supporting Document(s) Fibrin D-dimer FEU [Mass/volume] in Platelet poor plasma 1.18 ug /mL 0.27 - 0.50 H [facility] ID Date Data Source [id number] 04/22/2020 02:18:00 PM EDT [facility] Name Value Range Interpretation Code Description Data Don rce(s) Supporting Document(s) COMPREHENSIVE METABOLIC PANEL [facility] COMPREHENSIVE METABOLIC PANEL Sodium [Moles/volume] in Serum or Plasma 143 mEq/L 134 - 153 [facility] Potassium [Moles/volume] in Serum or Plasma 3.7 mEq/L 3.6 - 5.0 [facility] Chloride [Moles/volume] in Serum or Plasma 104 mEq/L 98 - 107 [facility] Carbon dioxide, total [Moles/volume] in Serum or Plasma 28 MEQ/L 22 - 30 [facility] Glucose [Mass/volume] in Serum or Plasma 106 MG/DL 65 - 110 [facility] BUN 11 MG/DL 7 - 21 [facility] Creatinine [Mass/volume] in Serum or Plasma 0.7 MG/DL 0.7 - 1.5 [facility] BUN/CREAT 16 8 - 27 [facility] al Protein [Mass/volume] in Serum or Plasma 7.2 G/DL 6.3 - 8.2 [facility] Albumin [Mass/volume] in Serum or Plasma 4.6 G/DL 3.9 - 5.0 [facility] Globulin [Mass/volume] in Serum by calculation 2.6 GM/DL 2.4 - 3.2 [facility] A/G RATIO 1.8 0.8 - 2.0 [facility] Calcium [Mass/volume] in Serum or Plasma 9.4 MG/DL 8.4 - 10.2 [facility] Bilirubin.total [Mass/volume] in Serum or Plasma 0.7 MG/DL 0.2 - 1.3 [facility] Alkaline phosphatase [Enzymatic activity/volume] in Serum or Plasma 77 U/L 38 - 126 [facility] Aspartate aminotransferase [Enzymatic activity/volume] in Serum or Plasma 26 U/L 5 - 40 [facility] Alanine aminotransferase [Enzymatic activity/volume] in Seru m or Plasma 16 U/L 7 - 56 [facility] Anion gap 3 in Serum or Plasma 11.0 mmol/L 8.0 - 16.0 [facility] AGE 89 yrs [facility] al NON-AA GFR >60 mL/min [facility] ital AFR AMER GFR >60 [facility] Male GFR In terprentation 20-49 yrs >60 mL/min Normal 50-59 yrs >56 mL/min Normal 60-69 yrs >49 mL/min Normal 70-79yrs >42 mL/min Normal 80 and above >35 mL/min Normal Female GFR Interpretation 20-39 yrs >60 mL/min Normal 40-49 yrs >58 mL/min Normal 50-59 yrs >51 mL/min Normal 60-69 yrs >45 mL/min Normal 70-79 yrs >39 mL/min Normal 80 and above >32 mL/min Normal ID Date Data Source [id number] 04/22/2020 02:15:00 PM EDT [facility] Name Value Range Interpretation Code Description Data Don rce(s) Supporting Document(s) TROPONIN T <0.01 NG/ML 0.00 - 0.10 [facility] TROPONIN T0.1 ng/ml Recommended as the c linical threshold value forTroponin T. ID Date Data Source [id number] 04/22/2020 01:54:00 PM EDT [facility] Name Value Range Interpretation Code Description Data Don rce(s) Supporting Document(s) CBC W/AUTOMATED DIFF [facility] COMPLETE BLOOD COUNT Leukocytes [#/volume] in Blood by Automated count 6.8 10^3/uL 4.2 - 1 1.0 [facility] Erythrocytes [#/volume] in Blood by Automated count 3.51 10^6/uL 4. 20 - 5.40 L [facility] Hemoglobin [Mass/volume] in Blood 9.8 g/dL 12.0 - 16.0 L [facility] Hematocrit [Volume Fraction] of Blood by Automated count 31.2 % 3 7.0 - 47.0 L [facility] Erythrocyte mean corpuscular volume [Entitic volume] by Auto mated count 88.9 fL 81.0 - 101 [facility] Erythrocyte mean corpuscular hemoglobin [Entitic mass] by Automated count 27.9 pg 27.0 - 34.0 [facility] Erythrocyte mean corpuscular hemoglobin concentration [Mass/volume] by Automated count 31.4 g/dL 31.0 - 36.0 [facility] Erythrocyte distribution width [Ratio] by Automated count 14.9 % 11.5 - 14.5 H [facility] Platelets [#/volume] in Blood by Automated count 250 10^3/uL 150 - 45 0 [facility] Platelet mean volume [Entitic volume] in Blood by Automated count 9.7 fL 7.4 - 10.4 [facility] Neutrophils/100 leukocytes in Blood by Automated count 65.8 % 37. 0 - 80.0 [facility] Lymphocytes/100 leukocytes in Blood by Manual count 24.3 % 25.0 - 40.0 L [facility] Monocytes/100 leukocytes in Blood by Automated count 6.9 % 3.0 - 8.0 [facility] Eosinophils/100 leukocytes in Blood by Automated count 2.3 % 0.0 - 7.0 [facility] Basophils/100 leukocytes in Blood by Automated count 0.6 % 0.0 - 2.5 [facility] %IG 0.1 % 0.0 - [facility].0 [facility] % 0.0 - 0.0 [facility] al Neutrophils [#/volume] in Blood by Automated count 4.48 10^3/uL 2.00 - 6.90 [facility] Lymphocytes [#/volume] in Blood by Automated count 1.66 10^3/uL 0.60 - 3.40 [facility] Monocytes [#/volume] in Blood by Automated count 0.47 10^3/uL 0.00 - 0.90 [facility] Eosinophils [#/volume] in Blood by Automated count 0.16 10^3/uL 0.00 - 0.70 [facility] Basophils [#/volume] in Blood by Automated count 0.04 10^3/uL 0.00 - 0.20 [facility] #IG 0.01 10^3/uL 0.00 - 0.10 [facility] ospital #NRBC 0.00 10^3/uL 0.00 - 0.00 [facility] ospital MANUAL DIFF NOT INDICATED [facility] RBC MORPH NOT INDICATED [facility] spital ID Date Data Source [id number] 10/21/2019 11:25:00 AM EST [facility] ([facility] Name Value Range Interpretation Code Description Data Don rce(s) Supporting Document(s) Hemoglobin A1c/Hemoglobin.total in Blood 5.5 % 4.50-6.20 [facility] ([facility] ID Date Data Source [id number] 10/21/2019 11:24:00 AM EST [facility] ([facility] Name Value Range Interpretation Code Description Data Don rce(s) Supporting Document(s) Trig 163 mg/dL 40-200 [facility] ([facility] CLASSIFICATION CHOLESTEROL FO R ADULTS CHILDREN/ADOLESCENTS* DESIRABLE: <200 MG/DL <170 MG/DL BORDER-LINE HIGH RISK: 200-239 MG/DL 170-199 MG/DL HIGH RISK: >240 MG/DL >200 MG/DL CLASS. FOR PRIMARY LDL CHOL PREVENTION: LDL CHOL-CHILD/ADOLESCENTS* DESIRABLE: <130 MG/DL <110 MG/DL BORDERLINE-HIGH RISK: 130-159 MG/DL 110-129 MG/DL HIGH RISK: >160 MG/DL >130 MG/DL *CHILDREN AND ADOLESCENTS REPRESENTS INDIVIDUALA AGED 2-19 YEARS EXCLUSIVE. CHRONIC KIDNEY DISEASE STAGING PER NKF: MALE [...] Normal 80 and above >32 mL/min Normal Prostate specific Ag [Mass/volume] in Serum or Plasma 68 mg/dL 45-65 Above high normal [facility] ([facility] ) CLASSIFICATION CHOLESTEROL FO R ADULTS CHILDREN/ADOLESCENTS* DESIRABLE: <200 MG/DL <170 MG/DL BORDER-LINE HIGH RISK: 200-239 MG/DL 170-199 MG/DL HIGH RISK: >240 MG/DL >200 MG/DL CLASS. FOR PRIMARY LDL CHOL PREVENTION: LDL CHOL-CHILD/ADOLESCENTS* DESIRABLE: <130 MG/DL <110 MG/DL BORDERLINE-HIGH RISK: 130-159 MG/DL 110-129 MG/DL HIGH RISK: >160 MG/DL >130 MG/DL *CHILDREN AND ADOLESCENTS REPRESENTS INDIVIDUALA AGED 2-19 YEARS EXCLUSIVE. CHRONIC KIDNEY DISEASE STAGING PER NKF: MALE [...] Normal 80 and above >32 mL/min Normal Chol 182 mg/dL 0-200 [facility] ([facility] CLASSIFICATION CHOLESTEROL FO R ADULTS CHILDREN/ADOLESCENTS* DESIRABLE: <200 MG/DL <170 MG/DL BORDER-LINE HIGH RISK: 200-239 MG/DL 170-199 MG/DL HIGH RISK: >240 MG/DL >200 MG/DL CLASS. FOR PRIMARY LDL CHOL PREVENTION: LDL CHOL-CHILD/ADOLESCENTS* DESIRABLE: <130 MG/DL <110 MG/DL BORDERLINE-HIGH RISK: 130-159 MG/DL 110-129 MG/DL HIGH RISK: >160 MG/DL >130 MG/DL *CHILDREN AND ADOLESCENTS REPRESENTS INDIVIDUALA AGED 2-19 YEARS EXCLUSIVE. CHRONIC KIDNEY DISEASE STAGING PER NKF: MALE [...] Normal 80 and above >32 mL/min Normal LDL_C 82 Calc 75-129 [facility] ([facility] CLASSIFICATION CHOLESTEROL FO R ADULTS CHILDREN/ADOLESCENTS* DESIRABLE: <200 MG/DL <170 MG/DL BORDER-LINE HIGH RISK: 200-239 MG/DL 170-199 MG/DL HIGH RISK: >240 MG/DL >200 MG/DL CLASS. FOR PRIMARY LDL CHOL PREVENTION: LDL CHOL-CHILD/ADOLESCENTS* DESIRABLE: <130 MG/DL <110 MG/DL BORDERLINE-HIGH RISK: 130-159 MG/DL 110-129 MG/DL HIGH RISK: >160 MG/DL >130 MG/DL *CHILDREN AND ADOLESCENTS REPRESENTS INDIVIDUALA AGED 2-19 YEARS EXCLUSIVE. CHRONIC KIDNEY DISEASE STAGING PER NKF: MALE [...] Normal 80 and above >32 mL/min Normal Cho/HDL Ratio 2.7 Calc [facility] CLASSIFICATION CHOLESTEROL FO R ADULTS CHILDREN/ADOLESCENTS* DESIRABLE: <200 MG/DL <170 MG/DL BORDER-LINE HIGH RISK: 200-239 MG/DL 170-199 MG/DL HIGH RISK: >240 MG/DL >200 MG/DL CLASS. FOR PRIMARY LDL CHOL PREVENTION: LDL CHOL-CHILD/ADOLESCENTS* DESIRABLE: <130 MG/DL <110 MG/DL BORDERLINE-HIGH RISK: 130-159 MG/DL 110-129 MG/DL HIGH RISK: >160 MG/DL >130 MG/DL *CHILDREN AND ADOLESCENTS REPRESENTS INDIVIDUALA AGED 2-19 YEARS EXCLUSIVE. CHRONIC KIDNEY DISEASE STAGING PER NKF: MALE [...] Normal 80 and above >32 mL/min Normal ID Date Data Source [id number] 10/21/2019 11:24:00 AM EST [facility] ([facility] Name Value Range Interpretation Code Description Data Don rce(s) Supporting Document(s) BUN 19 mg/dL 823 [facility] ([facility] CLASSIFICATION CHOLESTEROL FO R ADULTS CHILDREN/ADOLESCENTS* DESIRABLE: <200 MG/DL <170 MG/DL BORDER-LINE HIGH RISK: 200-239 MG/DL 170-199 MG/DL HIGH RISK: >240 MG/DL >200 MG/DL CLASS. FOR PRIMARY LDL CHOL PREVENTION: LDL CHOL-CHILD/ADOLESCENTS* DESIRABLE: <130 MG/DL <110 MG/DL BORDERLINE-HIGH RISK: 130-159 MG/DL 110-129 MG/DL HIGH RISK: >160 MG/DL >130 MG/DL *CHILDREN AND ADOLESCENTS REPRESENTS INDIVIDUALA AGED 2-19 YEARS EXCLUSIVE. CHRONIC KIDNEY DISEASE STAGING PER NKF: MALE [...] Normal 80 and above >32 mL/min Normal Glu 95 mg/dL 70-110 [facility] CLASSIFICATION CHOLESTEROL FO R ADULTS CHILDREN/ADOLESCENTS* DESIRABLE: <200 MG/DL <170 MG/DL BORDER-LINE HIGH RISK: 200-239 MG/DL 170-199 MG/DL HIGH RISK: >240 MG/DL >200 MG/DL CLASS. FOR PRIMARY LDL CHOL PREVENTION: LDL CHOL-CHILD/ADOLESCENTS* DESIRABLE: <130 MG/DL <110 MG/DL BORDERLINE-HIGH RISK: 130-159 MG/DL 110-129 MG/DL HIGH RISK: >160 MG/DL >130 MG/DL *CHILDREN AND ADOLESCENTS REPRESENTS INDIVIDUALA AGED 2-19 YEARS EXCLUSIVE. CHRONIC KIDNEY DISEASE STAGING PER NKF: MALE [...] Normal 80 and above >32 mL/min Normal BUN/Creatinine Ratio 23.4 CALC [facility] ([facility] CLASSIFICATION CHOLESTEROL FO R ADULTS CHILDREN/ADOLESCENTS* DESIRABLE: <200 MG/DL <170 MG/DL BORDER-LINE HIGH RISK: 200-239 MG/DL 170-199 MG/DL HIGH RISK: >240 MG/DL >200 MG/DL CLASS. FOR PRIMARY LDL CHOL PREVENTION: LDL CHOL-CHILD/ADOLESCENTS* DESIRABLE: <130 MG/DL <110 MG/DL BORDERLINE-HIGH RISK: 130-159 MG/DL 110-129 MG/DL HIGH RISK: >160 MG/DL >130 MG/DL *CHILDREN AND ADOLESCENTS REPRESENTS INDIVIDUALA AGED 2-19 YEARS EXCLUSIVE. CHRONIC KIDNEY DISEASE STAGING PER NKF: MALE [...] Normal 80 and above >32 mL/min Normal Creat 0.8 mg/dL 0.5-1.0 [facility] ([facility] CLASSIFICATION CHOLESTEROL FO R ADULTS CHILDREN/ADOLESCENTS* DESIRABLE: <200 MG/DL <170 MG/DL BORDER-LINE HIGH RISK: 200-239 MG/DL 170-199 MG/DL HIGH RISK: >240 MG/DL >200 MG/DL CLASS. FOR PRIMARY LDL CHOL PREVENTION: LDL CHOL-CHILD/ADOLESCENTS* DESIRABLE: <130 MG/DL <110 MG/DL BORDERLINE-HIGH RISK: 130-159 MG/DL 110-129 MG/DL HIGH RISK: >160 MG/DL >130 MG/DL *CHILDREN AND ADOLESCENTS REPRESENTS INDIVIDUALA AGED 2-19 YEARS EXCLUSIVE. CHRONIC KIDNEY DISEASE STAGING PER NKF: MALE [...] Normal 80 and above >32 mL/min Normal Na 135 mmol/L 136-145 Below low normal [facility] ( [facility] CLASSIFICATION CHOLESTEROL FO R ADULTS CHILDREN/ADOLESCENTS* DESIRABLE: <200 MG/DL <170 MG/DL BORDER-LINE HIGH RISK: 200-239 MG/DL 170-199 MG/DL HIGH RISK: >240 MG/DL >200 MG/DL CLASS. FOR PRIMARY LDL CHOL PREVENTION: LDL CHOL-CHILD/ADOLESCENTS* DESIRABLE: <130 MG/DL <110 MG/DL BORDERLINE-HIGH RISK: 130-159 MG/DL 110-129 MG/DL HIGH RISK: >160 MG/DL >130 MG/DL *CHILDREN AND ADOLESCENTS REPRESENTS INDIVIDUALA AGED 2-19 YEARS EXCLUSIVE. CHRONIC KIDNEY DISEASE STAGING PER NKF: MALE [...] Normal 80 and above >32 mL/min Normal CL 100.1 mmol/L 98.0-107.0 [facility] ([facility] CLASSIFICATION CHOLESTEROL FO R ADULTS CHILDREN/ADOLESCENTS* DESIRABLE: <200 MG/DL <170 MG/DL BORDER-LINE HIGH RISK: 200-239 MG/DL 170-199 MG/DL HIGH RISK: >240 MG/DL >200 MG/DL CLASS. FOR PRIMARY LDL CHOL PREVENTION: LDL CHOL-CHILD/ADOLESCENTS* DESIRABLE: <130 MG/DL <110 MG/DL BORDERLINE-HIGH RISK: 130-159 MG/DL 110-129 MG/DL HIGH RISK: >160 MG/DL >130 MG/DL *CHILDREN AND ADOLESCENTS REPRESENTS INDIVIDUALA AGED 2-19 YEARS EXCLUSIVE. CHRONIC KIDNEY DISEASE STAGING PER NKF: MALE [...] Normal 80 and above >32 mL/min Normal K 4.1 mmol/L 3.5-5.1 [facility] ([facility] CLASSIFICATION CHOLESTEROL FO R ADULTS CHILDREN/ADOLESCENTS* DESIRABLE: <200 MG/DL <170 MG/DL BORDER-LINE HIGH RISK: 200-239 MG/DL 170-199 MG/DL HIGH RISK: >240 MG/DL >200 MG/DL CLASS. FOR PRIMARY LDL CHOL PREVENTION: LDL CHOL-CHILD/ADOLESCENTS* DESIRABLE: <130 MG/DL <110 MG/DL BORDERLINE-HIGH RISK: 130-159 MG/DL 110-129 MG/DL HIGH RISK: >160 MG/DL >130 MG/DL *CHILDREN AND ADOLESCENTS REPRESENTS INDIVIDUALA AGED 2-19 YEARS EXCLUSIVE. CHRONIC KIDNEY DISEASE STAGING PER NKF: MALE [...] Normal 80 and above >32 mL/min Normal Co2 23.2 mmol/L 22.0-29.0 [facility] ([facility] CLASSIFICATION CHOLESTEROL FO R ADULTS CHILDREN/ADOLESCENTS* DESIRABLE: <200 MG/DL <170 MG/DL BORDER-LINE HIGH RISK: 200-239 MG/DL 170-199 MG/DL HIGH RISK: >240 MG/DL >200 MG/DL CLASS. FOR PRIMARY LDL CHOL PREVENTION: LDL CHOL-CHILD/ADOLESCENTS* DESIRABLE: <130 MG/DL <110 MG/DL BORDERLINE-HIGH RISK: 130-159 MG/DL 110-129 MG/DL HIGH RISK: >160 MG/DL >130 MG/DL *CHILDREN AND ADOLESCENTS REPRESENTS INDIVIDUALA AGED 2-19 YEARS EXCLUSIVE. CHRONIC KIDNEY DISEASE STAGING PER NKF: MALE [...] Normal 80 and above >32 mL/min Normal CA 9.3 mg/dL 8.6-10.2 [facility] ([facility] CLASSIFICATION CHOLESTEROL FO R ADULTS CHILDREN/ADOLESCENTS* DESIRABLE: <200 MG/DL <170 MG/DL BORDER-LINE HIGH RISK: 200-239 MG/DL 170-199 MG/DL HIGH RISK: >240 MG/DL >200 MG/DL CLASS. FOR PRIMARY LDL CHOL PREVENTION: LDL CHOL-CHILD/ADOLESCENTS* DESIRABLE: <130 MG/DL <110 MG/DL BORDERLINE-HIGH RISK: 130-159 MG/DL 110-129 MG/DL HIGH RISK: >160 MG/DL >130 MG/DL *CHILDREN AND ADOLESCENTS REPRESENTS INDIVIDUALA AGED 2-19 YEARS EXCLUSIVE. CHRONIC KIDNEY DISEASE STAGING PER NKF: MALE [...] Normal 80 and above >32 mL/min Normal TP 7.3 g/dL 6.6-8.7 [facility] ([facility] CLASSIFICATION CHOLESTEROL FO R ADULTS CHILDREN/ADOLESCENTS* DESIRABLE: <200 MG/DL <170 MG/DL BORDER-LINE HIGH RISK: 200-239 MG/DL 170-199 MG/DL HIGH RISK: >240 MG/DL >200 MG/DL CLASS. FOR PRIMARY LDL CHOL PREVENTION: LDL CHOL-CHILD/ADOLESCENTS* DESIRABLE: <130 MG/DL <110 MG/DL BORDERLINE-HIGH RISK: 130-159 MG/DL 110-129 MG/DL HIGH RISK: >160 MG/DL >130 MG/DL *CHILDREN AND ADOLESCENTS REPRESENTS INDIVIDUALA AGED 2-19 YEARS EXCLUSIVE. CHRONIC KIDNEY DISEASE STAGING PER NKF: MALE [...] Normal 80 and above >32 mL/min Normal Alb 4.6 g/dL 3.4-4.8 [facility] ([facility] CLASSIFICATION CHOLESTEROL FO R ADULTS CHILDREN/ADOLESCENTS* DESIRABLE: <200 MG/DL <170 MG/DL BORDER-LINE HIGH RISK: 200-239 MG/DL 170-199 MG/DL HIGH RISK: >240 MG/DL >200 MG/DL CLASS. FOR PRIMARY LDL CHOL PREVENTION: LDL CHOL-CHILD/ADOLESCENTS* DESIRABLE: <130 MG/DL <110 MG/DL BORDERLINE-HIGH RISK: 130-159 MG/DL 110-129 MG/DL HIGH RISK: >160 MG/DL >130 MG/DL *CHILDREN AND ADOLESCENTS REPRESENTS INDIVIDUALA AGED 2-19 YEARS EXCLUSIVE. CHRONIC KIDNEY DISEASE STAGING PER NKF: MALE [...] Normal 80 and above >32 mL/min Normal A/G Ratio 1.6 CALC [facility] ([facility] CLASSIFICATION CHOLESTEROL FO R ADULTS CHILDREN/ADOLESCENTS* DESIRABLE: <200 MG/DL <170 MG/DL BORDER-LINE HIGH RISK: 200-239 MG/DL 170-199 MG/DL HIGH RISK: >240 MG/DL >200 MG/DL CLASS. FOR PRIMARY LDL CHOL PREVENTION: LDL CHOL-CHILD/ADOLESCENTS* DESIRABLE: <130 MG/DL <110 MG/DL BORDERLINE-HIGH RISK: 130-159 MG/DL 110-129 MG/DL HIGH RISK: >160 MG/DL >130 MG/DL *CHILDREN AND ADOLESCENTS REPRESENTS INDIVIDUALA AGED 2-19 YEARS EXCLUSIVE. CHRONIC KIDNEY DISEASE STAGING PER NKF: MALE [...] Normal 80 and above >32 mL/min Normal Globulin 2.8 CALC [facility] ([facility] CLASSIFICATION CHOLESTEROL FO R ADULTS CHILDREN/ADOLESCENTS* DESIRABLE: <200 MG/DL <170 MG/DL BORDER-LINE HIGH RISK: 200-239 MG/DL 170-199 MG/DL HIGH RISK: >240 MG/DL >200 MG/DL CLASS. FOR PRIMARY LDL CHOL PREVENTION: LDL CHOL-CHILD/ADOLESCENTS* DESIRABLE: <130 MG/DL <110 MG/DL BORDERLINE-HIGH RISK: 130-159 MG/DL 110-129 MG/DL HIGH RISK: >160 MG/DL >130 MG/DL *CHILDREN AND ADOLESCENTS REPRESENTS INDIVIDUALA AGED 2-19 YEARS EXCLUSIVE. CHRONIC KIDNEY DISEASE STAGING PER NKF: MALE [...] Normal 80 and above >32 mL/min Normal Alp 107.4 U/L 35-129 [facility] ([facility] CLASSIFICATION CHOLESTEROL FO R ADULTS CHILDREN/ADOLESCENTS* DESIRABLE: <200 MG/DL <170 MG/DL BORDER-LINE HIGH RISK: 200-239 MG/DL 170-199 MG/DL HIGH RISK: >240 MG/DL >200 MG/DL CLASS. FOR PRIMARY LDL CHOL PREVENTION: LDL CHOL-CHILD/ADOLESCENTS* DESIRABLE: <130 MG/DL <110 MG/DL BORDERLINE-HIGH RISK: 130-159 MG/DL 110-129 MG/DL HIGH RISK: >160 MG/DL >130 MG/DL *CHILDREN AND ADOLESCENTS REPRESENTS INDIVIDUALA AGED 2-19 YEARS EXCLUSIVE. CHRONIC KIDNEY DISEASE STAGING PER NKF: MALE [...] Normal 80 and above >32 mL/min Normal Ast (Sgot) 29 U/L 0-40 [facility] ([facility] CLASSIFICATION CHOLESTEROL FO R ADULTS CHILDREN/ADOLESCENTS* DESIRABLE: <200 MG/DL <170 MG/DL BORDER-LINE HIGH RISK: 200-239 MG/DL 170-199 MG/DL HIGH RISK: >240 MG/DL >200 MG/DL CLASS. FOR PRIMARY LDL CHOL PREVENTION: LDL CHOL-CHILD/ADOLESCENTS* DESIRABLE: <130 MG/DL <110 MG/DL BORDERLINE-HIGH RISK: 130-159 MG/DL 110-129 MG/DL HIGH RISK: >160 MG/DL >130 MG/DL *CHILDREN AND ADOLESCENTS REPRESENTS INDIVIDUALA AGED 2-19 YEARS EXCLUSIVE. CHRONIC KIDNEY DISEASE STAGING PER NKF: MALE [...] Normal 80 and above >32 mL/min Normal Alt (SGPT) 17 U/L 0-41 [facility] ([facility] CLASSIFICATION CHOLESTEROL FO R ADULTS CHILDREN/ADOLESCENTS* DESIRABLE: <200 MG/DL <170 MG/DL BORDER-LINE HIGH RISK: 200-239 MG/DL 170-199 MG/DL HIGH RISK: >240 MG/DL >200 MG/DL CLASS. FOR PRIMARY LDL CHOL PREVENTION: LDL CHOL-CHILD/ADOLESCENTS* DESIRABLE: <130 MG/DL <110 MG/DL BORDERLINE-HIGH RISK: 130-159 MG/DL 110-129 MG/DL HIGH RISK: >160 MG/DL >130 MG/DL *CHILDREN AND ADOLESCENTS REPRESENTS INDIVIDUALA AGED 2-19 YEARS EXCLUSIVE. CHRONIC KIDNEY DISEASE STAGING PER NKF: MALE [...] Normal 80 and above >32 mL/min Normal Osmolality-Calculated 273.0 CALC MED ENT ([facility] CLASSIFICATION CHOLESTEROL FO R ADULTS CHILDREN/ADOLESCENTS* DESIRABLE: <200 MG/DL <170 MG/DL BORDER-LINE HIGH RISK: 200-239 MG/DL 170-199 MG/DL HIGH RISK: >240 MG/DL >200 MG/DL CLASS. FOR PRIMARY LDL CHOL PREVENTION: LDL CHOL-CHILD/ADOLESCENTS* DESIRABLE: <130 MG/DL <110 MG/DL BORDERLINE-HIGH RISK: 130-159 MG/DL 110-129 MG/DL HIGH RISK: >160 MG/DL >130 MG/DL *CHILDREN AND ADOLESCENTS REPRESENTS INDIVIDUALA AGED 2-19 YEARS EXCLUSIVE. CHRONIC KIDNEY DISEASE STAGING PER NKF: MALE [...] Normal 80 and above >32 mL/min Normal Tbili 0.57 mg/dL 0.0-1.2 [facility] ([facility] CLASSIFICATION CHOLESTEROL FO R ADULTS CHILDREN/ADOLESCENTS* DESIRABLE: <200 MG/DL <170 MG/DL BORDER-LINE HIGH RISK: 200-239 MG/DL 170-199 MG/DL HIGH RISK: >240 MG/DL >200 MG/DL CLASS. FOR PRIMARY LDL CHOL PREVENTION: LDL CHOL-CHILD/ADOLESCENTS* DESIRABLE: <130 MG/DL <110 MG/DL BORDERLINE-HIGH RISK: 130-159 MG/DL 110-129 MG/DL HIGH RISK: >160 MG/DL >130 MG/DL *CHILDREN AND ADOLESCENTS REPRESENTS INDIVIDUALA AGED 2-19 YEARS EXCLUSIVE. CHRONIC KIDNEY DISEASE STAGING PER NKF: MALE [...] Normal 80 and above >32 mL/min Normal Anion Gap 16 mmol/L [facility] ([facility] CLASSIFICATION CHOLESTEROL FO R ADULTS CHILDREN/ADOLESCENTS* DESIRABLE: <200 MG/DL <170 MG/DL BORDER-LINE HIGH RISK: 200-239 MG/DL 170-199 MG/DL HIGH RISK: >240 MG/DL >200 MG/DL CLASS. FOR PRIMARY LDL CHOL PREVENTION: LDL CHOL-CHILD/ADOLESCENTS* DESIRABLE: <130 MG/DL <110 MG/DL BORDERLINE-HIGH RISK: 130-159 MG/DL 110-129 MG/DL HIGH RISK: >160 MG/DL >130 MG/DL *CHILDREN AND ADOLESCENTS REPRESENTS INDIVIDUALA AGED 2-19 YEARS EXCLUSIVE. CHRONIC KIDNEY DISEASE STAGING PER NKF: MALE [...] Normal 80 and above >32 mL/min Normal eGFR 77 # [facility] ( [facility] CLASSIFICATION CHOLESTEROL FO R ADULTS CHILDREN/ADOLESCENTS* DESIRABLE: <200 MG/DL <170 MG/DL BORDER-LINE HIGH RISK: 200-239 MG/DL 170-199 MG/DL HIGH RISK: >240 MG/DL >200 MG/DL CLASS. FOR PRIMARY LDL CHOL PREVENTION: LDL CHOL-CHILD/ADOLESCENTS* DESIRABLE: <130 MG/DL <110 MG/DL BORDERLINE-HIGH RISK: 130-159 MG/DL 110-129 MG/DL HIGH RISK: >160 MG/DL >130 MG/DL *CHILDREN AND ADOLESCENTS REPRESENTS INDIVIDUALA AGED 2-19 YEARS EXCLUSIVE. CHRONIC KIDNEY DISEASE STAGING PER NKF: MALE [...] Normal 80 and above >32 mL/min Normal eGFR Non-Afr. [place] 66 # [facility] ([facility] CLASSIFICATION CHOLESTEROL FO R ADULTS CHILDREN/ADOLESCENTS* DESIRABLE: <200 MG/DL <170 MG/DL BORDER-LINE HIGH RISK: 200-239 MG/DL 170-199 MG/DL HIGH RISK: >240 MG/DL >200 MG/DL CLASS. FOR PRIMARY LDL CHOL PREVENTION: LDL CHOL-CHILD/ADOLESCENTS* DESIRABLE: <130 MG/DL <110 MG/DL BORDERLINE-HIGH RISK: 130-159 MG/DL 110-129 MG/DL HIGH RISK: >160 MG/DL >130 MG/DL *CHILDREN AND ADOLESCENTS REPRESENTS INDIVIDUALA AGED 2-19 YEARS EXCLUSIVE. CHRONIC KIDNEY DISEASE STAGING PER NKF: MALE [...] Normal 80 and above >32 mL/min Normal ID Date Data Source [id number] 09/01/2019 02:57:13 PM [facility] XR SPINE LUMBAR 2-3 VIEWS [id number] RES ULTInterpreted by:MIGEL Ferro SPINECLINICAL STATEMENT: Status post lumbar fusion. Low back pain.TECHNIQUE: AP and neutral lateral views of the lumbar spine, 07/08/2019.COMPARISON: 06/21/2019.FINDINGS:Since the prior study, there has been no significant interval change. The patient is again noted to be status post lumbar fusion at L1-S1. Bilateral pedicle screws with interconnecting rods appear intact and well aligned. Normal anatomic alignment is maintained. Normal vertebral body heights are preserved.IMPRESSION: Since 06/21/2019,No significant interval change. Status post lumbar fusion at L1-S1, with stable postoperative changes. LUMBAR SPINECLINICAL STATEMENT: Status post lumbar fusion. Low back pain.TECHNIQUE: AP, flexion-extension, and neutral lateral views of the lumbar spine, 08/14/2019COMPARISON: 07/08/2019.FINDINGS:Since the prior study, there has been no significant interval change. The patient is again noted to be status post laminectomy and fusion at L1-S1. Bilateral pedicle screws with interconnecting rods appear intact and well aligned. Normal anatomic alignment is maintained. Normal vertebral body heights are preserved.IMPRESSION: Since 07/08/2019,No significant interval change. Status post lumbar fusion at L1-S1, with stable postoperative changes.This document has been electronically signed by Zack Torres MD on 09/01/2019 2:55 PM Name Value Range Interpretation Code Description Data Don rce(s) Supporting Document(s) ID Date Data Source [id number] 09/01/2019 02:57:13 PM [facility] XR SPINE LUMBAR 4-MORE VIEWS [id number] RESULTInterpreted by:[facility] MDH[facility] SPINECLINICAL STATEMENT: Status post lumbar fusion. Low back pain.TECHNIQUE: AP and neutral lateral views of the lumbar spine, 07/08/2019.COMPARISON: 06/21/2019.FINDINGS:Since the prior study, there has been no significant interval change. The patient is again noted to be status post lumbar fusion at L1-S1. Bilateral pedicle screws with interconnecting rods appear intact and well aligned. Normal anatomic alignment is maintained. Normal vertebral body heights are preserved.IMPRESSION: Since 06/21/2019,No significant interval change. Status post lumbar fusion at L1-S1, with stable postoperative changes. LUMBAR SPINECLINICAL STATEMENT: Status post lumbar fusion. Low back pain.TECHNIQUE: AP, flexion-extension, and neutral lateral views of the lumbar spine, 08/14/2019COMPARISON: 07/08/2019.FINDINGS:Since the prior study, there has been no significant interval change. The patient is again noted to be status post laminectomy and fusion at L1-S1. Bilateral pedicle screws with interconnecting rods appear intact and well aligned. Normal anatomic alignment is maintained. Normal vertebral body heights are preserved.IMPRESSION: Since 07/08/2019,No significant interval change. Status post lumbar fusion at L1-S1, with stable postoperative changes.This document has been electronically signed by Zack Torres MD on 09/01/2019 2:55 PM Name Value Range Interpretation Code Description Data Don rce(s) Supporting Document(s) Procedure Social History Code Duration Value Status Description Data Source(s ) Alcohol intake 08/11/2020 12:00:00 AM EST Current drinker of al cohol (finding) completed Current drinker of alcohol (finding) [facility] Tobacco use and exposure 08/11/2020 12:00:00 AM EST Never used co mpleted Never used [facility] Cigarette pack-years 08/11/2020 12:00:00 AM EST UNK completed [facility] Cigarettes smoked current (pack per day) - Reported 08/11/20 12:00:00 AM EST UNK completed [facility] Smoking 08/11/2020 12:00:00 AM EST Former smoker completed Former smoker [facility] Alcohol intake 07/01/2020 12:00:00 AM EDT Current drinker of al cohol (finding) completed Current drinker of alcohol (finding) [facility] Alcohol intake 05/13/2020 12:00:00 AM EDT Current drinker of al cohol (finding) completed Current drinker of alcohol (finding) [facility] Alcohol intake 04/24/2020 12:00:00 AM EDT Current drinker of al cohol (finding) completed Current drinker of alcohol (finding) [facility] Vital Signs ID Date Data Source UNK Name Value Range Interpretation Code Description Data Source(s) Body weight 176.00 [lb_av] 176.00 [lb_av] [facility] ([facility] Respiratory rate 14 /min 14 /min [facility] ( [facility] Heart rate 78 /min 78 /min [facility] ([facility] Diastolic blood pressure 78 mm[Hg] 78 mm[Hg] MEDENT ([facility] Systolic blood pressure 132 mm[Hg] 132 mm[Hg] M EDENT ([facility] Oxygen saturation in Arterial blood by Pulse oximetry 97 % 97 % MEDDALE ([facility] Body mass index (BMI) [Ratio] 35.1 kg/m2 35.1 k g/m2 MEDENT ([facility] [place] body weight 100 [lb_av] 100 [lb_av] MEDEN T ([facility] Body weight 168.00 [lb_av] 168.00 [lb_av] MEDEN T ([facility] Body height 58 [in_i] 58 [in_i] MEDENT ([facility] 4'10" Respiratory rate 16 /min 16 /min MEDENT ( [facility] Heart rate 86 /min 86 /min MEDENT ([facility] Body temperature 98.2 [degF] 98.2 [degF] MEDENT ([facility] Diastolic blood pressure 80 mm[Hg] 80 mm[Hg] MEDENT ([facility] Systolic blood pressure 148 mm[Hg] 148 mm[Hg] M EDENT (Family [facility] Oxygen saturation in Arterial blood by Pulse oximetry 96 % 96 % MEDENT ([facility] Body mass index (BMI) [Ratio] 33.9 kg/m2 33.9 k g/m2 MEDENT ([facility] Bono body weight 100 [lb_av] 100 [lb_av] MEDEN T ([facility] Body weight 162.00 [lb_av] 162.00 [lb_av] MEDEN T ([facility] Body height 58 [in_i] 58 [in_i] MEDENT ([facility] 4'10" Respiratory rate 18 /min 18 /min MEDENT ( [facility] Heart rate 94 /min 94 /min MEDENT ([facility] Body temperature 98.0 [degF] 98.0 [degF] MEDENT ([facility] Diastolic blood pressure 68 mm[Hg] 68 mm[Hg] MEDENT ([facility] Systolic blood pressure 116 mm[Hg] 116 mm[Hg] M EDENT ([facility] Oxygen saturation in Arterial blood by Pulse oximetry 96 % 96 % MEDENT ([facility] Body mass index (BMI) [Ratio] 35.5 kg/m2 35.5 k g/m2 MEDENT ([facility] Bono body weight 100 [lb_av] 100 [lb_av] MEDEN T ([facility] Body weight 170.00 [lb_av] 170.00 [lb_av] MEDEN T ([facility] Body height 58 [in_i] 58 [in_i] MEDENT ([facility] 4'10" Respiratory rate 20 /min 20 /min MEDENT ( [facility] Heart rate 96 /min 96 /min MEDENT ([facility] Body temperature 97.4 [degF] 97.4 [degF] MEDENT ([facility] Diastolic blood pressure 66 mm[Hg] 66 mm[Hg] MEDENT ([facility] Systolic blood pressure 130 mm[Hg] 130 mm[Hg] M EDENT ([facility] Body temperature 98.4 [degF] 98.4 [degF] MEDENT ([facility] Diastolic blood pressure 70 mm[Hg] 70 mm[Hg] MEDENT ([facility] Systolic blood pressure 128 mm[Hg] 128 mm[Hg] M EDENT ([facility] Oxygen saturation in Arterial blood by Pulse oximetry 97 % 97 % MEDENT ([facility] Body mass index (BMI) [Ratio] 37.8 kg/m2 37.8 k g/m2 MEDENT ([facility] Body weight 181.00 [lb_av] 181.00 [lb_av] MEDEN T ([facility] Body height 58 [in_i] 58 [in_i] MEDENT ([facility] 4'10" Respiratory rate 18 /min 18 /min MEDENT ( [facility] Heart rate 68 /min 68 /min MEDENT ([facility] Oxygen saturation in Arterial blood by Pulse oximetry 95 % 95 % [place] ([facility] Body mass index (BMI) [Ratio] 37.0 kg/m2 37.0 k g/m2 MEDENT ([facility] Body weight 177.00 [lb_av] 177.00 [lb_av] MEDEN T ([facility] Body height 58 [in_i] 58 [in_i] MEDENT ([facility] 4'10" Respiratory rate 18 /min 18 /min MEDENT ( [facility] Heart rate 74 /min 74 /min MEDENT ([facility] Body temperature 98.4 [degF] 98.4 [degF] MEDENT ([facility] Diastolic blood pressure 68 mm[Hg] 68 mm[Hg] MEDENT ([facility] Systolic blood pressure 132 mm[Hg] 132 mm[Hg] M EDDALE ([facility] ID Date Data Source [id number] 10/21/2020 05:55:11 PM [facility] Value Range Interpretation Code Description Data Source(s) WEIGHT RECORDED 176 lb 176 lb [facility] Body height Measured 55 in 55 in [facility] ID Date Data Source [id number] 05/11/2020 07:01:28 PM [facility] Value Range Interpretation Code Description Data Source(s) WEIGHT RECORDED 183.2 lb 183.2 lb [facility] Body height Measured 59.02 in 59.02 in [facility] ID Date Data Source [id number] 05/12/2020 07:08:26 AM [facility] Value Range Interpretation Code Description Data Source(s) WEIGHT RECORDED 183.2 lb 183.2 lb [facility] Body height Measured 59.02 in 59.02 in [facility] WEIGHT RECORDED 183.2 lb 183.2 lb [facility] Body height Measured 59.02 in 59.02 in [facility] ID Date Data Source [id number] 04/29/2020 07:39:46 PM [facility] Name Value Range Interpretation Code Description Data Source(s) WEIGHT RECORDED 140 lb 140 lb [facility] Body height Measured 60 in 60 in [facility] Patient Treatment Plan of Care Planned Activity Planned Date Details Description Data Source (s) Lisinopril 20 MG Oral Tablet 05/08/2020 12:00:00 AM [facility] sennosides, RESIDENTIAL 8.6 MG Oral Tablet 05/07/2020 12:00:00 AM [facility] Diclofenac Sodium 0.01 MG/MG Topical Gel 05/07/2020 12:00:00 AM [facility] gabapentin 100 MG Oral Capsule 05/07/2020 12:00:00 AM [facility] tramadol hydrochloride 50 MG Oral Tablet 05/07/2020 12:00:00 AM [facility] POLYETHYLENE GLYCOL 3350 142 MG/ML Oral Solution 05/06/2020 09:00:0 0 AM [facility] 0.4 ML Enoxaparin sodium 100 MG/ML Prefilled Syringe 020 12:00:00 AM [facility] POLYETHYLENE GLYCOL 3350 142 MG/ML Oral Solution 05/04/2020 12:00:0 0 AM [facility] Lisinopril 20 MG Oral Tablet 05/04/2020 12:00:[address] [facility] RES[facility] 8.6 MG Oral Tablet 05/03/2020 04:31:39 PM [facility] Acetaminophen 325 MG Oral Tablet 05/03/2020 12:00:00 AM [facility] gabapentin 100 MG Oral Capsule 05/03/2020 12:00:00 AM [facility], RESIDENTIAL 8.6 MG Oral Tablet 05/03/2020 12:00:00 AM [facility] tramadol hydrochloride 50 MG Oral Tablet 05/03/2020 12:00:00 AM [facility] Diclofenac Sodium 0.01 MG/MG Topical Gel 05/03/2020 12:00:00 AM [facility] Lidocaine 5 % External Patch (Lidoderm) 04/23/2020 12:00:00 AM [facility] Acetaminophen 325 MG / Hydrocodone Bitartrate 10 MG Oral Tablet [facility]
[2020-10-28 17:27] VITALS: BP 147/92
--- NOTE | 2020-10-30 10:16 | ED PDOC ---
Post-Departure Follow-Up dr amado jimenez faxed formal report of ct c spine fo rfu Pool Augustin MD Oct 30, 2020 10:16
== END 2020-10-28 18:11 | disposition home or self-care (01) ==
LOC: M ED 15:15 → EDBD 15:15 → M ED 18:11
DX: S20.221A Contusion of right back wall of thorax, initial encounter (principal); W01.0XXA Fall on same level from slipping, tripping and stumbling without subsequent striking against object, initial encounter; Y92.019 Unspecified place in single-family (private) house as the place of occurrence of the external cause; Y93.9 Activity, unspecified; Y99.9 Unspecified external cause status; I10 Essential (primary) hypertension; E78.5 Hyperlipidemia, unspecified; G89.29 Other chronic pain; M54.9 Dorsalgia, unspecified; Z87.891 Personal history of nicotine dependence; Z98.1 Arthrodesis status; Z88.1 Allergy status to other antibiotic agents; Z88.8 Allergy status to other drugs, medicaments and biological substances; Z91.013 Allergy to seafood; Z91.030 Bee allergy status; Z79.82 Long term (current) use of aspirin; Z79.899 Other long term (current) drug therapy

== ENCOUNTER 2021-04-12 15:25 | Emergency (ER) | payer MEDICARE ==
[~2021-04-12] VITALS: Ht 152.4 cm; Wt 56.8 kg
[2021-04-12] MEDS ORDERED: LISI20TA33 PO (16:01)
--- NOTE | 2021-04-12 16:50 | REP ---
INDICATION: DYSPNEA/COUGH. COMPARISON: Comparison portable chest x-ray February 18, 2020. TECHNIQUE: Portable upright AP chest radiograph. FINDINGS: The lungs are well inflated and free of infiltrate. There is a granulomatous calcification again noted in the right base. Lumbar spine fusion hardware is noted in place. The heart is enlarged unchanged. Pulmonary vasculature is not increased. 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 There is a periarticular soft tissue calcification adjacent to the left proximal humerus.. IMPRESSION: Mild cardiomegaly. Otherwise no active disease.. <Electronically signed by Que Foote > 04/12/21 [id number]
[2021-04-12 17:02] LABS: VENOUS BASE EXCESS 4.3 (-2.0-2.0); VENOUS HCO3 31.6 MEQ/L (23.0-27.0); VENOUS O2 SATURATION 64.5 % (60.0-80.0); VENOUS PARTIAL PRESSURE CO2 60.1 mmHg (38.0-50.0); VENOUS PH 7.338 UNITS (7.330-7.430); VENOUS STANDARD HCO3 27.6 MEQ/L; VENOUS TOTAL CO2 33.4 MEQ/L (24.0-28.0)
[2021-04-12 17:08] LABS: BASO # 0.1 10^3/uL (0.0-0.2); BASO % 0.6 % (0.0-1.0); EOS # 0.4 10^3/uL (0.0-0.5); EOS % 4.2 % (0.0-3.0); HEMOGLOBIN 10.6 g/dl (12.0-15.5); LYMPH # 2.6 10^3/uL (1.5-5.0); LYMPH % 29.2 % (24.0-44.0); MEAN CORPUSCULAR HGB CONC 30.3 g/dl (32.0-36.5); MONO # 0.7 10^3/uL (0.0-0.8); MONO % 7.8 % (2.0-8.0); NEUTROPHILS # 5.2 10^3/uL (1.5-8.5); NEUTROPHILS % 57.9 % (36.0-66.0); PLATELET COUNT, AUTOMATED 209 10^3/uL (150-450); RED BLOOD COUNT 4.07 10^6/uL (4.00-5.40); WHITE BLOOD COUNT 9.1 10^3/uL (4.0-10.0)
[2021-04-12 17:43] LABS: ALBUMIN 3.8 GM/DL (3.2-5.2); ALT/SGPT 25 U/L (12-78); BILIRUBIN,DIRECT 0.1 MG/DL (0.0-0.2); BILIRUBIN,TOTAL 0.5 MG/DL (0.2-1.0); BLOOD UREA NITROGEN 14 MG/DL (7-18); CALCIUM LEVEL 8.9 MG/DL (8.8-10.2); CARBON DIOXIDE LEVEL 31 MEQ/L (21-32); CHLORIDE LEVEL 107 MEQ/L (98-107); CK-MB VALUE MASS 1.2 NG/ML (<3.6); CPK CREATINE PHOSPHOKINASE 99 U/L (26-192); CREATININE FOR GFR 0.87 MG/DL (0.55-1.30); GLOMERULAR FILTRATION RATE > 60.0 (>32); GLUCOSE, FASTING 89 MG/DL (70-100); MB/CK RELATIVE INDEX 1.21 (< OR =4); NT-PRO BNP 272 PG/ML (<450); POTASSIUM SERUM 3.9 MEQ/L (3.5-5.1); SODIUM LEVEL 142 MEQ/L (136-145); THYROXINE (T4) 8.5 UG/DL (4.5-12.0); TOTAL PROTEIN 7.7 GM/DL (6.4-8.2); TROPONIN I < 0.02 NG/ML (< 0.10)
[2021-04-12 17:46] VITALS: BP 194/83
[2021-04-12] MEDS ORDERED: LASI20TA3 PO (18:04)
[2021-04-12] MEDS ORDERED: K-TA10TA2 PO (18:04)
[2021-04-12] MEDS ORDERED: FUROSEMIDE 20MG/2ML VIAL (J1940) IV ONE (18:05)
--- NOTE | 2021-04-13 05:22 | ECGEPIP ---
[facility] - ED Test Date: 2021-04-12 Pat Name: BIJAN ETIENNE Department: Room: - Gender: Female Top Cutter: WHIT : 1930 Requested By: Preet Vuong Order Number: [id number] Reading MD: Preet Norris Measurements Intervals [place] Rate: 66 P: 84 VT: 168 QRS: -76 QRSD: 144 T: 67 QT: 470 QTc: 492 Interpretive Statements Normal sinus rhythm Left axis deviation Right bundle branch block LEFT ANTERIOR FASCICULAR BLOCK Left ventricular hypertrophy with repolarization abnormality ( R in aVL ) SIMILAR TO 02/18/20 Electronically Signed on 04-13-2021 5:21:46 EDT by Preet Norris
== END 2021-04-12 19:00 | disposition home or self-care (01) ==
LOC: M ED 15:25
DX: R22.43 Localized swelling, mass and lump, lower limb, bilateral (principal); R06.02 Shortness of breath; R94.31 Abnormal electrocardiogram [ECG] [EKG]; I51.7 Cardiomegaly; E78.5 Hyperlipidemia, unspecified; K21.9 Gastro-esophageal reflux disease without esophagitis; Z88.1 Allergy status to other antibiotic agents; Z88.8 Allergy status to other drugs, medicaments and biological substances; Z79.82 Long term (current) use of aspirin; Z79.899 Other long term (current) drug therapy
CPT/HCPCS: 36415; 71045; 80048; 80076; 82550; 82553; 82803; 83605; 83880; 84436; 84443; 84484; 85025; 93005; 93041; 94760; 99285; J1940

== ENCOUNTER → 2022-01-05 | Outpatient (CLI) | payer MEDICARE ==
[~2022-01-05] MED LIST changes: +K-TA10TA2 PO; +LASI20TA3 PO; -LISI20TA20 PO; +LISI20TA33 PO; +LISI20TA37 PO
== END ==
LOC: M WHC 14:17
PROVIDERS: ATTEND Physician Assistant
DX: N63.13 Unspecified lump in the right breast, lower outer quadrant (principal)
CPT/HCPCS: 76642; 77066; G0279

== ENCOUNTER → 2022-01-25 | Outpatient (CLI) | payer MEDICARE ==
[2022-01-25 14:24] VITALS: BP 152/96
== END ==
LOC: M WHCPRO 12:28
PROVIDERS: ATTEND Surgery
DX: N63.11 Unspecified lump in the right breast, upper outer quadrant (principal); R92.8 Other abnormal and inconclusive findings on diagnostic imaging of breast; R59.9 Enlarged lymph nodes, unspecified

== ENCOUNTER → 2022-02-03 | Outpatient (CLI) | payer MEDICARE ==
[~2022-02-03] MED LIST changes: +SERT50TA29; +SIMV20TA22
== END ==
LOC: M ONCR 13:27
PROVIDERS: ATTEND General Practice
DX: C50.811 Malignant neoplasm of overlapping sites of right female breast (principal); Z79.82 Long term (current) use of aspirin; Z79.899 Other long term (current) drug therapy; Z91.030 Bee allergy status; Z87.891 Personal history of nicotine dependence; Z88.1 Allergy status to other antibiotic agents; Z88.8 Allergy status to other drugs, medicaments and biological substances; Z91.013 Allergy to seafood

== ENCOUNTER 2022-02-14 09:59 | Outpatient (RCR) | payer MEDICARE | END 2022-02-21 | LOC: M ONCR 09:59 | PROVIDERS: ATTEND General Practice | DX: C50.811 Malignant neoplasm of overlapping sites of right female breast (principal) ==

== ENCOUNTER 2022-03-03 11:18 | Outpatient (RCR) | payer MEDICARE | END 2022-03-23 | LOC: M ONCR 11:18 | PROVIDERS: ATTEND General Practice | DX: C50.811 Malignant neoplasm of overlapping sites of right female breast (principal); I50.9 Heart failure, unspecified; I11.0 Hypertensive heart disease with heart failure; G47.33 Obstructive sleep apnea (adult) (pediatric); E11.9 Type 2 diabetes mellitus without complications; M19.90 Unspecified osteoarthritis, unspecified site; Z79.899 Other long term (current) drug therapy; Z79.82 Long term (current) use of aspirin; Z88.8 Allergy status to other drugs, medicaments and biological substances; Z91.013 Allergy to seafood; Z91.030 Bee allergy status; Z88.1 Allergy status to other antibiotic agents; Z98.890 Other specified postprocedural states ==